=== PATIENT | female | born 1985 | race Caucasian/White ===

== ENCOUNTER 2018-08-27 12:52 | Emergency (ER) | payer SELFPAY ==
--- OUTSIDE RECORDS SUMMARY | 2018-08-27 12:59 | XMS REPORT | CCD ---
:[address] [facility] Care Team Providers Name Role Phone Moris Jonas Consulting Provider Allergies, Adverse Reactions, Alerts Substance Reaction Status aspirin Active Benadryl Active Claritin Active vancomycin Active ZyrTEC Active Medications Medication Instructions Start Date End Date Status Tylenol 650 mg, 20.3 mL, Route: PO, Drug form: 03/02/2012 03/02/2012 Completed LIQ, ONCE, Dosing Weight 100, kg, Priority: STAT, Start date: 03/02/12 10:51:00, Stop date: 03/02/12 10:51:00 Vital Signs Most recent to oldest [Reference Range]: 1 Height 154.94 cm (03/02/2012 10:30:00) Weight 100.000 kg (03/02/2012 10:30:00) Results URINALYSIS Most recent to oldest [Reference Range]: 1 UA Turbidity [Clear] Slight *ABN* (03/02/2012 10:35:00) UA Color Ltyellow *NA* (03/02/2012 10:35:00) UA pH [5.0-8.0] 7.0 (03/02/2012 10:35:00) UA Spec Grav [<=1.030] 1.006 (03/02/2012 10:35:00) UA Glucose [Negative mg/dL] Negative mg/dL *NA* (03/02/2012 10:35:00) UA Blood [Negative] Negative (03/02/2012 10:35:00) UA Ketones [Negative mg/dL] Negative mg/dL *NA* (03/02/2012 10:35:00) UA Protein [Negative mg/dL] Negative mg/dL (03/02/2012 10:35:00) UA Urobilinogen [0.1-1.0 mg/dL] <=1.0 mg/dL *NA* (03/02/2012 10:35:00) UA Bili [Negative] Negative *NA* (03/02/2012 10:35:00) UA Leuk Est [Negative] Small *ABN* (03/02/2012 10:35:00) UA Nitrite [Negative] Negative (03/02/2012 10:35:00) UA WBC [0-5 /HPF] 3 /HPF (03/02/2012 10:35:00) UA RBC [0-2 /HPF] 1 /HPF (03/02/2012 10:35:00) UA Bacteria [None Seen /HPF] Few /HPF *NA* (03/02/2012 10:35:00) UA Sq Epi [Few /LPF] Many /LPF *ABN* (03/02/2012 10:35:00) UA Trans Epi [<=0 /LPF] 4 /LPF *HI* (03/02/2012 10:35:00) Microbiology Reports PROCEDURE:Culture: Urine STATUS: In Progress BODY SITE: COLLECTED DATE/TIME: 03/02/2012 10:35:00 SOURCE: Urine, Clean Catch FREE TEXT SOURCE: PRELIMINARY REPORTS Preliminary ReportHolding For Better Growth
--- OUTSIDE RECORDS SUMMARY | 2018-08-27 12:59 | XMS REPORT | Continuity of Care Document ---
:1985 Author Organization Interface Problems Problem Status Onset Classification Date Comments Source Date Reported CHF Active [address] BY DR Active [address] R/O LABOR Active [address] SHORTNESS OF BREATH Active [address], [place] 30WK PREG -PAIN Active [address] Q20.[address] CHEST PAIN FROM Active [facility] COUGHING [address] [place] ABD PAIN Active [facility] 0[address] [place] BACK PAIN Active [address] [place] FLU LIKE SYMPTOMS Active [address] [place] SOB Active [address] [place] RASH Active [address] [place] EAR ACHE Active [address]15 [place] LEFT EAR PAIN Active [address] [place] PNEUMONIA Active [address]14 [place] LABOR Active [address] Active [address] 37 WEEKS Active [facility] CHF, TGA, S/P [facility] 37 WEEKS CHF Active [address] 34 WKS Active [address] 4 WK 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 [place] CRAMPING Active [address]12 [place] KIDNEY FAILURE Resolved Problem 07/21/[address] Asthma Resolved Problem 07/21/[address] CHF Resolved Problem 07/21/[address] Transposition of Resolved Problem 07/21/2012 [facility] great vessels [address] [place] [address] PNEUMONIA, ORGANISM Active [facility] [place] THREAT LABOR Active [facility] [place] [facility] CHF NOS Active [facility] DISCORDANT Active [facility] VENTRICULOARTERIAL Medical CONNECTION Center HEART FAILURE, Active [facility] UNSPECIFIED Medical Center RELATED Active [facility] CONDITIONS, UNSP, Medical UNSP Center Medications Medication Details Route Status Patient Ordering Order Source Instructions Provider Date Colace 100 mg oral 100 mg, 1 cap, PO Active [place] /04/ [facility] [place] capsule PO, BID, PRN, 60 2012 Medical cap, 1, 1, Center Constipation, Substitution Allowed, CAP Colace 100 mg oral 100 mg, 1 cap, PO Active [place] /04/ [facility] [place] capsule PO, BID, PRN, 60 2012 Medical cap, 1, 1, Center Constipation, Substitution Allowed, CAP Wallace 5/325 oral 1-2 tab, PO, PO Active [place] 07/19/ [place] tablet Q6H, PRN, 20 2012 Medical tab, Pain, Center Substitution Allowed, Maintenance Wallace 5/325 oral 1-2 tab, PO, PO Active [place] 07/19/ [place] tablet Q6H, PRN, 20 2012 Medical tab, Pain, Center Substitution Allowed, Maintenance Colace 100 mg oral 100 mg, 1 cap, PO Active [place] 07/19/ [place] capsule PO, BID, PRN, 60 2012 Medical cap, 1, 1, Center Constipation, Substitution Allowed, CAP Wallace 5/325 oral 1-2 tab, PO, PO Active [place] /04/ [place] tablet Q6H, PRN, 20 2012 Medical tab, Pain, Center Substitution Allowed, Maintenance gentamicin + 530 mg, 13.25 IV No Gabriel [facility] Sodium Chloride mL, Route: IV, Longer 2012 Medical 0.9% IV 100 mL Drug form: INJ, Active Center [id number], Dosing Weight 107.5, kg, Start date: 07/15/12 23:00:00, Duration: 30 day, Stop date: 08/13/12 23:00:00, Pediatric DosingPediatric Dosing clindamycin 900 mg, 6 mL, IVPB No Gabriel [facility] Route: IVPB, Longer 2012 Medical Drug form: INJ, Active Center [id number], Dosing Weight 107.5, kg, Start date: 07/15/12 23:00:00, Duration: 30 day, Stop date: 08/14/12 15:00:00 ampicillin 2 gm, Route: IVPB No Gabriel [facility] IVPB, Drug form: 2012 Medical PDR/INJ, [id number], Active Center Dosing Weight 107.5, kg, Start date: 07/15/12 23:00:00, Duration: 30 day, Stop date: 08/14/12 17:00:00 levothyroxine 175 microgram, PO No [facility] Route: PO, Drug Longer 2012 Medical form: TAB, Active Center Daily, Dosing Weight 108.182, kg, Start date: 07/15/12 22:00:00, Duration: 30 day, Stop date: 08/14/12 9:00:00 Singulair 10 mg, 1 tab, PO No [facility] Route: PO, Drug Longer 2012 Medical form: TAB, QPM, Active Center Dosing Weight 108.182, kg, Start date: 07/15/12 22:00:00, Duration: 30 day, Stop date: 08/14/12 17:00:00 multivitamin, 1 tab, Route: PO No Venkata 07/16[facility] PO, Drug Form: Longer 2012 Medical TAB, Dosing Active Center Weight 108.182, kg, Daily, Start date: 07/15/12 21:00:00, Duration: 30 day, Stop date: 08/13/12 21:00:00 Saline Flush 0.9% 5 ml, Route: IVP No Mark 07/15[facility] IVP, Drug Form: 2012 Medical INJ, Dosing Active Center Weight 108.182, kg, Q12H, Start date: 07/15/12 9:00:00, Duration: 30 day, Stop date: 08/13/12 21:00:00 1 tab, Route: PO No 07/15[facility] Multivitamins oral PO, Drug Form: Longer 2012 Medical tablet TAB, Dosing Active Center Weight 108.182, kg, Daily, Start date: 07/15/12 9:00:00, Duration: 30 day, Stop date: 08/13/12 9:00:00 atenolol 25 mg 25 mg, 1 tab, PO No Morgan 07/15[facility] oral tablet Route: PO, Drug Longer 2012 Medical form: TAB, Active Center Daily, Dosing Weight 107.5, kg, Priority: NOW, Start date: 07/15/12 8:33:00, Duration: 30 day, Stop date: 08/13/12 9:00:00 magnesium sulfate 2 gm, 50 mL, IVPB No [facility] Route: IVPB, Longer 2012 Medical Drug form: INJ, Active Center Q2H, Dosing Weight 107.5, kg, Start date: 07/15/12 6:00:00, Duration: 3 doses or times, Stop date: 07/15/12 10:00:00, For Mg=1.0 - 1.4 mg/dLFor Mg=1.0 - 1.4 mg/dL HYDROmorphone 15 mg, 30 mL, IV No Hastings [facility] 0.5mg/mL RESIDENTIAL CARE OFFICER Route: IV, RESIDENTIAL CARE OFFICER Longer 2012 Medical (15mg/30 mL) 15 mg Dose: 0.2 mg, Active Center RESIDENTIAL CARE OFFICER Lockout: 10 minutes, 4 Hour Limit (In MG): 5, Drug Form: INJ, Continuous, Start date: 07/15/12 3:00:00, Duration: 30 day, Stop date: 08/14/12 3:59:00 M-M-R II 0.5 ml, Route: SUB-Q No [facility] SUB-Q, Drug Longer 2012 Medical Form: PDR/INJ, Active Center Dosing Weight 108.182, kg, ONCALL, Start date: 07/15/12 2:00:00, Duration: 1 doses or times, Stop date: 07/22/12 0:00:00 acetaminophen-hydr 2 tab, Route: PO No [facility] ocodone 325 mg-5 PO, Drug Form: 2012 Medical mg oral tablet TAB, Dosing Active Center Weight 108.182, kg, Q4H, PRN Pain Score 4-6, Start date: 07/15/12 1:53:00, Duration: 30 day, Stop date: 08/14/12 1:52:00 Lactated Ringers 20 unit, 1,000 IV No [facility] 1000ml+Pitocin 20 mL, Rate: 50 Longer 2012 Medical units IV (Premix) ml/hr, Infuse Active Center 20 unit over: 20 hr, Dosing Weight 108.182, kg, Route: IV, Total Volume: 1,000 mL, Start date: 07/15/12 1:53:00, Duration: 2 day, Stop date: 07/17/12 1:52:00, Replace Every: 8 hr Saline Flush 0.9% 5 ml, Route: IVP No Mark 07/15[facility] IVP, Drug Form: 2012 Medical INJ, Dosing Active Center Weight 108.182, kg, PRN, PRN Line Flush, Start date: 07/15/12 1:53:00, Duration: 30 day, Stop date: 08/14/12 2:52:00 acetaminophen 650 mg, 2 tab, PO No Britt 07/15[facility] Route: PO, Drug 2012 Medical form: TAB, Q4H, Active Center Dosing Weight 108.182, kg, PRN Other -See Comment, Start date: 07/15/12 1:53:00, Duration: 30 day, Stop date: 08/14/12 1:52:00 bisacodyl 10 mg, 1 supp, SC No [facility] 07/15[facility] Route: SC, Drug 2012 Medical form: SUPP, PRN, Active Center Dosing Weight 108.182, kg, PRN Other -See Comment, Start date: 07/15/12 1:53:00, Duration: 30 day, Stop date: 08/14/12 2:52:00 lanolin topical 1 appl, Route: TOP No [facility] 07/15[facility] cream TOP, PRN, Drug 2012 Medical form: OINT, PRN Active Center Other -See Comment, Start date: 07/15/12 1:53:00, Duration: 30 day, Stop date: 08/14/12 2:52:00 zolpidem 5 mg, 1 tab, PO No [facility] 07/15[facility] Route: PO, Drug 2012 Medical form: TAB, Active Center Bedtime, Dosing Weight 108.182, kg, PRN Insomnia, Start date: 07/15/12 1:53:00, Duration: 30 day, Stop date: 08/14/12 1:52:00 simethicone 160 mg, 2 tab, PO No [facility] 07/15[facility] Route: PO, Drug 2012 Medical form: [place], Active Center Q8H, Dosing Weight 108.182, kg, PRN Gas, Start date: 07/15/12 1:53:00, Duration: 30 day, Stop date: 08/14/12 1:52:00 azithromycin 500 mg, Route: IVPB No Ezedinma [facility] IVPB, Drug form: Longer 2012 Medical PDR/INJ, ONCALL, Active Center Dosing Weight 108.182, kg, Start date: 07/14/12 23:00:00, Duration: 1 doses or times, Stop date: 07/16/12 0:00:00 morphine Sulfate 2 mg, 1 mL, IVP No edinma [facility] Route: IVP, Drug Longer 2012 Medical form: INJ, Q2H, Active Center Dosing Weight 108.182, kg, PRN Pain, Start date: 07/14/12 22:07:00, Duration: 30 day, Stop date: 08/13/12 22:06:00 Synthroid 75 microgram, 1 PO No [facility] tab, Route: PO, Longer 2012 Medical Drug form: TAB, Active Center Q630AM, Start date: 07/14/12 22:00:00, Duration: 30 day, Stop date: 08/12/12 22:00:00 Levothroid 100 microgram, 1 PO No Britt [facility] tab, Route: PO, Longer 2012 Medical Drug form: TAB, Active Center Q630AM, Start date: 07/14/12 22:00:00, Duration: 30 day, Stop date: 08/12/12 22:00:00 methylergonovine 0.2 mg, 1 mL, IM No edinri 07/15[facility] Route: IM, Drug 2012 Medical form: INJ, Active Center ONCALL, Dosing Weight 108.182, kg, Start date: 07/14/12 22:00:00, Duration: 30 day, Stop date: 08/13/12 22:59:00 carboprost 250 microgram, 1 IM No edinma [facility] mL, Route: IM, Longer 2012 Medical Drug form: INJ, Active Center ONCALL, Dosing Weight 108.182, kg, Start date: 07/14/12 22:00:00, Duration: 30 day, Stop date: 08/13/12 22:59:00 metoclopramide 10 mg, 2 mL, IVP No edinma 07/15[facility] Route: IVP, Drug 2012 Medical form: INJ, Active Center ONCALL, Dosing Weight 108.182, kg, Start date: 07/14/12 22:00:00, Duration: 30 day, Stop date: 08/13/12 22:59:00 misoprostol 1,000 microgram, SC No [facility] 5 tab, Route: 2012 Medical SC, Drug form: Active Center TAB, ERICK, Dosing Weight 108.182, kg, Start date: 07/14/12 22:00:00, Duration: 30 day, Stop date: 08/13/12 22:59:00 cefazolin 3 gm, 150 mL, IVPB No edinma [facility] Route: IVPB, 2012 Medical Drug form: INJ, Active Center ONCALL, Dosing Weight 108.182, kg, Start date: 07/14/12 22:00:00, Stop date: 07/16/12 0:00:00 morphine Sulfate 2 mg, 1 mL, IVP No edinma 07/15[facility] Route: IVP, Drug 2012 Medical form: INJ, Q2H, Active Center Dosing Weight 108.182, kg, PRN Pain, Start date: 07/14/12 21:58:00, Duration: 30 day, Stop date: 08/13/12 21:57:00 morphine Sulfate 2 mg, 1 mL, IVP No Britt 07/15[facility] Route: IVP, Drug 2012 Medical form: INJ, Q2H, Active Center Dosing Weight 108.182, kg, PRN Pain, Start date: 07/14/12 21:49:00, Duration: 30 day, Stop date: 08/13/12 21:48:00 ondansetron 4 mg, 2 mL, IVP No edinma 07/15[facility] Route: IVP, Drug 2012 Medical form: INJ, Q8H, Active Center Dosing Weight 108.182, kg, PRN Nausea & Vomiting, Start date: 07/14/12 21:49:00, Duration: 30 day, Stop date: 08/13/12 21:48:00 Lactated Ringers 20 unit, 1,000 IV No Britt 02/28/ [facility] 1000ml+Oxytocin 20 mL, Rate: 50 Longer 2012 Medical units IV (Premix) ml/hr, Infuse Active Center 20 unit over: 20 hr, Dosing Weight 108.182, kg, Route: IV, Total Volume: 1,000 mL, Start date: 07/14/12 21:49:00, Duration: 2 day, Stop date: 07/16/12 21:48:00, Replace Every: 8 hr citric acid-sodium 30 ml, Route: PO No [facility] citrate PO, Drug Form: Longer 2012 Medical SOLN, Dosing Active Center Weight 108.182, kg, ONCE, Start date: 07/14/12 21:49:00, Duration: 1 doses or times, Stop date: 07/14/12 21:49:00 terbutaline 0.25 mg, 0.25 SUB-Q No Ezedinma [facility] mL, Route: Longer 2012 Medical SUB-Q, Drug Active Center form: INJ, ONCALL, Dosing Weight 108.182, kg, PRN Other -See Comment, Start date: 07/14/12 21:49:00, Duration: 1 doses or times, Stop date: 07/16/12 0:00:00 Lactated Ringers 1,000 mL, Rate: IV No [facility] IV 1,000 mL 125 ml/hr, Longer 2012 Medical Infuse over: 8 Active Center hr, Route: IV, kg, Total Volume: 1,000, Priority: STAT, Start date: 07/14/12 21:44:00, Duration: 30 day, Stop date: 08/13/12 21:43:00 acetaminophen-hydr 1 tab, Route: PO No [facility] ocodone 325 mg-5 PO, Drug Form: Longer 2012 Medical mg oral tablet TAB, Dosing Active Center Weight 108.182, kg, Q4H, PRN Pain Score 1-3, Start date: 07/14/12 21:42:00, Duration: 30 day, Stop date: 08/13/12 21:41:00 pneumococcal 0.5 ml, Route: IM No SYSTEM [facility] 23-valent vaccine IM, Drug Form: Longer 2012 Medical INJ, Daily, Active Center Start date: 05/25/12 9:00:00, Duration: 1 doses or times, Stop date: 05/25/12 9:00:00 Tylenol 650 mg, 20.3 mL, PO No Katrin 03/02[facility] Route: PO, Drug Longer 2011 form: LIQ, ONCE, Active Dosing Weight 100, kg, Priority: STAT, Start date: 03/02/12 10:51:00, Stop date: 03/02/12 10:51:00 Allergies, Adverse Reactions, Alerts Substance Category Reaction Severity Reaction Status Date Comments Source type Reported aspirin drug Allergy Active [facility] Benadryl drug Allergy Active [facility] Claritin drug Allergy Active [facility] vancomycin drug Allergy Active [facility] ZyrTEC drug Allergy Active [facility] Immunizations Immunization Date Given Site Status Last Updated Comments Source measles/mumps/rub 07/19/2012 completed [facility] vaccine Center Results Order Name Results Value Reference Date Interpretation Comments Source Range Chest Chest 1view EXAM: XR CHEST 1 VIEW 09/18 - [facility] 1view DX DX /2017 - [facility] DATE: 09/18/2017 12:31 PM CDT Read by: Bubba Emerson MD Dictated Date/time: 09/18/17 14:23 Electronically Signed by: Bubba Emerson MD 09/18/17 14:25 FINAL REPORT INDICATION: - SOB COMPARISON: PA and lateral chest x-rays April 26, 2016 TECHNIQUE: AP chest, semierect FINDINGS: Sternotomy wires are unchanged from the prior exam. The lungs are clear and the costophrenic sulci are sharp. The cardiomediastinal silhouette is enlarged however this may partly be due to patient positioning. Musculoskeletal findings are within normal. IMPRESSION: Cardiomegaly (may partly be due to patient positioning). The lungs are clear. Teeth Teeth EXAM: XR PANOREX 09/07 [facility] Complete Complete /2017 - Medical Full Mouth Full Mouth This report was dictated by a Recreation Manager/Fellow. I have personally reviewed the images as Center DX DX well as the Resident's interpretation and agree with the findings. DATE: 09/07/2017 3:49 PM CDT Read by: Nabil Lay MD Resident: Nabil Lay MD Dictated Date/time: 09/07/17 22:28 Electronically Signed by: Pepe Dent MD 09/07/17 23:50 FINAL REPORT INDICATION: - infection ADDITIONAL INFORMATION: 'tooth ache' COMPARISON: None TECHNIQUE: A single Panorex view of the jaw. UT SECTION: ER FINDINGS: There is no mandibular fracture. The temporomandibular joints are well aligned. Multiple teeth are absent including #1, 2, 3, 16, 17, 18, 19, 29, 31, 32. Multiple carious teeth are identified. The crowns of the right maxillary first premolar, left maxillary first and second premolars, left maxillary first molar, and the lateral margin of the right mandibular molar are eroded. There are lucencies at the apices of the right maxillary first premolar, left maxillary second premolar. IMPRESSION: Multiple carious teeth as described with periapical lucencies at the right maxillary first premolar and left maxillary second premolar. Chest 2 Chest 2 Patient Name: ZACH RUIZ 04/26 - [facility] views DX views DX - [place] : 1985; Age: 30 years y/o Female MR: [id number] Read by: Tano Salguero MD Dictated Date/time: 04/26/16 19:57 Electronically Signed by: Tano Salguero MD 04/26/16 20:01 FINAL REPORT Study: Chest 2 views DX 04/26/2016 7:20 PM [employer] Ordering Physician: Myriam Bui, MSN Comparison: 10/30/2014 Clinical Indication: Chest pain; Consolidative pulmonary parenchymal opacity is noted at the lateral aspect of the mid left lung partially effacing the left heart border consistent with lingular pneumonia. A few scattered interstitial opacities and granulomatous calcifications are noted bilaterally, nonspecific, likely chronic. The cardiomediastinal silhouette is normal. There is no pleural fluid collection noted. Wire sutures are noted at the sternum. IMPRESSION: Lingular pneumonia. SL: PJOHNSMARGARITA-MORGAN Abdomen Abdomen RUQ 08/21 - [facility] /2015 - [place] Study: Abdomen RUQ US Read by: Skyler Pacheco MD Dictated Date/time: 08/23/15 00:14 Electronically Signed by: Skyler Pacheco MD 08/23/15 00:16 FINAL REPORT Clinical Indication: Right upper quadrant pain Comparison: CT abdomen and pelvis from 01/22/2015 TECHNIQUE: Grayscale and limited color sonographic evaluation of the right upper quadrant was performed with standard technique. FINDINGS: The liver is normal in size and echotexture measuring 15.5 cm. The pancreas is normal in the visualized portions. IVC is patent. Gallbladder is contracted and without stones or sludge.There is no biliary duct dilatation. Common bile duct measures 4 mm. Sonographic Jernigan's sign is negative. The right kidney is normal in size and echotexture without stones or hydronephrosis. The right kidney measures 11.1 x 4.3 x 4.3 cm. The main portal vein is patent and with hepatopedal flow. No free fluid is noted. IMPRESSION: 1. Contracted gallbladder, otherwise unremarkable right upper quadrant ultrasound. SL: [id number] Preg < Preg < 14wks Study: Preg < 14wks Single gest w Transvag US ; Age: 29 years y/o Female 08/21 - [facility] 14wks Single [facility] Single w Transvag Clinical Indication: Abdominal pain, acute; gest w US Transvag Comparison: None Read by: Ishaan Nava MD US Dictated Date/time: 08/23/15 00:11 Electronically Signed by: Ishaan Nava MD 08/23/15 00:15 FINAL REPORT Technique: Grayscale, color and Doppler transabdominal and transvaginal imaging of the pelvis was performed with standard technique. FINDINGS: TRANSABDOMINAL PELVIC ULTRASOUND: UTERUS: The transabdominal pelvic ultrasound evaluation of the uterus shows that the anteverted uterus measures 10.8 x 4.2 x 7.3 cm in size. The uterine parenchyma is not well assessed on the transabdominal pelvic ultrasound. OVARIES: The ovaries are well seen on the transabdominal study and are remarkable for a 1.6 cm cyst in the right ovary. The left ovary contains a similar simple cysts. OTHER FINDINGS: Transabdominal images reveal a small amount of free fluid in the cul-de-sac. TRANSVAGINAL PELVIC ULTRASOUND: UTERUS: The pelvic transvaginal sonographic images show normal uterine contour and morphology. There is normal parenchymal echotexture. The endometrial stripe measures 6 mm in thickness. OVARIES: Right ovary measures 4.5 x 2.5 x 3.0 cm Left ovary measures 4.5 x 1.7 x 2.4 cm. There is normal ovarian contour and morphology. There are no adnexal masses. The Doppler images show normal bilateral ovarian arterial and venous blood flow. OTHER FINDINGS: The transvaginal sonographic images show no evidence of intrauterine device. IMPRESSION: 1. No intrauterine device identified. 2. Small cyst in the right and left ovaries. 3. Minimal free fluid in the cul-de-sac. 4. Mild enlargement of the uterus. SL: [id number] Renal Renal Stone CT ABDOMEN AND PELVIS WITHOUT CONTRAST, WITH RENAL STONE PROTOCOL. 01/[address] /2014 INDICATION: Right lower abdominal pain Read by: Mansoor Andres MD Dictated Date/time: 01/22/15 16:05 Electronically Signed by: Mansoor Andres MD 01/22/15 16:10 FINAL REPORT COMPARISON: CT abdomen pelvis 12/18/2003. Images were obtained through the abdomen and pelvis at 5 mm intervals without contrast. Axial images with sagittal and coronal reconstructions were obtained. Image quality is compromised by the large patient size. No urinary tract calculus, hydronephrosis or perinephric stranding is noted. The lung bases are clear. There is fatty infiltration of the liver. The spleen is prominent but unchanged. The gallbladder is contracted. Common duct is not dilated. The adrenals and pancreas appear normal. No gross intestinal lesion is evident, and there is no mesenteric inflammatory change. The appendix is normal. Uterus and adnexa are not remarkable. The bladder is empty. There is a small amount of gas within the vagina adjacent to cervix. IMPRESSION: 1. No urinary tract pathology or other acute abnormality. 2. Fatty liver and contracted gallbladder. SL: 12 Chest 2 Chest 2 PROCEDURE: Chest 2 views 10/30 - views DX views DX /2014 REASON FOR EXAM: See Clinic Indication CLINICAL INFORMATION Cough and fever Read by: Connor Rivera MD Dictated Date/time: 10/30/14 16:00 Electronically Signed by: Connor Rivera MD 10/30/14 16:01 FINAL REPORT COMPARISON: 10/2014. 10/2013 multiple x-rays. 07/2012. Right infrahilar pneumonia increased from the prior exams. Increased left lower lobe infiltrate. No effusions or pneumothorax. Normal heart and pulmonary vasculature. Intact osseous structures. IMPRESSION: Increased pneumonia. SL: 14 Chest Chest 1view 10/30 - 1view DX EXAM: Portable chest x-ray. HISTORY: Chest pain. Read by: Reese Carballo MD Dictated Date/time: 10/30/14 01:17 COMPARISON: 11/04/2013. Electronically Signed by: Reese Carballo MD 10/30/14 01:18 FINAL REPORT TECHNIQUE: Portable frontal view of the chest. FINDINGS: Shallow inspiration accentuates the pulmonary vessels. Question mild interstitial pneumonia versus superimposed vessels right infrahilar lung; correlate with physical exam. No pulmonary edema or significant pleural effusion. Heart size normal. SL: 12 Chest Chest 1view Portable chest: There has been improvement in the left lung opacity since 11/01/2013 with near resolution. The lungs and pleural spaces are otherwise clear. There is no other significant change. 11/04 - SL:13 Read by: Pepe Ruiz MD Dictated Date/time: 11/04/13 07:26 Electronically Signed by: Pepe Ruiz MD 11/04/13 07:27 FINAL REPORT Chest Chest 1view HISTORY: Shortness of breath. 11/01 - - One view chest. Read by: Osvaldo Ragsdale MD Dictated Date/time: 11/01/13 03:57 Electronically Signed by: Osvaldo Ragsdale MD 11/01/13 03:59 FINAL REPORT Comparison 07/16/2012. - - Read by: Osvaldo Ragsdale MD Dictated Date/time: 11/01/13 03:34 Electronically Signed by: Osvaldo Ragsdale MD 11/01/13 03:36 FINAL REPORT Left perihilar patchy infiltrate. Correlate clinically for pneumonia. No pleural effusion. Heart size normal. No evidence for CHF. IMPRESSION: Left pulmonary infiltrate. Correlate clinically for pneumonia. SL: 14 HISTORY: Chest pain. One view portable chest. Left perihilar, presumed lower lobe infiltrate. No pleural effusion. Heart size normal. No evidence for CHF. IMPRESSION: Left lower lobe opacity could represent pneumonia in the appropriate clinical setting. SL: 14 CHEMISTRY Magnesium 1.8 mg/dL 1.8 - 2.4 07/16 Normal [facility] /[address] [place] [address] CHEMISTRY Phosphorus 4.3 mg/dL 2.5 - 4.5 07/16 Normal [facility] CHEMISTRY Ca Norm 1.14 1.16 - 07/16 LOW [facility] mMol/L 1. [facility] CHEMISTRY Ca Ion 1.14 1.16 - 07/16 LOW [facility] mMol/L 1.30 [facility] CHEMISTRY Ca Norm mgdL 4.56 mg/dL 4.65 - 07/16 LOW [facility] 5. [facility] CHEMISTRY Ca Ion mgdL 4.56 mg/dL 4.65 - 07/16 LOW [facility] 5. [facility] CHEMISTRY AGAP 16.1 meq/L 10.0 - 07/16 Normal [facility] 20.0 [facility] CHEMISTRY eGFR 124 07/16 NA 2Result Comment: The eGFR is calculated using the CKD-EPI formula. In most young, healthy individuals the eGFR will be > 90 mL/min/1.73m2. The eGFR declines with age. An eGFR of 60-89 may be normal in [facility] mL/min/1. some populations, particularly the elderly, for whom the CKD-EPI formula has not been extensively validated. Use of the eGFR is not recommended in the following populations: [address] Individuals with unstable creatinine concentrations, including patients and those with serious co-morbid conditions. Patients with extremes in muscle mass or diet. The data above are obtained from the National Kidney Disease Education Program (NKDEP) which additionally recommends that when the eGFR is used in patients with extremes of body mass index for purposes of drug dosing, the eGFR should be multiplied by the estimated BMI. CHEMISTRY CO2 21 meq/L 24 - 32 07/16 LOW [facility] CHEMISTRY Calcium Lvl 7.6 mg/dL 8.5 - 10.5 07/16 LOW [facility] CHEMISTRY Chloride Lvl 107 meq/L 95 - 109 07/16 Normal [facility] CHEMISTRY Potassium 4.1 meq/L 3.5 - 5.1 07/[address] [facility] CHEMISTRY Glucose Lvl 85 mg/dL 70 - 99 07/16 Normal 4Interpretive Data: Adult reference range values reflect the clinical guidelines of the [place] [employer]. [facility] CHEMISTRY BUN 8 mg/dL 7 - 22 07/16 Normal [facility] CHEMISTRY Creatinine 0.6 mg/dL 0.5 - 1.4 07/[address] [facility] CHEMISTRY Sodium Lvl 140 meq/L 135 - 145 03/ Normal [facility] HEMATOLOGY Segs-Bands # 7.4 K/CMM 1.5 - 8.1 03/ Normal [facility] HEMATOLOGY Basophils 0.1 % 0.0 - 1.0 03/ Normal [facility] HEMATOLOGY Segs 81.8 % 45.0 - 03/ HI [place] 75.0 /2012 [facility] HEMATOLOGY Lymphocytes 10.6 % 20.0 - 03/ LOW [place] 40.0 /2012 [facility] HEMATOLOGY Monocytes 7.2 % 2.0 - 12.0 03/ Normal [facility] HEMATOLOGY Eosinophils 0.3 % 0.0 - 4.0 03/ Normal [facility] HEMATOLOGY Lymphocytes 1.0 K/CMM 1.0 - 5.5 03/ Normal [place] # /2012 [facility] HEMATOLOGY Monocytes # 0.6 K/CMM 0.0 - 0.8 03/ Normal [facility] HEMATOLOGY Hct 26.6 % 36.0 - 03/ [facility] 48.0 /2012 [facility] HEMATOLOGY MCH 31.0 pg 27.0 - 03/ Normal [facility] 31.0 [facility] HEMATOLOGY MCV 89.8 fL 81.0 - 03/ Normal [facility] 99.0 /2012 [facility] HEMATOLOGY Platelet 126 K/CMM 133 - 450 03/ LOW [facility] HEMATOLOGY MPV 9.0 fL 7.4 - 10.4 03 Normal [facility] HEMATOLOGY RDW 13.8 % 11.5 - 03/ Normal [facility] 14.5 /2012 [facility] HEMATOLOGY MCHC 34.6 g/dL 32.0 - 03/ Normal [facility] 36.0 /2012 [facility] HEMATOLOGY Hgb 9.2 g/dL 12.0 - 03/ [facility] 16.0 /2012 [facility] HEMATOLOGY RBC 2.96 M/CMM 4.20 - 03/ [facility] 5.40 /2012 [facility] HEMATOLOGY WBC 9.0 K/CMM 3.7 - 10.4 03 Normal [facility] HEMATOLOGY Plt Morph Clumped 03/ Normal [facility] (07/15/2012 23:00:00) [facility] HEMATOLOGY Lymphocytes 0.5 K/CMM 1.0 - 5.5 03/ LOW [place] # /2012 [facility] HEMATOLOGY Segs-Bands # 5.1 K/CMM 1.5 - 8.1 03 Normal [facility] HEMATOLOGY Basophils 0.3 % 0.0 - 1.0 03/ Normal [facility] HEMATOLOGY Eosinophils 0.1 % 0.0 - 4.0 03 Normal [facility] HEMATOLOGY Monocytes 4.6 % 2.0 - 12.0 03 Normal [facility] HEMATOLOGY RBC Morph Normal 07/16 Normal Medical (07/15/2012 23:00:00) Center HEMATOLOGY Segs 86.3 % 45.0 - 03/ [place] 75.0 /2012 [facility] HEMATOLOGY Lymphocytes 8.7 % 20.0 - 03/ [facility] [place] 40.0 /2012 [facility] HEMATOLOGY Monocytes # 0.3 K/CMM 0.0 - 0.8 03 Normal [facility] HEMATOLOGY MPV Clumped 7.4 - 10.4 03 NA [facility] HEMATOLOGY Platelet Clumped 133 - 450 03 NA [facility] HEMATOLOGY MCV 90.3 fL 81.0 - 03 Normal [facility] 99.0 /2012 [facility] HEMATOLOGY RBC 3.28 M/CMM 4.20 - 03/ LOW [place] 5.40 /2012 [facility] HEMATOLOGY WBC 6.0 K/CMM 3.7 - 10.4 03 Normal [facility] HEMATOLOGY MCH 30.3 pg 27.0 - 03 Normal [facility] 31.0 [facility] HEMATOLOGY RDW 13.6 % 11.5 - 03 Normal 6Result [facility] 14.5 /2012 Comment: [facility] Trina Bailey 07/15/2012 23:32:51 [facility] HEMATOLOGY MCHC 33.5 g/dL 32.0 - 03/ Normal [facility] 36.0 /2012 [facility] HEMATOLOGY Hgb 9.9 g/dL 12.0 - 03/ LOW [facility] 16.0 /2012 [facility] HEMATOLOGY Hct 29.6 % 36.0 - 03/ [facility] 48.0 [facility] BACTERIAL MRSA by PCR Negative 1 07/15 Normal 1Interpretive Data: Interpretive Data: The [employer] Light[employer] MRSA assay is a qualitative test for the direct detection of nasal colonization with methicillin-resistant Staphylococcus aureus (MRSA) to aid in the prevention and control of MRSA infections in healthcare settings. A positive result does not indicate an infection or require treatment. A negative result does not exclude colonization or infection. [facility] (07/15/2012 02:52:00) Center The polymerase chain reaction (PCR) assay detects a proprietary sequence indicative of the integration of the SCCmec cassette into the Staphylococcus aureus chromosome, indicating the presence of MRSA D NA. The assay utilizes FDA cleared IVD reagents. Performance characteristics have been verified by the [facility] within the [facility]. The [facility] Labor atory is authorized under the Clinical Laboratory Improvement Amendment of 1988 (CLIA-88) to perform high complexity testing. CHEMISTRY Phosphorus 3.5 mg/dL 2.5 - 4.5 07/15 Normal [facility] CHEMISTRY Magnesium 1.3 mg/dL 1.8 - 2.4 07/15 LOW [facility] Lvl [facility] CHEMISTRY Ca Ion 1.07 1.16 - 07/15 LOW [place] mMol/L 1. [facility] CHEMISTRY Ca Ion mgdL 4.28 mg/dL 4.65 - 07/15 LOW [place] 5.20 [facility] CHEMISTRY Ca Norm mgdL 4.32 mg/dL 4.65 - 07/15 LOW [place] 5.20 [facility] CHEMISTRY Ca Norm 1.08 1.16 - 07/15 LOW [place] mMol/L 1. [facility] CHEMISTRY AGAP 18.4 meq/L 10.0 - 07/15 Normal [facility] 20.0 [facility] CHEMISTRY eGFR 118 07/15 NA 3Result Comment: The eGFR is calculated using the CKD-EPI formula. In most young, healthy individuals the eGFR will be > 90 mL/min/1.73m2. The eGFR declines with age. An eGFR of 60-89 may be normal in [facility] mL/min/1.7 some populations, particularly the elderly, for whom the CKD-EPI formula has not been extensively validated. Use of the eGFR is not recommended in the following populations: [address] Center Individuals with unstable creatinine concentrations, including patients and those with serious co-morbid conditions. Patients with extremes in muscle mass or diet. The data above are obtained from the National Kidney Disease Education Program (NKDEP) which additionally recommends that when the eGFR is used in patients with extremes of body mass index for purposes of drug dosing, the eGFR should be multiplied by the estimated BMI. CHEMISTRY Glucose Lvl 102 mg/dL 70 - 99 07/15 [place] 5Interpretive Data: Adult reference range values reflect the clinical guidelines of the [place] [employer]. [facility] CHEMISTRY Potassium 4.4 meq/L 3.5 - 5.1 07/15 Normal [facility] CHEMISTRY Sodium Lvl 141 meq/L 135 - 145 07/15 Normal [facility] CHEMISTRY Chloride Lvl 112 meq/L 95 - 109 07/15 [facility] CHEMISTRY Creatinine 0.7 mg/dL 0.5 - 1.4 07/15 Normal [facility] CHEMISTRY BUN 7 mg/dL 7 - 22 07/15 Normal [facility] CHEMISTRY Calcium Lvl 7.7 mg/dL 8.5 - 10.5 07/15 [facility] CHEMISTRY CO2 15 meq/L 24 - 32 07/15 [facility] HEMATOLOGY Platelet 131 K/CMM 133 - 450 07/15 [facility] HEMATOLOGY MPV 9.4 fL 7.4 - 10.4 07/15 Normal [facility] HEMATOLOGY RDW 13.8 % 11.5 - 07/15 [facility] 14.5 [facility] HEMATOLOGY MCHC 34.6 g/dL 32.0 - 07/15 Normal [facility] 36.0 [facility] HEMATOLOGY MCH 31.0 pg 27.0 - 07/15 Normal [facility] 31.0 [facility] HEMATOLOGY MCV 89.6 fL 81.0 - 07/15 Normal [facility] 99.0 [facility] HEMATOLOGY Hct 29.8 % 36.0 - 07/15 [facility] 48.0 /2012 [facility] HEMATOLOGY RBC 3.33 M/CMM 4.20 - 07/15 [facility] 5.40 /2012 [facility] HEMATOLOGY WBC 10.8 K/CMM 3.7 - 10.4 07/15 HI [facility] HEMATOLOGY Hgb 10.3 g/dL 12.0 - 07/15 [facility] 16.0 [facility] HEMATOLOGY Segs-Bands # 9.9 K/CMM 1.5 - 8.1 07/15 [place] /2012 [facility] HEMATOLOGY Lymphocytes 0.4 K/CMM 1.0 - 5.5 07/15 LOW [place] # /2012 [facility] HEMATOLOGY Monocytes # 0.5 K/CMM 0.0 - 0.8 07/15 Normal [facility] HEMATOLOGY Segs 91.4 % 45.0 - 07/15 HI [place] 75.0 [facility] HEMATOLOGY Eosinophils 0.1 % 0.0 - 4.0 07/15 Normal [facility] HEMATOLOGY Lymphocytes 3.8 % 20.0 - 07/15 LOW [place] 40.0 /2012 [facility] HEMATOLOGY Basophils 0.1 % 0.0 - 1.0 07/15 Normal [facility] HEMATOLOGY Monocytes 4.6 % 2.0 - 12.0 07/15 Normal [facility] BLOOD BANK RBC product Product available 07/15 Normal [facility] RESULTS Medical (07/14/2012 22:07:57) [facility] BLOOD BANK Antibody Negative 07/15 Normal [facility] RESULTS [facility] (07/14/2012 22:07:00) Center BLOOD BANK ABO/Rh A POS 07/15 Unknown [facility] RESULTS [facility] IMMUNOLOGY Hep Bs Ag Negative Negative 07/15 NA [facility] *NA* [facility] (07/14/2012 22:07:00) IMMUNOLOGY RPR Non Reactive Non 07/15 Normal [facility] Reactive Medical (07/14/2012 22:07:00) Center CHEMISTRY LDH 144 unit/L 98 - 192 05/24 Normal [facility] CHEMISTRY Uric Acid 3.5 mg/dL 2.5 - 7.0 05/24 Normal [facility] CHEMISTRY A/G Ratio 1.0 0.7 - 1.6 05/24 Normal [facility] CHEMISTRY eGFR 142 05/24 NA 1Result Comment: The eGFR is calculated using the CKD-EPI formula. In most young, healthy individuals the eGFR will be > 90 mL/min/1.73m2. The eGFR declines with age. An eGFR of 60-89 may be normal in [facility] mL/min/1.7 /2012 some populations, particularly the elderly, for whom the CKD-EPI formula has not been extensively validated. Use of the eGFR is not recommended in the following populations: [facility] 3m2 Center Individuals with unstable creatinine concentrations, including patients and those with serious co-morbid conditions. Patients with extremes in muscle mass or diet. The data above are obtained from the National Kidney Disease Education Program (NKDEP) which additionally recommends that when the eGFR is used in patients with extremes of body mass index for purposes of drug dosing, the eGFR should be multiplied by the estimated BMI. CHEMISTRY Globulin 3.0 g/dL 2.0 - 4.0 05/24 Normal [facility] CHEMISTRY AGAP 12.2 meq/L 10.0 - 05/24 Normal [facility] 20.0 [facility] CHEMISTRY B/C Ratio 22 6 - 25 05/24 Normal [facility] CHEMISTRY AST 11 unit/L 0 - 37 05/24 [facility] CHEMISTRY Total 6.1 g/dL 6.4 - 8.4 05/24 [facility] CHEMISTRY Potassium 4.2 meq/L 3.5 - 5.1 05/[address] [facility] CHEMISTRY Sodium Lvl 138 meq/L 135 - 145 05/24 Normal [facility] CHEMISTRY Bili Total 0.4 mg/dL 0.2 - 1.3 05/24 Normal [facility]2012 [facility] CHEMISTRY Calcium Lvl 8.2 mg/dL 8.5 - 10.5 05/24 [facility]2012 [facility] CHEMISTRY Chloride Lvl 110 meq/L 95 - 109 05/24 HI [facility] CHEMISTRY CO2 20 meq/L 24 - 32 05/24 LOW [facility]2012 [facility] CHEMISTRY Creatinine 0.4 mg/dL 0.5 - 1.4 05/24 [facility] CHEMISTRY BUN 9 mg/dL 7 - 22 05/24 Normal [facility] CHEMISTRY Glucose Lvl 78 mg/dL 70 - 99 05/24 Normal 2Interpretive Data: Adult reference range values reflect the clinical guidelines of the [place] [employer]. [facility] CHEMISTRY Albumin Lvl 3.1 g/dL 3.5 - 5.0 05/24 LOW [facility] CHEMISTRY Alk Phos 67 unit/L 39 - 136 05/24 Normal [facility] CHEMISTRY ALT 18 unit/L 0 - 65 05/24 [facility] HEMATOLOGY MCV 89.3 fL 81.0 - 05/24 Normal [facility] 99.0 /2012 [facility] HEMATOLOGY MCHC 34.9 g/dL 32.0 - 05/24 Normal [facility] 36.0 /2012 [facility] HEMATOLOGY MCH 31.2 pg 27.0 - 05/24 HI [facility] 31.0 /2012 [facility] HEMATOLOGY MPV 9.0 fL 7.4 - 10.4 05/24 Normal [facility] HEMATOLOGY Platelet 142 K/CMM 133 - 450 05/24 Normal [facility] HEMATOLOGY RDW 13.3 % 11.5 - 05/24 Normal [facility] 14.5 /2012 [facility] HEMATOLOGY Hgb 11.3 g/dL 12.0 - 05/24 LOW [facility] 16.0 /2012 [facility] HEMATOLOGY WBC 8.8 K/CMM 3.7 - 10.4 05/24 Normal [facility] HEMATOLOGY RBC 3.62 M/CMM 4.20 - 05/24 LOW [facility] 5.40 /2012 [facility] HEMATOLOGY Hct 32.3 % 36.0 - 05/24 LOW [facility] 48.0 [facility] URINALYSIS UA <=1.0 0.1 - 1.0 05/24 [facility] Urobilinogen mg/dL Medical
*NA*< Center br/>(05/24 14:55:00) <sup> </sup> URINALYSIS UA Color Yellow Yellow 05/24 [facility] *NA* Center (05/24/2012 14:55:00) URINALYSIS UA Glucose Negative mg/dL Negative 05/24 [facility] *NA* Center (05/24/2012 14:55:00) URINALYSIS UA Ketones Negative mg/dL Negative 05/24 NA [facility] *NA* Center (05/24/2012 14:55:00) URINALYSIS UA Bili Negative Negative 05/24 [facility] *NA* Center (05/24/2012 14:55:00) URINALYSIS UA Leuk Est Small Negative 05/24 [facility] *ABN* Center (05/24/2012 14:55:00) URINALYSIS UA Blood Negative Negative 05/24 Normal Medical (05/24/2012 14:55:00) Center URINALYSIS UA Nitrite Negative Negative 05/24 Normal [facility] (05/24/2012 14:55:00) Center URINALYSIS UA Turbidity Slight Clear 05/24 [facility] (05/24/2012 14:55:00) URINALYSIS UA Spec Grav 1.017 <=1.030 05/24 Normal [facility] URINALYSIS UA pH 6.5 5.0 - 8.0 05/24 Normal [facility] URINALYSIS UA Protein 20 mg/dL Negative 05/24 [facility] *ABN* [facility] (05/24/2012 14:55:00) URINALYSIS UA Sq Epi Many /LPF Few 05/24 [facility] (05/24/2012 14:55:00) URINALYSIS UA WBC 8 /HPF 0 - 5 05/24 [facility] URINALYSIS UA RBC null 0 - 2 05/24 Normal [facility] URINALYSIS UA Bacteria Occasional /HPF None Seen 05/24 [facility] *NA* [facility] (05/24/2012 14:55:00) URINALYSIS UA Mucus Few /LPF None Seen 05/24 [facility] (05/24/2012 14:55:00) URINALYSIS UA Amorph Moderate /HPF None Seen 05/24 [facility] (05/24/2012 14:55:00) URINALYSIS UA <=1.0 0.1 - 1.0 03/02 [facility] Urobilinogen mg/dL [facility]
*NA*< br/>(03/02 10:35:00) <sup> </sup> URINALYSIS UA Color Ltyellow 03/02 NA [facility] URINALYSIS UA Bacteria Few /HPF None Seen 03/02 [facility] *NA* (03/02/2012 10:35:00) URINALYSIS UA RBC 1 /HPF 0 - 2 03/02 Normal [facility] URINALYSIS UA WBC 3 /HPF 0 - 5 03/02 Normal [facility] URINALYSIS UA Trans Epi 4 /LPF <=0 03/02 [facility] URINALYSIS UA Turbidity Slight Clear 03/02 [facility]2012 [facility] *ABN* (03/02/2012 10:35:00) URINALYSIS UA Leuk Est Small Negative 03/02 [facility] *ABN* (03/02/2012 10:35:00) URINALYSIS UA Nitrite Negative Negative 03/02 Normal [facility] (03/02/2012 10:35:00) URINALYSIS UA Blood Negative Negative 03/02 Normal [facility] (03/02/2012 10:35:00) URINALYSIS UA Ketones Negative mg/dL Negative 03/02 NA [facility] *NA* (03/02/2012 10:35:00) URINALYSIS UA Bili Negative Negative 03/02 NA [facility] *NA* (03/02/2012 10:35:00) URINALYSIS UA Glucose Negative mg/dL Negative 03/02 NA [facility] *NA* (03/02/2012 10:35:00) URINALYSIS UA Protein Negative mg/dL Negative 03/02 Normal [facility] (03/02/2012 10:35:00) URINALYSIS UA Spec Grav 1.006 <=1.030 03/02 Normal [facility] URINALYSIS UA pH 7.0 5.0 - 8.0 03/02 Normal [facility] URINALYSIS UA Sq Epi Many /LPF Few 03/02 [facility] *ABN* (03/02/2012 10:35:00) Microbi[employer] Culture: 03/02 [facility] Vital Signs Vital Sign Value Date Comments Source Diastolic (mm Hg) 55 07/16/2012 [facility] Systolic (mm Hg) 110 07/16/2012 [facility] Diastolic (mm Hg) 64 07/16/2012 [facility] Systolic (mm Hg) 113 07/16/2012 [facility] Temperature Oral (F) 97.8 F 07/16/2012 [facility] Temperature Oral (F) 98.4 F 07/16/2012 [facility] Systolic (mm Hg) 115 07/16/2012 [facility] Diastolic (mm Hg) 56 07/16/2012 [facility] Temperature Oral (F) 98.1 F 07/16/2012 [facility] Respitory Rate 18 07/16/2012 [facility] Respitory Rate 22 07/15/2012 [facility] Respitory Rate 19 07/15/2012 [facility] Weight 107.5 07/15/2012 [facility] Height 154.94 cm 07/15/2012 [facility] Weight 108.182 07/15/2012 [facility] Height 154.94 cm 07/15/2012 [facility] Weight 100.000 06/25/2012 [facility] Height 165.10 cm 06/25/2012 [facility] Weight 102.727 05/25/2012 [facility] Height 154.94 cm 05/25/2012 [facility] Weight 100.000 03/02/2012 [facility] Height 154.94 cm 03/02/2012 [facility] Encounters Location Location Encounter Encounter Reason Attending ADM DC Status Source Details Type Number For Visit Provider Date Date Emergency [id number] SHELISE 03/02 03/02 Active [facility] [place]RIN [facility] [place] [id number] 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 FARO /2012 [facility] [place] [id number] WK 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 [facility] GROWTH ORIN [facility] OU [id number] WKS JARRETT 06/25 06/[address] [facility] MANCILLA /2012 [facility] Inpatient [id number] LABOR JARRETT 07/[address] [facility] MANCILLA [facility] Preadmit [id number] [address] [facility] CHF, TGA, MARANGA Center S/P Procedures Procedure Code Date Perfomer Comments Source section [id number] 05/18/2002 [facility] Open heart [id number] [facility]
--- OUTSIDE RECORDS SUMMARY | 2018-08-27 12:59 | XMS REPORT | CCD ---
:1985 Author Organization [facility] Care Team Providers Name Role Phone Tommy Rodrigues Consulting Provider Allergies, Adverse Reactions, Alerts Substance Reaction Status aspirin Active Benadryl Active Claritin Active vancomycin Active ZyrTEC Active Medications Medication Instructions Start Date End Date Status pneumococcal 23-valent 0.5 ml, Route: IM, Drug 05/25/2012 05/24/2012 Canceled vaccine Form: INJ, Daily, Start date: 05/25/12 9:00:00, Duration: 1 doses or times, Stop date: 05/25/12 9:00:00 Vital Signs Most recent to oldest [Reference Range]: 1 Height 154.94 cm (05/24/2012 18:51:00) Weight 102.727 kg (05/24/2012 18:51:00) Results URINALYSIS Most recent to oldest [Reference Range]: 1 UA Turbidity [Clear] Slight *ABN* (05/24/2012 14:55:00) UA Color [Yellow] Yellow *NA* (05/24/2012 14:55:00) UA pH [5.0-8.0] 6.5 (05/24/2012 14:55:00) UA Spec Grav [<=1.030] 1.017 (05/24/2012 14:55:00) UA Glucose [Negative mg/dL] Negative mg/dL *NA* (05/24/2012 14:55:00) UA Blood [Negative] Negative (05/24/2012 14:55:00) UA Ketones [Negative mg/dL] Negative mg/dL *NA* (05/24/2012 14:55:00) UA Protein [Negative mg/dL] 20 mg/dL *ABN* (05/24/2012 14:55:00) UA Urobilinogen [0.1-1.0 mg/dL] <=1.0 mg/dL *NA* (05/24/2012:55:00) UA Bili [Negative] Negative *NA* (05/24/2012:55:00) UA Leuk Est [Negative] Small *ABN* (05/24/2012:55:00) UA Nitrite [Negative] Negative (05/24/2012:55:00) UA WBC [0-5 /HPF] 8 /HPF *HI* (05/24/2012:55:) UA RBC [0-2 /HPF] <1 /HPF (05/24/2012:55:00) UA Bacteria [None Seen /HPF] Occasional /HPF *NA* (05/24/2012:55:00) UA Sq Epi [Few /LPF] Many /LPF *ABN* (05/24/2012:55:00) UA Amorph Sarah [None Seen /HPF] Moderate /HPF *ABN* (05/24/2012:55:00) UA Mucus [None Seen /LPF] Few /LPF *NA* (05/24/2012:55:00) CHEMISTRY Most recent to oldest [Reference Range]: 1 Sodium Lvl [135-145 mEq/L] 138 mEq/L (05/24/2012:55:00) Potassium Lvl [3.5-5.1 mEq/L] 4.2 mEq/L (05/24/2012:55:00) Chloride Lvl [95-109 mEq/L] 110 mEq/L *HI* (05/24/2012:55:) CO2 [24-32 mEq/L] 20 mEq/L *LOW* (05/24/2012:55:) AGAP [10.0-20.0 mEq/L] 12.2 mEq/L (05/24/2012:55:00) Creatinine Lvl [0.5-1.4 mg/dL] 0.4 mg/dL *LOW* (05/24/2012:55:00) eGFR 142 mL/min/1.73m2 1 *NA* (05/24/2012:55:00) BUN [7-22 mg/dL] 9 mg/dL (05/24/2012:55:00) B/C Ratio [6-25] 22 (05/24/2012:) Glucose Lvl [70-99 mg/dL] 78 mg/dL 2 (05/24/2012) Uric Acid [2.5-7.0 mg/dL] 3.5 mg/dL (05/24/2012) Total Protein [6.4-8.4 g/dL] 6.1 g/dL *LOW* (05/24/2012) Albumin Lvl [3.5-5.0 g/dL] 3.1 g/dL *LOW* (05/24/2012) Globulin [2.0-4.0 g/dL] 3.0 g/dL (05/24/2012) A/G Ratio [0.7-1.6] 1.0 (05/24/2012) Calcium Lvl [8.5-10.5 mg/dL] 8.2 mg/dL *LOW* (05/24/2012) ALT [0-65 unit/L] 18 unit/L (05/24/2012:) AST [0-37 unit/L] 11 unit/L (05/24/2012) Alk Phos [39-136 unit/L] 67 unit/L (05/24/2012) LDH [98-192 unit/L] 144 unit/L (05/24/2012) Bili Total [0.2-1.3 mg/dL] 0.4 mg/dL (05/24/2012) 1Result Comment: The eGFR is calculated using the CKD-EPI formula. In most young , healthy individualsthe eGFR will be >90 mL/min/1.73m2. The eGFR declines with age. An eGFR of 60-89 may be normal in some populations, particularly the elderly, for whom the CKD-EPI formula has not been extensively validated. Use of the eGFR is not recommended in the following populations: Individuals with unstable creatinine concentrations, including patients and those with serious co-morbid conditions. Patients with extremes in muscle mass or diet. The data above are obtained from the National Kidney Disease Education Program ( NKDEP) which additionally recommends that when the eGFR is used in patients with extremes of body mass index for purposesof drug dosing, the eGFR should be multiplied by the estimated BMI.2Interpretive Data: Adult reference range values reflect the clinical guidelines of the [place] [employer].HEMATOLOGY Most recent to oldest [Reference Range]: 1 WBC [3.7-10.4 K/CMM] 8.8 K/CMM (05/24/2012 14:55:00) RBC [4.20-5.40 M/CMM] 3.62 M/CMM *LOW* (05/24/2012:55:) Hgb [12.0-16.0 g/dL] 11.3 g/dL *LOW* (05/24/2012:55:) Hct [36.0-48.0 %] 32.3 % *LOW* (05/24/2012 14:55:) MCV [81.0-99.0 fL] 89.3 fL (05/24/2012:55:) MCH [27.0-31.0 pg] 31.2 pg *HI* (05/24/2012:55:) MCHC [32.0-36.0 g/dL] 34.9 g/dL (05/24/2012:55:) RDW [11.5-14.5 %] 13.3 % (05/24/2012:55:) Platelet [133-450 K/CMM] 142 K/CMM (05/24/2012 14:55:00) MPV [7.4-10.4 fL] 9.0 fL (05/24/2012 14:55:00)
--- OUTSIDE RECORDS SUMMARY | 2018-08-27 12:59 | XMS REPORT | CCD ---
:1985 Author Organization [facility] Care Team Providers Name Role Phone Loli York Referring Provider Allergies, Adverse Reactions, Alerts Substance Reaction Status aspirin Active Benadryl Active Claritin Active vancomycin Active ZyrTEC Active
--- OUTSIDE RECORDS SUMMARY | 2018-08-27 13:00 | XMS REPORT | CCD ---
:1985 Author Organization [facility] Care Team Providers Name Role Phone Loli York Referring Provider Allergies, Adverse Reactions, Alerts Substance Reaction Status aspirin Active Benadryl Active Claritin Active vancomycin Active ZyrTEC Active
--- OUTSIDE RECORDS SUMMARY | 2018-08-27 13:00 | XMS REPORT | CCD ---
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 Medications Medication Instructions Start Date End Date Status HYDROmorphone 0.5mg/mL [employer] 15 mg, 30 mL, Route: 07/15/2012 07/16/2012 Discontinued (15mg/30 mL) 15 mg IV, [employer] Dose: 0.2 mg, [employer] Lockout: 10 minutes, 4 Hour Limit (In MG): 5, Drug Form: INJ, Continuous, Start date: 07/15/12 3:00:00, Duration: 30 day, Stop date: 08/14/12 3:59:00 Harrison 5/325 oral tablet 1-2 tab, PO, Q6H, PRN, 07/19/2012 Ordered 20 tab, Pain, Substitution Allowed, Maintenance Synthroid 75 microgram, 1 tab, 07/14/2012 07/19/2012 Discontinued Route: PO, Drug form: TAB, [id number], Start date: 07/14/12 22:00:00, Duration: 30 day, Stop date: 08/12/12 22:00:00 Levothroid 100 microgram, 1 tab, 07/14/2012 07/19/2012 Discontinued Route: PO, Drug form: TAB, [id number], Start date: 07/14/12 22:00:00, Duration: 30 day, Stop date: 08/12/12 22:00:00 Harrison 5/325 oral tablet 1-2 tab, PO, Q6H, PRN, 07/19/2012 Ordered 20 tab, Pain, Substitution Allowed, Maintenance atenolol 25 mg oral tablet 25 mg, 1 tab, Route: 07/15/2012 07/15/2012 Discontinued PO, Drug form: TAB, Daily, Dosing Weight 107.5, kg, Priority: NOW, Start date: 07/15/12 8:33:00, Duration: 30 day, Stop date: 08/13/12 9:00:00 Colace 100 mg oral capsule 100 mg, 1 cap, PO, BID, 07/19/2012 Ordered PRN, 60 cap, 1, 1, Constipation, Substitution Allowed, CAP morphine Sulfate 2 mg, 1 mL, Route: IVP, 07/14/2012 07/19/2012 Discontinued Drug form: INJ, Q2H, Dosing Weight 108.182, kg, PRN Pain, Start date: 07/14/12 22:07:00, Duration: 30 day, Stop date: 08/13/12 22:06:00 gentamicin + Sodium 530 mg, 13.25 mL, Route: IV, Drug form: INJ, [id number], Dosing Weight 107.5, kg, Start date: 07/15/12 23:00:00, Duration: 30 day, Stop date: 08/13/12 23:00:00, Pediatric Dosing 07/15/2012 07/19/2012 Discontinued Chloride 0.9% IV 100 mL Pediatric Dosing morphine Sulfate 2 mg, 1 mL, Route: IVP, 07/14/2012 07/14/2012 Discontinued Drug form: INJ, Q2H, Dosing Weight 108.182, kg, PRN Pain, Start date: 07/14/12 21:58:00, Duration: 30 day, Stop date: 08/13/12 21:57:00 clindamycin 900 mg, 6 mL, Route: 07/15/2012 07/19/2012 Discontinued IVPB, Drug form: INJ, [id number], Dosing Weight 107.5, kg, Start date: 07/15/12 23:00:00, Duration: 30 day, Stop date: 08/14/12 15:00:00 ampicillin 2 gm, Route: IVPB, Drug 07/15/2012 07/19/2012 Discontinued form: PDR/INJ, [id number], Dosing Weight 107.5, kg, Start date: 07/15/12 23:00:00, Duration: 30 day, Stop date: 08/14/12 17:00:00 levothyroxine 175 microgram, Route: 07/15/2012 07/15/2012 Discontinued PO, Drug form: TAB, Daily, Dosing Weight 108.182, kg, Start date: 07/15/12 22:00:00, Duration: 30 day, Stop date: 08/14/12 9:00:00 Lactated Ringers IV 1,000 1,000 mL, Rate: 125 07/14/2012 07/15/2012 Discontinued mL ml/hr, Infuse over: 8 hr, Route: IV, kg, Total Volume: 1,000, Priority: STAT, Start date: 07/14/12 21:44:00, Duration: 30 day, Stop date: 08/13/12 21:43:00 Harrison 5/325 oral tablet 1-2 tab, PO, Q6H, PRN, 07/19/2012 Ordered 20 tab, Pain, Substitution Allowed, Maintenance Singulair 10 mg, 1 tab, Route: 07/15/2012 07/19/2012 Discontinued PO, Drug form: TAB, QPM, Dosing Weight 108.182, kg, Start date: 07/15/12 22:00:00, Duration: 30 day, Stop date: 08/14/12 17:00:00 acetaminophen-hydrocodone 1 tab, Route: PO, Drug 07/14/2012 07/15/2012 Discontinued 325 mg-5 mg oral tablet Form: TAB, Dosing Weight 108.182, kg, Q4H, PRN Pain Score 1-3, Start date: 07/14/12 21:42:00, Duration: 30 day, Stop date: 08/13/12 21:41:00 acetaminophen-hydrocodone 2 tab, Route: PO, Drug 07/14/2012 07/15/2012 Discontinued 325 mg-5 mg oral tablet Form: TAB, Dosing Weight 108.182, kg, Q4H, PRN Pain Score 4-6, Start date: 07/14/12 21:42:00, Duration: 30 day, Stop date: 08/13/12 21:41:00 multivitamin, 1 tab, Route: PO, Drug 07/15/2012 07/16/2012 Discontinued Form: TAB, Dosing Weight 108.182, kg, Daily, Start date: 07/15/12 21:00:00, Duration: 30 day, Stop date: 08/13/12 21:00:00 magnesium sulfate 2 gm, 50 mL, Route: IVPB, Drug form: INJ, Q2H, Dosing Weight 107.5, kg, Start date: 07/15/12 6:00:00, Duration: 3 doses or times, Stop date: 07/15/12 10:00:00, For Mg=1.0 - 1.4 mg/dL 07/15/2012 07/15/2012 Completed For Mg=1.0 - 1.4 mg/dL Colace 100 mg oral capsule 100 mg, 1 cap, PO, BID, 07/19/2012 Ordered PRN, 60 cap, 1, 1, Constipation, Substitution Allowed, CAP Colace 100 mg oral capsule 100 mg, 1 cap, PO, BID, 07/19/2012 Ordered PRN, 60 cap, 1, 1, Constipation, Substitution Allowed, CAP acetaminophen-hydrocodone 2 tab, Route: PO, Drug 07/15/2012 07/19/2012 Discontinued 325 mg-5 mg oral tablet Form: TAB, Dosing Weight 108.182, kg, Q4H, PRN Pain Score 4-6, Start date: 07/15/12 1:53:00, Duration: 30 day, Stop date: 08/14/12 1:52:00 acetaminophen-hydrocodone 1 tab, Route: PO, Drug 07/15/2012 07/19/2012 Discontinued 325 mg-5 mg oral tablet Form: TAB, Dosing Weight 108.182, kg, Q4H, PRN Pain Score 1-3, Start date: 07/15/12 1:53:00, Duration: 30 day, Stop date: 08/14/12 1:52:00 Lactated Ringers 20 unit, 1,000 mL, 07/15/2012 07/17/2012 Completed 1000ml+Pitocin 20 units IV Rate: 50 ml/hr, Infuse (Premix) 20 unit over: 20 hr, Dosing Weight 108.182, kg, Route: IV, Total Volume: 1,000 mL, Start date: 07/15/12 1:53:00, Duration: 2 day, Stop date: 07/17/12 1:52:00, Replace Every: 8 hr Saline Flush 0.9% 5 ml, Route: IVP, Drug 07/15/2012 07/18/2012 Discontinued Form: INJ, Dosing Weight 108.182, kg, PRN, PRN Line Flush, Start date: 07/15/12 1:53:00, Duration: 30 day, Stop date: 08/14/12 2:52:00 Saline Flush 0.9% 5 ml, Route: IVP, Drug 07/15/2012 07/18/2012 Discontinued Form: INJ, Dosing Weight 108.182, kg, Q12H, Start date: 07/15/12 9:00:00, Duration: 30 day, Stop date: 08/13/12 21:00:00 acetaminophen 650 mg, 2 tab, Route: 07/15/2012 07/15/2012 Discontinued PO, Drug form: TAB, Q4H, Dosing Weight 108.182, kg, PRN Other -See Comment, Start date: 07/15/12 1:53:00, Duration: 30 day, Stop date: 08/14/12 1:52:00 bisacodyl 10 mg, 1 supp, Route: 07/15/2012 07/19/2012 Discontinued MD, Drug form: SUPP, PRN, Dosing Weight 108.182, kg, PRN Other -See Comment, Start date: 07/15/12 1:53:00, Duration: 30 day, Stop date: 08/14/12 2:52:00 bisacodyl 15 mg, 3 tab, Route: 07/15/2012 07/15/2012 Discontinued PO, Drug form: ECTAB, Daily, Dosing Weight 108.182, kg, PRN Other -See Comment, Start date: 07/15/12 1:53:00, Duration: 30 day, Stop date: 08/14/12 1:52:00 lanolin topical cream 1 appl, Route: TOP, 07/15/2012 07/19/2012 Discontinued PRN, Drug form: OINT, PRN Other -See Comment, Start date: 07/15/12 1:53:00, Duration: 30 day, Stop date: 08/14/12 2:52:00 Multivitamins oral 1 tab, Route: PO, Drug 07/15/2012 07/15/2012 Canceled tablet Form: TAB, Dosing Weight 108.182, kg, Daily, Start date: 07/15/12 9:00:00, Duration: 30 day, Stop date: 08/13/12 9:00:00 zolpidem 5 mg, 1 tab, Route: PO, 07/15/2012 07/19/2012 Discontinued Drug form: TAB, Bedtime, Dosing Weight 108.182, kg, PRN Insomnia, Start date: 07/15/12 1:53:00, Duration: 30 day, Stop date: 08/14/12 1:52:00 M-M-R II 0.5 ml, Route: SUB-Q, 07/15/2012 07/19/2012 Completed Drug Form: PDR/INJ, Dosing Weight 108.182, kg, ONCALL, Start date: 07/15/12 2:00:00, Duration: 1 doses or times, Stop date: 07/22/12 0:00:00 simethicone 160 mg, 2 tab, Route: 07/15/2012 07/19/2012 Discontinued PO, Drug form: CHEWTAB, Q8H, Dosing Weight 108.182, kg, PRN Gas, Start date: 07/15/12 1:53:00, Duration: 30 day, Stop date: 08/14/12 1:52:00 morphine Sulfate 2 mg, 1 mL, Route: IVP, 07/14/2012 07/15/2012 Discontinued Drug form: INJ, Q2H, Dosing Weight 108.182, kg, PRN Pain, Start date: 07/14/12 21:49:00, Duration: 30 day, Stop date: 08/13/12 21:48:00 methylergonovine 0.2 mg, 1 mL, Route: 07/14/2012 07/19/2012 Discontinued IM, Drug form: INJ, ONCALL, Dosing Weight 108.182, kg, Start date: 07/14/12 22:00:00, Duration: 30 day, Stop date: 08/13/12 22:59:00 carboprost 250 microgram, 1 mL, 07/14/2012 07/19/2012 Discontinued Route: IM, Drug form: INJ, ONCALL, Dosing Weight 108.182, kg, Start date: 07/14/12 22:00:00, Duration: 30 day, Stop date: 08/13/12 22:59:00 ondansetron 4 mg, 2 mL, Route: IVP, 07/14/2012 07/19/2012 Discontinued Drug form: INJ, Q8H, Dosing Weight 108.182, kg, PRN Nausea & Vomiting, Start date: 07/14/12 21:49:00, Duration: 30 day, Stop date: 08/13/12 21:48:00 metoclopramide 10 mg, 2 mL, Route: 07/14/2012 07/19/2012 Discontinued IVP, Drug form: INJ, ONCALL, Dosing Weight 108.182, kg, Start date: 07/14/12 22:00:00, Duration: 30 day, Stop date: 08/13/12 22:59:00 misoprostol 1,000 microgram, 5 tab, 07/14/2012 07/19/2012 Discontinued Route: MD, Drug form: TAB, ONCALL, Dosing Weight 108.182, kg, Start date: 07/14/12 22:00:00, Duration: 30 day, Stop date: 08/13/12 22:59:00 Lactated Ringers 20 unit, 1,000 mL, 07/14/2012 07/16/2012 Completed 1000ml+Oxytocin 20 units IV Rate: 50 ml/hr, Infuse (Premix) 20 unit over: 20 hr, Dosing Weight 108.182, kg, Route: IV, Total Volume: 1,000 mL, Start date: 07/14/12 21:49:00, Duration: 2 day, Stop date: 07/16/12 21:48:00, Replace Every: 8 hr citric acid-sodium citrate 30 ml, Route: PO, Drug 07/14/2012 07/15/2012 Discontinued Form: SOLN, Dosing Weight 108.182, kg, ONCE, Start date: 07/14/12 21:49:00, Duration: 1 doses or times, Stop date: 07/14/12 21:49:00 terbutaline 0.25 mg, 0.25 mL, 07/14/2012 07/16/2012 Completed Route: SUB-Q, Drug form: INJ, ONCALL, Dosing Weight 108.182, kg, PRN Other -See Comment, Start date: 07/14/12 21:49:00, Duration: 1 doses or times, Stop date: 07/16/12 0:00:00 azithromycin 500 mg, Route: IVPB, 07/14/2012 07/15/2012 Completed Drug form: PDR/INJ, ONCALL, Dosing Weight 108.182, kg, Start date: 07/14/12 23:00:00, Duration: 1 doses or times, Stop date: 07/16/12 0:00:00 cefazolin 3 gm, 150 mL, Route: 07/14/2012 07/15/2012 Completed IVPB, Drug form: ERICK JARAMILLO, Dosing Weight 108.182, kg, Start date: 07/14/12 22:00:00, Stop date: 07/16/12 0:00:00 Immunizations Vaccine Date Status measles/mumps/rubella virus vaccine 07/19/2012 Auth (Verified) Vital Signs Most recent to oldest 1 2 3 [Reference Range]: Height 154.94 cm 154.94 cm (07/15/2012 03:07:00) (07/14/2012 20:36:00) Temperature Oral 97.8 DegF 98.4 DegF 98.1 DegF [96.4-99.1 DegF] (07/16/2012 15:49:00) (07/16/2012 11:32:00) (07/16/2012 08: 33:00) Systolic Blood Pressure 110 mmHg 113 mmHg 115 mmHg [90-140 mmHg] (07/16/2012 17:05:00) (07/16/2012 15:49:00) (07/16/2012 11:32: 00) Diastolic Blood Pressure 55 mmHg 64 mmHg 56 mmHg [60-90 mmHg] *LOW* (07/16/2012 15:49:00) *LOW* (07/16/2012 17:05:00) (07/16/2012 11:32:00) Respiratory Rate [14-20 18 BRMIN 22 BRMIN 19 BRMIN BRMIN] (07/15/2012 19:00:00) *HI* (07/15/2012 15:30:00) (07/15/2012 16:30:00) Weight 107.5 kg 108.182 kg (07/15/2012 03:07:00) (07/14/2012 20:36:00) Results BACTERIAL - SEROLOGY Most recent to oldest [Reference Range]: 1 2 3 MRSA by PCR Negative 1 (07/15/2012 02:52:00) 1Interpretive Data: Interpretive Data: The [employer] Light[employer] MRSA assay is a qualitative test for thedirect detection of nasal colonization with methicillin- resistant Staphylococcus aureus (MRSA) to aid in the prevention and control of MRSA infections in healthcare settings. A positive result does notindicate an infection or require treatment. A negative result does not exclude colonization or infection. The polymerase chain reaction (PCR) assay detects a proprietary sequence indicative of the integration of the SCCmec cassette into the Staphylococcus aureus chromosome, indicating the presence of MRSA DNA. The assay utilizes FDA cleared IVD reagents. Performance characteristics have been verified by the [facility] within the [facility]. The [facility] is authorized under the Clinical Laboratory Improvement Amendment of 1988 (CLIA-88) to performhigh complexity testing.BLOOD BANK RESULTS Most recent to oldest [Reference Range]: 1 2 3 ABO/Rh A POS *Unknown* (07/14/2012 22:07:00) Antibody Scrn Negative (07/14/2012 22:07:00) RBC product Product available (07/14/2012 22:07:57) CHEMISTRY Most recent to oldest [Reference 1 2 3 Range]: Sodium Lvl [135-145 mEq/L] 140 mEq/L 141 mEq/L (07/16/2012 03:56:00) (07/15/2012 02:52:00) Potassium Lvl [3.5-5.1 mEq/L] 4.1 mEq/L 4.4 mEq/L (07/16/2012 03:56:00) (07/15/2012 02:52:00) Chloride Lvl [95-109 mEq/L] 107 mEq/L 112 mEq/L (07/16/2012 03:56:00) *HI* (07/15/2012 02:52:00) CO2 [24-32 mEq/L] 21 mEq/L 15 mEq/L *LOW* *LOW* (07/16/2012 03:56:00) (07/15/2012 02:52:00) AGAP [10.0-20.0 mEq/L] 16.1 mEq/L 18.4 mEq/L (07/16/2012 03:56:00) (07/15/2012 02:52:00) Creatinine Lvl [0.5-1.4 mg/dL] 0.6 mg/dL 0.7 mg/dL (07/16/2012 03:56:00) (07/15/2012 02:52:00) eGFR 124 mL/min/1.73m2 2 118 mL/min/1.73m2 3 *NA* *NA* (07/16/2012 03:56:00) (07/15/2012 02:52:00) BUN [7-22 mg/dL] 8 mg/dL 7 mg/dL (07/16/2012 03:56:00) (07/15/2012 02:52:00) Glucose Lvl [70-99 mg/dL] 85 mg/dL 4 102 mg/dL 5 (07/16/2012 03:56:00) *HI* (07/15/2012 02:52:00) Calcium Lvl [8.5-10.5 mg/dL] 7.6 mg/dL 7.7 mg/dL *LOW* *LOW* (07/16/2012 03:56:00) (07/15/2012 02:52:00) Phosphorus [2.5-4.5 mg/dL] 4.3 mg/dL 3.5 mg/dL (07/16/2012 03:56:00) (07/15/2012 02:52:00) Magnesium Lvl [1.8-2.4 mg/dL] 1.8 mg/dL 1.3 mg/dL (07/16/2012 03:56:00) *LOW* (07/15/2012 02:52:00) Ca Ion mgdL [4.65-5.20 mg/dL] 4.56 mg/dL 4.28 mg/dL *LOW* *LOW* (07/16/2012 03:56:00) (07/15/2012 02:52:00) Ca Ion [1.16-1.30 mMol/L] 1.14 mMol/L 1.07 mMol/L *LOW* *LOW* (07/16/2012 03:56:00) (07/15/2012 02:52:00) Ca Norm [1.16-1.30 mMol/L] 1.14 mMol/L 1.08 mMol/L *LOW* *LOW* (07/16/2012 03:56:00) (07/15/2012 02:52:00) Ca Norm mgdL [4.65-5.20 mg/dL] 4.56 mg/dL 4.32 mg/dL *LOW* *LOW* (07/16/2012 03:56:00) (07/15/2012 02:52:00) 2Result Comment: The eGFR is calculated using [...] eGFR should be multiplied by the estimated BMI.3Result Comment: The eGFR is calculated using the CKD-EPI formula. In most young, healthy individualsthe eGFR will be >90 mL/ min/1.73m2. The eGFR declines with age. An eGFR [...] eGFR should be multiplied by the estimated BMI.4Interpretive Data: Adult reference range values reflect the clinical guidelines of the [place] [employer].5Interpretive Data: Adult reference range values reflect the clinical guidelines of the [place] [employer].HEMATOLOGY Most recent to oldest 1 2 3 [Reference Range]: WBC [3.7-10.4 K/CMM] 9.0 K/CMM 6.0 K/CMM 10.8 K/CMM (07/16/2012 03:56:00) (07/15/2012 23:00:00) *HI* (07/15/2012 02:52:00) RBC [4.20-5.40 M/CMM] 2.96 M/CMM 3.28 M/CMM 3.33 M/CMM *LOW* *LOW* *LOW* (07/16/2012 03:56:00) (07/15/2012 23:00:00) (07/15/2012 02:52:00) Hgb [12.0-16.0 g/dL] 9.2 g/dL 9.9 g/dL 10.3 g/dL *LOW* *LOW* *LOW* (07/16/2012 03:56:00) (07/15/2012 23:00:00) (07/15/2012 02:52:00) Hct [36.0-48.0 %] 26.6 % 29.6 % 29.8 % *LOW* *LOW* *LOW* (07/16/2012 03:56:00) (07/15/2012 23:00:00) (07/15/2012 02:52:00) MCV [81.0-99.0 fL] 89.8 fL 90.3 fL 89.6 fL (07/16/2012 03:56:00) (07/15/2012 23:00:00) (07/15/2012 02:52:00) MCH [27.0-31.0 pg] 31.0 pg 30.3 pg 31.0 pg (07/16/2012 03:56:00) (07/15/2012 23:00:00) (07/15/2012 02:52:00) MCHC [32.0-36.0 g/dL] 34.6 g/dL 33.5 g/dL 34.6 g/dL (07/16/2012 03:56:00) (07/15/2012 23:00:00) (07/15/2012 02:52:00) RDW [11.5-14.5 %] 13.8 % 13.6 % 6 13.8 % (07/16/2012 03:56:00) (07/15/2012 23:00:00) (07/15/2012 02:52:00) Platelet [133-450 K/CMM] 126 K/CMM 131 K/CMM *LOW* *LOW* (07/16/2012 03:56:00) (07/15/2012 02:52:00) Platelet [133-450] Clumped *NA* (07/15/2012 23:00:00) MPV [7.4-10.4 fL] 9.0 fL 9.4 fL (07/16/2012 03:56:00) (07/15/2012 02:52:00) MPV [7.4-10.4] Clumped *NA* (07/15/2012 23:00:00) Segs [45.0-75.0 %] 81.8 % 86.3 % 91.4 % *HI* *HI* *HI* (07/16/2012 03:56:00) (07/15/2012 23:00:00) (07/15/2012 02:52:00) Lymphocytes [20.0-40.0 %] 10.6 % 8.7 % 3.8 % *LOW* *LOW* *LOW* (07/16/2012 03:56:00) (07/15/2012 23:00:00) (07/15/2012 02:52:00) Monocytes [2.0-12.0 %] 7.2 % 4.6 % 4.6 % (07/16/2012 03:56:00) (07/15/2012 23:00:00) (07/15/2012 02:52:00) Eosinophils [0.0-4.0 %] 0.3 % 0.1 % 0.1 % (07/16/2012 03:56:00) (07/15/2012 23:00:00) (07/15/2012 02:52:00) Basophils [0.0-1.0 %] 0.1 % 0.3 % 0.1 % (07/16/2012 03:56:00) (07/15/2012 23:00:00) (07/15/2012 02:52:00) Segs-Bands # [1.5-8.1 7.4 K/CMM 5.1 K/CMM 9.9 K/CMM K/CMM] (07/16/2012 03:56:00) (07/15/2012 23:00:00) *HI* (07/15/2012 02:52:00) Lymphocytes # [1.0-5.5 1.0 K/CMM 0.5 K/CMM 0.4 K/CMM K/CMM] (07/16/2012 03:56:00) *LOW* *LOW* (07/15/2012 23:00:00) (07/15/2012 02:52:00) Monocytes # [0.0-0.8 K/CMM] 0.6 K/CMM 0.3 K/CMM 0.5 K/CMM (07/16/2012 03:56:00) (07/15/2012 23:00:00) (07/15/2012 02:52:00) RBC Morph Normal (07/15/2012 23:00:00) Plt Morph Clumped (07/15/2012 23:00:00) 6Result Comment: Katheryn Baliey 07/15/2012 23:32:51 CSTIMMUNOLOGY Most recent to oldest [Reference Range]: 1 2 3 RPR [Non Reactive] Non Reactive (07/14/2012 22:07:00) Hep Bs Ag [Negative] Negative *NA* (07/14/2012 22:07:00) Procedures Procedures Date Related Diagnosis section 2002 Open heart surgery 11/1983
--- OUTSIDE RECORDS SUMMARY | 2018-08-27 13:00 | XMS REPORT | Summary of Care ---
:1985 Author Name CARL BELL M.D. Address Unavailable Unavailable , Care Team Providers Name Role Phone DEVANG Kim, OLAYINKA Unavailable Unavailable HOMERO Kim, HENOK Unavailable Unavailable RAY MILLIGAN [place] Unavailable Unavailable Unavailable Unavailable Functional Status Name Dates Details Functional status health issues are not documented Status: Name Dates Details Cognitive status health issues are not documented Status: Problems Name Dates Details Normal routine physical examination (V70.0, Z00.00) Status: Active Incomplete miscarriage (634.91, O03.4) Status: Active Missed (632, O02.1) Status: Active Hypoactive thyroid (244.9, E03.9) Status: Active Routine follow-up (V24.2, Z39.2) Status: Active Tinea corporis (110.5, B35.4) Status: Active Nausea and vomiting during (643.90, O21.9) Status: Active History of Encounter for surveillance of other contraceptive (V25.49, Z30.49) Status: Resolved Chronic hypertension in (642.00, O10.919) Status: Active Congestive heart failure (428.0, I50.9) Status: Active HRP (high risk ) (V23.9, O09.90) Status: Active Hypothyroidism (244.9, E03.9) Status: Active Morbid obesity (278.01, E66.01) Status: Active Previous delivery affecting (654.20, O34.219) Status: Active Transposition of great arteries, 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 Quantity: 90 Refills: 2 OLAYINKA WINSTON M.D. Start : 30-Aug-2015 Active Montelukast Sodium 10 MG Oral Tablet TAKE 1 TABLET DAILY. Quantity: 60 Refills: 3 HENOK VALENTIN M.D. Start : 09-Jun-2017 Active Allergies and Adverse Reactions Name Dates Details Aspirin TABS (Allergy) Status: Active Benadryl CAPS (Allergy) Status: Active Claritin TABS (Allergy) Status: Active Vancomycin HCl SOLR (Allergy) Status: Active Zantac TABS (Allergy) Status: Active Zyrtec TABS (Allergy) Status: Active Past Medical History Name Dates Details History of 5 weeks gestation of (V22.2, Z3A.01) Status: Resolved History of complete transposition of great vessels (V15.1, Z98.890) Status: Resolved History of congestive heart disease (V12.59, Z86.79) Status: Resolved History of Encounter for supervision of other normal , unspecified trimester (V22.1, Z34.80) Status: Resolved History of Encounter for surveillance of other contraceptive (V25.49, Z30.49) Status: Resolved History of obesity (V12.29, Z86.39) Status: Resolved Personal history of asthma (V12.69, Z87.09) Status: Resolved Procedures Procedure Dates Details [QLH] GLUCOSE, GESTATIONAL SCREEN (50G)-130 CUTOFF Date: 30-Apr-2017 [QLH] CBC (INCLUDES DIFF/PLT) Date: 30-Apr-2017 [QLH] HEPATIC FUNCTION PANEL Date: 30-Apr-2017 [QLH] URIC ACID Date: 30-Apr-2017 [Q] MATERNAL SERUM AFP Date: 09-Jun-2017 [QH] PROTEIN, TOTAL W/CREAT, RANDOM URINE Date: 30-Apr-2017 [QLH] CREATININE W/EGFR Date: 30-Apr-2017 [QLH] LD Date: 30-Apr-2017 [] TSH+Free T4 Date: 30-Apr-2017 History of Section Completed History of Transposition Repair Mustard Procedure Completed Immunization Name Dates Details Tdap (Adacel) #1 on: 23-Jul-2012 Lot #: [id number] Family History Name Dates Details Family history of Hypertension (V17.49) Comments: Family History Status: Active Family history of Lung Cancer (V16.1) Comments: Family History Status: Active Social History Name Dates Details - Status: Name Dates Details Never smoker Vital Signs Date Test Result Details [id number] BP Systolic 113 mm[Hg] Status: Comments: Location: RUE; Position: Sitting BP Diastolic 76 mm[Hg] Status: Comments: Location: RUE; Position: Sitting Height 61 in Status: Weight 250 lb Status: Body Mass Index Calculated 47.24 kg/m2 Status: Body Surface Area Calculated 2.08 m2 Status: Heart Rate 109 /min Status: 7-Rud-[id number]:11 BP Systolic 115 mm[Hg] Status: Comments: Location: LUE; Position: Sitting BP Diastolic 72 mm[Hg] Status: Comments: Location: LUE; Position: Sitting Height 61 in Status: Weight 256 lb Status: Body Mass Index Calculated 48.37 kg/m2 Status: Body Surface Area Calculated 2.1 m2 Status: Heart Rate 84 /min Status: Comments: Location: L Radial; O2 SAT 98 % Status: Results Date Description Value Details :47 [QLH] CBC (INCLUDES DIFF/PLT) WBC 5.3 {K/CMM} Range: 3.7-10.4 RBC 3.81 {M/CMM} (Below low threshold) Range: 4.20-5.40 Hgb 11.5 g/dl (Below low threshold) Range: 12.0-16.0 Hct 32.1 % (Below low threshold) Range: 36.0-48.0 MCV 84.3 fL Range: 80.0-98.0 MCH 30.2 pg Range: 27.0-31.0 MCHC 35.9 g/dl Range: 32.0-36.0 RDW 13.4 % Range: 11.5-14.5 Platelet 165 {K/CMM} Range: 133-450 Mean Platelet Volume 8.6 fL Range: 7.4-10.4 :47 [QLH] Differential Segmented Neutrophils 67.4 % Range: 45.0-75.0 Monocytes 5.5 % Range: 2.0-12.0 Lymphocytes 25.6 % Range: 20.0-40.0 Eosinophils 1.2 % Range: 0.0-4.0 Basophils 0.3 % Range: 0.0-1.0 Segs-Bands # 3.6 {K/CMM} Range: 1.5-8.1 Lymphocytes # 1.4 {K/CMM} Range: 1.0-5.5 Monocytes # 0.3 {K/CMM} Range: 0.0-0.8 Eosinophils # 0.1 {K/CMM} Range: 0.0-0.5 [id number] [] PROTEIN, TOTAL W/CREAT, RANDOM URINE U Creatinine 329.00 mg/dl Comments: No established reference ranges. Urine Protein Level 42.9 mg/dl Comments: No established reference ranges. U Prot/Creat 0.13 37-Okk-[id number]:47 [QL] CREATININE W/EGFR Creatinine Lvl 0.60 mg/dl Range: 0.50-1.40 eGFR 120 {ML/MIN/1.7} Comments: The eGFR is calculated using the CKD-EPI formula. In most young, healthyindividuals the eGFR will be >90 mL/min/1.73m2. The eGFR declines with age. AneGFR of 60-89 may be normal in some populations, particularly the elderly, forwhom the CKD-EPI formula has not been extensively validated. Use of the eGFR isnot recommended in the following populations:Individuals with unstable creatinine concentratio ns, including patients and those with serious co-morbid conditions.Patients with extremes in muscle mass or diet.The data above are obtained from the National Kidney Disease Education Program(NK DEP) which additionally recommends that when the eGFR is used in patientswith extremes of body mass index for purposes of drug dosing, the eGFR shouldbe multiplied by the estimated BMI. [id number]-[id number] [QL] HEPATIC FUNCTION PANEL Total Protein 6.7 g/dl Range: 6.4-8.4 Albumin Lvl 3.3 g/dl (Below low threshold) Range: 3.5-5.0 Bili Total 0.4 mg/dl Range: 0.2-1.3 Bilirubin Direct 0.1 mg/dl Range: 0.0-0.3 Bilirubin Indirect 0.3 mg/dl Range: 0.0-1.0 Alk Phos 64 u/l Range: 39-136 AST 20 u/l Range: 0-37 ALT 30 u/l Range: 0-65 Globulin 3.4 g/dl Range: 2.7-4.2 A/G Ratio 1.0 Range: 0.7-1.6 94-[id number]:47 [QLH] LD Lactate Dehydrogenase 198 u/l (Above high threshold) Range: 98-192 :47 [QLH] URIC ACID Uric Acid 3.3 mg/dl Range: 2.5-7.0 :47 [LH] TSH+Free T4 TSH 4.970 {uIU/ml} (Above high threshold) Range: 0.360-3.740 T4 Free 0.90 ng/dl Range: 0.76-1.46 :47 [H] Alpha Fetoprotein (Only) Maternal Screen Results (Maternal Screen) Report Test Results (Maternal *Screen Negative* Screen) Gest Age on Collection 17.0 {WEEKS} Date Gest Age Base On ЕКАТЕРИНА Comments: 11/17/2017Recalculations are not recommended when gestational datingby LMP and ultrasound are within 10 days. Maternal Age at ЕКАТЕРИНА 34.1 {yr} Maternal Race Other Maternal Weight 250 {lb} Insulin-Dependent Diabetic No Multiple Gest No Alpha Fetoprotein Maternal 41.7 ng/ml Multiple of Median AFP 1.50 Risk for NTD (OBS) 2734 Maternal Screen Interp Comment Comments: Interpretation: Screen NegativeThis result is screen negative for OSB. The AFP MoMcalculated is based on the gestational age provided. MS-AFPcan identify up to 80% of open neural tube defect s.Closed neural tube defects and some open defects may not bedetected by this test. This test does not screen for fetalDown Syndrome or Trisomy 18. If screening for Down Syndromeor Trisomy 18 is desired , contact [facility] to discuss available options. The AmericanCollege of Obstetricians and Gynecologists recommendsamniocentesis be offered to women age 35 and older. Comment (Maternal Scrn) Comment Comments: Andria Buchanan, PhD, FACMGDirector, Biochemical and Molecular GeneticsReferences: Available Upon Request.Multiples Of Median Cutoffs For AFP ElevationsSingleton 2.5 Black 2.8I DD 2.0 Twins 4.5 Abbreviation DefinitionsIDD - Insulin Dep DiabetesOSBR - Open Spina Bifida RiskFor further inquiries contact [facility] at [phone].Perfo rmed At: [facility] [id number] [facility], [place] [id number] Plata MD Ph:[phone] Maternal Weight 250 Insulin Dependent? N Gest Ager Weeks? 17 Gest Age Days 0 Gest Age Date of 20171117 Calculation (YYYYMMDD) Gest Age Method of Ultrasound Calculation Date of LMP 20170118 Est Due Date 20171117 Number of Fetuses 1 Other Indications? N Additional Information? WHITE Plan of Care Name Dates Details Planned Observations [QLH] CMP W/EGFR On: 17-Apr-2017 Intent [LH] TSH+Free T4 On: 17-Apr-2017 Intent [QH] PROTEIN, TOTAL W/CREAT, RANDOM URINE On: 17-Apr-2017 Intent [Q] MATERNAL SERUM AFP On: 09-Jun-2017 Intent Planned Goals not documented Planned Encounters Appointment; OB/RES, ULTRASOUND On: 30-Jun-2017 9:30 Appointment; OB/, [facility] On: 30-Jun-2017 10:30 Appointment; Cece Conrad M.D. On: 30-Jun-2017 11:00 Interventions Provided Labs/Procedures/Imaging[H] Obstetrics Panel (includes CBCw/Diff,RPR, HbsAg, RubIgG,Type and Screen); Done: 30 Aug 2015[LH] TSH+Free T4; Done: 30 Aug 2015[QH ] HIV AB, HIV 1/2, EIA, WITH REFLEXES; Done: 30 Aug 2015[QH] HIV AB, HIV 1/2, EIA, WITH REFLEXES; Done: 09 Jul 2012[QH] PROTEIN, TOTAL W/CREAT, RANDOM URINE; Done: 30 Aug 2015[QH] STREPTOCOCCUS, GROUP B CULTURE (Genital Strep Screen); Done: 09 Jul 2012[QLH] BASIC METABOLIC PANEL W/EGFR; Done: 30 Aug 2015[QLH] CULTURE, URINE, ROUTINE; Done: 30 Aug 2015[QLH] HCG, TOTAL, QN; Done: 30 Aug 2015[QLH] URINALYSIS, COMPLETE; Done: 30 Aug 2015 Instructions Name Dates Details Instructions not documented Encounters No Encounter data documented On: 23-Jun-2017 Encounter Diagnosis: Problem not documented
--- OUTSIDE RECORDS SUMMARY | 2018-08-27 13:00 | XMS REPORT | CCD ---
:1985 Author Organization [facility] Care Team Providers Name Role Phone Tommy [...] values reflect the clinical guidelines of the [place] [employer].HEMATOLOGY Most recent to oldest [Reference [...]
--- OUTSIDE RECORDS SUMMARY | 2018-08-27 13:00 | XMS REPORT | CCD ---
:1985 Author Organization [facility] Care Team Providers Name Role Phone Concepcion Villalobos Consulting Provider Allergies, Adverse Reactions, Alerts Substance Reaction Status aspirin Active Benadryl Active Claritin Active vancomycin Active ZyrTEC Active Vital Signs Most recent to oldest [Reference Range]: 1 Height 165.10 cm (06/25/2012 11:05:00) Weight 100.000 kg (06/25/2012 11:05:00)
--- OUTSIDE RECORDS SUMMARY | 2018-08-27 13:01 | XMS REPORT ---
:1985 [facility] [address] [place] [address] Care Team Providers Name Role Phone Unavailable Unavailable Unavailable Problems This patient has no known problems. Allergies, Adverse Reactions, Alerts This patient has no known allergies or adverse reactions. Medications This patient has no known medications.
--- NOTE | 2018-08-27 14:37 | EDPHYS ---
Physician Documentation [facility] Name: Karly Hamlin Age: 32 yrs Sex: Female : 1985 Arrival Date: 08/27/2018 Time: 12:57 Bed 15 Private MD: Unknown, Unknown ED Physician Moshe Granda HPI: 08/27 14:25 This 32 yrs old Female presents to ER via Ambulatory with complaints of jmm Toothache. 14:25 The patient presents with pain, swelling. Onset: The symptoms/episode began/occurred jm gradually, 2 day(s) ago. Duration: The symptoms are continuous. Modifying factors: The symptoms are alleviated by nothing, the symptoms are aggravated by nothing. Associated signs and symptoms: Pertinent negatives: chills, fever. Patient complaints of dental pain with swelling beginning 2 days ago. Denies fever. Similar symptoms previously which spontaneously resolved. . Historical: - Allergies: 13:05 Benadryl; sg 13:05 Zyrtec; sg 13:05 Claritin; sg 13:05 Vancomycin; sg 13:05 Zofran; sg 13:05 Phenergan; sg 13:05 Nitroglycerin; sg - Home Meds: 13:05 None [Active]; sg - PMHx: 13:05 Transposition of the great vessels; Carpal Tunnel Syndrome; sg - PSHx: 13:05 Open Heart Sx; ; sg - Immunization history:: Adult Immunizations up to date. - Social history:: Smoking status: Patient/guardian denies using tobacco. - Ebola Screening: : Patient negative for fever greater than or equal to 101.5 degrees Fahrenheit, and additional compatible Ebola Virus Disease symptoms Patient denies exposure to infectious person Patient denies travel to an Ebola-affected area in the 21 days before illness onset No symptoms or risks identified at this time. ROS: 14:25 Constitutional: Negative for fever, chills, and weight loss. jmm 14:25 Neck: Negative for injury, pain, and swelling, Cardiovascular: Negative for chest pain, palpitations, and edema, Respiratory: Negative for shortness of breath, cough, wheezing, and pleuritic chest pain. 14:25 ENT: Positive for dental pain. 14:25 All other systems are negative. Exam: 14:25 Constitutional: This is a well developed, well nourished patient who is awake, alert, jmm and in no acute distress. Head/Face: atraumatic. 14:25 Chest/axilla: Normal chest wall appearance and motion. Cardiovascular: Regular rate and rhythm. No edema appreciated Respiratory: Normal respirations, no respiratory distress appreciated Abdomen/GI: Non distended, soft Skin: General appearance color normal MS/ Extremity: Moves all extremities, no obvious deformities appreciated, no edema noted to the lower extremities Neuro: Awake and alert, normal gait Psych: Behavior is normal, Mood is normal, Patient is cooperative and pleasant 14:25 ENT: Dental exam: dental caries, that is moderate, specifically in the lower left third molar (#17), gum swelling, that is moderate, specifically in the lower left third molar (#17). 14:25 Neck: External neck: erythema, is not appreciated, mass, is not appreciated, swelling, is not appreciated, no submandibular swelling is appreciated, ROM/movement: is normal. Vital Signs: 13:05 BP 114 / 67; Pulse 112; Resp 18; Temp 97.6; Pulse Ox 100% on R/A; Weight 120.2 kg; sg Height 5 ft. 4 in. (162.56 cm); Pain 0/10; 13:05 Body Mass Index 45.49 (120.20 kg, 162.56 cm) MDM: 14:25 Patient medically screened. [facility] 14:36 Data reviewed: vital signs, nurses notes. Counseling: I had a detailed discussion with [facility] the patient and/or guardian regarding: the historical points, exam findings, and any diagnostic results supporting the discharge/admit diagnosis, the need for outpatient follow up, to return to the emergency department if symptoms worsen or persist or if there are any questions or concerns that arise at home. 14:36 ED course: Patient is advised to follow up with dentist for reevaluation in 2 to 3 [facility] days. No submandibular tenderness or swelling appreciated. I do not suspect José's. Patient was given strict return precautions. Patient understood and agrees with the plan of care.. Administered Medications: No medications were administered Disposition: 08/27/18 14:37 Discharged to Home. Impression: Dental caries. - Condition is Stable. - Discharge Instructions: Dental Pain. - Prescriptions for Clindamycin HCl 300 mg Oral Capsule - take 1 capsule by ORAL route every 6 hours for 10 days; 40 capsule. Tylenol- Codeine #3 300-30 mg Oral Tablet - take 1 tablet by ORAL route every 6 hours As needed; 12 tablet. - Medication Reconciliation Form, Thank You Letter, Antibiotic Education, Prescription Opioid Use form. - Follow up: Private Physician; When: 2 - 3 days; Reason: Recheck today's complaints, Continuance of care, Re-evaluation by your physician. Addendum: 08/30/2018 08:36 Co-signature as Attending Physician, Moshe Granda MD I agree with the assessment and k dr plan of care. Signatures: Germain Felipe RN RN sg Moshe Granda MD MD [facility] Franco Merchant PA PA jessica Ivy Og RN RN ph Corrections: (The following items were deleted from the chart) 08/27 14:50 14:37 08/27/2018 14:37 Discharged to Home. Impression: Dental caries. Condition is ph Stable. Forms are Medication Reconciliation Form, Thank You Letter, Antibiotic Education, Prescription Opioid Use. Follow up: Private Physician; When: 2 - 3 days; Reason: Recheck today's complaints, Continuance of care, Re-evaluation by your physician. toni
--- NOTE | 2018-08-27 14:37 | ER ---
Nurse's Notes [facility] Name: Karly Hamlin Age: 32 yrs Sex: Female : 1985 Arrival Date: 08/27/2018 Time: 12:57 Bed 15 Private MD: Unknown, Unknown Diagnosis: Dental caries Presentation: 08/27 13:05 Presenting complaint: Patient states: Left lower jaw and tooth pain that started about sg two days ago, unable to have treatment unless started on abx due to cardiac condition, reports pain now radiates up into the top left jaw and into her left ear, denies N/V/D/Fever. Transition of care: patient was not received from another setting of care. Onset of symptoms. Risk Assessment: Do you want to hurt yourself or someone else? Patient reports no desire to harm self or others. Initial Sepsis Screen: Does the patient meet any 2 criteria? No. Patient's initial sepsis screen is negative. Does the patient have a suspected source of infection? No. Patient's initial sepsis screen is negative. Care prior to arrival: None. 13:05 Method Of Arrival: Ambulatory sg 13:05 Acuity: LAUREN 3 sg Triage Assessment: 14:37 General: Appears in no apparent distress. uncomfortable, Behavior is calm, cooperative, ph appropriate for age. Pain: Complains of pain in mouth Pain radiates to left ear Pain currently is 8 out of 10 on a pain scale. Neuro: Level of Consciousness is awake, alert, obeys commands, Oriented to person, place, time, situation. Cardiovascular: Capillary refill < 3 seconds. Respiratory: Airway is patent Trachea midline Respiratory effort is even, unlabored, Respiratory pattern is regular, symmetrical, Derm: Skin is intact, is healthy with good turgor, Skin is dry, Skin is pink, warm \T\ dry. Skin temperature is warm. Musculoskeletal: Circulation, motion, and sensation intact. Historical: - Allergies: 13:05 Benadryl; sg 13:05 Zyrtec; sg 13:05 Claritin; sg 13:05 Vancomycin; sg 13:05 Zofran; sg 13:05 Phenergan; sg 13:05 Nitroglycerin; sg - Home Meds: 13:05 None [Active]; sg - PMHx: 13:05 Transposition of the great vessels; Carpal Tunnel Syndrome; sg - PSHx: 13:05 Open Heart Sx; ; - Immunization history:: Adult Immunizations up to date. - Social history:: Smoking status: Patient/guardian denies using tobacco. - Ebola Screening: : Patient negative for fever greater than or equal to 101.5 degrees Fahrenheit, and additional compatible Ebola Virus Disease symptoms Patient denies exposure to infectious person Patient denies travel to an Ebola-affected area in the 21 days before illness onset No symptoms or risks identified at this time. Screenin:36 Abuse screen: Denies threats or abuse. Nutritional screening: No deficits noted. ph Tuberculosis screening: No symptoms or risk factors identified. Fall Risk None identified. Assessment: 14:40 General: No changes from previously documented assessment, see triage note. ph Vital Signs: 13:05 BP 114 / 67; Pulse 112; Resp 18; Temp 97.6; Pulse Ox 100% on R/A; Weight 120.2 kg; sg Height 5 ft. 4 in. (162.56 cm); Pain 0/10; 13:05 Body Mass Index 45.49 (120.20 kg, 162.56 cm) ED Course: 12:57 Patient arrived in ED. ag5 12:57 Unknown, Unknown is Private Physician. ag5 12:57 Arm band placed on. 13:06 Triage completed. 13:19 Ivy Og RN is Primary Nurse. 14:24 Franco Merchant PA is PHCP. [facility] 14:24 Moshe Granda MD is Attending Physician. [facility] 14:41 Patient has correct armband on for positive identification. Bed in low position. Call light in reach. 14:48 No provider procedures requiring assistance completed. Patient did not have IV access ph during this emergency room visit. Administered Medications: No medications were administered Outcome: 14:37 Discharge ordered by . [facility] 14:48 Discharged to home ambulatory, with family. 14:48 Condition: good 14:48 Discharge instructions given to patient, Instructed on discharge instructions, follow up and referral plans. medication usage, Demonstrated understanding of instructions, follow-up care, medications, Prescriptions given X 2. 14:50 Patient left the ED. ph Signatures: Germain Felipe RN RN Franco Merchant PA PA Ivy Riley RN RN Nela Piedad ag5
== END 2018-08-27 14:50 | disposition home or self-care (01) ==
LOC: ER 12:52
DX: K02.9 Dental caries, unspecified (principal); Z88.3 Allergy status to other anti-infective agents; Z88.8 Allergy status to other drugs, medicaments and biological substances
CPT/HCPCS: 99282

== ENCOUNTER 2018-12-06 12:32 | Emergency (ER) | payer SELFPAY ==
--- OUTSIDE RECORDS SUMMARY | 2018-12-06 12:40 | XMS REPORT | Continuity of Care Document ---
:1985 Author Organization [facility] [employer] Care Team Providers Name Role Phone [facility] [place] [employer] Unavailable Unavailable Problems Problem Status Onset Classification Date Comments Source Date Reported CHF Active [address] SENT BY DR Active [address] R/O LABOR Active [address] SHORTNESS OF BREATH Active [address], [place] 30[place] PREG -PAIN Active [address] Q20.[address] CHEST PAIN FROM Active [facility] COUGHING [address] [place] ABD PAIN Active [facility] [address] [place] BACK PAIN Active [address] [place] SOB Active [address] [place] FLU LIKE SYMPTOMS Active [address]15 [place] RASH Active [address]15 [place] EAR ACHE Active 015 [place] LEFT EAR PAIN Active 014 [place] PNEUMONIA Active 014 [place] LABOR Active [address] 37 WEEKS CHF Active [address] Active [address] 37 WEEKS Active [facility] CHF, TGA, S/P 013 Medical [facility] 34 WKS Active [address] 4 WK 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 [place] CRAMPING Active 012 [place] KIDNEY FAILURE Resolved Problem 07/21/[address] Asthma Resolved Problem 07/21/[address] CHF Resolved Problem 07/21/[address] Transposition of Resolved 07/01/1 Problem 07/21/2012 [facility] [place] great vessels [facility] CHF NOS Active [facility] THREAT LABOR Active [facility] NEC-UNSPEC [facility] PNEUMONIA, ORGANISM Active N[place] DISCORDANT Active [facility] VENTRICULOARTERIAL Medical CONNECTION Center RELATED Active [facility] CONDITIONS, UNSP, Medical UNSP Center HEART FAILURE, Active [facility] UNSPECIFIED Medical Center Medications Medication Details Route Status Patient Ordering Order Source Instructions Provider Date Colace 100 mg oral 100 mg, 1 cap, PO Active Masry 07/19/ [facility] capsule PO, BID, PRN, 60 2012 Medical cap, 1, 1, Center Constipation, Substitution Allowed, CAP Colace 100 mg oral 100 mg, 1 cap, PO Active Masry 07/19/ [place] capsule PO, BID, PRN, 60 2012 Medical cap, 1, 1, Center Constipation, Substitution Allowed, CAP [place] 5/325 oral 1-2 tab, PO, PO Active Masry 07/19/ [facility] tablet Q6H, PRN, 20 2012 Medical tab, Pain, Center Substitution Allowed, Maintenance [place] 5/325 oral 1-2 tab, PO, PO Active Masry 07/19/ [facility] tablet Q6H, PRN, 20 2012 Medical tab, Pain, Center Substitution Allowed, Maintenance Colace 100 mg oral 100 mg, 1 cap, PO Active Masry 07/19/ [facility] capsule PO, BID, PRN, 60 2012 Medical cap, 1, 1, Center Constipation, Substitution Allowed, CAP [place] 5/325 oral 1-2 tab, PO, PO Active Masry 07/19/ [facility] tablet Q6H, PRN, 20 2012 Medical tab, Pain, Center Substitution Allowed, Maintenance gentamicin + 530 mg, 13.25 IV No Gabriel [facility] Sodium Chloride mL, Route: IV, Longer 2012 Medical 0.9% IV 100 mL Drug form: INJ, Active Center [id number], Dosing Weight 107.5, kg, Start date: 07/15/12 23:00:00, Duration: 30 day, Stop date: 08/13/12 23:00:00, Pediatric DosingPediatric Dosing clindamycin 900 mg, 6 mL, IVPB No Gabriel [facility] Route: IVPB, Longer 2012 Medical Drug form: INJ, Active Center [id number], Dosing Weight 107.5, kg, Start date: 07/15/12 23:00:00, Duration: 30 day, Stop date: 08/14/12 15:00:00 ampicillin 2 gm, Route: IVPB No Gabriel [facility] IVPB, Drug form: Longer 2012 Medical PDR/INJ, [id number], Active Center Dosing Weight 107.5, kg, Start date: 07/15/12 23:00:00, Duration: 30 day, Stop date: 08/14/12 17:00:00 levothyroxine 175 microgram, PO No [facility] Route: PO, Drug Longer 2012 Medical form: TAB, Active Center Daily, Dosing Weight 108.182, kg, Start date: 07/15/12 22:00:00, Duration: 30 day, Stop date: 08/14/12 9:00:00 Singulair 10 mg, 1 tab, PO No [facility] Route: PO, Drug Longer 2012 Medical form: TAB, QPM, Active Center Dosing Weight 108.182, kg, Start date: 07/15/12 22:00:00, Duration: 30 day, Stop date: 08/14/12 17:00:00 multivitamin, 1 tab, Route: PO No Venkata [facility] PO, Drug Form: Longer 2012 Medical TAB, Dosing Active Center Weight 108.182, kg, Daily, Start date: 07/15/12 21:00:00, Duration: 30 day, Stop date: 08/13/12 21:00:00 Saline Flush 0.9% 5 ml, Route: IVP No Mark [facility] IVP, Drug Form: Longer 2012 Medical INJ, Dosing Active Center Weight 108.182, kg, Q12H, Start date: 07/15/12 9:00:00, Duration: 30 day, Stop date: 08/13/12 21:00:00 1 tab, Route: PO No 07/15[facility] Multivitamins oral PO, Drug Form: Longer 2012 Medical tablet TAB, Dosing Active Center Weight 108.182, kg, Daily, Start date: 07/15/12 9:00:00, Duration: 30 day, Stop date: 08/13/12 9:00:00 atenolol 25 mg 25 mg, 1 tab, PO No Morgan 02/28[facility] oral tablet Route: PO, Drug Longer 2012 Medical form: TAB, Active Center Daily, Dosing Weight 107.5, kg, Priority: NOW, Start date: 07/15/12 8:33:00, Duration: 30 day, Stop date: 08/13/12 9:00:00 magnesium sulfate 2 gm, 50 mL, IVPB No Britt Alex Route: IVPB, Longer 2012 Medical Drug form: INJ, Active Center Q2H, Dosing Weight 107.5, kg, Start date: 07/15/12 6:00:00, Duration: 3 doses or times, Stop date: 07/15/12 10:00:00, For Mg=1.0 - 1.4 mg/dLFor Mg=1.0 - 1.4 mg/dL HYDROmorphone 15 mg, 30 mL, IV No [place] Alex 0.5mg/mL [employer] Route: IV, [employer] Longer 2012 Medical (15mg/30 mL) 15 mg Dose: 0.2 mg, Active Center [employer] Lockout: 10 minutes, 4 Hour Limit (In MG): 5, Drug Form: INJ, Continuous, Start date: 07/15/12 3:00:00, Duration: 30 day, Stop date: 08/14/12 3:59:00 M-M-R II 0.5 ml, Route: SUB-Q No [facility] SUB-Q, Drug Longer 2012 Medical Form: PDR/INJ, Active Center Dosing Weight 108.182, kg, ONCALL, Start date: 07/15/12 2:00:00, Duration: 1 doses or times, Stop date: 07/22/12 0:00:00 acetaminophen-hydr 2 tab, Route: PO No [facility] ocodone 325 mg-5 PO, Drug Form: Longer 2012 Medical mg oral tablet TAB, Dosing Active Center Weight 108.182, kg, Q4H, PRN Pain Score 4-6, Start date: 07/15/12 1:53:00, Duration: 30 day, Stop date: 08/14/12 1:52:00 Lactated Ringers 20 unit, 1,000 IV No Britt [facility] 1000ml+Pitocin 20 mL, Rate: 50 Longer 2012 Medical units IV (Premix) ml/hr, Infuse Active Center 20 unit over: 20 hr, Dosing Weight 108.182, kg, Route: IV, Total Volume: 1,000 mL, Start date: 07/15/12 1:53:00, Duration: 2 day, Stop date: 07/17/12 1:52:00, Replace Every: 8 hr Saline Flush 0.9% 5 ml, Route: IVP No Mark 07/15[facility] IVP, Drug Form: 2012 Medical INJ, Dosing Active Center Weight 108.182, kg, PRN, PRN Line Flush, Start date: 07/15/12 1:53:00, Duration: 30 day, Stop date: 08/14/12 2:52:00 acetaminophen 650 mg, 2 tab, PO No Britt 07/15[facility] Route: PO, Drug 2012 Medical form: TAB, Q4H, Active Center Dosing Weight 108.182, kg, PRN Other -See Comment, Start date: 07/15/12 1:53:00, Duration: 30 day, Stop date: 08/14/12 1:52:00 bisacodyl 10 mg, 1 supp, [place] No [facility] 07/15[facility] Route: UT, Drug 2012 Medical form: SUPP, PRN, Active Center Dosing Weight 108.182, kg, PRN Other -See Comment, Start date: 07/15/12 1:53:00, Duration: 30 day, Stop date: 08/14/12 2:52:00 lanolin topical 1 appl, Route: TOP No [facility] 07/15[facility] cream TOP, PRN, Drug 2012 Medical form: OINT, PRN Active Center Other -See Comment, Start date: 07/15/12 1:53:00, Duration: 30 day, Stop date: 08/14/12 2:52:00 zolpidem 5 mg, 1 tab, PO No [facility] 07/15[facility] Route: PO, Drug 2012 Medical form: TAB, Active Center Bedtime, Dosing Weight 108.182, kg, PRN Insomnia, Start date: 07/15/12 1:53:00, Duration: 30 day, Stop date: 08/14/12 1:52:00 simethicone 160 mg, 2 tab, PO No [facility] 02/28[facility] Route: PO, Drug Longer 2012 Medical form: [place], Active Center Q8H, Dosing Weight 108.182, kg, PRN Gas, Start date: 07/15/12 1:53:00, Duration: 30 day, Stop date: 08/14/12 1:52:00 azithromycin 500 mg, Route: IVPB No edinma [facility] IVPB, Drug form: Longer 2012 Medical PDR/INJ, ONCALL, Active Center Dosing Weight 108.182, kg, Start date: 07/14/12 23:00:00, Duration: 1 doses or times, Stop date: 07/16/12 0:00:00 morphine Sulfate 2 mg, 1 mL, [facility] Route: IVP, Drug Longer 2012 Medical form: INJ, Q2H, Active Center Dosing Weight 108.182, kg, PRN Pain, Start date: 07/14/12 22:07:00, Duration: 30 day, Stop date: 08/13/12 22:06:00 Synthroid 75 microgram, 1 PO No 07/15[facility] tab, Route: PO, Longer 2012 Medical Drug form: TAB, Active Center Q630AM, Start date: 07/14/12 22:00:00, Duration: 30 day, Stop date: 08/12/12 22:00:00 Levothroid 100 microgram, 1 PO No Britt [facility] tab, Route: PO, Longer 2012 Medical Drug form: TAB, Active Center Q630AM, Start date: 07/14/12 22:00:00, Duration: 30 day, Stop date: 08/12/12 22:00:00 methylergonovine 0.2 mg, 1 mL, IM No edinma 07/15[facility] Route: IM, Drug 2012 Medical form: INJ, Active Center ONCALL, Dosing Weight 108.182, kg, Start date: 07/14/12 22:00:00, Duration: 30 day, Stop date: 08/13/12 22:59:00 carboprost 250 microgram, 1 IM No edinma 07/15[facility] mL, Route: IM, Longer 2012 Medical Drug form: INJ, Active Center ONCALL, Dosing Weight 108.182, kg, Start date: 07/14/12 22:00:00, Duration: 30 day, Stop date: 08/13/12 22:59:00 metoclopramide 10 mg, 2 mL, IVP No [facility] Route: IVP, Drug 2012 Medical form: INJ, Active Center ONCALL, Dosing Weight 108.182, kg, Start date: 07/14/12 22:00:00, Duration: 30 day, Stop date: 08/13/12 22:59:00 misoprostol 1,000 microgram, [place] No [facility] 07/15[facility] 5 tab, Route: 2012 Medical [place], Drug form: Active Center TAB, ONCALL, Dosing Weight 108.182, kg, Start date: 07/14/12 22:00:00, Duration: 30 day, Stop date: 08/13/12 22:59:00 cefazolin 3 gm, 150 mL, IVPB No edinma 07/15[facility] Route: IVPB, 2012 Medical Drug form: INJ, Active Center ONCALL, Dosing Weight 108.182, kg, Start date: 07/14/12 22:00:00, Stop date: 07/16/12 0:00:00 morphine Sulfate 2 mg, 1 mL, IVP No [facility] 07/15[facility] Route: IVP, Drug 2012 Medical form: INJ, Q2H, Active Center Dosing Weight 108.182, kg, PRN Pain, Start date: 07/14/12 21:58:00, Duration: 30 day, Stop date: 08/13/12 21:57:00 morphine Sulfate 2 mg, 1 mL, IVP No Britt 07/15[facility] Route: IVP, Drug 2012 Medical form: INJ, Q2H, Active Center Dosing Weight 108.182, kg, PRN Pain, Start date: 07/14/12 21:49:00, Duration: 30 day, Stop date: 08/13/12 21:48:00 ondansetron 4 mg, 2 mL, IVP No [facility] 07/[facility] Route: IVP, Drug 2012 Medical form: INJ, Q8H, Active Center Dosing Weight 108.182, kg, PRN Nausea & Vomiting, Start date: 07/14/12 21:49:00, Duration: 30 day, Stop date: 08/13/12 21:48:00 Lactated Ringers 20 unit, 1,000 IV No [facility] 1000ml+Oxytocin 20 mL, Rate: 50 Longer 2012 Medical units IV (Premix) ml/hr, Infuse Active Center 20 unit over: 20 hr, Dosing Weight 108.182, kg, Route: IV, Total Volume: 1,000 mL, Start date: 07/14/12 21:49:00, Duration: 2 day, Stop date: 07/16/12 21:48:00, Replace Every: 8 hr citric acid-sodium 30 ml, Route: PO No [facility] citrate PO, Drug Form: Longer 2012 Medical SOLN, Dosing Active Center Weight 108.182, kg, ONCE, Start date: 07/14/12 21:49:00, Duration: 1 doses or times, Stop date: 07/14/12 21:49:00 terbutaline 0.25 mg, 0.25 SUB-Q No Ezedinma [facility] mL, Route: Longer 2012 Medical SUB-Q, Drug Active Center form: INJ, ONCALL, Dosing Weight 108.182, kg, PRN Other -See Comment, Start date: 07/14/12 21:49:00, Duration: 1 doses or times, Stop date: 07/16/12 0:00:00 Lactated Ringers 1,000 mL, Rate: IV No [facility] IV 1,000 mL 125 ml/hr, Longer 2012 Medical Infuse over: 8 Active Center hr, Route: IV, kg, Total Volume: 1,000, Priority: STAT, Start date: 07/14/12 21:44:00, Duration: 30 day, Stop date: 08/13/12 21:43:00 acetaminophen-hydr 1 tab, Route: PO No [facility] ocodone 325 mg-5 PO, Drug Form: Longer 2012 Medical mg oral tablet TAB, Dosing Active Center Weight 108.182, kg, Q4H, PRN Pain Score 1-3, Start date: 07/14/12 21:42:00, Duration: 30 day, Stop date: 08/13/12 21:41:00 pneumococcal 0.5 ml, Route: IM No SYSTEM [facility] 23-valent vaccine IM, Drug Form: Longer 2012 Medical INJ, Daily, Active Center Start date: 05/25/12 9:00:00, Duration: 1 doses or times, Stop date: 05/25/12 9:00:00 Tylenol 650 mg, 20.3 mL, PO No Katrin Route: PO, Drug Longer 2011 [place] form: LIQ, ONCE, Active Dosing Weight 100, kg, Priority: STAT, Start date: 03/02/12 10:51:00, Stop date: 03/02/12 10:51:00 Allergies, Adverse Reactions, Alerts Substance Category Reaction Severity Reaction Status Date Comments Source type Reported aspirin drug Allergy Active [facility] Benadryl drug Allergy Active [facility] Claritin drug Allergy Active [facility] vancomycin drug Allergy Active [facility] ZyrTEC drug Allergy Active [facility] Immunizations Immunization Date Given Site Status Last Updated Comments Source measles/mumps/rub 07/19/2012 completed [facility] Results Order Name Results Value Reference Date Interpretation Comments Source Range CHEMISTRY Magnesium 1.8 1.8 - 2.4 07/16 Normal [facility] Lv [facility] CHEMISTRY Phosphorus 4.3 2.5 - 4.5 07/16 Normal [facility] CHEMISTRY Ca Norm 1.14 1.16 - 03 LOW [facility] 1.30 /2012 [facility] CHEMISTRY Ca Ion 1.14 1.16 - 07/16 LOW [facility] 1.30 [facility] CHEMISTRY Ca Norm mgdL 4.56 4.65 - 03 LOW [facility] 5.20 [facility] CHEMISTRY Ca Ion mgdL 4.56 4.65 - 03 [facility] 5.20 [facility] CHEMISTRY AGAP 16.1 10.0 - 03 Normal [facility] 20.0 [facility] CHEMISTRY eGFR 124 07/16 NA <sup>2</sup>R [facility] esult Medical Comment: The Center eGFR is calculated using the CKD-EPI formula. In most young, healthy individuals the eGFR will be >90 mL/min/1.73m2 . The eGFR declines with age. An eGFR of 60-89 may be normal in some populations, particularly the elderly, for whom the CKD-EPI formula has not been extensively validated. Use of the eGFR is not recommended in the following populations:& lt;br/>
I ndividuals with unstable creatinine concentration s, including patients and those with serious co-morbid conditions.<b r/>
Patie nts with extremes in muscle mass or diet.

The data above are obtained from the National Kidney Disease Education Program (NKDEP) which additionally recommends that when the eGFR is used in patients with extremes of body mass index for purposes of drug dosing, the eGFR should be multiplied by the estimated BMI. CHEMISTRY CO2 21 24 - 32 03/ LOW [facility] CHEMISTRY Calcium Lvl 7.6 8.5 - 10.5 / [facility]2012 [facility] CHEMISTRY Chloride Lvl 107 95 - 109 07/16 Normal [facility] CHEMISTRY Potassium 4.1 3.5 - 5.1 07/16 Normal [facility] [place] [facility] CHEMISTRY Glucose Lvl 85 70 - 99 07/16 Normal <sup>4</sup>I nterpretive Medical Data: Adult Center reference range values reflect the clinical guidelines
of the [place] [employer]. CHEMISTRY BUN 8 7 - 22 03/ Normal [facility] CHEMISTRY Creatinine 0.6 0.5 - 1.4 / [facility] CHEMISTRY Sodium Lvl 140 135 - 145 / [facility] HEMATOLOGY Segs-Bands # 7.4 1.5 - 8.1 / [facility]2012 [facility] HEMATOLOGY Basophils 0.1 0.0 - 1.0 / [facility] HEMATOLOGY Segs 81.8 45.0 - 03/ [place] [facility] 75.0 /2012 [facility] HEMATOLOGY Lymphocytes 10.6 20.0 - 03/ [facility] 40.0 /2012 [facility] HEMATOLOGY Monocytes 7.2 2.0 - 12.0 03/ [facility]2012 [facility] HEMATOLOGY Eosinophils 0.3 0.0 - 4.0 03/ [facility]2012 [facility] HEMATOLOGY Lymphocytes 1.0 1.0 - 5.5 03/ Normal [facility] # /2012 [facility] HEMATOLOGY Monocytes # 0.6 0.0 - 0.8 03/ [facility] HEMATOLOGY Hct 26.6 36.0 - 03/ LOW [facility] [place] 48.0 /2012 Medical Center HEMATOLOGY MCH 31.0 27.0 - 03/ Normal [place] 31.0 /2012 Medical Center HEMATOLOGY MCV 89.8 81.0 - 03/ Normal [place] 99.0 /2012 Medical [place] HEMATOLOGY Platelet 126 133 - 450 03/ LOW [place] [facility] HEMATOLOGY MPV 9.0 7.4 - 10.4 03/ Normal [place] [facility] [place] HEMATOLOGY RDW 13.8 11.5 - 03/ Normal [place] 14.5 /2012 Medical Center HEMATOLOGY MCHC 34.6 32.0 - 03/ Normal [place] 36.0 /2012 Medical [facility] HEMATOLOGY Hgb 9.2 12.0 - 03/ LOW [place] 16.0 /2012 Medical [place] HEMATOLOGY RBC 2.96 4.20 - 03/ LOW [place] 5.40 /2012 Medical [place] HEMATOLOGY WBC 9.0 3.7 - 10.4 03/ Normal [place] [facility] [place] HEMATOLOGY Plt Morph Clumped 03 Normal [facility] (07/15/2012 23:00:00) [facility] HEMATOLOGY Lymphocytes 0.5 1.0 - 5.5 03/ LOW [place] # /2012 Medical [place] HEMATOLOGY Segs-Bands # 5.1 1.5 - 8.1 03/ Normal [facility] HEMATOLOGY Basophils 0.3 0.0 - 1.0 03/ Normal [facility] HEMATOLOGY Eosinophils 0.1 0.0 - 4.0 03/ Normal [facility] HEMATOLOGY Monocytes 4.6 2.0 - 12.0 03/ Normal [facility] HEMATOLOGY RBC Morph Normal 03 Normal [facility] (07/15/2012 23:00:00) [facility] HEMATOLOGY Segs 86.3 45.0 - 03/ HI [place] 75.0 /2012 Medical Center HEMATOLOGY Lymphocytes 8.7 20.0 - 03/ LOW [place] 40.0 /2012 [facility] HEMATOLOGY Monocytes # 0.3 0.0 - 0.8 03/ Normal [facility] HEMATOLOGY MPV Clumped 7.4 - 10.4 03/ NA Medical Center HEMATOLOGY Platelet Clumped 133 - 450 03/ NA Medical Center HEMATOLOGY MCV 90.3 81.0 - 03/ Normal [facility] [place] 99.0 /2012 [facility] HEMATOLOGY RBC 3.28 4.20 - 03 [facility] 5.40 /2012 [facility] HEMATOLOGY WBC 6.0 3.7 - 10.4 07/16 Normal [facility] HEMATOLOGY MCH 30.3 27.0 - 03 Normal [facility] 31.0 /2012 [facility] HEMATOLOGY RDW 13.6 11.5 - 03 Normal <sup>6</sup>R [facility] 14.5 esult Medical Comment: Center Informed Trina Hernándezath 07/15/2012 23:32:51 [employer] HEMATOLOGY MCHC 33.5 32.0 - 03 Normal [facility] 36.0 /2012 [facility] HEMATOLOGY Hgb 9.9 12.0 - 03 [facility] 16.0 /2012 [facility] HEMATOLOGY Hct 29.6 36.0 - 03 [facility] 48.0 /2012 [facility] BACTERIAL MRSA by PCR Negative 1 07/15 Normal <sup>1</sup>I [facility] - SEROLOGY (07/15/2012 02:52:00) nterpretive Medical Data: Center Interpretive Data: The [employer] MRSA assay is a qualitative test for the direct detection of nasal colonization with methicillin-r esistant Staphylococcu s aureus (MRSA) to aid in the prevention and control of MRSA infections in healthcare settings. A positive result does not indicate an infection or require treatment. A negative result does not exclude colonization or infection.

The polymerase chain reaction (PCR) assay detects a proprietary sequence indicative of the integration of the SCCmec cassette into the Staphylococcu s aureus chromosome, indicating the presence of MRSA DNA. The assay utilizes FDA cleared IVD reagents. Performance characteristi cs have been verified by the Molecular Diagnostic Laboratory within the [facility]. The Molecular Diagnostic Laboratory is authorized under the Clinical Laboratory Improvement Amendment of 1988 (CLIA-88) to perform high complexity testing. CHEMISTRY Phosphorus 3.5 2.5 - 4.5 07/15 Normal [facility] CHEMISTRY Magnesium 1.3 1.8 - 2.4 07/15 [facility] Lvl [facility] CHEMISTRY Ca Ion 1.07 1.16 - 07/15 [facility] 1.30 [facility] CHEMISTRY Ca Ion mgdL 4.28 4.65 - 07/15 [facility] 5. [facility] CHEMISTRY Ca Norm mgdL 4.32 4.65 - 07/15 [facility] 5.20 [facility] CHEMISTRY Ca Norm 1.08 1.16 - 07/15 [facility] 1.30 [facility] CHEMISTRY AGAP 18.4 10.0 - 07/15 [facility] 20.0 [facility] CHEMISTRY eGFR 118 07/15 NA <sup>3</sup>R esult Medical Comment: The Center eGFR is calculated using the CKD-EPI formula. In most young, healthy individuals the eGFR will be >90 mL/min/1.73m2 . The eGFR declines with age. An eGFR of 60-89 may be normal in some populations, particularly the elderly, for whom the CKD-EPI formula has not been extensively validated. Use of the eGFR is not recommended in the following populations:& lt;br/>
I ndividuals with unstable creatinine concentration s, including patients and those with serious co-morbid conditions.<b r/>
Patie nts with extremes in muscle mass or diet.

The data above are obtained from the National Kidney Disease Education Program (NKDEP) which additionally recommends that when the eGFR is used in patients with extremes of body mass index for purposes of drug dosing, the eGFR should be multiplied by the estimated BMI. CHEMISTRY Glucose Lvl 102 70 - 99 07/15 [place] <sup>5</sup>I nterpretive Medical Data: Adult Center reference range values reflect the clinical guidelines
of the [place] [employer]. CHEMISTRY Potassium 4.4 3.5 - 5.1 07/15 Normal [facility] CHEMISTRY Sodium Lvl 141 135 - 145 07/15 [facility] CHEMISTRY Chloride Lvl 112 95 - 109 07/15 [facility] CHEMISTRY Creatinine 0.7 0.5 - 1.4 07/15 [facility] CHEMISTRY BUN 7 7 - 22 07/15 [facility] CHEMISTRY Calcium Lvl 7.7 8.5 - 10.5 07/15 [facility] CHEMISTRY CO2 15 24 - 32 07/15 [facility] HEMATOLOGY Platelet 131 133 - 450 07/15 [facility] HEMATOLOGY MPV 9.4 7.4 - 10.4 07/15 Normal /2012 [facility] HEMATOLOGY RDW 13.8 11.5 - 07/15 Normal [place] 14.5 /2012 [facility] HEMATOLOGY MCHC 34.6 32.0 - 07/15 Normal [place] 36.0 /2012 [facility] HEMATOLOGY MCH 31.0 27.0 - 07/15 Normal [place] 31.0 /2012 [facility] HEMATOLOGY MCV 89.6 81.0 - 07/15 Normal [place] 99.0 /2012 [facility] HEMATOLOGY Hct 29.8 36.0 - 02 LOW [place] 48.0 /2012 [facility] HEMATOLOGY RBC 3.33 4.20 - 07/15 LOW [place] 5.40 /2012 [facility] HEMATOLOGY WBC 10.8 3.7 - 10.4 07/15 [place] [facility] HEMATOLOGY Hgb 10.3 12.0 - 07/15 LOW [place] 16.0 /2012 [facility] HEMATOLOGY Segs-Bands # 9.9 1.5 - 8.1 07/15 [place] /2012 [facility] HEMATOLOGY Lymphocytes 0.4 1.0 - 5.5 07/15 LOW [place] # /2012 [facility] HEMATOLOGY Monocytes # 0.5 0.0 - 0.8 07/15 Normal /2012 [facility] HEMATOLOGY Segs 91.4 45.0 - 07/15 [facility] [place] 75.0 /2012 [facility] HEMATOLOGY Eosinophils 0.1 0.0 - 4.0 07/15 Normal /2012 [facility] HEMATOLOGY Lymphocytes 3.8 20.0 - 07/15 LOW [place] 40.0 /2012 [facility] HEMATOLOGY Basophils 0.1 0.0 - 1.0 07/15 Normal [facility] HEMATOLOGY Monocytes 4.6 2.0 - 12.0 07/15 Normal /2012 [facility] BLOOD BANK RBC product Product available 07/15 Normal [facility] RESULTS (07/14/2012 22:07:57) /2012 [facility] BLOOD BANK Antibody Negative 07/15 Normal [facility] RESULTS Scrn (07/14/2012 22:07:00) /2012 [facility] BLOOD BANK ABO/Rh A POS 07/15 Unknown [facility] RESULTS /2012 [facility] IMMUNOLOGY Hep Bs Ag Negative Negative 07/15 [facility] [place] *NA* /2012 Medical (07/14/2012 22:07:00) Center IMMUNOLOGY RPR Non Reactive Non 07/15 Normal [facility] (07/14/2012 22:07:00) Reactive /2012 [facility] CHEMISTRY LDH 144 98 - 192 05/24 Normal [facility] CHEMISTRY Uric Acid 3.5 2.5 - 7.0 05/24 Normal [facility] CHEMISTRY A/G Ratio 1.0 0.7 - 1.6 05/24 Normal [facility] CHEMISTRY eGFR 142 05/24 NA <sup>1</sup>R esult Medical Comment: The Center eGFR is calculated using the CKD-EPI formula. In most young, healthy individuals the eGFR will be >90 mL/min/1.73m2 . The eGFR declines with age. An eGFR of 60-89 may be normal in some populations, particularly the elderly, for whom the CKD-EPI formula has not been extensively validated. Use of the eGFR is not recommended in the following populations:& lt;br/>
I ndividuals with unstable creatinine concentration s, including patients and those with serious co-morbid conditions.<b r/>
Patie nts with extremes in muscle mass or diet.

The data above are obtained from the National Kidney Disease Education Program (NKDEP) which additionally recommends that when the eGFR is used in patients with extremes of body mass index for purposes of drug dosing, the eGFR should be multiplied by the estimated BMI. CHEMISTRY Globulin 3.0 2.0 - 4.0 05/24 Normal [facility] CHEMISTRY AGAP 12.2 10.0 - 05/24 [facility] 20.0 [facility] CHEMISTRY B/C Ratio 22 6 - 25 05/24 Normal [facility] CHEMISTRY AST 11 0 - 37 05/24 Normal [facility] CHEMISTRY Total 6.1 6.4 - 8.4 05/24 LOW [facility] Protein [facility] CHEMISTRY Potassium 4.2 3.5 - 5.1 05/24 Normal [facility] Lvl [facility] CHEMISTRY Sodium Lvl 138 135 - 145 05/24 Normal [facility] CHEMISTRY Bili Total 0.4 0.2 - 1.3 05/24 Normal [facility] CHEMISTRY Calcium Lvl 8.2 8.5 - 10.5 05/24 LOW [facility] CHEMISTRY Chloride Lvl 110 95 - 109 05/24 [facility] CHEMISTRY CO2 20 24 - 32 05/24 [facility] CHEMISTRY Creatinine 0.4 0.5 - 1.4 05/24 LOW [facility] Lvl /2012 [facility] CHEMISTRY BUN 9 7 - 22 05/24 Normal [facility] CHEMISTRY Glucose Lvl 78 70 - 99 05/24 Normal <sup>2</sup>I nterpretive Medical Data: Adult Center reference range values reflect the clinical guidelines
of the [place] [employer]. CHEMISTRY Albumin Lvl 3.1 3.5 - 5.0 05/24 LOW [facility] CHEMISTRY Alk Phos 67 39 - 136 05/24 Normal [facility] CHEMISTRY ALT 18 0 - 65 05/24 Normal [facility] HEMATOLOGY MCV 89.3 81.0 - 05/24 Normal [facility] 99.0 Medical [place] HEMATOLOGY MCHC 34.9 32.0 - 05/24 Normal [place] 36.0 Medical [place] HEMATOLOGY MCH 31.2 27.0 - 05/24 [facility] 31.0 Medical [place] HEMATOLOGY MPV 9.0 7.4 - 10.4 05/24 Normal [facility] HEMATOLOGY Platelet 142 133 - 450 05/24 Normal [facility] HEMATOLOGY RDW 13.3 11.5 - 05/24 Normal [facility] 14.5 /2012 [facility] HEMATOLOGY Hgb 11.3 12.0 - 05/24 LOW [facility] 16.0 /2012 [facility] HEMATOLOGY WBC 8.8 3.7 - 10.4 05/24 Normal [facility] HEMATOLOGY RBC 3.62 4.20 - 05/24 LOW [place] 5.40 /2012 Medical Center HEMATOLOGY Hct 32.3 36.0 - 05/24 LOW [place] 48.0 /2012 [facility] URINALYSIS UA 0.1 - 1.0 05/24 [facility] Urobilinogen /2012 [facility] URINALYSIS UA Color Yellow Yellow 05/24 NA [place] *NA* /2012 Medical (05/24/2012 14:55:00) Center URINALYSIS UA Glucose Negative mg/dL Negative 05/24 NA [place] *NA* /2012 Medical (05/24/2012 14:55:00) Center URINALYSIS UA Ketones Negative mg/dL Negative 05/24 NA [facility] *NA* Medical (05/24/2012 14:55:00) Center URINALYSIS UA Bili Negative Negative 05/24 [facility] Medical (05/24/2012 14:55:00) Center URINALYSIS UA Leuk Est Small Negative 05/24 [facility] Medical (05/24/2012 14:55:00) Center URINALYSIS UA Blood Negative Negative 05/24 Normal [facility] (05/24/2012 14:55:00) Medical Center URINALYSIS UA Nitrite Negative Negative 05/24 Normal [facility] (05/24/2012 14:55:00) Medical Center URINALYSIS UA Turbidity Slight Clear 05/24 [facility] Medical (05/24/2012 14:55:00) Center URINALYSIS UA Spec Grav 1.017 <=1.030 05/24 [facility] URINALYSIS UA pH 6.5 5.0 - 8.0 05/24 Normal [facility] URINALYSIS UA Protein 20 mg/dL Negative 05[facility]2012 14:55:00[facility] Center URINALYSIS UA Sq Epi Many /LPF Few 05/24 [facility] Medical (05/24/2012 14:55:00) Center URINALYSIS UA WBC 8 0 - 5 05/24 [facility] URINALYSIS UA RBC <1 0 - 2 05/24 Normal [facility] URINALYSIS UA Bacteria Occasional /HPF None [facility]05/24/2012 14:55:00[facility] Center URINALYSIS UA Mucus Few /LPF None Seen 05/24 [facility] (05/24/2012 14:55:00) Center URINALYSIS UA Amorph Moderate /HPF None Seen 05/24 [facility] *ABN Medical (05/24/2012 14:55:00) Center URINALYSIS UA 0.1 - 1.0 03/02 NA [facility] [place] URINALYSIS UA Color Ltyellow 03/02 NA [place] URINALYSIS UA Bacteria Few /HPF None Seen 03/02 [facility] *NA* [facility] (03/02/2012 10:35:00) URINALYSIS UA RBC 1 0 - 2 03/02 Normal URINALYSIS UA WBC 3 0 - 5 03/02 Normal [facility] URINALYSIS UA Trans Epi 4 <=0 03/02 [place] [facility] URINALYSIS UA Turbidity Slight Clear 03/02 [facility]N *ABN* [facility] (03/02/2012 10:35:00) URINALYSIS UA Leuk Est Small Negative 03/02 [facility]N *ABN* [facility] (03/02/2012 10:35:00) URINALYSIS UA Nitrite Negative Negative 03/02 Normal (03/02/2012 10:35:00) [facility] URINALYSIS UA Blood Negative Negative 03/02 Normal (03/02/2012 10:35:00) [facility] URINALYSIS UA Ketones Negative mg/dL Negative 03/02 [facility] *NA* [facility] (03/02/2012 10:35:00) URINALYSIS UA Bili Negative Negative 03/02 [facility] *NA* [facility] (03/02/2012 10:35:00) URINALYSIS UA Glucose Negative mg/dL Negative 03/02 [facility] *NA* [facility] (03/02/2012 10:35:00) URINALYSIS UA Protein Negative mg/dL Negative 03/02 Normal (03/02/2012 10:35:00) URINALYSIS UA Spec Grav 1.006 <=1.030 03/02 Normal [facility] URINALYSIS UA pH 7.0 5.0 - 8.0 03/02 Normal [facility] URINALYSIS UA Sq Epi Many /LPF Few 03/02 [facility] *ABN* [facility] (03/02/2012 10:35:00) Microbiolo Culture: 03/02 gy [facility] Pathology Reports No Data Provided for This Section Diagnostic Reports Report Value Date Source Chest 1view DX EXAM: XR CHEST 1 VIEW 09/18/2017 [facility] DATE: 09/18/2017 12:31 PM CDT Center INDICATION: - SOB COMPARISON: PA and lateral [...] patient positioning). The lungs are clear. Teeth Complete Full EXAM: XR PANOREX 09/07/2017 [facility] DX DATE: 09/07/2017 3:49 PM CDT Center INDICATION: - infection ADDITIONAL INFORMATION: 'tooth ache' [...] and left maxillary second premolar. 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 A few scattered interstitial opacities and granulomatous calcifications are noted bilaterally, nonspecific , likely chronic. The cardiomediastinal silhouette is normal. There is no pleural fluid collection noted. Wire sutures are noted at the sternum. IMPRESSION: Lingular pneumonia. SL: ABDIAS Abdomen RUQ US 08/22/2015 [facility] Study: Abdomen RUQ US Clinical Indication: Right upper quadrant pain Comparison: [...] otherwise unremarkable right upper quadrant ultrasound. SL: [id number] Preg < 14wks Single Study: Preg < 14wks Single gest w Transvag US ; Age: 29 years y/o Female 08/22/2015 [facility] w Transvag US Clinical Indication: Abdominal pain, acute; Comparison: None Technique: Grayscale, color and Doppler transabdominal and [...] 4. Mild enlargement of the uterus. SL: [id number] Renal Stone CT CT ABDOMEN AND PELVIS WITHOUT CONTRAST, WITH RENAL STONE PROTOCOL. 01/22/2015 [facility] INDICATION: Right lower abdominal pain COMPARISON: CT abdomen pelvis 12/18/2003. Images were [...] and contracted gallbladder. SL: 12 Chest 2 views DX PROCEDURE: Chest 2 views 10/30/2014 [facility] REASON FOR EXAM: See Clinic Indication CLINICAL INFORMATION Cough and fever COMPARISON: 10/2014. 10/2013 multiple x-rays. 07/2012. Right infrahilar pneumonia increased from the prior exams. Increased left lower lobe infiltrate. No effusions or pneumothorax. Normal heart and pulmonary vasculature. Intact osseous structures. IMPRESSION: Increased pneumonia. SL: 14 Chest 1view DX 10/30/2014 [facility] EXAM: Portable chest x-ray. HISTORY: Chest pain. COMPARISON: 11/04/2013. TECHNIQUE: Portable frontal view of the chest. FINDINGS: Shallow inspiration accentuates the pulmonary vessels. Question mild interstitial pneumonia versus superimposed vessels right infrahilar lung; correlate with physical exam. No pulmonary edema or significant pleural effusion. Heart size normal. SL: 12 Chest 1view Portable chest: There has been improvement in the left lung opacity since 11/01/2013 with near resolution. The lungs and pleural spaces are otherwise clear. There is no other significant change. 11/04/2013 [facility] SL:13 Chest 1view HISTORY: Shortness of breath. 11/01/2013 [facility] One view chest. Comparison 07/16/2012. Left perihilar patchy infiltrate. Correlate clinically for [...] in the appropriate clinical setting. SL: 14 Consultation Notes No Data Provided for This Section Discharge Summaries No Data Provided for This Section History and Physicals No Data Provided for This Section Vital Signs Vital Sign Value Date Comments Source Diastolic (mm Hg) 55 07/16/2012 [facility] Systolic (mm Hg) 110 07/16/2012 [facility] Diastolic (mm Hg) 64 07/16/2012 [facility] Systolic (mm Hg) 113 07/16/2012 [facility] Temperature Oral (F) 97.8 F 07/16/2012 [facility] Temperature Oral (F) 98.4 F 07/16/2012 [facility] Systolic (mm Hg) 115 07/16/2012 [facility] Diastolic (mm Hg) 56 07/16/2012 [facility] Temperature Oral (F) 98.1 F 07/16/2012 [facility] Respitory Rate 18 07/16/2012 [facility] Respitory Rate 22 07/15/2012 [facility] Respitory Rate 19 07/15/2012 [facility] Weight 107.5 07/15/2012 [facility] Height 154.94 cm 07/15/2012 [facility] Weight 108.182 07/15/2012 [facility] Height 154.94 cm 07/15/2012 [facility] Weight 100.000 06/25/2012 [facility] Height 165.10 cm 06/25/2012 [facility] Weight 102.727 05/25/2012 [facility] Height 154.94 cm 05/25/2012 [facility] Weight 100.000 03/02/2012 [facility] Height 154.94 cm 03/02/2012 [facility] Encounters Location Location Encounter Encounter Reason Attending ADM DC Status Source Details Type Number For Provider Date Date Visit Emergency [id number] SHELISE 03/02 03/02 Dis[facility] [place]ATRIN /2011 [place] [id number] 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 [facility] OU [id number] R/O QING 05/24 05/24 Active [facility] Medical LABOR /2012 [facility] [place] [id number] WK 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 [facility] GROWTH ORIN [place] [facility] OU [id number] WKS JARRETT 06/25 06/25 Active [facility] Medical MANCILLA [facility] Inpatient [id number] LABOR JARRETT 07/14 Active [facility] MANCILLA [facility] Preadmit [id number] WEEKS CAROLINE Active [facility] C-SECTIO N Procedures Procedure Code Date Perfomer Comments Source section [id number] 05/18/2002 [facility] Open heart [id number] 1985 [facility] Assessment and Plan No Data Provided for This Section Plan of Care No Data Provided for This Section Social History No Data Provided for This Section Family History No Data Provided for This Section Advance Directives No Data Provided for This Section Functional Status No Data Provided for This Section
--- OUTSIDE RECORDS SUMMARY | 2018-12-06 12:41 | XMS REPORT | CCD ---
:1985 Author Organization [facility] Care Team Providers Name Role Phone Concepcion Villalobos Consulting Provider Allergies, Adverse Reactions, Alerts Substance Reaction Status aspirin Active Benadryl Active Claritin Active vancomycin Active ZyrTEC Active Vital Signs Most recent to oldest [Reference Range]: 1 Height 165.10 cm (06/25/2012 11:05:00) Weight 100.000 kg (06/25/2012 11:05:00)
--- OUTSIDE RECORDS SUMMARY | 2018-12-06 12:41 | XMS REPORT | CCD ---
:1985 Author Organization [facility] Care Team Providers Name Role Phone Loli York Referring Provider Allergies, Adverse Reactions, Alerts Substance Reaction Status aspirin Active Benadryl Active Claritin Active vancomycin Active ZyrTEC Active
--- OUTSIDE RECORDS SUMMARY | 2018-12-06 12:41 | XMS REPORT | CCD ---
:1985 Author Organization [facility] Care Team Providers Name Role Phone Tommy [...] values reflect the clinical guidelines of the [place] [employer].HEMATOLOGY Most recent to oldest [Reference [...]
--- OUTSIDE RECORDS SUMMARY | 2018-12-06 12:41 | XMS REPORT | CCD ---
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 Medications Medication Instructions Start Date End Date Status HYDROmorphone 0.5mg/mL COUNSELING PSYCHOLOGIST 15 mg, 30 mL, Route: 07/15/2012 07/16/2012 Discontinued (15mg/30 mL) 15 mg IV, COUNSELING PSYCHOLOGIST Dose: 0.2 mg, COUNSELING PSYCHOLOGIST Lockout: 10 minutes, 4 Hour Limit (In MG): 5, Drug Form: INJ, Continuous, Start date: 07/15/12 3:00:00, Duration: 30 day, Stop date: 08/14/12 3:59:00 [place] 5/325 oral tablet 1-2 tab, PO, Q6H, [...] Duration: 30 day, Stop date: 08/12/12 22:00:00 [place] 5/325 oral tablet 1-2 tab, PO, Q6H, [...] 13.25 mL, Route: IV, Drug form: INJ, [id number], Dosing Weight 107.5, kg, Start date: 07/15/12 [...] Duration: 30 day, Stop date: 08/13/12 21:43:00 [place] 5/325 oral tablet 1-2 tab, PO, Q6H, [...] mg, 1 supp, Route: 07/15/2012 07/19/2012 Discontinued CO, Drug form: SUPP, PRN, Dosing Weight 108.182, [...] microgram, 5 tab, 07/14/2012 07/19/2012 Discontinued Route: CO, Drug form: TAB, ONCALL, Dosing Weight 108.182, [...] by the [facility] within the [facility]. The [facility] is authorized [...] values reflect the clinical guidelines of the [place] [employer].5Interpretive Data: Adult reference range values reflect the clinical guidelines of the [place] [employer].HEMATOLOGY Most recent to oldest 1 [...] Morph Clumped (07/15/2012 23:00:00) 6Result Comment: Katheryn Bailey 07/15/2012 23:32:51 CSTIMMUNOLOGY Most recent to oldest [Reference Range]: 1 2 3 RPR [Non Reactive] Non Reactive (07/14/2012 22:07:00) Hep Bs Ag [Negative] Negative *NA* (07/14/2012 22:07:00) Procedures Procedures Date Related Diagnosis section 2002 Open heart surgery 11/1985
--- OUTSIDE RECORDS SUMMARY | 2018-12-06 12:41 | XMS REPORT | CCD ---
:1985 Author Organization [facility] Care Team Providers Name Role Phone Loli York Referring Provider Allergies, Adverse Reactions, Alerts Substance Reaction Status aspirin Active Benadryl Active Claritin Active vancomycin Active ZyrTEC Active
--- OUTSIDE RECORDS SUMMARY | 2018-12-06 12:41 | XMS REPORT | CCD ---
:1985 Author Organization [facility] Care Team Providers Name Role Phone [...]
--- OUTSIDE RECORDS SUMMARY | 2018-12-06 12:41 | XMS REPORT | CCD ---
:1985 Author Organization [facility] Care Team Providers Name Role Phone Tommy [...] values reflect the clinical guidelines of the [place] [employer].HEMATOLOGY Most recent to oldest [Reference [...]
--- OUTSIDE RECORDS SUMMARY | 2018-12-06 12:41 | XMS REPORT ---
:1985 [facility] [address] [place] [address] Care Team Providers Name Role Phone Unavailable Unavailable Unavailable Problems This patient has no known problems. Allergies, Adverse Reactions, Alerts This patient has no known allergies or adverse reactions. Medications This patient has no known medications.
[2018-12-06] MEDS ORDERED: HYDROCODONE/APAP 10/325 TAB ONE (14:50)
--- NOTE | 2018-12-06 15:15 | EKG ---
Test Date: 2018-12-06 Test Time: 12:49:39 Looping Machine Operator: GRAY MEASUREMENT RESULTS: Intervals: Rate: 69 [place]: 202 QRSD: 80 QT: 386 QTc: 413 [place]: P: 38 [place]: 202 QRS: 113 T: 30 INTERPRETIVE STATEMENTS: Normal sinus rhythm Right ventricular hypertrophy with repolarization abnormality Nonspecific T wave abnormality Abnormal ECG No previous ECG available for comparison Electronically Signed On 12-06-18 15:16:08 CDT by John Cortes
[2018-12-06 15:34] LABS: BUN Blood Urea Nitrogen 17 mg/dL (7-18); Bicarbonate 26 mmol/L (21-32); Glucose Level 83 mg/dL (74-106); Potassium 4.1 mmol/L (3.5-5.1); Sodium Level 142 mmol/L (136-145); Troponin (Emerg Dept Use Only) < 0.02 ng/mL (0.0-0.045)
--- NOTE | 2018-12-06 15:42 | ER ---
Nurse's Notes [facility] Name: Karly Hamlin Age: 33 yrs Sex: Female : 1985 Arrival Date: 12/06/2018 Time: 12:33 Bed 16 Private MD: Diagnosis: Pain in left upper arm Presentation: 12/06 12:36 Presenting complaint: Patient states: "my left arm was hurting yesterday for like 20 aa5 minutes but it went away and today it's been an hour now and it's not going away". Pt denies known injury to left arm. Transition of care: patient was not received from another setting of care. Onset of symptoms was December 06, 2018. Risk Assessment: Do you want to hurt yourself or someone else? Patient reports no desire to harm self or others. Initial Sepsis Screen: Does the patient meet any 2 criteria? No. Patient's initial sepsis screen is negative. Does the patient have a suspected source of infection? No. Patient's initial sepsis screen is negative. Care prior to arrival: None. 12:36 Acuity: LAUREN 3 aa5 12:36 Method Of Arrival: Ambulatory aa5 LIFE CONSULTANT: 12:39 LMP N/A - Irregular menses aa5 Historical: - Allergies: 12:35 Benadryl; aa5 12:35 Claritin; aa5 12:35 Nitroglycerin; aa5 12:35 Phenergan; aa5 12:35 Vancomycin; aa5 12:35 Zofran; aa5 12:35 Zyrtec; aa5 12:38 Aspirin; aa5 - Home Meds: 12:38 None [Active]; aa5 - PMHx: 12:35 carpal tunnel syndrome; Transposition of the great vessels; aa5 12:40 PCOS; aa5 - PSHx: 12:35 Open Heart Sx; ; aa5 12:40 Tubal ligation; aa5 - Immunization history:: Adult Immunizations unknown. - Social history:: Smoking status: Patient/guardian denies using tobacco. - Ebola Screening: : No symptoms or risks identified at this time. - Family history:: not pertinent. - Hospitalizations: : No recent hospitalization is reported. Screenin:12 Abuse screen: Denies threats or abuse. Nutritional screening: No deficits noted. tw2 Tuberculosis screening: No symptoms or risk factors identified. Fall Risk None identified. Assessment: 14:15 General: Appears in no apparent distress. obese, Behavior is calm, cooperative, tw2 appropriate for age. Pain: Complains of pain in left arm. Neuro: Level of Consciousness is awake, alert, obeys commands, Oriented to person, place, time, situation. Cardiovascular: Heart tones S1 S2 Patient's skin is warm and dry. Respiratory: Airway is patent Respiratory effort is even, unlabored, Respiratory pattern is regular, symmetrical, Breath sounds are clear bilaterally. GI: No signs and/or symptoms were reported involving the gastrointestinal system. Abdomen is non-distended, obese, Bowel sounds present X 4 quads. : No signs and/or symptoms were reported regarding the genitourinary system. EENT: No signs and/or symptoms were reported regarding the EENT system. Derm: No signs and/or symptoms reported regarding the dermatologic system. Musculoskeletal: Reports pain in left arm "i feel a lump in my left forearm", pt denies fall/injury to left arm. 15:37 Reassessment: Patient appears in no apparent distress at this time. No changes from tw2 previously documented assessment. Patient and/or family updated on plan of care and expected duration. Pain level reassessed. Patient is alert, oriented x 3, equal unlabored respirations, skin warm/dry/pink. 15:47 Reassessment: Patient appears in no apparent distress at this time. No changes from tw2 previously documented assessment. Patient and/or family updated on plan of care and expected duration. Pain level reassessed. Patient is alert, oriented x 3, equal unlabored respirations, skin warm/dry/pink. Vital Signs: 12:39 BP 125 / 64; Pulse 76; Resp 16 S; Temp 97.9(TE); Pulse Ox 97% on R/A; Weight 128.41 kg aa5 (M); Pain 7/10; 14:16 BP 135 / 83; Pulse 76; Resp 17; Pulse Ox 97% on R/A; Pain 7/10; tw2 15:37 BP 132 / 90; Pulse 78; Resp 17; Pulse Ox 95% on R/A; tw2 ED Course: 12:33 Patient arrived in ED. as 12:36 Arm band placed on. aa5 12:38 Triage completed. aa5 12:45 EKG completed in triage. Results shown to MD. aa5 14:11 Annita Ledesma, RN is Primary Nurse. tw2 14:11 Bed in low position. Call light in reach. tw2 14:19 Meng Johnson MD is Attending Physician. rn 14:50 Troponin (emerg Dept Use Only) Sent. tw2 14:50 BMP Sent. tw2 14:50 Missed attempt(s): 22 gauge in right forearm. blood collected. Bleeding controlled, tw2 band aid applied, catheter tip intact. Missed attempt(s): 24 gauge in right hand. Bleeding controlled, band aid applied, catheter tip intact. 15:46 No provider procedures requiring assistance completed. Patient did not have IV access tw2 during this emergency room visit. Administered Medications: 14:35 Drug: [place] 10 mg-325 mg 1 tabs Route: PO; tw2 15:41 Follow up: Response: No adverse reaction; Pain is decreased tw2 Outcome: 15:41 Discharge ordered by MD. rn 15:46 Discharged to home ambulatory, with significant other. tw2 15:46 Condition: stable 15:46 Discharge instructions given to patient, significant other, Instructed on discharge instructions, follow up and referral plans. Demonstrated understanding of instructions, follow-up care. 15:47 Patient left the ED. tw2 Signatures: Danitza Downing as Meng Johnson MD MD rn Calderon, Audri, RN RN aa5 Annita Ledesma RN RN tw2 Corrections: (The following items were deleted from the chart) 12:40 12:39 BP 125 / 64; Pulse 76bpm; Resp 16bpm; Spontaneous; Pulse Ox 97% RA; Temp 97.9F aa5 Temporal; Pain 7/10; aa5
--- NOTE | 2018-12-06 15:42 | EDPHYS ---
Physician Documentation [facility] Name: Karly Hamlin Age: 33 yrs Sex: Female : 1985 Arrival Date: 12/06/2018 Time: 12:33 Bed 16 Private MD: ED Physician Meng Johnson HPI: 12/06 15:04 This 33 yrs old Female presents to ER via Ambulatory with complaints of Arm rn Pain. 15:04 The patient or guardian complains of pain. The complaints affect the left arm. Onset: rn The symptoms/episode began/occurred yesterday. Modifying factors: The symptoms are alleviated by nothing. the symptoms are aggravated by movement, bending arm. Severity of symptoms: At their worst the symptoms were moderate, in the emergency department the symptoms have improved. The patient has not experienced similar symptoms in the past. Reports had approx 25 min of left arm pain yesterday, went away, no trauma or injury, doesn't recall doing anything strenuous recently, pain is from left bicep to left forearm, no chest pain/sob. + hx of TGA, but had pediatric surgery at age 1. . 15:04 Reports hx of pinched nerves.. 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 - Social history:: Smoking status: Patient/guardian denies using tobacco. - Ebola Screening: : No symptoms or risks identified at this time. - Family history:: not pertinent. - Hospitalizations: : No recent hospitalization is reported. ROS: 15:04 Constitutional: Negative for fever, chills, and weight loss, Eyes: Negative for injury, rn pain, redness, and discharge, Neck: Negative for injury, pain, and swelling, Cardiovascular: Negative for chest pain, palpitations, and edema, Respiratory: Negative for shortness of breath, cough, wheezing, and pleuritic chest pain, Abdomen/GI: Negative for abdominal pain, nausea, vomiting, diarrhea, and constipation, MS/Extremity: Negative for injury and deformity, Skin: Negative for injury, rash, and discoloration, Neuro: Negative for headache, weakness, numbness, tingling, and seizure. Exam: 15:04 Constitutional: Overweight female, no acute distress, using cell phone with both arms rn including affected left arm. Head/Face: Normocephalic, atraumatic. Eyes: Pupils equal round and reactive to light, extra-ocular motions intact. Lids and lashes normal. Conjunctiva and sclera are non-icteric and not injected. Cornea within normal limits. Periorbital areas with no swelling, redness, or edema. ENT: MMM, no neck swelling Neck: Trachea midline, no thyromegaly or masses palpated, and no cervical lymphadenopathy. Supple, full range of motion without nuchal rigidity, or vertebral point tenderness. No Meningismus. Skin: Warm, dry with normal turgor. Normal color with no rashes, no lesions, and no evidence of cellulitis. MS/ Extremity: Pulses equal, no cyanosis. Neurovascular intact. Full, normal range of motion. Equal circumference. Neuro: Awake and alert, GCS 15, oriented to person, place, time, and situation. Cranial nerves II-XII grossly intact. Motor strength 5/5 in all extremities. Sensory grossly intact. Cerebellar exam normal. Vital Signs: 12:39 BP 125 / 64; Pulse 76; Resp 16 S; Temp 97.9(TE); Pulse Ox 97% on R/A; Weight 128.41 kg aa5 (M); Pain 7/10; 14:16 BP 135 / 83; Pulse 76; Resp 17; Pulse Ox 97% on R/A; Pain 7/10; tw2 15:37 BP 132 / 90; Pulse 78; Resp 17; Pulse Ox 95% on R/A; tw2 MDM: 14:19 Patient medically screened. rn 15:39 Differential diagnosis: tendonitis, muscle aches, MSK pain, radiculopathy. Data rn reviewed: vital signs, nurses notes, lab test result(s), EKG, and as a result, I will discharge patient. Counseling: I had a detailed discussion with the patient and/or guardian regarding: the historical points, exam findings, and any diagnostic results supporting the discharge/admit diagnosis, lab results, the need for outpatient follow up, to return to the emergency department if symptoms worsen or persist or if there are any questions or concerns that arise at home. Special discussion: I discussed with the patient/guardian in detail that at this point there is no indication for admission to the hospital. It is understood, however, that if the symptoms persist or worsen the patient needs to return immediately for re-evaluation. 15:39 ED course: NO sign of trauma, no swelling, no skin changes, no signs or symptoms of rn DVT. ECG without ischemia and trop negative.. 12/06 14:30 Order name: BMP; Complete Time: 15:40 rn 12/06 14:30 Order name: Troponin (emerg Dept Use Only); Complete Time: 15:40 rn 12/06 14:30 Order name: IV Start; Complete Time: 15:43 rn 12/06 14:33 Order name: EKG; Complete Time: 14:35 tw2 12/06 14:33 Order name: EKG - Nurse/Tech; Complete Time: 14:49 tw2 Administered Medications: 14:35 Drug: [place] 10 mg-325 mg 1 tabs Route: PO; tw2 15:41 Follow up: Response: No adverse reaction; Pain is decreased tw2 Disposition: 12/06/18 15:41 Discharged to Home. Impression: Pain in left upper arm. - Condition is Stable. - Discharge Instructions: Musculoskeletal Pain, Pain Without a Known Cause. - Medication Reconciliation Form, Thank You Letter, Antibiotic Education, Prescription Opioid Use, Family Work Release form. - Follow up: Private Physician; When: As needed; Reason: Recheck today's complaints, Re-evaluation by your physician. - Problem is new. - Symptoms have improved. Signatures: Dispatcher [employer] EDMS Meng Johnson MD MD rn Calderon, Audri RN RN aa5 Annita Ledesma RN RN tw2 Corrections: (The following items were deleted from the chart) 15:47 15:41 12/06/2018 15:41 Discharged to Home. Impression: Pain in left upper arm. tw2 Condition is Stable. Forms are Medication Reconciliation Form, Thank You Letter, Antibiotic Education, Prescription Opioid Use. Follow up: Private Physician; When: As needed; Reason: Recheck today's complaints, Re-evaluation by your physician. Problem is new. Symptoms have improved. rn
== END 2018-12-06 15:47 | disposition home or self-care (01) ==
LOC: ER 12:32
DX: M79.622 Pain in left upper arm (principal); Z88.3 Allergy status to other anti-infective agents; Z88.6 Allergy status to analgesic agent; Z88.8 Allergy status to other drugs, medicaments and biological substances
CPT/HCPCS: 36415; 80048; 84484; 93005; 99283

== ENCOUNTER 2018-12-16 20:57 | Emergency (ER) | payer OTHER ==
--- OUTSIDE RECORDS SUMMARY | 2018-12-16 21:03 | XMS REPORT | CCD ---
:1985 Author Organization [facility] Care Team Providers Name Role Phone [...] values reflect the clinical guidelines of the [place] [employer].HEMATOLOGY Most recent to oldest [Reference [...]
--- OUTSIDE RECORDS SUMMARY | 2018-12-16 21:03 | XMS REPORT | CCD ---
:1985 Author Organization [facility] Care Team Providers Name Role Phone Loli York Referring Provider Allergies, Adverse Reactions, Alerts Substance Reaction Status aspirin Active Benadryl Active Claritin Active vancomycin Active ZyrTEC Active
--- OUTSIDE RECORDS SUMMARY | 2018-12-16 21:03 | XMS REPORT | CCD ---
:1985 Author Organization [facility] Care Team Providers Name Role Phone Moris [...]
--- OUTSIDE RECORDS SUMMARY | 2018-12-16 21:03 | XMS REPORT | CCD ---
:1985 Author Organization [facility] Care Team Providers Name Role Phone Loli York Referring Provider Allergies, Adverse Reactions, Alerts Substance Reaction Status aspirin Active Benadryl Active Claritin Active vancomycin Active ZyrTEC Active
--- OUTSIDE RECORDS SUMMARY | 2018-12-16 21:03 | XMS REPORT | CCD ---
:1985 Author Organization [facility] Care Team Providers Name Role Phone [...] values reflect the clinical guidelines of the [place] [employer].HEMATOLOGY Most recent to oldest [Reference [...]
--- OUTSIDE RECORDS SUMMARY | 2018-12-16 21:03 | XMS REPORT | Continuity of Care Document ---
:1985 Author Organization [facility] VeryLastRoom Information [email or web address] Care Team Providers Name Role Phone [facility] Micah [employer] Unavailable Unavailable Problems Problem Status Onset Classification Date Comments Source Date Reported CHF Active [address] SENT BY DR Active [address] R/O LABOR Active [address] SHORTNESS OF BREATH Active [address], [place] 30[place] PREG -PAIN Active [address] Q20.[address] CHEST PAIN FROM Active [facility] COUGHING 016 [place] ABD PAIN Active [facility] 016 [place] BACK PAIN Active [address] [place] SOB Active [address]15 [place] FLU LIKE SYMPTOMS Active [address]15 [place] RASH Active [address]15 [place] EAR ACHE Active 015 [place] LEFT EAR PAIN Active 014 [place] PNEUMONIA Active 014 [place] LABOR Active [address] 37 WEEKS CHF Active [address] Active [address] 37 WEEKS Active [facility] CHF, TGA, S/P 013 Medical [facility] 34 WKS Active [address] 4 WK 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 [place] CRAMPING Active 012 [place] KIDNEY FAILURE Resolved Problem 07/21/[address] Asthma Resolved Problem 07/21/[address] CHF Resolved Problem 07/21/[address] Transposition of Resolved 07/01/1 Problem 07/21/2012 [facility] [place] great vessels [facility] CHF NOS Active [facility] THREAT LABOR Active [facility] PNEUMONIA, ORGANISM Active NOS [place] DISCORDANT Active [facility] VENTRICULOARTERIAL Medical CONNECTION Center RELATED Active [facility] CONDITIONS, UNSP, Medical UNSP Center HEART FAILURE, Active [facility] UNSPECIFIED Medical Center Medications Medication Details Route Status Patient Ordering Order Source Instructions Provider Date Colace 100 mg oral 100 mg, 1 cap, PO Active Masry 07/19/ [facility] capsule PO, BID, PRN, 60 2012 Medical cap, 1, 1, Center Constipation, Substitution Allowed, CAP Colace 100 mg oral 100 mg, 1 cap, PO Active Masry 07/19/ [place] capsule PO, BID, PRN, 60 2012 Medical cap, 1, 1, Center Constipation, Substitution Allowed, CAP Gilbert 5/325 oral 1-2 tab, PO, PO Active Masry 07/19/ [facility] tablet Q6H, PRN, 20 2012 Medical tab, Pain, Center Substitution Allowed, Maintenance [place] 5/325 oral 1-2 tab, PO, PO Active Masry 07/19/ [facility] tablet Q6H, PRN, 20 2012 Medical tab, Pain, Center Substitution Allowed, Maintenance Colace 100 mg oral 100 mg, 1 cap, PO Active Masry 07/19/ [facility] capsule PO, BID, PRN, 60 2012 Medical cap, 1, 1, Center Constipation, Substitution Allowed, CAP [place] 5/325 oral 1-2 tab, PO, PO Active Masry 07/19/ [facility] tablet Q6H, PRN, 20 2012 Medical tab, Pain, Center Substitution Allowed, Maintenance gentamicin + 530 mg, 13.25 IV No Gabriel [facility] Sodium Chloride mL, Route: IV, Longer 2012 Medical 0.9% IV 100 mL Drug form: INJ, Active Center [id number], Dosing Weight 107.5, kg, Start date: 07/15/12 23:00:00, Duration: 30 day, Stop date: 08/13/12 23:00:00, Pediatric DosingPediatric Dosing clindamycin 900 mg, 6 mL, IVPB No Gabriel [facility] Route: IVPB, Longer 2012 Medical Drug form: INJ, Active Center [id number], Dosing Weight 107.5, kg, Start date: 07/15/12 23:00:00, Duration: 30 day, Stop date: 08/14/12 15:00:00 ampicillin 2 gm, Route: IVPB No Gabriel [facility] IVPB, Drug form: Longer 2012 Medical PDR/INJ, ABXQ6H, Active Center Dosing Weight 107.5, kg, Start date: 07/15/12 23:00:00, Duration: 30 day, Stop date: 08/14/12 17:00:00 levothyroxine 175 microgram, PO No [facility] Route: PO, Drug Longer 2012 Medical form: TAB, Active Center Daily, Dosing Weight 108.182, kg, Start date: 07/15/12 22:00:00, Duration: 30 day, Stop date: 08/14/12 9:00:00 Singulair 10 mg, 1 tab, PO No [facility] Route: PO, Drug Longer 2012 Medical form: TAB, QPM, Active Center Dosing Weight 108.182, kg, Start date: 07/15/12 22:00:00, Duration: 30 day, Stop date: 08/14/12 17:00:00 multivitamin, 1 tab, Route: PO No Venkata [facility] PO, Drug Form: Longer 2012 Medical TAB, Dosing Active Center Weight 108.182, kg, Daily, Start date: 07/15/12 21:00:00, Duration: 30 day, Stop date: 08/13/12 21:00:00 Saline Flush 0.9% 5 ml, Route: IVP No Mark [facility] IVP, Drug Form: Longer 2012 Medical INJ, Dosing Active Center Weight 108.182, kg, Q12H, Start date: 07/15/12 9:00:00, Duration: 30 day, Stop date: 08/13/12 21:00:00 1 tab, Route: PO No 07/15[facility] Multivitamins oral PO, Drug Form: Longer 2012 Medical tablet TAB, Dosing Active Center Weight 108.182, kg, Daily, Start date: 07/15/12 9:00:00, Duration: 30 day, Stop date: 08/13/12 9:00:00 atenolol 25 mg 25 mg, 1 tab, PO No Morgan 02/28[facility] oral tablet Route: PO, Drug Longer [...] 30 mL, IV No [place] Alex 0.5mg/mL 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 Route: IV, 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 Longer 2012 Medical (15mg/30 mL) 15 mg Dose: 0.2 mg, Active Center 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 Lockout: 10 minutes, 4 Hour Limit (In MG): 5, Drug Form: INJ, Continuous, Start date: 07/15/12 3:00:00, Duration: 30 day, Stop date: 08/14/12 3:59:00 M-M-R II 0.5 ml, Route: SUB-Q No [facility] Alex SUB-Q, Drug Longer 2012 Medical Form: PDR/INJ, Active Center Dosing Weight 108.182, kg, ONCALL, Start date: 07/15/12 2:00:00, Duration: 1 doses or times, Stop date: 07/22/12 0:00:00 acetaminophen-hydr 2 tab, Route: PO No [facility] ocodone 325 mg-5 PO, Drug Form: [...] 0.9% 5 ml, Route: IVP No Mark 07/15[facility] IVP, Drug Form: 2012 Medical INJ, Dosing Active Center Weight 108.182, kg, PRN, PRN Line Flush, Start date: 07/15/12 1:53:00, Duration: 30 day, Stop date: 08/14/12 2:52:00 acetaminophen 650 mg, 2 tab, PO No Britt 07/15[facility] Route: PO, Drug 2012 Medical form: TAB, Q4H, Active Center Dosing Weight 108.182, kg, PRN Other -See Comment, Start date: 07/15/12 1:53:00, Duration: 30 day, Stop date: 08/14/12 1:52:00 bisacodyl 10 mg, 1 supp, CO No [facility] 07/15[facility] Route: CO, Drug 2012 Medical form: SUPP, PRN, Active Center Dosing Weight 108.182, kg, PRN Other -See Comment, Start date: 07/15/12 1:53:00, Duration: 30 day, Stop date: 08/14/12 2:52:00 lanolin topical 1 appl, Route: TOP No [facility] 07/15[facility] cream TOP, PRN, Drug 2012 Medical form: OINT, PRN Active Center Other -See Comment, Start date: 07/15/12 1:53:00, Duration: 30 day, Stop date: 08/14/12 2:52:00 zolpidem 5 mg, 1 tab, PO No [facility] 07/15[facility] Route: PO, Drug 2012 Medical form: TAB, Active Center Bedtime, Dosing Weight 108.182, kg, PRN Insomnia, Start date: 07/15/12 1:53:00, Duration: 30 day, Stop date: 08/14/12 1:52:00 simethicone 160 mg, 2 tab, PO No [facility] 02/28[facility] Route: PO, Drug Longer 2012 Medical form: [place], Active Center Q8H, Dosing Weight 108.182, kg, PRN Gas, Start date: 07/15/12 1:53:00, Duration: 30 day, Stop date: 08/14/12 1:52:00 azithromycin 500 mg, Route: IVPB No edinma [facility] IVPB, Drug form: Longer 2012 Medical PDR/INJ, ONCALL, Active Center Dosing Weight 108.182, kg, Start date: 07/14/12 23:00:00, Duration: 1 doses or times, Stop date: 07/16/12 0:00:00 morphine Sulfate 2 mg, 1 mL, [facility] Route: IVP, Drug Longer 2012 Medical form: INJ, Q2H, Active Center Dosing Weight 108.182, kg, PRN Pain, Start date: 07/14/12 22:07:00, Duration: 30 day, Stop date: 08/13/12 22:06:00 Synthroid 75 microgram, 1 PO No 07/15[facility] tab, Route: PO, Longer 2012 Medical Drug form: TAB, Active Center Q630AM, Start date: 07/14/12 22:00:00, Duration: 30 day, Stop date: 08/12/12 22:00:00 Levothroid 100 microgram, 1 PO No Britt [facility] tab, Route: PO, Longer 2012 Medical Drug form: TAB, Active Center Q630AM, Start date: 07/14/12 22:00:00, Duration: 30 day, Stop date: 08/12/12 22:00:00 methylergonovine 0.2 mg, 1 mL, IM No edinma 07/15[facility] Route: IM, Drug 2012 Medical form: INJ, Active Center ONCALL, Dosing Weight 108.182, kg, Start date: 07/14/12 22:00:00, Duration: 30 day, Stop date: 08/13/12 22:59:00 carboprost 250 microgram, 1 IM No edinma 07/15[facility] mL, Route: IM, Longer 2012 Medical Drug form: INJ, Active Center ONCALL, Dosing Weight 108.182, kg, Start date: 07/14/12 22:00:00, Duration: 30 day, Stop date: 08/13/12 22:59:00 metoclopramide 10 mg, 2 mL, IVP No [facility] 07/15[facility] Route: IVP, Drug 2012 Medical form: INJ, Active Center ONCALL, Dosing Weight 108.182, kg, Start date: 07/14/12 22:00:00, Duration: 30 day, Stop date: 08/13/12 22:59:00 misoprostol 1,000 microgram, CO No [facility] 07/15[facility] 5 tab, Route: 2012 Medical CO, Drug form: Active Center TAB, ONCALL, Dosing Weight 108.182, kg, Start date: 07/14/12 22:00:00, Duration: 30 day, Stop date: 08/13/12 22:59:00 cefazolin 3 gm, 150 mL, IVPB No edinma 07/15[facility] Route: IVPB, 2012 Medical Drug form: INJ, Active Center ONCALL, Dosing Weight 108.182, kg, Start date: 07/14/12 22:00:00, Stop date: 07/16/12 0:00:00 morphine Sulfate 2 mg, 1 mL, IVP No [facility] 07/15[facility] Route: IVP, Drug 2012 Medical form: INJ, Q2H, Active Center Dosing Weight 108.182, kg, PRN Pain, Start date: 07/14/12 21:58:00, Duration: 30 day, Stop date: 08/13/12 21:57:00 morphine Sulfate 2 mg, 1 mL, IVP No Britt 07/15[facility] Route: IVP, Drug 2012 Medical form: INJ, Q2H, Active Center Dosing Weight 108.182, kg, PRN Pain, Start date: 07/14/12 21:49:00, Duration: 30 day, Stop date: 08/13/12 21:48:00 ondansetron 4 mg, 2 mL, IVP No [facility] 07/15[facility] Route: IVP, Drug 2012 Medical form: INJ, Q8H, Active Center Dosing Weight 108.182, kg, PRN Nausea & Vomiting, Start date: 07/14/12 21:49:00, Duration: 30 day, Stop date: 08/13/12 21:48:00 Lactated Ringers 20 unit, 1,000 IV No [facility] 1000ml+Oxytocin 20 mL, Rate: 50 Longer 2012 Medical units IV (Premix) ml/hr, Infuse Active Center 20 unit over: 20 hr, Dosing Weight 108.182, kg, Route: IV, Total Volume: 1,000 mL, Start date: 07/14/12 21:49:00, Duration: 2 day, Stop date: 07/16/12 21:48:00, Replace Every: 8 hr citric acid-sodium 30 ml, Route: PO No [facility] citrate PO, Drug Form: Longer 2012 Medical SOLN, Dosing Active Center Weight 108.182, kg, ONCE, Start date: 07/14/12 21:49:00, Duration: 1 doses or times, Stop date: 07/14/12 21:49:00 terbutaline 0.25 mg, 0.25 SUB-Q No Ezedinma [facility] mL, Route: Longer 2012 Medical SUB-Q, Drug Active Center form: INJ, ONCALL, Dosing Weight 108.182, kg, PRN Other -See Comment, Start date: 07/14/12 21:49:00, Duration: 1 doses or times, Stop date: 07/16/12 0:00:00 Lactated Ringers 1,000 mL, Rate: IV No [facility] IV 1,000 mL 125 ml/hr, Longer 2012 Medical Infuse over: 8 Active Center hr, Route: IV, kg, Total Volume: 1,000, Priority: STAT, Start date: 07/14/12 21:44:00, Duration: 30 day, Stop date: 08/13/12 21:43:00 acetaminophen-hydr 1 tab, Route: PO No [facility] ocodone 325 mg-5 PO, Drug Form: Longer 2012 Medical mg oral tablet TAB, Dosing Active Center Weight 108.182, kg, Q4H, PRN Pain Score 1-3, Start date: 07/14/12 21:42:00, Duration: 30 day, Stop date: 08/13/12 21:41:00 pneumococcal 0.5 ml, Route: IM No SYSTEM [facility] 23-valent vaccine IM, Drug Form: Longer [...] Source type Reported aspirin drug Allergy Active [facility] Benadryl drug Allergy Active [facility] Claritin drug Allergy Active [facility] vancomycin drug Allergy Active [facility] ZyrTEC drug Allergy Active [facility] Immunizations Immunization Date Given Site Status Last Updated Comments Source measles/mumps/rub 07/19/2012 completed Cj [facility] edson virus [facility] vaccine Center Results Order Name Results Value Reference Date Interpretation Comments Source Range CHEMISTRY Magnesium 1.8 1.8 - 2.4 07/16 Normal [facility] Lv [facility] CHEMISTRY Phosphorus 4.3 2.5 - 4.5 07/16 Normal [facility] CHEMISTRY Ca Norm 1.14 1.16 - 03 LOW [facility] 1.30 /2012 [facility] CHEMISTRY Ca Ion 1.14 1.16 - 07/16 LOW [facility] 1.30 [facility] CHEMISTRY Ca Norm mgdL 4.56 4.65 - 03 LOW [facility] 5.20 [facility] CHEMISTRY Ca Ion mgdL 4.56 4.65 - 03 [facility] 5.20 [facility] CHEMISTRY AGAP 16.1 10.0 - 03 Normal [facility] 20.0 [facility] CHEMISTRY eGFR 124 07/16 NA <sup>2</sup>R [facility] esult Medical Comment: The Center eGFR [...] CO2 21 24 - 32 03/ LOW [facility] CHEMISTRY Calcium Lvl 7.6 8.5 - 10.5 / [facility]2012 [facility] CHEMISTRY Chloride Lvl 107 95 - 109 07/16 Normal [facility]2012 [facility] CHEMISTRY Potassium 4.1 3.5 - 5.1 07/16 Normal [facility] CHEMISTRY Glucose Lvl 85 70 - 99 07/16 Normal <sup>4</sup>I nterpretive Medical Data: Adult Center reference range values reflect the clinical guidelines
of the [place] [employer]. CHEMISTRY BUN 8 7 - 22 03/ Normal [facility] CHEMISTRY Creatinine 0.6 0.5 - 1.4 / [facility] CHEMISTRY Sodium Lvl 140 135 - 145 / [facility] HEMATOLOGY Segs-Bands # 7.4 1.5 - 8.1 / [facility]2012 [facility] HEMATOLOGY Basophils 0.1 0.0 - 1.0 / [facility] HEMATOLOGY Segs 81.8 45.0 - 03/ HI [facility] 75.0 /2012 [facility] HEMATOLOGY Lymphocytes 10.6 20.0 - 03/ [facility] 40.0 /2012 [facility] HEMATOLOGY Monocytes 7.2 2.0 - 12.0 03/ [facility]2012 [facility] HEMATOLOGY Eosinophils 0.3 0.0 - 4.0 03/ [facility]2012 [facility] HEMATOLOGY Lymphocytes 1.0 1.0 - 5.5 03/ Normal [facility] # /2012 [facility] HEMATOLOGY Monocytes # 0.6 0.0 - 0.8 03/ [facility] HEMATOLOGY Hct 26.6 36.0 - 03/ LOW [facility] [place] 48.0 /2012 Medical Center HEMATOLOGY MCH 31.0 27.0 - 03/ Normal [place] 31.0 /2012 Medical Center HEMATOLOGY MCV 89.8 81.0 - 03/ Normal [place] 99.0 /2012 [facility] [place] HEMATOLOGY Platelet 126 133 - 450 03/ LOW [place] [facility] HEMATOLOGY MPV 9.0 7.4 - 10.4 03/ Normal [place] [facility] [place] HEMATOLOGY RDW 13.8 11.5 - 03/ Normal [place] 14.5 /2012 Medical Center HEMATOLOGY MCHC 34.6 32.0 - 03/ Normal [place] 36.0 /2012 Medical [facility] HEMATOLOGY Hgb 9.2 12.0 - 03/ LOW [place] 16.0 /2012 [facility] [place] HEMATOLOGY RBC 2.96 4.20 - 03/ LOW [place] 5.40 /2012 [facility] [place] HEMATOLOGY WBC 9.0 3.7 - 10.4 03/ Normal [place] [facility] [place] HEMATOLOGY Plt Morph Clumped 03 Normal [facility] (07/15/2012 23:00:00) [facility] HEMATOLOGY Lymphocytes 0.5 1.0 - 5.5 03/ LOW [place] # /2012 [facility] [place] HEMATOLOGY Segs-Bands # 5.1 1.5 - 8.1 03/ Normal [facility] HEMATOLOGY Basophils 0.3 0.0 - 1.0 03/ Normal [facility] HEMATOLOGY Eosinophils 0.1 0.0 - 4.0 03/ Normal [facility] HEMATOLOGY Monocytes 4.6 2.0 - 12.0 03/ Normal [facility] HEMATOLOGY RBC Morph Normal 03 Normal [facility] (07/15/2012 23:00:00) [facility] HEMATOLOGY Segs 86.3 45.0 - 03/ HI [place] 75.0 /2012 Medical Center HEMATOLOGY Lymphocytes 8.7 20.0 - 03/ LOW [place] 40.0 /2012 [facility] HEMATOLOGY Monocytes # 0.3 0.0 - 0.8 03/ Normal [facility] Center HEMATOLOGY MPV Clumped 7.4 - 10.4 03/ NA Medical Center HEMATOLOGY Platelet Clumped 133 - 450 03/ NA Medical Center HEMATOLOGY MCV 90.3 81.0 - 03/ Normal [facility] [place] 99.0 /2012 [facility] HEMATOLOGY RBC 3.28 4.20 - 03 [facility] 5.40 /2012 [facility] HEMATOLOGY WBC 6.0 3.7 - 10.4 07/16 Normal [facility] HEMATOLOGY MCH 30.3 27.0 - 03 Normal [facility] 31.0 /2012 [facility] HEMATOLOGY RDW 13.6 11.5 - 03 Normal <sup>6</sup>R [facility] 14.5 esult Medical Comment: Center Informed Trina Hernándezath 07/15/2012 23:32:51 [employer] [facility] HEMATOLOGY MCHC 33.5 32.0 - 03 Normal [facility] 36.0 /2012 [facility] HEMATOLOGY Hgb 9.9 12.0 - 03 [facility] 16.0 /2012 [facility] HEMATOLOGY Hct 29.6 36.0 - 03 [facility] 48.0 /2012 [facility] BACTERIAL MRSA by PCR Negative 1 07/15 Normal <sup>1</sup>I [facility] - SEROLOGY (07/15/2012 02:52:00) nterpretive Medical [...] by the [facility] within the [facility]. The [facility] Laboratory is authorized under the Clinical Laboratory Improvement Amendment of 1988 (CLIA-88) to perform high complexity testing. CHEMISTRY Phosphorus 3.5 2.5 - 4.5 07/15 Normal [facility] CHEMISTRY Magnesium 1.3 1.8 - 2.4 07/15 [facility] Lvl [facility] CHEMISTRY Ca Ion 1.07 1.16 - 07/15 [facility] 1.30 [facility] CHEMISTRY Ca Ion mgdL 4.28 4.65 - 07/15 [facility] 5. [facility] CHEMISTRY Ca Norm mgdL 4.32 4.65 - 07/15 [facility] 5.20 [facility] CHEMISTRY Ca Norm 1.08 1.16 - 07/15 [facility] 1.30 [facility] CHEMISTRY AGAP 18.4 10.0 - 07/15 [facility] 20.0 [facility] CHEMISTRY eGFR 118 07/15 NA [...] values reflect the clinical guidelines
of the [place] [employer]. CHEMISTRY Potassium 4.4 3.5 - 5.1 07/15 Normal [facility] CHEMISTRY Sodium Lvl 141 135 - 145 07/15 [facility] CHEMISTRY Chloride Lvl 112 95 - 109 07/15 [facility] CHEMISTRY Creatinine 0.7 0.5 - 1.4 07/15 [facility] CHEMISTRY BUN 7 7 - 22 07/15 [facility] CHEMISTRY Calcium Lvl 7.7 8.5 - 10.5 07/15 [facility] CHEMISTRY CO2 15 24 - 32 07/15 [facility] HEMATOLOGY Platelet 131 133 - 450 07/15 [facility] HEMATOLOGY MPV 9.4 7.4 - 10.4 07/15 Normal /2012 [facility] HEMATOLOGY RDW 13.8 11.5 - 07/15 Normal [place] 14.5 /2012 [facility] HEMATOLOGY MCHC 34.6 32.0 - 07/15 Normal [place] 36.0 /2012 [facility] HEMATOLOGY MCH 31.0 27.0 - 07/15 Normal [place] 31.0 /2012 [facility] HEMATOLOGY MCV 89.6 81.0 - 07/15 Normal [place] 99.0 /2012 [facility] HEMATOLOGY Hct 29.8 36.0 - 02 LOW [place] 48.0 /2012 [facility] HEMATOLOGY RBC 3.33 4.20 - 07/15 LOW [place] 5.40 /2012 [facility] HEMATOLOGY WBC 10.8 3.7 - 10.4 07/15 HI [facility] HEMATOLOGY Hgb 10.3 12.0 - 07/15 LOW [place] 16.0 /2012 [facility] HEMATOLOGY Segs-Bands # 9.9 1.5 - 8.1 07/15 HI /2012 [facility] HEMATOLOGY Lymphocytes 0.4 1.0 - 5.5 07/15 LOW [place] # /2012 [facility] HEMATOLOGY Monocytes # 0.5 0.0 - 0.8 07/15 Normal /2012 [facility] HEMATOLOGY Segs 91.4 45.0 - 07/15 [facility] [place] 75.0 /2012 [facility] HEMATOLOGY Eosinophils 0.1 0.0 - 4.0 07/15 Normal /2012 [facility] HEMATOLOGY Lymphocytes 3.8 20.0 - 07/15 LOW [place] 40.0 /2012 [facility] HEMATOLOGY Basophils 0.1 0.0 - 1.0 07/15 Normal [facility] HEMATOLOGY Monocytes 4.6 2.0 - 12.0 07/15 Normal /2012 [facility] BLOOD BANK RBC product Product available 07/15 Normal [facility] RESULTS (07/14/2012 22:07:57) /2012 [facility] BLOOD BANK Antibody Negative 07/15 Normal [facility] RESULTS Scrn (07/14/2012 22:07:00) /2012 [facility] BLOOD BANK ABO/Rh A POS 07/15 Unknown [facility] RESULTS /2012 [facility] IMMUNOLOGY Hep Bs Ag Negative Negative 07/15 [facility] [place] *NA* /2012 Medical (07/14/2012 22:07:00) Center IMMUNOLOGY RPR Non Reactive Non 07/15 Normal [facility] (07/14/2012 22:07:00) Reactive /2012 [facility] CHEMISTRY LDH 144 98 - 192 05/24 Normal [facility] CHEMISTRY Uric Acid 3.5 2.5 - 7.0 05/24 Normal [facility] CHEMISTRY A/G Ratio 1.0 0.7 - 1.6 05/24 Normal [facility] CHEMISTRY eGFR 142 05/24 NA [...] Globulin 3.0 2.0 - 4.0 05/24 Normal [facility] CHEMISTRY AGAP 12.2 10.0 - 05/24 [facility] 20.0 [facility] CHEMISTRY B/C Ratio 22 6 - 25 05/24 Normal [facility] CHEMISTRY AST 11 0 - 37 05/24 Normal [facility] CHEMISTRY Total 6.1 6.4 - 8.4 05/24 LOW [facility] Protein [facility] CHEMISTRY Potassium 4.2 3.5 - 5.1 05/24 Normal [facility] Lvl [facility] CHEMISTRY Sodium Lvl 138 135 - 145 05/24 Normal [facility] CHEMISTRY Bili Total 0.4 0.2 - 1.3 05/24 Normal [facility] CHEMISTRY Calcium Lvl 8.2 8.5 - 10.5 05/24 LOW [facility] CHEMISTRY Chloride Lvl 110 95 - 109 05/24 HI [facility] CHEMISTRY CO2 20 24 - 32 05/24 LOW [facility] CHEMISTRY Creatinine 0.4 0.5 - 1.4 05/24 LOW [facility] Lvl /2012 [facility] CHEMISTRY BUN 9 7 - 22 05/24 Normal [facility] CHEMISTRY Glucose Lvl 78 70 - 99 05/24 Normal <sup>2</sup>I nterpretive Medical Data: Adult Center reference range values reflect the clinical guidelines
of the [place] [employer]. CHEMISTRY Albumin Lvl 3.1 3.5 - 5.0 05/24 LOW [facility] CHEMISTRY Alk Phos 67 39 - 136 05/24 Normal [facility] CHEMISTRY ALT 18 0 - 65 05/24 Normal [facility] HEMATOLOGY MCV 89.3 81.0 - 05/24 Normal [facility] 99.0 [facility] [place] HEMATOLOGY MCHC 34.9 32.0 - 05/24 Normal [place] 36.0 [facility] [place] HEMATOLOGY MCH 31.2 27.0 - 05/24 [facility] 31.0 [facility] [place] HEMATOLOGY MPV 9.0 7.4 - 10.4 05/24 Normal [facility] HEMATOLOGY Platelet 142 133 - 450 05/24 Normal [facility] HEMATOLOGY RDW 13.3 11.5 - 05/24 Normal [facility] 14.5 /2012 [facility] HEMATOLOGY Hgb 11.3 12.0 - 05/24 LOW [facility] 16.0 /2012 [facility] HEMATOLOGY WBC 8.8 3.7 - 10.4 05/24 Normal [facility] HEMATOLOGY RBC 3.62 4.20 - 05/24 LOW [place] 5.40 /2012 [facility] HEMATOLOGY Hct 32.3 36.0 - 05/24 LOW [place] 48.0 /2012 [facility] URINALYSIS UA 0.1 - 1.0 05/24 [facility] Urobilin[facility] /2012 [facility] URINALYSIS UA Color Yellow Yellow 05/24 NA [place] *NA* /2012 Medical (05/24/2012 14:55:00) Center URINALYSIS UA Glucose Negative mg/dL Negative 05/24 NA [place] *NA* /2012 Medical (05/24/2012 14:55:00) Center URINALYSIS UA Ketones Negative mg/dL Negative 05/24 NA [facility] *NA* Medical (05/24/2012 14:55:00) Center URINALYSIS UA Bili Negative Negative 05/24 [facility] Medical (05/24/2012 14:55:00) Center URINALYSIS UA Leuk Est Small Negative 05/24 [facility]* Medical (05/24/2012 14:55:00) Center URINALYSIS UA Blood Negative Negative 05/24 Normal [facility] (05/24/2012 14:55:00) Medical Center URINALYSIS UA Nitrite Negative Negative 05/24 Normal [facility] (05/24/2012 14:55:00) Medical Center URINALYSIS UA Turbidity Slight Clear 05/24 [facility]* Medical (05/24/2012 14:55:00) Center URINALYSIS UA Spec Grav 1.017 <=1.030 05/24 Normal [facility] URINALYSIS UA pH 6.5 5.0 - 8.0 05/24 Normal [facility] URINALYSIS UA Protein 20 mg/dL Negative [facility] 14[facility]55[facility] URINALYSIS UA Sq Epi Many /LPF Few 05/24 [facility]* Medical (05/24/2012 14:55:00) Center URINALYSIS UA WBC 8 0 - 5 05/24 [facility] URINALYSIS UA RBC <1 0 - 2 05/24 Normal [facility] URINALYSIS UA Bacteria Occasional /HPF None Seen 05/24 [facility]05/[facility]2012 14:55:00[facility] Center URINALYSIS UA Mucus Few /LPF None [facility]:55[facility] URINALYSIS UA Amorph Moderate /HPF None Seen 05/24 [facility] *ABN Medical (05/24/2012 14:55:00) Center URINALYSIS UA 0.1 - 1.0 03/02 NA [facility] [place] URINALYSIS UA Color Ltyellow 03/02 NA [place] URINALYSIS UA Bacteria Few /HPF None Seen 03/02 [facility] *NA* [facility] (03/02/2012 10:35:00) URINALYSIS UA RBC 1 0 - 2 03/02 Normal URINALYSIS UA WBC 3 0 - 5 03/02 Normal [facility] URINALYSIS UA Trans Epi 4 <=0 03/02 HI [facility] URINALYSIS UA Turbidity Slight Clear 03/02 ABN *ABN* [facility] (03/02/2012 10:35:00) URINALYSIS UA Leuk Est Small Negative 03/02 ABN *ABN* [facility] (03/02/2012 10:35:00) URINALYSIS UA Nitrite Negative Negative 03/02 Normal (03/02/2012 10:35:00) [facility] URINALYSIS UA Blood Negative Negative 03/02 Normal (03/02/2012 10:35:00) [facility] URINALYSIS UA Ketones Negative mg/dL Negative 03/02 [facility] *NA* [facility] (03/02/2012 10:35:00) URINALYSIS UA Bili Negative Negative 03/02 [facility] *NA* [facility] (03/02/2012 10:35:00) URINALYSIS UA Glucose Negative mg/dL Negative 03/02 [facility] *NA* [facility] (03/02/2012 10:35:00) URINALYSIS UA Protein Negative mg/dL Negative 03/02 Normal (03/02/2012 10:35:00) URINALYSIS UA Spec Grav 1.006 <=1.030 03/02 Normal [facility] URINALYSIS UA pH 7.0 5.0 - 8.0 03/02 Normal [facility] URINALYSIS UA Sq Epi Many /LPF Few 03/02 [facility] *ABN* [facility] (03/02/2012 10:35:00) Microbiolo Culture: 03/02 gy [facility] Pathology Reports No Data Provided for This Section Diagnostic Reports Report Value Date Source Chest 1view DX EXAM: XR CHEST 1 VIEW 09/18/2017 [facility] DATE: 09/18/2017 12:31 PM CDT Center INDICATION: [...] Teeth Complete Full EXAM: XR PANOREX 09/07/2017 [facility] DX DATE: 09/07/2017 3:49 PM CDT Center [...] views DX Patient Name: ZACH RUIZ 04/26/2016 [facility] : 1985; Age: 30 years y/o Female MR: [id number] Study: Chest 2 views DX 04/26/2016 7:20 PM [employer] Ordering Physician: Myriam Bui, MSN Comparison: 10/30/2014 [...] pneumonia. SL: ABDIAS Abdomen RUQ US 08/22/2015 [facility] Study: Abdomen RUQ US Clinical Indication: Right [...] otherwise unremarkable right upper quadrant ultrasound. SL: [id number] Preg < 14wks Single Study: Preg < 14wks Single gest w Transvag US ; Age: 29 years y/o Female 08/22/2015 [facility] w Transvag US Clinical Indication: Abdominal pain, [...] 4. Mild enlargement of the uterus. SL: [id number] Renal Stone CT CT ABDOMEN AND PELVIS WITHOUT CONTRAST, WITH RENAL STONE PROTOCOL. 01/22/2015 [facility] INDICATION: Right lower abdominal pain COMPARISON: [...] views DX PROCEDURE: Chest 2 views 10/30/2014 [facility] REASON FOR EXAM: See Clinic Indication CLINICAL INFORMATION Cough and fever COMPARISON: 10/2014. 10/2013 multiple x-rays. 07/2012. Right infrahilar pneumonia increased from the prior exams. Increased left lower lobe infiltrate. No effusions or pneumothorax. Normal heart and pulmonary vasculature. Intact osseous structures. IMPRESSION: Increased pneumonia. SL: 14 Chest 1view DX 10/30/2014 [facility] EXAM: Portable chest x-ray. HISTORY: Chest [...] There is no other significant change. 11/04/2013 [facility] SL:13 Chest 1view HISTORY: Shortness of breath. 11/01/2013 [facility] One view chest. Comparison 07/16/2012. Left [...] Comments Source Diastolic (mm Hg) 55 07/16/2012 [facility] Systolic (mm Hg) 110 07/16/2012 [facility] Diastolic (mm Hg) 64 07/16/2012 [facility] Systolic (mm Hg) 113 07/16/2012 [facility] Temperature Oral (F) 97.8 F 07/16/2012 [facility] Temperature Oral (F) 98.4 F 07/16/2012 [facility] Systolic (mm Hg) 115 07/16/2012 [facility] Diastolic (mm Hg) 56 07/16/2012 [facility] Temperature Oral (F) 98.1 F 07/16/2012 [facility] Respitory Rate 18 07/16/2012 [facility] Respitory Rate 22 07/15/2012 [facility] Respitory Rate 19 07/15/2012 [facility] Weight 107.5 07/15/2012 [facility] Height 154.94 cm 07/15/2012 [facility] Weight 108.182 07/15/2012 [facility] Height 154.94 cm 07/15/2012 [facility] Weight 100.000 06/25/2012 [facility] Height 165.10 cm 06/25/2012 [facility] Weight 102.727 05/25/2012 [facility] Height 154.94 cm 05/25/2012 [facility] Weight 100.000 03/02/2012 [facility] Height 154.94 cm 03/02/2012 [facility] Encounters Location Location Encounter Encounter Reason Attending ADM DC Status Source Details Type Number For Provider Date Date Visit Emergency [id number] SHELISE 03/02 03/02 Discharg [place]RIN /[place] [id number] 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 [place] DISEASE [place] [facility] OU [id number] R/O QING 05/24 05/24 Active [facility] Medical LABOR /2012 [facility] [place] [id number] WK 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 [place] GROWTH ORIN [place] [facility] OU [id number] WKS JARRETT 06/25 06/25 Active [facility] Medical MANCILLA [facility] Inpatient [id number] LABOR JARRETT 07/14 Active [facility] MANCILLA [facility] Preadmit [id number] WEEKS CAROLINE Active [facility] N Procedures Procedure Code Date Perfomer Comments Source section [id number] 05/18/2002 [facility] Open heart [id number] 1985 [facility] [place] Assessment and Plan No Data Provided for This Section Plan of Care No Data Provided for This Section Social History No Data Provided for This Section Family History No Data Provided for This Section Advance Directives No Data Provided for This Section Functional Status No Data Provided for This Section
--- OUTSIDE RECORDS SUMMARY | 2018-12-16 21:03 | XMS REPORT | CCD ---
:1985 Author Organization [facility] Care Team Providers Name Role Phone Concepcion Villalobos Consulting Provider Allergies, Adverse Reactions, Alerts Substance Reaction Status aspirin Active Benadryl Active Claritin Active vancomycin Active ZyrTEC Active Vital Signs Most recent to oldest [Reference Range]: 1 Height 165.10 cm (06/25/2012 11:05:00) Weight 100.000 kg (06/25/2012 11:05:00)
--- OUTSIDE RECORDS SUMMARY | 2018-12-16 21:04 | XMS REPORT ---
:1985 [facility] [address] [place] [address] Care Team Providers Name Role Phone Unavailable Unavailable Unavailable Problems This patient has no known problems. Allergies, Adverse Reactions, Alerts This patient has no known allergies or adverse reactions. Medications This patient has no known medications.
--- OUTSIDE RECORDS SUMMARY | 2018-12-16 21:04 | XMS REPORT | CCD ---
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 Medications Medication Instructions Start Date End Date Status HYDROmorphone 0.5mg/mL FLARER 15 mg, 30 mL, Route: 07/15/2012 07/16/2012 Discontinued (15mg/30 mL) 15 mg IV, FLARER Dose: 0.2 mg, FLARER Lockout: 10 minutes, 4 Hour Limit (In MG): 5, Drug Form: INJ, Continuous, Start date: 07/15/12 3:00:00, Duration: 30 day, Stop date: 08/14/12 3:59:00 [place] 5/325 oral tablet 1-2 tab, PO, Q6H, [...] Duration: 30 day, Stop date: 08/12/12 22:00:00 [place] 5/325 oral tablet 1-2 tab, PO, Q6H, [...] 13.25 mL, Route: IV, Drug form: INJ, [id number], Dosing Weight 107.5, kg, Start date: 07/15/12 [...] Duration: 30 day, Stop date: 08/13/12 21:43:00 [place] 5/325 oral tablet 1-2 tab, PO, Q6H, [...] mg, 1 supp, Route: 07/15/2012 07/19/2012 Discontinued LA, Drug form: SUPP, PRN, Dosing Weight 108.182, [...] microgram, 5 tab, 07/14/2012 07/19/2012 Discontinued Route: LA, Drug form: TAB, ONCALL, Dosing Weight 108.182, [...] by the [facility] within the [facility]. The Molecular [facility] Laboratory is authorized under [...] clinical guidelines of the [place] [employer].5Interpretive Data: Adult reference range values reflect the clinical guidelines of the [place] [employer].HEMATOLOGY Most recent to oldest 1 [...]
--- NOTE | 2018-12-16 21:54 | RAD REPORT ---
EXAM DESCRIPTION: Adeline Chau (2 Views)12/16/2018 9:42 pm CLINICAL HISTORY: Chest pain COMPARISON: None FINDINGS: The lungs appear clear of acute infiltrate. The heart is borderline enlarged IMPRESSION: No acute abnormalities displayed
[2018-12-16 23:49] LABS: Potassium 4.1 mmol/L (3.5-5.1)
[2018-12-17 00:22] LABS: Absolute Lymphocytes (CBC) 1.3 K/uL (0.7-4.9); Basophils % 0.4 % (0-1.3); Hematocrit 39.6 % (36.0-45.0); Lymphocytes % 12.7 % (15.3-44.8); MPV 8.9 fL (7.6-11.3); RBC Red Blood Cell Count 4.61 M/uL (3.86-4.86)
--- NOTE | 2018-12-17 00:38 | ER ---
Nurse's Notes [facility] Name: Karly Hamlin Age: 33 yrs Sex: Female : 1985 Arrival Date: 12/16/2018 Time: 20:59 Bed 16 Private MD: Diagnosis: Acute pharyngitis Presentation: 12/16 21:06 Presenting complaint: Patient states: "My neck hurts, it hurts to swallow, my arms feel aj1 tingly. It hurts to breathe and it feels like something is sitting on my chest" Patient reports that started with a sore throat yesterday. Patient states that has had a nonproductive cough that started today. Transition of care: patient was not received from another setting of care. Onset of symptoms was December 15, 2018. Risk Assessment: Do you want to hurt yourself or someone else? Patient reports no desire to harm self or others. Initial Sepsis Screen: Does the patient meet any 2 criteria? HR > 90 bpm. No. Patient's initial sepsis screen is negative. Does the patient have a suspected source of infection? Yes: Productive cough/pneumonia. Care prior to arrival: None. 21:06 Method Of Arrival: Wheelchair aj1 21:06 Acuity: LAUREN 3 aj1 Triage Assessment: 21:08 General: Appears in no apparent distress. comfortable, Behavior is calm, cooperative, aj1 appropriate for age. Pain: Complains of pain in back, chest, left aspect of posterior pharynx, right aspect of posterior pharynx and neck. Pain: Pain currently is 8 out of 10 on a pain scale. Neuro: Level of Consciousness is awake, alert, obeys commands, Oriented to person, place, time, situation. Cardiovascular: Patient's skin is warm and dry. Respiratory: Airway is patent Respiratory effort is even, unlabored, Respiratory pattern is regular, symmetrical. 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 - Social history:: Smoking status: Patient/guardian denies using tobacco. - Ebola Screening: : Patient denies travel to an Ebola-affected area in the 21 days before illness onset. Screenin:35 Abuse screen: Denies threats or abuse. Nutritional screening: No deficits noted. jb4 Tuberculosis screening: No symptoms or risk factors identified. Fall Risk None identified. Assessment: 21:35 General: Appears in no apparent distress. uncomfortable, Behavior is calm, cooperative, jb4 appropriate for age. Pain: Complains of pain in chest and neck Pain does not radiate. Pain currently is 5 out of 10 on a pain scale. Pain began 1 day ago. Aggravated by respirations. Neuro: Level of Consciousness is awake, alert, obeys commands, Oriented to person, place, time. Cardiovascular: Patient's skin is warm and dry. Respiratory: Airway is patent Respiratory effort is even, unlabored, Respiratory pattern is regular, symmetrical. GI: No signs and/or symptoms were reported involving the gastrointestinal system. : No signs and/or symptoms were reported regarding the genitourinary system. EENT: Throat is reddened has enlarged tonsils on left with gag reflex present. Derm: Skin is intact, Skin is pink, warm \\T\\ dry. Musculoskeletal: Circulation, motion, and sensation intact. Range of motion: intact in all extremities. 22:24 Reassessment: Patient appears in no apparent distress at this time. No changes from jb4 previously documented assessment. Patient and/or family updated on plan of care and expected duration. Pain level reassessed. Patient is alert, oriented x 3, equal unlabored respirations, skin warm/dry/pink. 12/17 00:03 Reassessment: Patient appears in no apparent distress at this time. Patient and/or jb4 family updated on plan of care and expected duration. Pain level reassessed. Patient is alert, oriented x 3, equal unlabored respirations, skin warm/dry/pink. 00:51 Reassessment: Patient appears in no apparent distress at this time. No changes from jb4 previously documented assessment. Patient is alert, oriented x 3, equal unlabored respirations, skin warm/dry/pink. PT verbalized understanding of d/c and follow up instructions. ambulated out of ED with family, steady gait. Patient states feeling better. Vital Signs: 12/16 21:08 BP 111 / 87; Pulse 115; Resp 20; Temp 99.8; Pulse Ox 96% on R/A; Weight 124.74 kg (R); aj1 Height 5 ft. 1 in. (154.94 cm) (R); Pain 8/10; 22:24 BP 137 / 90; Pulse 104; Resp 18; Pulse Ox 96% on R/A; jb4 23:00 BP 134 / 73; Pulse 106; Resp 18; Pulse Ox 96% on R/A; jb4 12/17 00:00 BP 129 / 80; Pulse 109; Resp 20; Pulse Ox 96% on R/A; jb4 00:30 BP 124 / 88; Pulse 105; Resp 16; Pulse Ox 100% on R/A; jb4 12/16 21:08 Body Mass Index 51.96 (124.74 kg, 154.94 cm) aj1 ED Course: 12/16 20:59 Patient arrived in ED. ag3 21:07 Triage completed. aj1 21:08 Arm band placed on. EKG completed in triage. Results shown to MD. aj1 21:18 Luz Maria Dawson FNP-C [facility]. kb 21:18 Mansoor Soliz MD is Attending Physician. kb 21:29 Sukh Ang, RN is Primary Nurse. jb4 21:35 Patient has correct armband on for positive identification. Bed in low position. Call jb4 light in reach. Side rails up X 1. Pulse ox on. NIBP on. 21:35 Patient maintains SpO2 saturation greater than 95% on room air. jb4 21:42 Chest Pa And Lat (2 Views) XRAY In Process Unspecified. EDMS 12/17 00:54 No provider procedures requiring assistance completed. Patient did not have IV access jb4 during this emergency room visit. Administered Medications: No medications were administered Outcome: 00:37 Discharge ordered by . kb 00:54 Discharged to home ambulatory. jb4 00:54 Condition: stable 00:54 Discharge instructions given to patient, family, Instructed on discharge instructions, follow up and referral plans. Demonstrated understanding of instructions, follow-up care. 00:55 Patient left the ED. jb4 Signatures: Dispatcher [employer] EDMS Luz Maria Dawson, TAMMYC LEANA-Malorie Tapia RN RN aj1 Sukh Ang RN RN jb4 Jayleen Luciano ag3
--- NOTE | 2018-12-17 00:39 | EDPHYS ---
Physician Documentation [facility] Name: Karly Hamlin Age: 33 yrs Sex: Female : 1985 Arrival Date: 12/16/2018 Time: 20:59 Bed 16 Private MD: ED Physician Mansoor Soliz HPI: 12/16 22:10 This 33 yrs old Female presents to ER via Wheelchair with complaints of Chest kb Pain, SORE NECK. 22:10 The patient presents with sore throat. The patient describes throat pain as constant. kb Onset: The symptoms/episode began/occurred yesterday. Severity of symptoms: At their worst the symptoms were moderate, in the emergency department the symptoms are unchanged. Modifying factors: The symptoms are alleviated by nothing, the symptoms are aggravated by swallowing, Patient's oral intake status: good unaware of sick contact. Associated signs and symptoms: Pertinent positives: chest pain, fever, Sore throat , Pertinent negatives chills, cough, diarrhea, dysphagia, earache, flu-like symptoms, headache, nausea, rhinorrhea, shortness of breath, vomiting. 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 - Social history:: Smoking status: Patient/guardian denies using tobacco. - Ebola Screening: : Patient denies travel to an Ebola-affected area in the 21 days before illness onset. ROS: 22:07 Constitutional: Negative for fever, chills, and weight loss, Respiratory: Negative for kb shortness of breath, cough, wheezing, and pleuritic chest pain, Abdomen/GI: Negative for abdominal pain, nausea, vomiting, diarrhea, and constipation, Back: Negative for injury and pain, MS/Extremity: Negative for injury and deformity, Skin: Negative for injury, rash, and discoloration, Neuro: Negative for headache, weakness, numbness, tingling, and seizure. 22:07 ENT: Positive for sore throat. 22:07 Neck: Positive for pain at rest, swollen nodes, tenderness, Negative for injury or acute deformity, stiffness, bony tenderness. 22:07 Cardiovascular: Positive for chest pain, with breathing. Exam: 22:07 Constitutional: This is a well developed, well nourished patient who is awake, alert, kb and in no acute distress. Head/Face: Normocephalic, atraumatic. Chest/axilla: Normal chest wall appearance and motion. Nontender with no deformity. No lesions are appreciated. Cardiovascular: Regular rate and rhythm with a normal S1 and S2. No gallops, murmurs, or rubs. Normal PMI, no JVD. No pulse deficits. Respiratory: Lungs have equal breath sounds bilaterally, clear to auscultation and percussion. No rales, rhonchi or wheezes noted. No increased work of breathing, no retractions or nasal flaring. Abdomen/GI: Soft, non-tender, with normal bowel sounds. No distension or tympany. No guarding or rebound. No evidence of tenderness throughout. Back: No spinal tenderness. No costovertebral tenderness. Full range of motion. Skin: Warm, dry with normal turgor. Normal color with no rashes, no lesions, and no evidence of cellulitis. MS/ Extremity: Pulses equal, no cyanosis. Neurovascular intact. Full, normal range of motion. Neuro: Awake and alert, GCS 15, oriented to person, place, time, and situation. Cranial nerves II-XII grossly intact. Motor strength 5/5 in all extremities. Sensory grossly intact. Cerebellar exam normal. Normal gait. 22:07 ENT: External ear(s): are unremarkable, Ear canal(s): are normal, TM's: are normal, Nose: is normal, Mouth: Posterior pharynx: Airway: normal, no evidence of obstruction, Tonsils: bilaterally enlarged, with erythema, Uvula: normal, midline, swelling, that is mild, erythema, that is moderate. 22:11 Neck: External neck: tenderness, that is mild, of the right sternocleidomastoid and kb left sternocleidomastoid, C-spine: appears grossly normal, Trachea: is midline with no obvious abnormalities, ROM/movement: is normal, Lymph nodes: lymphadenopathy is appreciated. Vital Signs: 21:08 BP 111 / 87; Pulse 115; Resp 20; Temp 99.8; Pulse Ox 96% on R/A; Weight 124.74 kg (R); aj1 Height 5 ft. 1 in. (154.94 cm) (R); Pain 8/10; 22:24 BP 137 / 90; Pulse 104; Resp 18; Pulse Ox 96% on R/A; jb4 23:00 BP 134 / 73; Pulse 106; Resp 18; Pulse Ox 96% on R/A; jb4 12/17 00:00 BP 129 / 80; Pulse 109; Resp 20; Pulse Ox 96% on R/A; jb4 00:30 BP 124 / 88; Pulse 105; Resp 16; Pulse Ox 100% on R/A; jb4 12/16 21:08 Body Mass Index 51.96 (124.74 kg, 154.94 cm) aj1 MDM: 12/16 21:19 Patient medically screened. kb 22:10 Data reviewed: vital signs, nurses notes. Data interpreted: Pulse oximetry: on room air kb is 96 %. Interpretation: normal. 12/17 00:33 Counseling: I had a detailed discussion with the patient and/or guardian regarding: the kb historical points, exam findings, and any diagnostic results supporting the discharge/admit diagnosis, lab results, the need for outpatient follow up, a family practitioner, to return to the emergency department if symptoms worsen or persist or if there are any questions or concerns that arise at home. 12/16 21:29 Order name: Strep; Complete Time: 22:54 kb 12/16 22:54 Order name: CBC with Diff; Complete Time: 00:32 kb 12/16 21:29 Order name: Chest Pa And Lat (2 Views) XRAY; Complete Time: 21:55 kb 12/16 22:54 Order name: Basic Metabolic Panel; Complete Time: 00:14 kb 12/16 22:54 Order name: Saline Screen Profile; Complete Time: 00:14 kb 12/16 22:59 Order name: Throat Culture EDMS 12/16 21:29 Order name: EKG; Complete Time: 21:29 kb 12/16 21:29 Order name: EKG - Nurse/Tech; Complete Time: 21:39 kb Administered Medications: No medications were administered Disposition: 12/17/18 00:37 Discharged to Home. Impression: Acute pharyngitis. - Condition is Stable. - Discharge Instructions: Pharyngitis, Dseb-[id number], Viral Respiratory Infection, [id number]. - Medication Reconciliation Form, Thank You Letter, Antibiotic Education, Prescription Opioid Use form. - Follow up: Emergency Department; When: As needed; Reason: Worsening of condition. Follow up: Private Physician; When: 2 - 3 days; Reason: Recheck today's complaints, Continuance of care, Re-evaluation by your physician. Signatures: Dispatcher [employer] EDLuz Maria Rios, CARD SETTER-C CARD SETTER-Ckb Malorie Salguero RN RN aj1 Sukh Ang RN RN jb4 Corrections: (The following items were deleted from the chart) 12/16 23:27 22:54 IV Saline Lock ordered. kb jb4 12/17 00:55 00:37 12/17/2018 00:37 Discharged to Home. Impression: Acute pharyngitis. Condition is jb4 Stable. Forms are Medication Reconciliation Form, Thank You Letter, Antibiotic Education, Prescription Opioid Use. Follow up: Emergency Department; When: As needed; Reason: Worsening of condition. Follow up: Private Physician; When: 2 - 3 days; Reason: Recheck today's complaints, Continuance of care, Re-evaluation by your physician. kb
--- NOTE | 2018-12-17 12:35 | EKG ---
Test Date: 2018-12-16 Test Time: 21:15:09 Inspector Hairspring: BALAJI MEASUREMENT RESULTS: Intervals: Rate: 117 WY: 178 QRSD: 78 QT: 308 QTc: 429 Mason: P: 34 WY: 178 QRS: 122 T: -10 INTERPRETIVE STATEMENTS: Sinus tachycardia Right ventricular hypertrophy with repolarization abnormality T wave abnormality, consider lateral ischemia Abnormal ECG Compared to ECG 12/06/2018 12:49:39 Possible ischemia now present Sinus rhythm no longer present T-wave abnormality still present Electronically Signed On 12-17-18 12:32:50 CDT by Dm Madrid
== END 2018-12-17 00:55 | disposition home or self-care (01) ==
LOC: ER 20:57
DX: J02.9 Acute pharyngitis, unspecified (principal); Z88.6 Allergy status to analgesic agent; Z88.1 Allergy status to other antibiotic agents; Z88.8 Allergy status to other drugs, medicaments and biological substances
CPT/HCPCS: 36415; 71046; 80048; 85025; 86308; 87070; 87081; 93005; 99284

== ENCOUNTER 2018-12-19 01:33 | Observation (INO) | payer OTHER ==
[2018-12-19] MEDS ORDERED: NA CHLORIDE 0.9% 1,000 ML ONE (02:35)
[2018-12-19 02:47] LABS: Absolute Lymphocytes (CBC) 1.1 K/uL (0.7-4.9); Basophils % 0.3 % (0-1.3); Hematocrit 39.3 % (36.0-45.0); Lymphocytes % 8.9 % (15.3-44.8); MPV 8.7 fL (7.6-11.3); RBC Red Blood Cell Count 4.63 M/uL (3.86-4.86)
[2018-12-19 02:48] LABS: Protime INR 1.29
[2018-12-19 03:02] LABS: ALT/SGPT 21 U/L (12-78); AST/SGOT 11 U/L (15-37); Albumin 3.7 g/dL (3.4-5.0); Alkaline Phosphatase 87 U/L (45-117); BUN Blood Urea Nitrogen 12 mg/dL (7-18); Bicarbonate 23 mmol/L (21-32); Bilirubin Direct 0.3 mg/dL (0-0.2); Glucose Level 121 mg/dL (74-106); Lipase 43 U/L (73-393); Magnesium 1.9 mg/dL (1.8-2.4); NT PRO-BNP 1459 pg/mL (<125); Potassium 3.5 mmol/L (3.5-5.1); Protein, Total 7.8 g/dL (6.4-8.2); Sodium Level 138 mmol/L (136-145); Troponin (Emerg Dept Use Only) < 0.02 ng/mL (0.0-0.045)
[2018-12-19 03:27] LABS: Urine Blood TRACE (NEG); Urine Glucose NEGATIVE (NEG); Urine Protein 3+ (NEG); Urine Specific Gravity 1.025 (1.005-1.030); Urine pH 5.5 (5.0-7.0)
[2018-12-19] MEDS ORDERED: ACETAMINOPHEN 500 MG TAB ONE (04:20)
--- NOTE | 2018-12-19 04:32 | ER ---
Nurse's Notes [facility] Name: Karly Hamlin Age: 33 yrs Sex: Female : 1985 Arrival Date: 12/19/2018 Time: 01:35 Bed 15 Private MD: Diagnosis: Pneumonia due to other specified bacteria;Other chest pain;Chest pain on breathing;Fever, unspecified Presentation: 12/19 01:45 Presenting complaint: Patient states: i am having stabbing chest pain, pain score 8/10. rr5 so painful when I breath in. I am having diarrhea and vomiting too. last i went here with the same complaint. they said i have throat infection but right now the pain gets worse. 01:45 Transition of care: patient was not received from another setting of care. Onset of rr5 symptoms was December 16, 2018. Risk Assessment: Do you want to hurt yourself or someone else? Patient reports no desire to harm self or others. Initial Sepsis Screen: Does the patient meet any 2 criteria? No. Patient's initial sepsis screen is negative. Does the patient have a suspected source of infection? No. Patient's initial sepsis screen is negative. Care prior to arrival: None. 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 - Social history:: Smoking status: Patient/guardian denies using tobacco, Patient/guardian denies using alcohol, street drugs. - Ebola Screening: : Patient negative for fever greater than or equal to 101.5 degrees Fahrenheit, and additional compatible Ebola Virus Disease symptoms Patient denies exposure to infectious person Patient denies travel to an Ebola-affected area in the 21 days before illness onset. - Family history:: not pertinent. Screenin:17 Abuse screen: Denies threats or abuse. Denies injuries from another. Nutritional rr5 screening: No deficits noted. Tuberculosis screening: No symptoms or risk factors identified. Fall Risk IV access (20 points). Total Palomo Fall Scale indicates No Risk (0-24 pts). Assessment: 01:45 General: Appears in no apparent distress. uncomfortable, Behavior is cooperative, rr5 anxious, Reports chills for fever for bodyache. 01:45 Pain: Complains of pain in chest Pain does not radiate. Pain currently is 8 out of 10 rr5 on a pain scale. Quality of pain is described as sharp, Pain began gradually, Is intermittent. Neuro: Level of Consciousness is awake, alert, obeys commands, Oriented to person, place, time, situation, Appropriate for age. Cardiovascular: Capillary refill < 3 seconds Patient's skin is warm and dry. Respiratory: Reports cough that is pain with cough pain with respiration Airway is patent Respiratory effort is even, unlabored, Respiratory pattern is regular, symmetrical, tachypnea. GI: Abdomen is obese, Reports diarrhea, nausea, vomiting. : No signs and/or symptoms were reported regarding the genitourinary system. EENT: No signs and/or symptoms were reported regarding the EENT system. Derm: Skin is pink, red, eczema all over the body Rash noted that is. Musculoskeletal: Circulation, motion, and sensation intact. Capillary refill < 3 seconds. 02:45 Reassessment: after 10 ml of NS infused,patient refused to continue NS fluid bolus. rr5 complaining that she feels its building up in my lungs that i can't breath as verbalized by the patient. 03:40 Reassessment: Patient appears in no apparent distress at this time. Patient is alert, rr5 oriented x 3, equal unlabored respirations, skin warm/dry/pink. send to CT scan for PE angio via stretcher assisted by CT staff. 04:05 Reassessment: Patient appears in no apparent distress at this time. Patient is alert, rr5 oriented x 3, equal unlabored respirations, skin warm/dry/pink. came back from CT PE angio. 04:55 Reassessment: Patient appears in no apparent distress at this time. Patient and/or rr5 family updated on plan of care and expected duration. Pain level reassessed. Patient is alert, oriented x 3, equal unlabored respirations, skin warm/dry/pink. patient is for admission agreed to stay in the hospital. 05:20 Reassessment: Patient appears in no apparent distress at this time. Patient is alert, rr5 oriented x 3, equal unlabored respirations, skin warm/dry/pink. awaiting for room assignment. complaints of feeling hot requested to have a fan, fan provided placed at bedside. 05:55 Reassessment: patient complaint of pain at IV site. positive infiltration. IV cannula rr5 removed. 06:10 Reassessment: Patient appears in no apparent distress at this time. Patient is alert, rr5 oriented x 3, equal unlabored respirations, skin warm/dry/pink. transfer to room 208 via stretcher, vitally stable. Vital Signs: 01:45 BP 128 / 81; Pulse 131; Resp 20; Temp 98.7; Pulse Ox 96% ; Weight 122.47 kg; Height 5 rr5 ft. 1 in. (154.94 cm); Pain 8/10; 02:15 BP 131 / 75; Pulse 130; Resp 19; Pulse Ox 99% on 2 lpm NC; rr5 03:00 BP 121 / 70; Pulse 126; Resp 15; Pulse Ox 99% on 2 lpm NC; rr5 04:00 BP 126 / 73; Pulse 122; Resp 16; Pulse Ox 99% on 2 lpm NC; rr5 04:27 BP 119 / 70; Pulse 123; Resp 19; Temp 101.2; Pulse Ox 98% on 2 lpm NC; rr5 05:00 BP 115 / 62; Pulse 118; Resp 18; Pulse Ox 99% on 2 lpm NC; rr5 05:55 BP 110 / 70; Pulse 113; Resp 19; Temp 99.6; Pulse Ox 97% on 2 lpm NC; rr5 01:45 Body Mass Index 51.02 (122.47 kg, 154.94 cm) rr5 ED Course: 01:35 Patient arrived in ED. es 01:48 Paddy Hale RN is Primary Nurse. rr5 01:49 Travon Baeza MD is Attending Physician. esteban 01:52 Triage completed. rr5 01:54 Arm band placed on. 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 Pulse ox on. NIBP on. rr5 02:00 Patient has correct armband on for positive identification. Placed in gown. Bed in low rr5 position. Call light in reach. Side rails up X2. 02:20 Inserted saline lock: 24 gauge in left forearm, using aseptic technique. Blood rr5 collected. 02:25 XRAY Chest (1 view) In Process Unspecified. EDMS 02:30 Oxygen administration via nasal cannula \T\ 2L/min Response to oxygen therapy: symptoms rr5 improved. 03:35 First set of blood cultures drawn by lab staff. rr5 04:31 Melissa Gates MD is Hospitalizing Provider. esteban 06:00 IV discontinued, infiltrated left Forearm IV line. rr5 06:05 Inserted saline lock: 22 gauge in right forearm, using aseptic technique. rr5 06:09 No provider procedures requiring assistance completed. rr5 06:09 Patient admitted, IV remains in place. intact, No redness/swelling at site. rr5 Administered Medications: Discontinued: NS 0.9% 1000 ml IV at 1 bolus Per protocol; 1000 mL bolus 02:50 Drug: NS 0.9% 1000 ml Route: IV; Rate: 1 bolus; Site: left forearm; rr5 04:27 Drug: Tylenol 1 grams Route: PO; rr5 05:30 Follow up: Response: No adverse reaction rr5 04:30 CANCELLED (Duplicate Order): Lasix 20 mg IVP once esteban 04:30 Drug: Lovenox 1 mg/kg Route: Sub-Q; Site: right lower abdomen; rr5 05:30 Follow up: Response: No adverse reaction rr5 04:30 CANCELLED (Duplicate Order): Zithromax 500 mg PO once esteban 04:34 Drug: Zithromax 500 mg Route: PO; rr5 05:35 Follow up: Response: No adverse reaction rr5 04:40 Drug: Rocephin - (cefTRIAXone) 1 grams Route: IVPB; Infused Over: 30 mins; Site: left rr5 forearm; 05:30 Follow up: Response: No adverse reaction; IV Status: Completed infusion rr5 04:51 CANCELLED (Other Intervention Used): Zithromax 500 mg IVPB once over 1 hrs; mix in 250 rr5 mL NS 04:55 Drug: NS 0.9% 500 ml Route: IV; Rate: bolus; Site: left forearm; rr5 05:45 Drug: NS 0.9% 1000 ml Route: IV; Rate: 125 ml/hr; Site: left forearm; rr5 06:10 Follow up: IV Status: Infusion continued upon admission; IV Intake: 50ml rr5 05:50 Drug: Zithromax 500 mg Route: IVPB; Infused Over: 1 hrs; Site: left forearm; rr5 06:39 Follow up: Response: No adverse reaction; IV Status: Infusion continued upon admission; rr5 IV Intake: 80ml Intake: 06:10 IV: 50ml; Total: 50ml. rr5 06:39 IV: 80ml; Total: 130ml. rr5 Outcome: 04:31 Decision to Hospitalize by Provider. esteban 05:55 Admitted to Med/surg accompanied by nurse, via stretcher, room 208, with chart, Report rr5 called to [facility] 05:55 Condition: stable 05:55 Instructed on the need for admit. 06:12 Patient left the ED. rr5 Signatures: Dispatcher [employer] Travon Daniel MD MD cha Salyer, Edna es Roque, Raymond, RN RN rr5
--- NOTE | 2018-12-19 04:33 | EDPHYS ---
Physician Documentation [facility] Name: Karly Hamlin Age: 33 yrs Sex: Female : 1985 Arrival Date: 12/19/2018 Time: 01:35 Bed 15 Private MD: TRICE Physician Travon Baeza HPI: 12/19 02:19 This 33 yrs old Female presents to ER via Wheelchair with complaints of Chest esteban Pain, Breathing Difficulty, Vomiting, Diarrhea, Fever. 02:19 This 33 yrs old Female presents to ER via Wheelchair with complaints of Chest esteban Pain, Breathing Difficulty, Vomiting, Diarrhea, Fever. 02:19 The patient or guardian reports chest pain that is located primarily in the anterior esteban chest wall, right. The pain does not radiate. Associated signs and symptoms: The patient has no apparent associated signs or symptoms. The chest pain is described as a pressure, sharp. Duration: The patient or guardian reports multiple episodes, that wax and wane. Modifying factors: The symptoms are alleviated by remaining still, the symptoms are aggravated by breathing, cough, deep breath. Severity of pain: At its worst the pain was moderate in the emergency department the pain is unchanged. The patient has not experienced similar symptoms in the past. [employer]ER: 01:45 LMP 2019 rr5 Historical: - Allergies: 01:53 Aspirin; rr5 01:53 Benadryl; rr5 01:53 Claritin; rr5 01:53 Nitroglycerin; rr5 01:53 Phenergan; rr5 01:53 Vancomycin; rr5 01:53 Zofran; rr5 01:53 Zyrtec; rr5 - PMHx: 01:53 carpal tunnel syndrome; PCOS; Transposition of the great vessels; rr5 - PSHx: 01:53 Heart Surgery; ; Carpal Tunnel Repair; eczema; rr5 - Immunization history:: Adult Immunizations up to date. - Social history:: Smoking status: Patient/guardian denies using tobacco, Patient/guardian denies using alcohol, street drugs. - Ebola Screening: : Patient negative for fever greater than or equal to 101.5 degrees Fahrenheit, and additional compatible Ebola Virus Disease symptoms Patient denies exposure to infectious person Patient denies travel to an Ebola-affected area in the 21 days before illness onset. - Family history:: not pertinent. ROS: 02:19 Constitutional: Negative for fever, chills, and weight loss, Eyes: Negative for injury, esteban pain, redness, and discharge, ENT: Negative for injury, pain, and discharge, Neck: Negative for injury, pain, and swelling, Back: Negative for injury and pain, : Negative for injury, bleeding, discharge, and swelling, MS/Extremity: Negative for injury and deformity, Skin: Negative for injury, rash, and discoloration, Neuro: Negative for headache, weakness, numbness, tingling, and seizure, Psych: Negative for depression, anxiety, suicide ideation, homicidal ideation, and hallucinations, Allergy/Immunology: Negative for hives, rash, and allergies, Endocrine: Negative for neck swelling, polydipsia, polyuria, polyphagia, and marked weight changes, Hematologic/Lymphatic: Negative for swollen nodes, abnormal bleeding, and unusual bruising. 02:19 Cardiovascular: Positive for chest pain. 02:19 Respiratory: Positive for cough, pleurisy. 02:19 Abdomen/GI: Positive for abdominal pain, nausea and vomiting. Exam: 02:19 Constitutional: This is a well developed, well nourished patient who is awake, alert, esteban and in no acute distress. Head/Face: Normocephalic, atraumatic. Eyes: Pupils equal round and reactive to light, extra-ocular motions intact. Lids and lashes normal. Conjunctiva and sclera are non-icteric and not injected. Cornea within normal limits. Periorbital areas with no swelling, redness, or edema. ENT: Nares patent. No nasal discharge, no septal abnormalities noted. Tympanic membranes are normal and external auditory canals are clear. Oropharynx with no redness, swelling, or masses, exudates, or evidence of obstruction, uvula midline. Mucous membranes moist. Neck: Trachea midline, no thyromegaly or masses palpated, and no cervical lymphadenopathy. Supple, full range of motion without nuchal rigidity, or vertebral point tenderness. No Meningismus. Chest/axilla: Normal chest wall appearance and motion. Nontender with no deformity. No lesions are appreciated. Respiratory: Lungs have equal breath sounds bilaterally, clear to auscultation and percussion. No rales, rhonchi or wheezes noted. No increased work of breathing, no retractions or nasal flaring. Abdomen/GI: Soft, non-tender, with normal bowel sounds. No distension or tympany. No guarding or rebound. No evidence of tenderness throughout. Back: No spinal tenderness. No costovertebral tenderness. Full range of motion. Skin: Warm, dry with normal turgor. Normal color with no rashes, no lesions, and no evidence of cellulitis. MS/ Extremity: Pulses equal, no cyanosis. Neurovascular intact. Full, normal range of motion. Neuro: Awake and alert, GCS 15, oriented to person, place, time, and situation. Cranial nerves II-XII grossly intact. Motor strength 5/5 in all extremities. Sensory grossly intact. Cerebellar exam normal. Normal gait. 02:19 Cardiovascular: Rate: tachycardic, Rhythm: regular, Pulses: Pulses are 4+ in bilateral radial, brachial, femoral, popliteal, posterior tibial and and dorsalis pedis arteries.. Heart sounds: normal, Edema: is not appreciated, JVD: is not appreciated. 02:37 Musculoskeletal/extremity: DVT Exam: No signs of deep vein thrombosis. no pain, no esteban swelling, no tenderness, negative Homans' sign noted on exam, no appreciated bluish discoloration, no erythema, no increased warmth. Vital Signs: 01:45 BP 128 / 81; Pulse 131; Resp 20; Temp 98.7; Pulse Ox 96% ; Weight 122.47 kg; Height 5 rr5 ft. 1 in. (154.94 cm); Pain 8/10; 02:15 BP 131 / 75; Pulse 130; Resp 19; Pulse Ox 99% on 2 lpm NC; rr5 03:00 BP 121 / 70; Pulse 126; Resp 15; Pulse Ox 99% on 2 lpm NC; rr5 04:00 BP 126 / 73; Pulse 122; Resp 16; Pulse Ox 99% on 2 lpm NC; rr5 04:27 BP 119 / 70; Pulse 123; Resp 19; Temp 101.2; Pulse Ox 98% on 2 lpm NC; rr5 05:00 BP 115 / 62; Pulse 118; Resp 18; Pulse Ox 99% on 2 lpm NC; rr5 05:55 BP 110 / 70; Pulse 113; Resp 19; Temp 99.6; Pulse Ox 97% on 2 lpm NC; rr5 01:45 Body Mass Index 51.02 (122.47 kg, 154.94 cm) rr5 MDM: 01:49 Patient medically screened. [facility] 02:23 Data reviewed: vital signs, nurses notes, lab test result(s), EKG, radiologic studies, esteban CT scan, plain films. 12/19 01:57 Order name: Basic Metabolic Panel rr5 12/19 01:57 Order name: CBC with Diff; Complete Time: 04:04 rr5 12/19 01:57 Order name: LFT's; Complete Time: 04:04 rr5 12/19 01:57 Order name: Magnesium; Complete Time: 04:04 rr5 12/19 01:57 Order name: NT PRO-BNP; Complete Time: 04:04 rr5 12/19 01:57 Order name: PT-INR; Complete Time: 04:04 rr5 12/19 01:57 Order name: Troponin (emerg Dept Use Only); Complete Time: 04:04 rr5 12/19 01:58 Order name: Basic Metabolic Panel; Complete Time: 04:04 EDMS 12/19 02:19 Order name: Lipase [facility] 12/19 02:19 Order name: Urine Culture [facility] 12/19 02:19 Order name: Blood Culture Adult (2) [facility] 12/19 02:19 Order name: Procalcitonin; Complete Time: 04:04 esteban 12/19 02:40 Order name: Lipase; Complete Time: 04:04 EDMS 12/19 01:57 Order name: XRAY Chest (1 view) 5 12/19 02:19 Order name: CT Chest For PE Angio [facility] 12/19 03:21 Order name: Urine Dipstick--Ancillary (enter results); Complete Time: 04:04 ag4 12/19 03:21 Order name: Urine --Ancillary (enter results); Complete Time: 04:04 ag4 12/19 04:39 Order name: CBC with Automated Diff EDMS 12/19 04:39 Order name: CBC with Automated Diff EDMS 12/19 04:39 Order name: Comprehensive Metabolic Panel EDMS 12/19 04:39 Order name: Comprehensive Metabolic Panel EDMS 12/19 04:39 Order name: Lactate EDMS 12/19 04:39 Order name: Lactate EDMS 12/19 04:39 Order name: Lipid Profile EDMS 12/19 04:39 Order name: Lipid Profile EDMS 12/19 04:39 Order name: Magnesium EDMS 12/19 04:39 Order name: Magnesium EDMS 12/19 04:39 Order name: Phosphorus EDMS 12/19 04:40 Order name: Phosphorus EDMS 12/19 01:57 Order name: EKG; Complete Time: 01:58 rr5 12/19 01:57 Order name: Cardiac monitoring; Complete Time: 02:17 rr5 12/19 01:57 Order name: EKG - Nurse/Tech; Complete Time: 02:17 rr5 12/19 01:57 Order name: IV Saline Lock; Complete Time: 02:45 rr5 12/19 01:57 Order name: Labs collected and sent; Complete Time: 02:45 rr5 12/19 01:57 Order name: O2 Per Protocol; Complete Time: 03:30 rr5 12/19 01:57 Order name: O2 Sat Monitoring; Complete Time: 03:30 rr5 12/19 02:19 Order name: Urine Dipstick-Ancillary (obtain specimen); Complete Time: 03:27 esteban 12/19 02:19 Order name: Urine Test (obtain specimen); Complete Time: 03:27 esteban 12/19 04:39 Order name: Regular EDMS Administered Medications: Discontinued: NS 0.9% 1000 ml IV at 1 bolus Per protocol; 1000 mL bolus 02:50 Drug: NS 0.9% 1000 ml Route: IV; Rate: 1 bolus; Site: left forearm; rr5 04:27 Drug: Tylenol 1 grams Route: PO; rr5 05:30 Follow up: Response: No adverse reaction rr5 04:30 CANCELLED (Duplicate Order): Lasix 20 mg IVP once esteban 04:30 Drug: Lovenox 1 mg/kg Route: Sub-Q; Site: right lower abdomen; rr5 05:30 Follow up: Response: No adverse reaction rr5 04:30 CANCELLED (Duplicate Order): Zithromax 500 mg PO once esteban 04:34 Drug: Zithromax 500 mg Route: PO; rr5 05:35 Follow up: Response: No adverse reaction rr5 04:40 Drug: Rocephin - (cefTRIAXone) 1 grams Route: IVPB; Infused Over: 30 mins; Site: left rr5 forearm; 05:30 Follow up: Response: No adverse reaction; IV Status: Completed infusion rr5 04:51 CANCELLED (Other Intervention Used): Zithromax 500 mg IVPB once over 1 hrs; mix in 250 rr5 mL NS 04:55 Drug: NS 0.9% 500 ml Route: IV; Rate: bolus; Site: left forearm; rr5 05:45 Drug: NS 0.9% 1000 ml Route: IV; Rate: 125 ml/hr; Site: left forearm; rr5 06:10 Follow up: IV Status: Infusion continued upon admission; IV Intake: 50ml rr5 05:50 Drug: Zithromax 500 mg Route: IVPB; Infused Over: 1 hrs; Site: left forearm; rr5 06:39 Follow up: Response: No adverse reaction; IV Status: Infusion continued upon admission; rr5 IV Intake: 80ml Disposition: 12/19/18 04:31 Hospitalization ordered by Melissa Gates for Inpatient Admission. Preliminary diagnosis are Pneumonia due to other specified bacteria, Other chest pain, Chest pain on breathing, Fever, unspecified. - Bed requested for Telemetry/MedSurg (Inpatient). - Status is Inpatient Admission. rr5 - Condition is Fair. - Problem is new. - Symptoms have improved. UTI on Admission? No Signatures: Dispatcher [employer] EDAZ Natividad Ramirez RN RN mw Anderson, Corey, MD MD cha Roque, Raymond, RN RN rr5 Corrections: (The following items were deleted from the chart) 02:40 02:20 Lipase ordered. [facility] EDMS 04:30 04:29 Lasix 20 mg IVP once ordered. esteban esteban 04:30 04:29 Zithromax 500 mg PO once ordered. [facility] 04:36 04:31 Hospitalization Ordered by Melissa Gates MD for Inpatient Admission. Preliminary mw diagnosis is Pneumonia due to other specified bacteria; Other chest pain; Chest pain on breathing; Fever, unspecified. Bed requested for Telemetry/MedSurg (Inpatient). Status is Inpatient Admission. Condition is Fair. Problem is new. Symptoms have improved. UTI on Admission? No. esteban 04:51 04:30 Zithromax 500 mg IVPB once over 1 hrs; mix in 250 mL NS ordered. esteban rr5 06:12 04:36 12/19/2018 04:31 Hospitalization Ordered by Melissa Gates MD for Inpatient rr5 Admission. Preliminary diagnosis is Pneumonia due to other specified bacteria; Other chest pain; Chest pain on breathing; Fever, unspecified. Bed requested for Telemetry/MedSurg (Inpatient). Status is Inpatient Admission. Condition is Fair. Problem is new. Symptoms have improved. UTI on Admission? No. mw
[2018-12-19] MEDS ORDERED: AZITHROMYCIN 250 MG TAB ONE (04:34)
[2018-12-19] MEDS ORDERED: ALBUTEROL 2.5 MG/3 ML NEB SOL NEB PRN (04:34)
[2018-12-19] MEDS ORDERED: IPRATROPIUM BROM 0.5MG/2.5ML NEB PRN (04:34)
[2018-12-19] MEDS ORDERED: ONDANSETRON 4 MG/2 ML VIAL IV PRN (04:34)
[2018-12-19] MEDS ORDERED: ACETAMINOPHEN 500 MG TAB PO PRN (04:34)
[2018-12-19] MEDS ORDERED: ENOXAPARIN 80 MG/0.8 ML SQ ONE (04:35)
[2018-12-19] MEDS ORDERED: ENOXAPARIN 40 MG/0.4 ML SQ ONE (04:35)
[2018-12-19] MEDS ORDERED: CEFTRIAXONE/SWI 1gm 1 GM/10 ML SYR ONE (04:35)
[2018-12-19] MEDS: NA CHLORIDE 0.9% 1,000 ML IV SCH ×3 (05:00→22:17)
[2018-12-19] MEDS: Levofloxacin 750mg IV 750 MG/150 ML BAG IV SCH (05:00)
[2018-12-19] MEDS ORDERED: AZITHROMYCIN 500 MG INJ IVPB ONE (05:13)
[2018-12-19] MEDS ORDERED: NA CHLORIDE 0.9% 250 ML ONE (05:16)
[2018-12-19] MEDS: ENOXAPARIN 40 MG/0.4 ML SQ SCH (07:30)
--- OUTSIDE RECORDS SUMMARY | 2018-12-19 12:45 | XMS REPORT | CCD ---
:1985 Author Organization [facility] Care Team Providers Name Role Phone Loli York Referring Provider Allergies, Adverse Reactions, Alerts Substance Reaction Status aspirin Active Benadryl Active Claritin Active vancomycin Active ZyrTEC Active
--- OUTSIDE RECORDS SUMMARY | 2018-12-19 12:45 | XMS REPORT | Continuity of Care Document ---
:1985 Author Organization [facility] [employer] Information Natural Dentist Care Team Providers Name Role Phone [facility] Micah YouGotListings Unavailable Unavailable Problems Problem Status Onset Classification Date Comments Source Date Reported CHF Active [address] SENT BY DR Active [address] R/O LABOR Active [address] SHORTNESS OF BREATH Active [address], [place] 30WK PREG -PAIN Active [address] Q20.[address] CHEST PAIN FROM Active [facility] COUGHING 016 [place] ABD PAIN Active [facility] 016 [place] BACK PAIN Active [address] [place] SOB Active 0[address] [place] FLU LIKE SYMPTOMS Active 015 [place] RASH Active [address]15 [place] EAR ACHE Active 015 [place] LEFT EAR PAIN Active 014 [place] PNEUMONIA Active 014 [place] LABOR Active [address] 37 WEEKS CHF Active [address] Active [address] 37 WEEKS Active 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 PNEUMONIA, ORGANISM Active NOS [place] DISCORDANT Active [facility] VENTRICULOARTERIAL Medical CONNECTION Center RELATED Active [facility] CONDITIONS, UNSP, Medical UNSP Center HEART FAILURE, Active [facility] UNSPECIFIED Medical Center Medications Medication Details Route Status Patient Ordering Order Source Instructions Provider Date Colace 100 mg oral 100 mg, 1 cap, PO Active Masry 07/19/ [facility] capsule PO, BID, PRN, 60 2012 Medical cap, 1, 1, Center Constipation, Substitution Allowed, CAP Colace 100 mg oral 100 mg, 1 cap, PO Active Masry 07/19/ [place] capsule PO, BID, PRN, 60 2012 Medical cap, 1, 1, Center Constipation, Substitution Allowed, CAP [place] 5/325 oral 1-2 tab, PO, PO Active Masry 07/19/ [facility] tablet Q6H, PRN, 20 2012 Medical tab, Pain, Center Substitution Allowed, Maintenance [place] 5/325 oral 1-2 tab, PO, PO Active Masry 07/19/ [facility] tablet Q6H, PRN, 20 2012 Medical tab, Pain, Center Substitution Allowed, Maintenance Colace 100 mg oral 100 mg, 1 cap, PO Active Masry 07/19/ [facility] capsule PO, BID, PRN, 60 2012 Medical cap, 1, 1, Center Constipation, Substitution Allowed, CAP [place] 5/325 oral 1-2 tab, PO, PO Active Masry 07/19/ [facility] tablet Q6H, PRN, 20 2012 Medical tab, Pain, Center Substitution Allowed, Maintenance gentamicin + 530 mg, 13.25 IV No Gabriel [facility] Sodium Chloride mL, Route: IV, Longer 2012 Medical 0.9% IV 100 mL Drug form: INJ, Active Center [id number], Dosing Weight 107.5, kg, Start date: 07/15/12 23:00:00, Duration: 30 day, Stop date: 08/13/12 23:00:00, Pediatric DosingPediatric Dosing clindamycin 900 mg, 6 mL, IVPB No Gabriel [facility] Route: IVPB, Longer 2012 Medical Drug form: INJ, Active Center [id number], Dosing Weight 107.5, kg, Start date: 07/15/12 23:00:00, Duration: 30 day, Stop date: 08/14/12 15:00:00 ampicillin 2 gm, Route: IVPB No Gabriel [facility] IVPB, Drug form: Longer 2012 Medical PDR/INJ, ABXQ6H, Active Center Dosing Weight 107.5, kg, Start date: 07/15/12 23:00:00, Duration: 30 day, Stop date: 08/14/12 17:00:00 levothyroxine 175 microgram, PO No [facility] Route: PO, Drug Longer 2012 Medical form: TAB, Active Center Daily, Dosing Weight 108.182, kg, Start date: 07/15/12 22:00:00, Duration: 30 day, Stop date: 08/14/12 9:00:00 Singulair 10 mg, 1 tab, PO No [facility] Route: PO, Drug Longer 2012 Medical form: TAB, QPM, Active Center Dosing Weight 108.182, kg, Start date: 07/15/12 22:00:00, Duration: 30 day, Stop date: 08/14/12 17:00:00 multivitamin, 1 tab, Route: PO No Venktaa [facility] PO, Drug Form: Longer 2012 Medical TAB, Dosing Active Center Weight 108.182, kg, Daily, Start date: 07/15/12 21:00:00, Duration: 30 day, Stop date: 08/13/12 21:00:00 Saline Flush 0.9% 5 ml, Route: IVP No Mark [facility] IVP, Drug Form: Longer 2012 Medical INJ, Dosing Active Center Weight 108.182, kg, Q12H, Start date: 07/15/12 9:00:00, Duration: 30 day, Stop date: 08/13/12 21:00:00 1 tab, Route: PO No 07/15[facility] Multivitamins oral PO, Drug Form: Longer 2012 Medical tablet TAB, Dosing Active Center Weight 108.182, kg, Daily, Start date: 07/15/12 9:00:00, Duration: 30 day, Stop date: 08/13/12 9:00:00 atenolol 25 mg 25 mg, 1 tab, PO No Morgan 02/28[facility] oral tablet Route: PO, Drug Longer 2012 [...] 30 mL, IV No [place] Alex 0.5mg/mL IP ARCHITECT Route: IV, IP ARCHITECT Longer 2012 Medical (15mg/30 mL) 15 mg Dose: 0.2 mg, Active Center IP ARCHITECT Lockout: 10 minutes, 4 Hour Limit (In MG): 5, Drug Form: INJ, Continuous, Start date: 07/15/12 3:00:00, Duration: 30 day, Stop date: 08/14/12 3:59:00 M-M-R II 0.5 ml, Route: SUB-Q No [facility] Alex SUB-Q, Drug Longer 2012 Medical Form: PDR/INJ, Active Center Dosing Weight 108.182, kg, ONCALL, Start date: 07/15/12 2:00:00, Duration: 1 doses or times, Stop date: 07/22/12 0:00:00 acetaminophen-hydr 2 tab, Route: PO No [facility] ocodone 325 mg-5 PO, Drug Form: Longer [...] 0.9% 5 ml, Route: IVP No Mark 07/15[facility] IVP, Drug Form: 2012 Medical INJ, Dosing Active Center Weight 108.182, kg, PRN, PRN Line Flush, Start date: 07/15/12 1:53:00, Duration: 30 day, Stop date: 08/14/12 2:52:00 acetaminophen 650 mg, 2 tab, PO No Britt 07/15[facility] Route: PO, Drug 2012 Medical form: TAB, Q4H, Active Center Dosing Weight 108.182, kg, PRN Other -See Comment, Start date: 07/15/12 1:53:00, Duration: 30 day, Stop date: 08/14/12 1:52:00 bisacodyl 10 mg, 1 supp, RI No [facility] 07/15[facility] Route: RI, Drug 2012 Medical form: SUPP, PRN, Active Center Dosing Weight 108.182, kg, PRN Other -See Comment, Start date: 07/15/12 1:53:00, Duration: 30 day, Stop date: 08/14/12 2:52:00 lanolin topical 1 appl, Route: TOP No [facility] 07/15[facility] cream TOP, PRN, Drug 2012 Medical form: OINT, PRN Active Center Other -See Comment, Start date: 07/15/12 1:53:00, Duration: 30 day, Stop date: 08/14/12 2:52:00 zolpidem 5 mg, 1 tab, PO No [facility] 07/15[facility] Route: PO, Drug 2012 Medical form: TAB, Active Center Bedtime, Dosing Weight 108.182, kg, PRN Insomnia, Start date: 07/15/12 1:53:00, Duration: 30 day, Stop date: 08/14/12 1:52:00 simethicone 160 mg, 2 tab, PO No [facility] 02/28[facility] Route: PO, Drug Longer 2012 Medical form: [place], Active Center Q8H, Dosing Weight 108.182, kg, PRN Gas, Start date: 07/15/12 1:53:00, Duration: 30 day, Stop date: 08/14/12 1:52:00 azithromycin 500 mg, Route: IVPB No edinma [facility] IVPB, Drug form: Longer 2012 Medical PDR/INJ, ONCALL, Active Center Dosing Weight 108.182, kg, Start date: 07/14/12 23:00:00, Duration: 1 doses or times, Stop date: 07/16/12 0:00:00 morphine Sulfate 2 mg, 1 mL, [facility] Route: IVP, Drug Longer 2012 Medical form: INJ, Q2H, Active Center Dosing Weight 108.182, kg, PRN Pain, Start date: 07/14/12 22:07:00, Duration: 30 day, Stop date: 08/13/12 22:06:00 Synthroid 75 microgram, 1 PO No 07/15[facility] tab, Route: PO, Longer 2012 Medical Drug form: TAB, Active Center Q630AM, Start date: 07/14/12 22:00:00, Duration: 30 day, Stop date: 08/12/12 22:00:00 Levothroid 100 microgram, 1 PO No Britt [facility] tab, Route: PO, Longer 2012 Medical Drug form: TAB, Active Center Q630AM, Start date: 07/14/12 22:00:00, Duration: 30 day, Stop date: 08/12/12 22:00:00 methylergonovine 0.2 mg, 1 mL, IM No edinma 07/15[facility] Route: IM, Drug 2012 Medical form: INJ, Active Center ONCALL, Dosing Weight 108.182, kg, Start date: 07/14/12 22:00:00, Duration: 30 day, Stop date: 08/13/12 22:59:00 carboprost 250 microgram, 1 IM No edinma 07/15[facility] mL, Route: IM, Longer 2012 Medical Drug form: INJ, Active Center ONCALL, Dosing Weight 108.182, kg, Start date: 07/14/12 22:00:00, Duration: 30 day, Stop date: 08/13/12 22:59:00 metoclopramide 10 mg, 2 mL, [facility] Route: IVP, Drug 2012 Medical form: INJ, Active Center ONCALL, Dosing Weight 108.182, kg, Start date: 07/14/12 22:00:00, Duration: 30 day, Stop date: 08/13/12 22:59:00 misoprostol 1,000 microgram, RI No [facility] 07/15[facility] 5 tab, Route: 2012 Medical RI, Drug form: Active Center TAB, ONCALL, Dosing Weight 108.182, kg, Start date: 07/14/12 22:00:00, Duration: 30 day, Stop date: 08/13/12 22:59:00 cefazolin 3 gm, 150 mL, IVPB No edinma 07/15[facility] Route: IVPB, 2012 Medical Drug form: INJ, Active Center ONCALL, Dosing Weight 108.182, kg, Start date: 07/14/12 22:00:00, Stop date: 07/16/12 0:00:00 morphine Sulfate 2 mg, 1 mL, IVP No [facility] 07/15[facility] Route: IVP, Drug 2012 Medical form: INJ, Q2H, Active Center Dosing Weight 108.182, kg, PRN Pain, Start date: 07/14/12 21:58:00, Duration: 30 day, Stop date: 08/13/12 21:57:00 morphine Sulfate 2 mg, 1 mL, IVP No Britt 07/15[facility] Route: IVP, Drug 2012 Medical form: INJ, Q2H, Active Center Dosing Weight 108.182, kg, PRN Pain, Start date: 07/14/12 21:49:00, Duration: 30 day, Stop date: 08/13/12 21:48:00 ondansetron 4 mg, 2 mL, IVP No [facility] Route: IVP, Drug 2012 Medical form: INJ, Q8H, Active Center Dosing Weight 108.182, kg, PRN Nausea & Vomiting, Start date: 07/14/12 21:49:00, Duration: 30 day, Stop date: 08/13/12 21:48:00 Lactated Ringers 20 unit, 1,000 IV No [facility] 1000ml+Oxytocin 20 mL, Rate: 50 Longer 2012 Medical units IV (Premix) ml/hr, Infuse Active Center 20 unit over: 20 hr, Dosing Weight 108.182, kg, Route: IV, Total Volume: 1,000 mL, Start date: 07/14/12 21:49:00, Duration: 2 day, Stop date: 07/16/12 21:48:00, Replace Every: 8 hr citric acid-sodium 30 ml, Route: PO No [facility] citrate PO, Drug Form: Longer 2012 Medical SOLN, Dosing Active Center Weight 108.182, kg, ONCE, Start date: 07/14/12 21:49:00, Duration: 1 doses or times, Stop date: 07/14/12 21:49:00 terbutaline 0.25 mg, 0.25 SUB-Q No Ezedinma [facility] mL, Route: Longer 2012 Medical SUB-Q, Drug Active Center form: INJ, ONCALL, Dosing Weight 108.182, kg, PRN Other -See Comment, Start date: 07/14/12 21:49:00, Duration: 1 doses or times, Stop date: 07/16/12 0:00:00 Lactated Ringers 1,000 mL, Rate: IV No [facility] IV 1,000 mL 125 ml/hr, Longer 2012 Medical Infuse over: 8 Active Center hr, Route: IV, kg, Total Volume: 1,000, Priority: STAT, Start date: 07/14/12 21:44:00, Duration: 30 day, Stop date: 08/13/12 21:43:00 acetaminophen-hydr 1 tab, Route: PO No [facility] ocodone 325 mg-5 PO, Drug Form: Longer 2012 Medical mg oral tablet TAB, Dosing Active Center Weight 108.182, kg, Q4H, PRN Pain Score 1-3, Start date: 07/14/12 21:42:00, Duration: 30 day, Stop date: 08/13/12 21:41:00 pneumococcal 0.5 ml, Route: IM No SYSTEM [facility] 23-valent vaccine IM, Drug Form: Longer 2012 [...] Source type Reported aspirin drug Allergy Active [facility] Benadryl drug Allergy Active [facility] Claritin drug Allergy Active [facility] vancomycin drug Allergy Active [facility] ZyrTEC drug Allergy Active [facility] Immunizations Immunization Date Given Site Status Last Updated Comments Source measles/mumps/rub 07/19/2012 completed Cj [facility] edson virus [facility] vaccine Center Results Order Name Results Value Reference Date Interpretation Comments Source Range CHEMISTRY Magnesium 1.8 1.8 - 2.4 07/16 Normal [facility] Lv [facility] CHEMISTRY Phosphorus 4.3 2.5 - 4.5 07/16 Normal [facility] CHEMISTRY Ca Norm 1.14 1.16 - 03 LOW [facility] 1.30 /2012 [facility] CHEMISTRY Ca Ion 1.14 1.16 - 07/16 LOW [facility] 1.30 [facility] CHEMISTRY Ca Norm mgdL 4.56 4.65 - 03 LOW [facility] 5.20 [facility] CHEMISTRY Ca Ion mgdL 4.56 4.65 - 03 [facility] 5.20 [facility] CHEMISTRY AGAP 16.1 10.0 - 03 Normal [facility] 20.0 [facility] CHEMISTRY eGFR 124 07/16 NA <sup>2</sup>R [facility] esult Medical Comment: The Center eGFR is [...] CO2 21 24 - 32 03/ LOW [facility] CHEMISTRY Calcium Lvl 7.6 8.5 - 10.5 / [facility]2012 [facility] CHEMISTRY Chloride Lvl 107 95 - 109 07/16 Normal [facility]2012 [facility] CHEMISTRY Potassium 4.1 3.5 - 5.1 07/16 Normal [facility] CHEMISTRY Glucose Lvl 85 70 - 99 07/16 Normal <sup>4</sup>I nterpretive Medical Data: Adult Center reference range values reflect the clinical guidelines
of the [place] [employer]. CHEMISTRY BUN 8 7 - 22 03/ Normal [facility] CHEMISTRY Creatinine 0.6 0.5 - 1.4 / [facility] CHEMISTRY Sodium Lvl 140 135 - 145 / [facility] HEMATOLOGY Segs-Bands # 7.4 1.5 - 8.1 / [facility]2012 [facility] HEMATOLOGY Basophils 0.1 0.0 - 1.0 / [facility] HEMATOLOGY Segs 81.8 45.0 - 03/ HI [facility] 75.0 /2012 [facility] HEMATOLOGY Lymphocytes 10.6 20.0 - 03/ [facility] 40.0 /2012 [facility] HEMATOLOGY Monocytes 7.2 2.0 - 12.0 03/ [facility] HEMATOLOGY Eosinophils 0.3 0.0 - 4.0 03/ [facility] HEMATOLOGY Lymphocytes 1.0 1.0 - 5.5 03/ Normal [facility] # /2012 [facility] HEMATOLOGY Monocytes # 0.6 0.0 - 0.8 03/ [facility] HEMATOLOGY Hct 26.6 36.0 - 03/ LOW [facility] [place] 48.0 /2012 Medical Center HEMATOLOGY MCH 31.0 27.0 - 03/ Normal [place] 31.0 /2012 Medical Center HEMATOLOGY MCV 89.8 81.0 - 03/ Normal [place] 99.0 /2012 [facility] [place] HEMATOLOGY Platelet 126 133 - 450 03/ LOW [place] [facility] HEMATOLOGY MPV 9.0 7.4 - 10.4 03/ Normal [place] [facility] [place] HEMATOLOGY RDW 13.8 11.5 - 03/ Normal [place] 14.5 /2012 Medical Center HEMATOLOGY MCHC 34.6 32.0 - 03/ Normal [place] 36.0 /2012 Medical Center HEMATOLOGY Hgb 9.2 12.0 - 03/ LOW [place] 16.0 /2012 [facility] [place] HEMATOLOGY RBC 2.96 4.20 - 03/ LOW [place] 5.40 /2012 [facility] [place] HEMATOLOGY WBC 9.0 3.7 - 10.4 03/ Normal [place] [facility] [place] HEMATOLOGY Plt Morph Clumped 03 Normal [facility] (07/15/2012 23:00:00) [facility] HEMATOLOGY Lymphocytes 0.5 1.0 - 5.5 03/ LOW [place] # /2012 [facility] [place] HEMATOLOGY Segs-Bands # 5.1 1.5 - 8.1 03/ Normal [facility] HEMATOLOGY Basophils 0.3 0.0 - 1.0 03/ Normal [facility] HEMATOLOGY Eosinophils 0.1 0.0 - 4.0 03/ Normal [facility] HEMATOLOGY Monocytes 4.6 2.0 - 12.0 03/ Normal [facility] HEMATOLOGY RBC Morph Normal 03 Normal [facility] (07/15/2012 23:00:00) [facility] HEMATOLOGY Segs 86.3 45.0 - 03/ HI [place] 75.0 /2012 Medical Center HEMATOLOGY Lymphocytes 8.7 20.0 - 03/ LOW [place] 40.0 /2012 [facility] HEMATOLOGY Monocytes # 0.3 0.0 - 0.8 03/ Normal [facility] HEMATOLOGY MPV Clumped 7.4 - 10.4 03/ NA Medical Center HEMATOLOGY Platelet Clumped 133 - 450 03/ NA Medical Center HEMATOLOGY MCV 90.3 81.0 - 03/ Normal [facility] [place] 99.0 /2012 [facility] HEMATOLOGY RBC 3.28 4.20 - 03 [facility] 5.40 /2012 [facility] HEMATOLOGY WBC 6.0 3.7 - 10.4 07/16 Normal [facility] HEMATOLOGY MCH 30.3 27.0 - 03 Normal [facility] 31.0 /2012 [facility] HEMATOLOGY RDW 13.6 11.5 - 03 Normal <sup>6</sup>R [facility] 14.5 esult Medical Comment: Center Informed Trina Hernándezath 07/15/2012 23:32:51 [facility] PHYSICIAN HEMATOLOGY MCHC 33.5 32.0 - 03 Normal [facility] 36.0 /2012 [facility] HEMATOLOGY Hgb 9.9 12.0 - 03 [facility] 16.0 /2012 [facility] HEMATOLOGY Hct 29.6 36.0 - 03 [facility] 48.0 /2012 [facility] BACTERIAL MRSA by PCR Negative 1 07/15 Normal <sup>1</sup>I [facility] - SEROLOGY (07/15/2012 02:52:00) nterpretive Medical Data: [...] by the [facility] within the [facility]. The [facility] Laboratory is authorized under the Clinical Laboratory Improvement Amendment of 1988 (CLIA-88) to perform high complexity testing. CHEMISTRY Phosphorus 3.5 2.5 - 4.5 07/15 Normal [facility] CHEMISTRY Magnesium 1.3 1.8 - 2.4 07/15 [facility] Lvl [facility] CHEMISTRY Ca Ion 1.07 1.16 - 07/15 [facility] 1.30 [facility] CHEMISTRY Ca Ion mgdL 4.28 4.65 - 07/15 [facility] 5. [facility] CHEMISTRY Ca Norm mgdL 4.32 4.65 - 07/15 [facility] 5.20 [facility] CHEMISTRY Ca Norm 1.08 1.16 - 07/15 [facility] 1.30 [facility] CHEMISTRY AGAP 18.4 10.0 - 07/15 [facility] 20.0 [facility] CHEMISTRY eGFR 118 07/15 NA [...] values reflect the clinical guidelines
of the [place] [employer]. CHEMISTRY Potassium 4.4 3.5 - 5.1 07/15 Normal [facility] CHEMISTRY Sodium Lvl 141 135 - 145 07/15 [facility] CHEMISTRY Chloride Lvl 112 95 - 109 07/15 [facility] CHEMISTRY Creatinine 0.7 0.5 - 1.4 07/15 [facility] CHEMISTRY BUN 7 7 - 22 07/15 [facility] CHEMISTRY Calcium Lvl 7.7 8.5 - 10.5 07/15 [facility] CHEMISTRY CO2 15 24 - 32 07/15 [facility] HEMATOLOGY Platelet 131 133 - 450 07/15 [facility] HEMATOLOGY MPV 9.4 7.4 - 10.4 07/15 Normal /2012 [facility] HEMATOLOGY RDW 13.8 11.5 - 07/15 Normal [place] 14.5 /2012 [facility] HEMATOLOGY MCHC 34.6 32.0 - 07/15 Normal [place] 36.0 /2012 [facility] HEMATOLOGY MCH 31.0 27.0 - 07/15 Normal [place] 31.0 /2012 [facility] HEMATOLOGY MCV 89.6 81.0 - 07/15 Normal [place] 99.0 /2012 [facility] HEMATOLOGY Hct 29.8 36.0 - 02 LOW [place] 48.0 /2012 [facility] HEMATOLOGY RBC 3.33 4.20 - 07/15 LOW [place] 5.40 /2012 [facility] HEMATOLOGY WBC 10.8 3.7 - 10.4 07/15 HI [facility] HEMATOLOGY Hgb 10.3 12.0 - 07/15 LOW [place] 16.0 /2012 [facility] HEMATOLOGY Segs-Bands # 9.9 1.5 - 8.1 07/15 HI /2012 [facility] HEMATOLOGY Lymphocytes 0.4 1.0 - 5.5 07/15 LOW [place] # /2012 [facility] HEMATOLOGY Monocytes # 0.5 0.0 - 0.8 07/15 Normal /2012 [facility] HEMATOLOGY Segs 91.4 45.0 - 07/15 [facility] [place] 75.0 /2012 [facility] HEMATOLOGY Eosinophils 0.1 0.0 - 4.0 07/15 Normal /2012 [facility] HEMATOLOGY Lymphocytes 3.8 20.0 - 07/15 LOW [place] 40.0 /2012 [facility] HEMATOLOGY Basophils 0.1 0.0 - 1.0 07/15 Normal [facility] HEMATOLOGY Monocytes 4.6 2.0 - 12.0 07/15 Normal /2012 [facility] BLOOD BANK RBC product Product available 07/15 Normal [facility] RESULTS (07/14/2012 22:07:57) /2012 [facility] BLOOD BANK Antibody Negative 07/15 Normal [facility] RESULTS Scrn (07/14/2012 22:07:00) /2012 [facility] BLOOD BANK ABO/Rh A POS 07/15 Unknown [facility] RESULTS /2012 [facility] IMMUNOLOGY Hep Bs Ag Negative Negative 07/15 [facility] [place] *NA* /2012 Medical (07/14/2012 22:07:00) Center IMMUNOLOGY RPR Non Reactive Non 07/15 Normal [facility] (07/14/2012 22:07:00) Reactive /2012 [facility] CHEMISTRY LDH 144 98 - 192 05/24 Normal [facility] CHEMISTRY Uric Acid 3.5 2.5 - 7.0 05/24 Normal [facility] CHEMISTRY A/G Ratio 1.0 0.7 - 1.6 05/24 Normal [facility] CHEMISTRY eGFR 142 05/24 NA [...] Globulin 3.0 2.0 - 4.0 05/24 Normal [facility] CHEMISTRY AGAP 12.2 10.0 - 05/24 [facility] 20.0 [facility] CHEMISTRY B/C Ratio 22 6 - 25 05/24 Normal [facility] CHEMISTRY AST 11 0 - 37 05/24 Normal [facility] CHEMISTRY Total 6.1 6.4 - 8.4 05/24 LOW [facility] Protein [facility] CHEMISTRY Potassium 4.2 3.5 - 5.1 05/24 Normal [facility] Lvl [facility] CHEMISTRY Sodium Lvl 138 135 - 145 05/24 Normal [facility] CHEMISTRY Bili Total 0.4 0.2 - 1.3 05/24 Normal [facility] CHEMISTRY Calcium Lvl 8.2 8.5 - 10.5 05/24 LOW [facility] CHEMISTRY Chloride Lvl 110 95 - 109 05/24 HI [facility] CHEMISTRY CO2 20 24 - 32 05/24 LOW Medical [facility] CHEMISTRY Creatinine 0.4 0.5 - 1.4 05/24 LOW [facility] Lvl /2012 [facility] CHEMISTRY BUN 9 7 - 22 05/24 Normal [facility] CHEMISTRY Glucose Lvl 78 70 - 99 05/24 Normal <sup>2</sup>I nterpretive Medical Data: Adult Center reference range values reflect the clinical guidelines
of the [place] [employer]. CHEMISTRY Albumin Lvl 3.1 3.5 - 5.0 05/24 LOW [facility] CHEMISTRY Alk Phos 67 39 - 136 05/24 Normal [facility] CHEMISTRY ALT 18 0 - 65 05/24 Normal [facility] [facility] HEMATOLOGY MCV 89.3 81.0 - 05/24 Normal [facility] 99.0 Medical [place] HEMATOLOGY MCHC 34.9 32.0 - 05/24 Normal [place] 36.0 [facility] [place] HEMATOLOGY MCH 31.2 27.0 - 05/24 [facility] 31.0 Medical [place] HEMATOLOGY MPV 9.0 7.4 - 10.4 05/24 Normal [facility] HEMATOLOGY Platelet 142 133 - 450 05/24 Normal [facility] HEMATOLOGY RDW 13.3 11.5 - 05/24 Normal [facility] 14.5 /2012 [facility] HEMATOLOGY Hgb 11.3 12.0 - 05/24 LOW [facility] 16.0 /2012 [facility] HEMATOLOGY WBC 8.8 3.7 - 10.4 05/24 Normal [facility] HEMATOLOGY RBC 3.62 4.20 - 05/24 LOW [place] 5.40 /2012 [facility] HEMATOLOGY Hct 32.3 36.0 - 05/24 LOW [place] 48.0 /2012 [facility] URINALYSIS UA 0.1 - 1.0 05/[address] [facility] Urobilinogen /2012 [facility] URINALYSIS UA Color Yellow Yellow 05/24 NA [place] *NA* /2012 Medical (05/24/2012 14:55:00) Center URINALYSIS UA Glucose Negative mg/dL Negative 05/24 NA [place] *NA* /2012 Medical (05/24/2012 14:55:00) Center URINALYSIS UA Ketones Negative mg/dL Negative 05/24 NA [facility] *NA* Medical (05/24/2012 14:55:00) Center URINALYSIS UA Bili Negative Negative 05/24 [facility] Medical (05/24/2012 14:55:00) Center URINALYSIS UA Leuk Est Small Negative 05/24 [facility] Medical (05/24/2012 14:55:00) Center URINALYSIS UA Blood Negative Negative 05/24 Normal [facility] (05/24/2012 14:55:00) Medical Center URINALYSIS UA Nitrite Negative Negative 05/24 Normal [facility] (05/24/2012 14:55:00) Medical Center URINALYSIS UA Turbidity Slight Clear 05/24 [facility]* Medical (05/24/2012 14:55:00) Center URINALYSIS UA Spec Grav 1.017 <=1.030 05/24 Normal [facility] URINALYSIS UA pH 6.5 5.0 - 8.0 05/24 Normal [facility] URINALYSIS UA Protein 20 mg/dL Negative 05/24 [facility] (05/24/2012 14:55:00) Center URINALYSIS UA Sq Epi Many /LPF Few 05/24 [facility]* Medical (05/24/2012 14:55:00) Center URINALYSIS UA WBC 8 0 - 5 05/24 [facility] URINALYSIS UA RBC <1 0 - 2 05/24 Normal [facility] URINALYSIS UA Bacteria Occasional /HPF None [facility] 05[facility] 14:55:00[facility] Center URINALYSIS UA Mucus Few /LPF None [facility] 05[facility] 14:55:[facility] URINALYSIS UA Amorph Moderate /HPF None Seen 05/24 [facility]N Medical (05/24/2012 14:55:00) Center URINALYSIS UA 0.1 - 1.0 03/02 NA [facility] [place] URINALYSIS UA Color Ltyellow 03/02 NA [place] URINALYSIS UA Bacteria Few /HPF None Seen 03/02 [facility] *NA* [facility] (03/02/2012 10:35:00) URINALYSIS UA RBC 1 0 - 2 03/02 Normal URINALYSIS UA WBC 3 0 - 5 03/[address] [facility] URINALYSIS UA Trans Epi 4 <=0 03/[address] [facility] URINALYSIS UA Turbidity Slight Clear 03/02 ABN *ABN* [facility] (03/02/2012 10:35:00) URINALYSIS UA Leuk Est Small Negative 03/02 ABN *ABN* [facility] (03/02/2012 10:35:00) URINALYSIS UA Nitrite Negative Negative 03/02 Normal (03/02/2012 10:35:00) [facility] URINALYSIS UA Blood Negative Negative 03/02 Normal (03/02/2012 10:35:00) [facility] URINALYSIS UA Ketones Negative mg/dL Negative 03/02 [facility] *NA* [facility] (03/02/2012 10:35:00) URINALYSIS UA Bili Negative Negative 03/02 [facility] *NA* [facility] (03/02/2012 10:35:00) URINALYSIS UA Glucose Negative mg/dL Negative 03/02 [facility] *NA* [facility] (03/02/2012 10:35:00) URINALYSIS UA Protein Negative mg/dL Negative 03/02 Normal (03/02/2012 10:35:00) URINALYSIS UA Spec Grav 1.006 <=1.030 03/[address] [facility] URINALYSIS UA pH 7.0 5.0 - 8.0 03/[address] [facility] URINALYSIS UA Sq Epi Many /LPF Few 03/02 [facility] *ABN* [facility] (03/02/2012 10:35:00) Microbiolo Culture: 03/[address] [facility] Pathology Reports No Data Provided for This Section Diagnostic Reports Report Value Date Source Chest 1view DX EXAM: XR CHEST 1 VIEW 09/18/2017 [facility] DATE: 09/18/2017 12:31 PM CDT [...] Teeth Complete Full EXAM: XR PANOREX 09/07/2017 [facility] DX DATE: 09/07/2017 3:49 PM CDT Center [...] views DX Patient Name: ZACH RUIZ 04/26/2016 [facility] : 1985; Age: 30 years y/o Female MR: [id number] Study: Chest 2 views DX 04/26/2016 7:20 PM [facility] PHYSICIAN Ordering Physician: Myriam Bui, MSN Comparison: 10/30/2014 [...] pneumonia. SL: ABDIAS Abdomen RUQ US 08/22/2015 [facility] Study: Abdomen RUQ US Clinical Indication: Right [...] otherwise unremarkable right upper quadrant ultrasound. SL: [id number] Preg < 14wks Single Study: Preg < 14wks Single gest w Transvag US ; Age: 29 years y/o Female 08/22/2015 [facility] w Transvag US Clinical Indication: Abdominal pain, [...] 4. Mild enlargement of the uterus. SL: [id number] Renal Stone CT CT ABDOMEN AND PELVIS WITHOUT CONTRAST, WITH RENAL STONE PROTOCOL. 01/22/2015 [facility] INDICATION: Right lower abdominal pain [...] views DX PROCEDURE: Chest 2 views 10/30/2014 [facility] REASON FOR EXAM: See Clinic Indication CLINICAL INFORMATION Cough and fever COMPARISON: 10/2014. 10/2013 multiple x-rays. 07/2012. Right infrahilar pneumonia increased from the prior exams. Increased left lower lobe infiltrate. No effusions or pneumothorax. Normal heart and pulmonary vasculature. Intact osseous structures. IMPRESSION: Increased pneumonia. SL: 14 Chest 1view DX 10/30/2014 [facility] EXAM: Portable chest x-ray. HISTORY: [...] There is no other significant change. 11/04/2013 [facility] SL:13 Chest 1view HISTORY: Shortness of breath. 11/01/2013 [facility] One view chest. Comparison 07/16/2012. [...] Comments Source Diastolic (mm Hg) 55 07/16/2012 [facility] Systolic (mm Hg) 110 07/16/2012 [facility] Diastolic (mm Hg) 64 07/16/2012 [facility] Systolic (mm Hg) 113 07/16/2012 [facility] Temperature Oral (F) 97.8 F 07/16/2012 [facility] Temperature Oral (F) 98.4 F 07/16/2012 [facility] Systolic (mm Hg) 115 07/16/2012 [facility] Diastolic (mm Hg) 56 07/16/2012 [facility] Temperature Oral (F) 98.1 F 07/16/2012 [facility] Respitory Rate 18 07/16/2012 [facility] Respitory Rate 22 07/15/2012 [facility] Respitory Rate 19 07/15/2012 [facility] Weight 107.5 07/15/2012 [facility] Height 154.94 cm 07/15/2012 [facility] Weight 108.182 07/15/2012 [facility] Height 154.94 cm 07/15/2012 [facility] Weight 100.000 06/25/2012 [facility] Height 165.10 cm 06/25/2012 [facility] Weight 102.727 05/25/2012 [facility] Height 154.94 cm 05/25/2012 [facility] Weight 100.000 03/02/2012 [facility] Height 154.94 cm 03/02/2012 [facility] Encounters Location Location Encounter Encounter Reason Attending ADM DC Status Source Details Type Number For Provider Date Date Visit Emergency [id number] SHELISE 03/02 03/02 Discharg [place]ATRIN /[place] [id number] 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 OU [id number] R/O QING 05/24 05/24 Active [facility] Medical LABOR /2012 [facility] [place] [id number] WK 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 [place] GROWTH ORIN [place] [facility] OU [id number] WKS JARRETT 06/25 06/25 Active [facility] Medical MANCILLA [facility] Inpatient [id number] LABOR JARRETT 07/14 Active [facility] MANCILLA [facility] Preadmit [id number] 37 WEEKS CAROLINE Active [facility] CHF, [facility]P C-SECTIO N Procedures Procedure Code Date Perfomer Comments Source section [id number] 05/18/2002 [facility] Open heart [id number] 1985 [facility] Assessment and Plan No Data Provided for This Section Plan of Care No Data Provided for This Section Social History No Data Provided for This Section Family History No Data Provided for This Section Advance Directives No Data Provided for This Section Functional Status No Data Provided for This Section
--- OUTSIDE RECORDS SUMMARY | 2018-12-19 12:45 | XMS REPORT | CCD ---
:1985 Author Organization [facility] Care Team Providers Name Role Phone Moris [...]
--- OUTSIDE RECORDS SUMMARY | 2018-12-19 12:45 | XMS REPORT | CCD ---
:1985 Author Organization [facility] Care Team Providers Name Role Phone [...] the clinical guidelines of the [place] [employer].HEMATOLOGY Most recent to oldest [Reference [...]
--- OUTSIDE RECORDS SUMMARY | 2018-12-19 12:46 | XMS REPORT | CCD ---
:1985 Author Organization [facility] Care Team Providers Name Role Phone Concepcion Villalobos [employer] Provider Allergies, Adverse Reactions, Alerts Substance Reaction Status aspirin Active Benadryl Active Claritin Active vancomycin Active ZyrTEC Active Vital Signs Most recent to oldest [Reference Range]: 1 Height 165.10 cm (06/25/2012 11:05:00) Weight 100.000 kg (06/25/2012 11:05:00)
--- OUTSIDE RECORDS SUMMARY | 2018-12-19 12:46 | XMS REPORT | CCD ---
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 Medications Medication Instructions Start Date End Date Status HYDROmorphone 0.5mg/mL [employer] 15 mg, 30 mL, Route: 07/15/2012 07/16/2012 Discontinued (15mg/30 mL) 15 mg IV, [employer] Dose: 0.2 mg, [employer] Lockout: 10 minutes, 4 Hour Limit (In MG): 5, Drug Form: INJ, Continuous, Start date: 07/15/12 3:00:00, Duration: 30 day, Stop date: 08/14/12 3:59:00 [place] 5/325 oral tablet 1-2 tab, PO, Q6H, [...] Duration: 30 day, Stop date: 08/12/12 22:00:00 [place] 5/325 oral tablet 1-2 tab, PO, Q6H, [...] 13.25 mL, Route: IV, Drug form: INJ, [id number], Dosing Weight 107.5, kg, Start date: 07/15/12 [...] Duration: 30 day, Stop date: 08/13/12 21:43:00 [place] 5/325 oral tablet 1-2 tab, PO, Q6H, [...] mg, 1 supp, Route: 07/15/2012 07/19/2012 Discontinued NE, Drug form: SUPP, PRN, Dosing Weight 108.182, [...] microgram, 5 tab, 07/14/2012 07/19/2012 Discontinued Route: NE, Drug form: TAB, ONCALL, Dosing Weight 108.182, [...] by the [facility] within the [facility]. The Molecular Diagnostic Laboratory is authorized [...] values reflect the clinical guidelines of the [place] [employer].5Interpretive Data: Adult reference range values reflect the clinical guidelines of the [place] [employer].HEMATOLOGY Most recent to oldest 1 [...]
--- OUTSIDE RECORDS SUMMARY | 2018-12-19 12:46 | XMS REPORT ---
:1985 [facility] Address [address] [place] [address] [address] [place] [address] Care Team Providers Name Role Phone Unavailable Unavailable Unavailable Problems This patient has no known problems. Allergies, Adverse Reactions, Alerts This patient has no known allergies or adverse reactions. Medications This patient has no known medications.
--- OUTSIDE RECORDS SUMMARY | 2018-12-19 12:46 | XMS REPORT | CCD ---
:1985 Author Organization [facility] Care Team Providers Name Role Phone Tommy [...] values reflect the clinical guidelines of the [place] [employer].HEMATOLOGY Most recent to oldest [Reference [...]
--- OUTSIDE RECORDS SUMMARY | 2018-12-19 12:46 | XMS REPORT | CCD ---
:1985 Author Organization [facility] Care Team Providers Name Role Phone Loli York Referring Provider Allergies, Adverse Reactions, Alerts Substance Reaction Status aspirin Active Benadryl Active Claritin Active vancomycin Active ZyrTEC Active
--- NOTE | 2018-12-19 13:40 | RAD REPORT ---
EXAM DESCRIPTION: CT - Chest For Pe Angio - 12/19/2018 12:42 pm CLINICAL HISTORY: Chest pain COMPARISON: Chest films same date TECHNIQUE: Dynamically enhanced 3 mm thick images of the chest were obtained during administration o f approximately 150mL Isovue 370 IV contrast. Coronal and oblique MIP reconstruction images were gene rated and reviewed. Exam utilizes a protocol to evaluate the pulmonary arterial tree. All CT scans are performed using dose optimization technique as appropriate and may include automated exposure control or mA/KV adjustment according to patient size. FINDINGS: No pulmonary emboli are identified. The aorta as imaged shows no acute or suspicious finding. No pericardial thickening or effusion. Focal consolidation is present in the posteromedial right upper lobe abutting the minor fissure. This is retro hilar in location. A few air bronchograms are seen. In a patient this age, this is most lik andre a consolidated pneumonia. Malignancy would not be expected in a patient this age. No pleural effu nubia or pleural thickening. No mediastinal or hilar suspicious masses. No chest wall masses or abnormal axillary lymphadenopathy. IMPRESSION: Moderately large area of consolidation in the posteromedial right upper lobe abutting th e minor fissure inferiorly, and the right hilum anteriorly. Acute pneumonia is the most likely etiology in a patient this age. Malignant etiology is not suspecte d based on appearance and patient age.
--- NOTE | 2018-12-19 14:30 | RAD REPORT ---
EXAM DESCRIPTION: RAD - Chest Single View - 12/19/2018 12:42 pm CLINICAL HISTORY: Chest pain Due to technical malfunction is a imaging was not available in a timely manner precluding timely clover spicer dictation. COMPARISON: December 16, 2018 TECHNIQUE: AP portable chest image was obtained 0218 hours . FINDINGS: Lung volumes are low. This accentuates the underlying interstitial pattern. Masslike densi ty has developed over the right hilum. Malignancy is not suspected based on a each or rapid onset sin ce December 16. Pneumonia would be a primary consideration. Heart and vasculature are normal. No measura ble pleural effusion and no pneumothorax. No acute bony abnormality seen. No acute aortic findings tolentino spected. IMPRESSION: Probable pneumonia in the central right lung field.
--- NOTE | 2018-12-20 04:02 | P.HP ---
Certification for Inpatient Patient admitted to: Inpatient With expected LOS: >2 Midnights Patient will require the following post-hospital care: None Practitioner: I am a practitioner with admitting privileges, knowledge of patient current condition, hospital course, and medical plan of care. Services: Services provided to patient in accordance with Admission requirements found in Title 42 Section 412.3 of the Code of Federal Regulations Patient History Date of Service: 12/19/18 Reason for admission: Consolidated pneumonia History of Present Illness: Patient is a 33-year-old female who came to the hospital with pneumonia. Patient has been having fever shakes and chills. Patient has pain on deep inspiration. Patient has been short of breath. Patient's symptoms have been gradually worsening. Patient came into the hospital for further evaluation. In the emergency room, patient's workup revealed a large consolidated pneumonia. Patient's blood gases revealed that she was hypoxic. She was admitted to the hospital for further evaluation and treatment with IV antibiotics. Allergies aspirin Allergy (Verified 12/19/18 06:39) Hives/Rash cetirizine [From Zyrtec] Allergy (Verified 12/19/18 06:39) Hives/Rash diphenhydramine [From Benadryl] Allergy (Verified 12/19/18 06:39) Hives/Rash loratadine [From Claritin] Allergy (Verified 12/19/18 06:39) Hives/Rash nitroglycerin Allergy (Verified 12/19/18 06:39) Hives/Rash ondansetron [From Zofran] Allergy (Verified 12/19/18 06:39) Hives/Rash promethazine [From Phenergan] Allergy (Verified 12/19/18 06:39) Hives/Rash vancomycin Allergy (Verified 12/19/18 06:39) Hives/Rash Home Medications: Doxycycline Monohydrate 100 mg PO BID #14 capsule 12/20/18 - Past Medical/Surgical History Diabetic: No -: Dextrocardia -: 3- Ceasarian sections -: open heart surgery -: carpal tunnel both hands -: right elbow pinched nerve - Family History Father Family History: Reviewed- Non-Contributory - Social History Smoking Status: Never smoker Alcohol use: No CD- Drugs: No Place of Residence: Home Review of Systems 10-point ROS is otherwise unremarkable Respiratory: Cough, Shortness of Breath, Sputum Physical Examination - Vital Signs Temperature: 97.1 F Blood Pressure: 122/61 Pulse: 95 Respirations: 18 Pulse Ox (%): 98 - Physical Exam General: Alert, In no apparent distress, Oriented x3 HEENT: Atraumatic, PERRLA, Mucous membr. moist/pink, EOMI, Sclerae nonicteric Neck: Supple, 2+ carotid pulse no bruit, No LAD, Without JVD or thyroid abnormality Respiratory: Diminished, Rhonchi/gurgles Cardiovascular: Regular rate/rhythm, Normal S1 S2, No murmurs Gastrointestinal: Normal bowel sounds, Soft and benign, Non-distended, No tenderness Musculoskeletal: No clubbing, No swelling, No tenderness Integumentary: No rashes Neurological: Normal gait, Normal speech, Normal strength at 5/5 x4 extr, Normal tone, Sensation intact, Cranial nerves 3-12 intact, Normal affect Lymphatics: No axilla or inguinal lymphadenopathy - Studies Microbiology Data (last 24 hrs): 12/19/18 03:36 Blood - Blood Anaerobic Blood Culture - Final 12/19/18 04:16 Blood - Blood Anaerobic Blood Culture - Final Assessment & Plan - Problems (Diagnosis) (1) Lung consolidation due to pneumococcal pneumonia Status: Acute - Plan 1. Continue with IV antibiotics 2. Awaiting sputum and blood culture 3. Repeat chest x-ray 4. Continue with nebs as needed 5. O2 per protocol 6. Continue with gentle hydration 7. Repeat labs including CBC and renal function in a.m. 8. GI and DVT prophylaxis Discharge Plan: Home Plan to discharge in: Greater than 2 days - Advance Directives Does patient have a Living Will: No Does patient have a Durable POA for Healthcare: No - Code Status/Comfort Care Code Status Assessed: Yes Code Status: Full Code Critical Care: No Time Spent Managing PTS Care (In Minutes): 45
[2018-12-20] MEDS: Levofloxacin 750mg IV 750 MG/150 ML BAG IV SCH (04:12)
[2018-12-20 05:42] LABS: Arterial Blood Carboxyhemoglob 1.5 % (0-1.5); Blood Gas Oxyhemoglobin 92.3 % (94-97)
[2018-12-20 06:10] LABS: Absolute Lymphocytes (CBC) 1.4 K/uL (0.7-4.9); Basophils % 0.5 % (0-1.3); Lymphocytes % 20.9 % (15.3-44.8); MPV 8.4 fL (7.6-11.3); RBC Red Blood Cell Count 4.15 M/uL (3.86-4.86)
[2018-12-20 06:27] LABS: ALT/SGPT 20 U/L (12-78); AST/SGOT 10 U/L (15-37); Albumin 2.9 g/dL (3.4-5.0); Alkaline Phosphatase 72 U/L (45-117); BUN Blood Urea Nitrogen 9 mg/dL (7-18); Bicarbonate 23 mmol/L (21-32); Bilirubin Total 0.4 mg/dL (0.2-1.0); Glucose Level 101 mg/dL (74-106); HDL Cholesterol 20 mg/dL (40-60); LDL Cholesterol, Calculated 134 (<130); Magnesium 2.1 mg/dL (1.8-2.4); Phosphorus 1.9 mg/dL (2.5-4.9); Potassium 3.3 mmol/L (3.5-5.1); Protein, Total 6.5 g/dL (6.4-8.2); Sodium Level 140 mmol/L (136-145)
--- NOTE | 2018-12-20 07:45 | EKG ---
Test Date: 2018-12-19 Test Time: 02:09:17 [employer]: RR MEASUREMENT RESULTS: Intervals: Rate: 128 SD: 176 QRSD: 78 QT: 262 QTc: 382 [place]: P: 75 SD: 176 QRS: 85 T: 31 INTERPRETIVE STATEMENTS: Sinus tachycardia RSR' or QR pattern in V1 suggests right ventricular conduction delay ST & T wave abnormality, consider anterolateral ischemia Abnormal ECG Compared to ECG 12/16/2018 21:15:09 RSR' in V1 or V2 now present ST (T wave) deviation still present Right ventricular hypertrophy no longer present Electronically Signed On 12-20-18 07:44:20 CDT by John Cortes
[2018-12-20] MEDS ORDERED: POTASS/SODIUM PHOSPHATE 1 PKT POWD.PACK PO SCH (09:00)
[2018-12-20] MEDS: POTASS/SODIUM PHOSPHATE 1 PKT POWD.PACK PO SCH ×2 (09:00→09:13)
[2018-12-20] MEDS ORDERED: POTASSIUM CL SA 10 MEQ TAB PO ONE (09:00)
[2018-12-20] MEDS: NA CHLORIDE 0.9% 1,000 ML IV SCH ×2 (09:12→11:00)
[2018-12-20] MEDS: ENOXAPARIN 40 MG/0.4 ML SQ SCH (09:14)
[2018-12-20] MEDS ORDERED: POTASSIUM PHOS IN 0.9 % NACL 15 MMOL/250 ML BAG IV ONE (10:00)
--- NOTE | 2018-12-20 10:58 | P.DS ---
Admission Date: 12/19/18 Discharge Date: 12/20/18 Disposition: ROUTINE DISCHARGE Discharge Condition: GOOD - Problems (1) Pneumonia Current Visit: Yes Status: Acute Qualifiers: Pneumonia type: due to unspecified organism Laterality: unspecified laterality Lung location: unspecified part of lung Qualified Code(s): J18.9 - Pneumonia, unspecified organism Brief History of Present Illness: 33-year-old female significant past medical history who was admitted to the hospital for shortness of breath was found to have pneumonia on the chest x-ray and admitted to the hospital for that. Hospital Course: Overall during the hospital stay patient remained stable Patient was initially admitted to the hospital for shortness of breath was found to have pneumonia on the chest x-ray was started on IV antibiotics here in the hospital. Had marked improvement in her symptoms. Was switched over to oral antibiotics and when she was able to do better she was discharged home under stable condition. Patient stated that she has to get home to her kids as her is going to go out for [employer] training and cannot be here in the hospital any longer. 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 Patient agreed with the plan and thus was discharged home on p.o. doxycycline. Vital Signs/Physical Exam: Temp Pulse Resp BP Pulse Ox 96.4 F L 91 H 18 142/85 H 0 L 12/20/18 08:00 12/20/18 08:00 12/20/18 08:00 12/20/18 08:00 12/20/18 08:00 General: Alert, In no apparent distress HEENT: Atraumatic, PERRLA, EOMI Neck: Supple, JVD not distended Respiratory: Clear to auscultation bilaterally, Normal air movement Cardiovascular: Regular rate/rhythm, Normal S1 S2 Gastrointestinal: Normal bowel sounds, No tenderness Musculoskeletal: No tenderness Integumentary: No rashes Neurological: Normal speech, Normal tone, Normal affect Lymphatics: No axilla or inguinal lymphadenopathy Laboratory Data at Discharge: WBC 6.5 K/uL (4.3-10.9) D 12/20/18 06:01 Hgb 12.2 g/dL (12.0-15.0) 12/20/18 06:01 Hct 35.0 % (36.0-45.0) L 12/20/18 06:01 Plt Count 184 K/uL (152-406) 12/20/18 06:01 PT 15.1 SECONDS (9.5-12.5) H 12/19/18 02:30 INR 1.29 12/19/18 02:30 Sodium 140 mmol/L (136-145) 12/20/18 06:01 Potassium 3.3 mmol/L (3.5-5.1) L 12/20/18 06:01 BUN 9 mg/dL (7-18) 12/20/18 06:01 Creatinine 0.70 mg/dL (0.55-1.3) 12/20/18 06:01 Glucose 101 mg/dL (74-106) 12/20/18 06:01 Phosphorus 1.9 mg/dL (2.5-4.9) L 12/20/18 06:01 Magnesium 2.1 mg/dL (1.8-2.4) 12/20/18 06:01 Total Bilirubin 0.4 mg/dL (0.2-1.0) 12/20/18 06:01 AST 10 U/L (15-37) L 12/20/18 06:01 ALT 20 U/L (12-78) 12/20/18 06:01 Alkaline Phosphatase 72 U/L (45-117) 12/20/18 06:01 Triglycerides 115 mg/dL (<150) 12/20/18 06:01 Cholesterol 177 mg/dL (<200) 12/20/18 06:01 HDL Cholesterol 20 mg/dL (40-60) L 12/20/18 06:01 Cholesterol/HDL Ratio 8.85 12/20/18 06:01 Lipase 43 U/L (73-393) L 12/19/18 02:30 Home Medications: Doxycycline Monohydrate 100 mg PO BID #14 capsule 12/20/18 New Medications: Doxycycline Monohydrate 100 mg PO BID #14 capsule Diet: Regular Activity: Ad landon
== END 2018-12-20 13:58 | disposition home or self-care (01) ==
LOC: ER 01:33 → ERHOLD 04:59 → INTOOBSV 04:59 → 2ND 06:24
PROVIDERS: ADMIT Hospitalist; ATTEND Family Medicine
DX: J18.9 Pneumonia, unspecified organism (principal)
CPT/HCPCS: 96365; 96367; 93005 ×2; 87040 ×2; 87070; 87088; 85025 ×3; 87086; 80048 ×2; 36415 ×3; 83735 ×2; 86308; 81025; 84100; 85610; 80061; 80076; 87081; 83605; 81003; 84484; 83690; 80053; 84145; 83880; 71275; 71045; 71046; 82805; 94760 ×3; 96372; 99284; 99285; Q9967; J0456; J1650 ×3; J0696; J7030 ×4; G0379; G0378

== ENCOUNTER 2020-10-14 20:22 | Emergency (ER) | payer OTHER ==
--- OUTSIDE RECORDS SUMMARY | 2020-10-14 20:29 | XMS REPORT | Continuity of Care Document ---
:1985 Author Organization [facility] t Address [address] [place] [address] Care Team Providers Name Role Phone TUNG Attending Clinician Unavailable TUNG Attending Clinician Unavailable [facility] Attending Clinician Unavailable TUNG Attending Clinician Unavailable OB/MD Attending Clinician Unavailable Tung Attending Clinician Unavailable OB/RES Attending Clinician Unavailable COSMO Attending Clinician Unavailable WRONG ADDRESS CLERK Attending Clinician Unavailable VOWELS Attending Clinician Unavailable MFM Attending Clinician Unavailable OB/MD Attending Clinician Unavailable LASH Attending Clinician Unavailable Payers Payer Name Policy Type Policy Number Effective Date Expiration Date S sahil MEDICARE PART A [id number] 2004 AND B 00:00:00 Problems Condition Condition Condition Status Onset Resolution Last Treating Co mments Source Name Details Category Date Date Treatment Clinician Date CHF Diagnosis Active 2017-09-29 Mem oria 09-29 13:53:00 l CHF 00:00: Micah 00 Active 09/29/2017 [facility] SENT BY DR Doe Active 2017-10-13 Dann 09-29 21:55:00 l SENT BY 00:00: Micah BROOKS Active 8 [facility] R/O LABOR Diagnosis Active 2017-09-23 Memoria 09-23 01:43:00 l R/O 00:00: Micah LABOR 00 Active 09/23/2017 [facility] SHORTNESS Diagnosis Active 2017-09-24 Memoria OF BREATH 09-18 21:53:00 l 00:00: Micah SHORTNESS 00 OF BREATH Active 09/18/2017 [facility], [place] 30WK PREG Diagnosis Active 2017-09-07 Memoria -PAIN - 16:16:00 l 30WK 00:00: Micah PREG -PAIN 00 Active 09/07/2017 [facility] Q20.3 Diagnosis Active 2017-08-26 Mem oria 4-10 07:13:00 l Q20.3 00:00: Micah 00 Active 08/25/2017 [facility] Diagnosis Active 2016-052017-09-16 Memoria 124 16:56:00 l 08:00: Micah 00 Active 04/10/2017 [facility] CHEST PAIN Diagnosis Active 2015-052016-06-04 Memoria FROM - 13:32:00 l COUGHING CHEST 00:00: Micah PAIN FROM 00 COUGHING Active 04/26/2016 [facility] [place] ABD PAIN Diagnosis Active 2015-08-22 M emoria 08-21 22:37:00 l ABD PAIN 00:00: Joaquin n 00 Active 08/22/2015 [facility] Micah BACK PAIN Diagnosis Active 2015-03-06 Memoria 01-22 14:24:00 l BACK 00:00: Micah PAIN 00 Active 01/22/2015 [place] FLU LIKE Diagnosis Active 2014-10-30 M emoria SYMPTOMS 6- 15:09:00 l FLU LIKE 00:00: Joaquin n SYMPTOMS 00 Active 10/30/2014 [facility] SOB Diagnosis Active 2014-10-30 Mem oria 10-30 00:59:00 l SOB 00:00: Micah 00 Active 10/30/2014 [facility] RASH Diagnosis Active 2014-11-21 Mem oria 09-08 14:35:00 l RASH 00:00: [place] 00 Active 09/08/2014 [facility] EAR ACHE Diagnosis Active 2014-11-13 M emoria - 11:59:00 l EAR ACHE 00:00: Joaquin n 00 Active 08/30/2014 [facility] LEFT EAR Diagnosis Active 2013-052014-03-03 M emoria PAIN 0- 08:46:00 l LEFT EAR 00:00: Joaquin n PAIN 00 Active 03/03/2014 [facility] PNEUMONIA Diagnosis Active 2013-11-02 Memoria 6- 08:17:00 l 02:45: Micah PNEUMONIA 00 Active 11/01/2013 [place] LABOR Diagnosis Active 2012-07-15 Mem oria 2 02:52:00 l LABOR 00:00: Micah 00 Active 07/14/2012 [facility] 37 WEEKS Diagnosis Active 2012-07-07 M emoria 07-07 16:20:00 l CHF 37 WEEKS 00:00: Joaquin n 00 CHF Active 07/07/2012 [facility] Diagnosis Active 2012-07-07 M emoria 07-07 16:20:00 l 00:00: Joaquin n 00 Active 07/07/2012 [facility] 37 WEEKS Diagnosis Active 2012-07-13 M emoria 07-07 12:26:00 l CHF, TGA, 37 WEEKS 00:00: Her conley S/P 00 C-SECTIO CHF, TGA, S/P C-SECTIO Active 07/07/2012 [facility] 34 WKS Diagnosis Active 2012-06-28 Mem oria 2-08 11:58:00 l 34 WKS 10:18: [place] 00 Active 06/25/2012 [facility] 4 WK Diagnosis Active 2012-06-30 Mem oria GROWTH -11 16:23:00 l 4 WK 00:00: [place] GROWTH 00 Active 05/28/2012 [facility] CONGENITAL Diagnosis Active 2011-052012-05-27 Memoria HEART - 10:33:00 l DISEASE 00:00: Micah CONGENITAL 00 HEART DISEASE Active 04/29/2012 [place] Diagnosis Active 2011-052012-03-02 M emoria CRAMPING 0-16 11:27:00 l 00:00: Joaquin n CRAMPING 00 Active 03/02/2012 [facility] History of History of Problem Resolve Univers Encounter Encounter d ity of for for [place] 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 Ph ysici ce of ce of ans other other contracept contracept fam fam History of History of Problem Resolve Univers 5 weeks 5 weeks d ity of gestation [place]ici ans History of History of Problem Resolve Univers congestive congestive d it y of heart heart [place] disease disease Physici ans History of History of Problem Resolve Univers Encounter Encounter d ity of for for [place] supervisio supervisio Ph ysici n of other n of other an s normal normal , , unspecifie unspecifie d d trimester trimester History of History of Problem Resolve Univers obesity obesity d ity of [place] Physici ans Personal Personal Problem Resolve Univ ers history of history of d it y of asthma asthma [place] Physici ans Normal Normal Problem Active Univers routine routine ity of physical physical [place] examinatio examinatio Ph ysici n n ans Incomplete Incomplete Problem Active U nivers miscarriag miscarriag it y of e e [place] Physici ans Missed Missed Problem Active Univers ity of [place] Physic ans Problem Active U nivers exam exam ity of [facility] ans Tinea Tinea Problem Active Univers corporis corporis ity of [place] Physic ans Nausea and Nausea and Problem Active U nivers vomiting vomiting ity of during during [place] Phys ici ans Intermitte Intermitte Problem Active U nivers nt asthma nt asthma ity of with with [place] status status Physici asthmaticu asthmaticu an s s, s, unspecifie unspecifie d asthma d asthma severity severity Hypoactive Hypoactive Problem Active U nivers thyroid thyroid ity of [facility] ans Morbid Morbid Problem Active Univers obesity obesity ity of [facility] ans Transposit Transposit Problem Active U nivers ion of ion of ity of great great [place] arteries, arteries, Phys ici corrected corrected ans HRP (high HRP (high Problem Active Uni vers risk risk ity of ) ) [place] [facility] Mild Mild Problem Active Univers intermitte intermitte it y of nt asthma, nt asthma, [place] unspecifie unspecifie Ph ysici d whether d whether ans complicate complicate d d Chronic Chronic Problem Active Univers hypertensi hypertensi it y of on in on in [place] Phys ici ans Congestive Congestive Problem Active U nivers heart heart [facility] Complete Problem Active Unive rs transposit transposit it y of ion of ion of [place] great great Physici vessels vessels ans Congestive Problem Active 2012-08-21 M emoria Heart 05:24:10 l Failure [place] Congestive Heart Failure Active [facility] Complete Problem Active 2012-08-21 Mem oria Transposit 05:24:10 l ion Of The Complete He rmann Great Transposit Arteries, ion Of The Corrected Great Arteries, Corrected Active [facility] Morbid Problem Active 2012-08-21 Memor ia Obesity 05:24:10 l Morbid [place] Obesity Active [facility] Normal Problem Active 2012-08-21 Memor ia 05:24:10 l Checkup (6 Normal Herm ondina - 42 Wk) Checkup (6 - 42 Wk) Active 3 [facility] Gynecologi Problem Active 2012-08-21 M emoria c Service 05:24:10 l Prescrip [place] Of Gynecologi Contracept c Electrophysiologist - Prescrip Repeat Rx Of Contracept Agent - Repeat Rx Active 3 [facility] THREAT Diagnosis Active 2012-07-15 Mem oria LABOR 02:52:00 l NEC-UNSPEC THREAT Herm ondina LABOR NEC-UNSPEC Active [facility] PNEUMONIA, Diagnosis Active 2013-11-02 Memoria ORGANISM 08:17:00 l NOS Micah PNEUMONIA, ORGANISM NOS Active [place] 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 [facility] Diagnosis Active 2017-09-23 Memoria RELATED 01:43:00 l CONDITIONS Joaquin n , UNSP, UNSP RELATED CONDITIONS , UNSP, UNSP Active [facility] HEART Diagnosis Active 2017-10-13 Mem oria FAILURE, 21:55:00 l UNSPECIFIE HEART Awa nn D FAILURE, UNSPECIFIE D Active [facility] KIDNEY Problem Resolve 2003-0 2012-07-21 2012-07-21 Memoria FAILURE d 2-11 10:08:34 10:08:34 l KIDNEY 00:00: [place] FAILURE 00 Resolved 06/28/2003 Problem 07/21/2012 [facility] Asthma Problem Resolve 1988-0 2012-07-21 2012-07-21 Memoria d 1- 10:08:34 10:08:34 l Asthma 00:00: [place] 00 Resolved 05/18/1988 Problem 07/21/2012 [facility] CHF Problem Resolve 1983-0 2012-07-21 2012-07-21 Memoria (congestiv d 7- 10:08:34 10:08:34 l e heart CHF 00:00: [place] failure) (congestiv 00 e heart failure) Resolved 1983 Problem 07/21/2012 [facility] Transposit Problem Resolve 1983-0 2012-07-21 2012-07-21 Memoria ion of d - 10:08:34 10:08:34 l great 00:00: Micah vessels Transposit 00 ion of great vessels Resolved 1983 Problem 07/21/2012 [facility] Allergies, Adverse Reactions, Alerts Allergy Allergy Status Severity Reaction(s) Onset Inactive Treating Comm ents Source Name Type Date Date Clinician aspirin aspirin Active Memoria l [place] Benadryl Benadryl Active Memori a l Micah Claritin Claritin Active Memori a l [place] vancomyc vancomyc Active Memori a in in l [place] ZyrTEC ZyrTEC Active Memoria l [place] Aspirin Aspirin Active Memoria TABS TABS l [place] Claritin Claritin Active Memori a TABS TABS l [place] Benadryl Benadryl Active Memori a CAPS CAPS l Micah Zantac Zantac Active Memoria TABS TABS l [place] Vancomyc Vancomyc Active Memori a in HCl in HCl l SOLR SOLR [place] Zyrtec Zyrtec Active Memoria TABS TABS l [place] Aspirin Allergy Active Univers TABS to drug ity of (finding [place] ) Physici ans Benadryl Allergy Active Univers CAPS to drug ity of (finding [place] ) Physici ans Claritin Allergy Active Univers TABS to drug ity of (finding [place] ) Physici ans Vancomyc Allergy Active Univers in HCl to drug ity of SOLR (finding [place] ) Physici ans Zyrtec Allergy Active Univers TABS to drug ity of (finding [place] ) Physici ans Nancy Allergy Active Univers CAPS to drug ity of (finding [place] ) Physici ans nitrogly Allergy Active Univers cerin to drug ity of (finding [place] ) Physici ans Zofran Allergy Active Univers TABS to drug ity of (finding [place] ) Physici ans Family History Family Member Diagnosis Comments Start Date Stop Date Source Unknown Family Family history of Family History [facility] of Member Hypertension [place] Physic ians Unknown Family Family history of Family History University of Member Lung Cancer [place] Physici ans Unknown Family Family History 2012-08-21 2012-08-21 Julienne turner Micah Member 05:24:10 05:24:10 Social History Social Habit Start Date Stop Date Quantity Comments Source Social History 2012-08-21 2012-08-21 Michelle arreola 05:24:10 05:24:10 Smoking Status Start Date Stop Date Source [facility]finding[facility] Ordered Filled Start Stop Current Ordering Indication Dosage Frequency Signature Comments Components Source Medication Medication Date Date Medication? Clinician (SIG) Name Name Nicolle Lewis Yes ; Start Mem oria Fe 1 MG-10 08-20 Date: MCG 10 05:00: 08/20/2012 Her conley MCG Oral 00 ; End Tablet Date: (Active) Colace 100 Yes Peter 100 mg, 1 M emoria mg oral 3-04 Scott El cap, PO, l capsule 21:38: Masry BID, PRN, Herm ondina 17 60 cap, 1, 1, Constipati on, Substituti on Allowed, CAP Colace 100 Yes Peter 100 mg, 1 M emoria mg oral 3-04 [place] cap, PO, l capsule 21:38: Masry BID, PRN, Herm ondina 00 60 cap, 1, 1, Constipati on, Substituti on Allowed, CAP [place] 53[address] Yes Peter 1-2 tab, M emoria oral tablet 3-04 Scott El PO, Q6H, l 21:37: Masry PRN, 20 Micah 10 tab, Pain, Substituti on Allowed, Maintenanc e [place] 5325 Yes Peter 1-2 tab, M emoria oral tablet 3-04 Scott El PO, Q6H, l 21:36: Masry PRN, 20 Micah 31 tab, Pain, Substituti on Allowed, Maintenanc e Colace 100 Yes Peter 100 mg, 1 M emoria mg oral 3-04 Scott El cap, PO, l capsule 21:35: Masry BID, PRN, Herm ondina 04 60 cap, 1, 1, Constipati on, Substituti on Allowed, CAP [place] 5/325 Yes Peter 1-2 tab, M emoria oral tablet 3-04 Scott El PO, Q6H, l 21:34: Masry PRN, 20 Micah 58 tab, Pain, Substituti on Allowed, Maintenanc e gentamicin No Tej 530 mg, M emoria + Sodium 07-16 Junior Gabriel 13.25 mL, l Chloride 05:00: Route: IV, Her conley 0.9% IV 100 00 Drug form: mL INJ, [id number], Dosing Weight 107.5, kg, Start date: 07/15/12 23:00:00, Duration: 30 day, Stop date: 08/13/12 23:00:00, Pediatric DosingPedi atric Dosing clindamycin No Tej 900 mg, 6 Memoria 07-16 Junior Gabriel mL, Route: l 05:00: IVPB, Drug form: INJ, ABXQ8H, Dosing Weight 107.5, kg, Start date: 07/15/12 23:00:00, Duration: 30 day, Stop date: 08/14/12 15:00:00 ampicillin 0 No Tej 2 gm, Mem oria 07-16 Junior Gabriel Route: l 05:00: IVPB, Drug form: PDR/INJ, ABXQ6H, Dosing Weight 107.5, kg, Start date: 07/15/12 23:00:00, Duration: 30 day, Stop date: 08/14/12 17:00:00 levothyroxi 0 No Tanima 175 Isaias jay ne 07-16 Britt microgram, l 04:00: Route: PO, Micah 00 Drug form: TAB, Daily, Dosing Weight 108.182, kg, Start date: 07/15/12 22:00:00, Duration: 30 day, Stop date: 08/14/12 9:00:00 Singulair 0 No Tanima 10 mg, 1 Me moria 07-16 Britt tab, l 04:00: Route: PO, [place] 00 Drug form: TAB, QPM, Dosing Weight 108.182, kg, Start date: 07/15/12 22:00:00, Duration: 30 day, Stop date: 08/14/12 17:00:00 multivitami 2012-0 No Sydnie 1 tab, M emoria n, 07-16 Ariadna Route: PO, l 03:00: [place] Drug Form: Awa nn 00 TAB, Dosing Weight 108.182, kg, Daily, Start date: 07/15/12 21:00:00, Duration: 30 day, Stop date: 08/13/12 21:00:00 Saline No Murali B 5 ml, Memor ia Flush 0.9% 07-15 Mark III Route: l 15:00: IVP, Drug Micah 00 Form: INJ, Dosing Weight 108.182, kg, Q12H, Start date: 07/15/12 9:00:00, Duration: 30 day, Stop date: 08/13/12 21:00:00 2012- No Tanima 1 tab, Memor ia Multivitami 07-15 Britt Route: PO, l ns oral 15:00: Drug Form: Herm ondina tablet 00 TAB, Dosing Weight 108.182, kg, Daily, Start date: 07/15/12 9:00:00, Duration: 30 day, Stop date: 08/13/12 9:00:00 atenolol 25 No Rhonda 25 mg, 1 Memoria mg oral 07-15 Morgan tab, l tablet 14:33: Route: PO, Awa nn 00 Drug form: TAB, Daily, Dosing Weight 107.5, kg, Priority: NOW, Start date: 07/15/12 8:33:00, Duration: 30 day, Stop date: 08/13/12 9:00:00 magnesium No Tanima 2 gm, 50 Me moria sulfate 07-15 Britt mL, Route: l 12:00: IVPB, Drug [place] 00 form: INJ, Q2H, Dosing Weight 107.5, kg, Start date: 07/15/12 6:00:00, Duration: 3 doses or times, Stop date: 07/15/12 10:00:00, For Mg = 1.0 - 1.4 mg/dLFor Mg = 1.0 - 1.4 mg/dL HYDROmorpho No Sydnie 15 mg, 30 Memoria ne 0.5mg/mL 07-15 Ariadna mL, Route: l SOCIAL MEDIA SENIOR ASSOCIATE 09:00: [place] IV, SOCIAL MEDIA SENIOR ASSOCIATE Micah (15mg/30 00 Dose: 0.2 mL) 15 mg mg, SOCIAL MEDIA SENIOR ASSOCIATE Lockout: 10 minutes, 4 Hour Limit (In MG): 5, Drug Form: INJ, Continuous , Start date: 07/15/12 3:00:00, Duration: 30 day, Stop date: 08/14/12 3:59:00 M-M-R II No Olaide 0.5 ml, Isaias jay 07-15 Azizat Route: l 08:00: Ashimi SUB-Q, Micah 00 Drug Form: PDR/INJ, Dosing Weight 108.182, kg, ONCALL, Start date: 07/15/12 2:00:00, Duration: 1 doses or times, Stop date: 07/22/12 0:00:00 acetaminoph No Olaide 2 tab, Me moria en-hydrocod 07-15 Azizat Route: PO, l one 325 07:53: Ashimi Drug Form: He rmann mg-5 mg 00 TAB, oral tablet Dosing Weight 108.182, kg, Q4H, PRN Pain Score 4-6, Start date: 07/15/12 1:53:00, Duration: 30 day, Stop date: 08/14/12 1:52:00 Lactated No Tanima 20 unit, Mem oria Ringers 07-15 1,000 mL, l 1000ml+Leonardo 07:53: Rate: 50 He rmann sam 20 00 ml/hr, units IV Infuse (Premix) 20 over: 20 unit hr, Dosing Weight 108.182, kg, Route: IV, Total Volume: 1,000 mL, Start date: 07/15/12 1:53:00, Duration: 2 day, Stop date: 07/17/12 1:52:00, Replace Every: 8 hr Saline No Murali B 5 ml, Memor ia Flush 0.9% 07-15 Mark III Route: l 07:53: IVP, Drug Form: INJ, Dosing Weight 108.182, kg, PRN, PRN Line Flush, Start date: 07/15/12 1:53:00, Duration: 30 day, Stop date: 08/14/12 2:52:00 acetaminoph No Tanima 650 mg, 2 Memoria en 07-15 tab, l 07:53: Route: PO, Micah 00 Drug form: TAB, Q4H, Dosing Weight 108.182, kg, PRN Other -See Comment, Start date: 07/15/12 1:53:00, Duration: 30 day, Stop date: 08/14/12 1:52:00 bisacodyl No Olaide 10 mg, 1 Me moria 2-28 Azizat supp, l 07:53: Ashimi Route: MD, Awa nn Drug form: SUPP, PRN, Dosing Weight 108.182, kg, PRN Other -See Comment, Start date: 07/15/12 1:53:00, Duration: 30 day, Stop date: 08/14/12 2:52:00 lanolin 2012-0 No Olaide 1 appl, Memor ia topical 07-15 Azizat Route: l cream 07:53: Ashimi TOP, PRN, Awa nn Drug form: OINT, PRN Other -See Comment, Start date: 07/15/12 1:53:00, Duration: 30 day, Stop date: 08/14/12 2:52:00 zolpidem 2012- No Olaide 5 mg, 1 Isaias jay - Azizat tab, l 07:53: Ashimi Route: PO, Awa nn Drug form: TAB, Bedtime, Dosing Weight 108.182, kg, PRN Insomnia, Start date: 07/15/12 1:53:00, Duration: 30 day, Stop date: 08/14/12 1:52:00 simethicone 2012- No Olaide 160 mg, 2 Memoria 2- Azizat tab, l 07:53: Ashimi Route: PO, Awa nn Drug form: [place], Q8H, Dosing Weight 108.182, kg, PRN Gas, Start date: 07/15/12 1:53:00, Duration: 30 day, Stop date: 08/14/12 1:52:00 azithromyci 2012-0 No [place] 500 mg, Memoria n 2-28 Adaobi Route: l 05:00: Ezedinma IVPB, Drug Her conley 00 form: PDR/INJ, ONCALL, Dosing Weight 108.182, kg, Start date: 07/14/12 23:00:00, Duration: 1 doses or times, Stop date: 07/16/12 0:00:00 morphine 2012-0 No [place] 2 mg, 1 Mem oria Sulfate 2-28 Adaobi mL, Route: l 04:07: Ezedinma IVP, Drug Herm ondina 00 form: INJ, Q2H, Dosing Weight 108.182, kg, PRN Pain, Start date: 07/14/12 22:07:00, Duration: 30 day, Stop date: 08/13/12 22:06:00 carboprost 2012-0 No [place] 250 Isaias jay 2-28 Adaobi microgram, l 04:00: Ezedinma 1 mL, [place] 00 Route: IM, Drug form: INJ, ONCALL, Dosing Weight 108.182, kg, Start date: 07/14/12 22:00:00, Duration: 30 day, Stop date: 08/13/12 22:59:00 metoclopram 0 No [place] 10 mg, 2 Memoria khalida 2-28 Adaobi mL, Route: l 04:00: Ezedinma IVP, Drug Herm ondina form: INJ, ONCALL, Dosing Weight 108.182, kg, Start date: 07/14/12 22:00:00, Duration: 30 day, Stop date: 08/13/12 22:59:00 misoprostol 0 No [place] 1,000 Me moria 2-28 Adaobi microgram, l 04:00: Ezedinma 5 tab, Micah 00 Route: MD, Drug form: TAB, ONCALL, Dosing Weight 108.182, kg, Start date: 07/14/12 22:00:00, Duration: 30 day, Stop date: 08/13/12 22:59:00 cefazolin 0 No [place] 3 gm, 150 Memoria 2-28 Adaobi mL, Route: l 04:00: Ezedinma IVPB, Drug Her conley 00 form: INJ, ONCALL, Dosing Weight 108.182, kg, Start date: 07/14/12 22:00:00, Stop date: 07/16/12 0:00:00 Synthroid 2012-0 No Tanima 75 Memori a 2-28 Britt microgram, l 04:00: 1 tab, [place] 00 Route: PO, Drug form: TAB, Q630AM, Start date: 07/14/12 22:00:00, Duration: 30 day, Stop date: 08/12/12 22:00:00 Levothroid 2012-0 No Tanima 100 Memor ia 2-28 Britt microgram, l 04:00: 1 tab, Micah 00 Route: PO, Drug form: TAB, Q630AM, Start date: 07/14/12 22:00:00, Duration: 30 day, Stop date: 08/12/12 22:00:00 methylergon 2012-0 No [place] 0.2 mg, 1 Memoria ovine 2-28 Adaobi mL, Route: l 04:00: Ezedinma IM, Drug Awa nn 00 form: INJ, ONCALL, Dosing Weight 108.182, kg, Start date: 07/14/12 22:00:00, Duration: 30 day, Stop date: 08/13/12 22:59:00 morphine 2012-0 No [place] 2 mg, 1 Mem oria Sulfate 2-28 Adaobi mL, Route: l 03:58: Ezedinma IVP, Drug Herm ondina 00 form: INJ, Q2H, Dosing Weight 108.182, kg, PRN Pain, Start date: 07/14/12 21:58:00, Duration: 30 day, Stop date: 08/13/12 21:57:00 morphine 2012-0 No Tanima 2 mg, 1 Isaias jay Sulfate 07-15 Britt mL, Route: l 03:49: IVP, Drug [place] 00 form: INJ, Q2H, Dosing Weight 108.182, kg, PRN Pain, Start date: 07/14/12 21:49:00, Duration: 30 day, Stop date: 08/13/12 21:48:00 ondansetron 2012- No [place] 4 mg, 2 Memoria 2-28 Adaobi mL, Route: l 03:49: Ezedinma IVP, Drug Herm ondina 00 form: INJ, Q8H, Dosing Weight 108.182, kg, PRN Nausea & Vomiting, Start date: 07/14/12 21:49:00, Duration: 30 day, Stop date: 08/13/12 21:48:00 Lactated 2012-0 No Tanima 20 unit, Mem oria Ringers 07-15a 1,000 mL, l 1000ml+Oxyt 03:49: Rate: 50 He rmann ocin 20 00 ml/hr, units IV Infuse (Premix) 20 over: 20 unit hr, Dosing Weight 108.182, kg, Route: IV, Total Volume: 1,000 mL, Start date: 07/14/12 21:49:00, Duration: 2 day, Stop date: 07/16/12 21:48:00, Replace Every: 8 hr citric No Tanima 30 ml, Memoria acid-sodium 07-15 Route: PO, l citrate 03:49: Drug Form: Herm ondina 00 SOLN, Dosing Weight 108.182, kg, ONCE, Start date: 07/14/12 21:49:00, Duration: 1 doses or times, Stop date: 07/14/12 21:49:00 terbutaline No [place] 0.25 mg, Memoria 07-15 Adaobi 0.25 mL, l 03:49: Ezedinma Route: Micah 00 SUB-Q, Drug form: INJ, ONCALL, Dosing Weight 108.182, kg, PRN Other -See Comment, Start date: 07/14/12 21:49:00, Duration: 1 doses or times, Stop date: 07/16/12 0:00:00 Lactated No Tanima 1,000 mL, Me moria Ringers IV 07-15 Rate: 125 l 1,000 mL 03:44: ml/hr, [place] Infuse over: 8 hr, Route: IV, kg, Total Volume: 1,000, Priority: STAT, Start date: 07/14/12 21:44:00, Duration: 30 day, Stop date: 08/13/12 21:43:00 acetaminoph No Tanima 1 tab, Me moria en-hydrocod 07-15 Route: PO, l one 325 03:42: Drug Form: Herm ondina mg-5 mg 00 TAB, oral tablet Dosing Weight 108.182, kg, Q4H, PRN Pain Score 1-3, Start date: 07/14/12 21:42:00, Duration: 30 day, Stop date: 08/13/12 21:41:00 Synthroid Yes ; Start Memor ia 75 MCG Oral 06-18 Date: l Tablet 06:00: 06/18/2012 Awa nn 00 (Active) Singulair Yes ; Start Memor ia 10 MG Oral 06-18 Date: l Tablet 06:00: 06/18/2012 Awa nn 00 (Active) pneumococca No SYSTEM 0.5 ml, M emoria l 23-valent 1-08 SYSTEM Route: IM, l vaccine 15:00: Drug Form: Herm ondina 00 INJ, Daily, Start date: 05/25/12 9:00:00, Duration: 1 doses or times, Stop date: 05/25/12 9:00:00 Tylenol 2011-05 No Shelise 650 mg, Isaias jay 0-16 Apollo 20.3 mL, l 15:51: Pritesh Route: PO, Joaquin n 00 Drug form: LIQ, ONCE, Dosing Weight 100, kg, Priority: STAT, Start date: 03/02/12 10:51:00, Stop date: 03/02/12 10:51:00 Immunizations Ordered Filled Immunization Date Status Comments [facility] e Immunization Name Name Tdap (Adacel) 2017-08-25 Completed [facility] 12:14:00 [place] [facility] Tdap (Adacel) 2012-07-23 Completed [facility] 00:00:00 [place] [facility] Vital Signs Vital Name Observation Time Observation Value Comments Source Body temperature 2020-09-20 97.6 [degF] Method: [facility] 10:38:00 Temporal [place] [facility] Heart Rate 2020-09-20 81 /min [facility] 10:38:00 [place] [facility] O2 SAT 2020-09-20 96 % Source: [facility] 10:38:00 [place] [facility] Systolic blood 2020-09-20 128 mm[Hg] Location: [facility] 10:38:00 Position: [place] [facility] s Sitting Diastolic blood 2020-09-20 81 mm[Hg] [facility] 10:38:[facility] Position: [place] [facility] Sitting Body height 2020-09-20 61.5 [in_us] [facility] 10:38:00 [place] [facility] Weight 2020-09-20 306 [lb_av] [facility] 10:38:00 [place] [facility] Body mass index 2020-09-20 56.88 kg/m2 [place] o f (BMI) [Ratio] 10:38:00 [place] [facility] Systolic blood 2019-10-12 123 mm[Hg] Location: [facility] 11:01:00 Position: [place] Physician s Sitting Diastolic blood 2019-10-12 81 mm[Hg] Location: [facility] 11:01:00 Position: [place] Physician s Sitting Body height 2019-10-12 61 [in_us] [facility] 11::00 [place] [facility] Weight 2019-10-12 294.375 [lb_av] [facility] o [facility] :: [place] [facility] Body mass index 2019-10-12 55.62 kg/m2 University o f (BMI) [Ratio] 11:: [place] [facility] Body temperature 2019-10-12 96.6 [degF] Method: [facility] :: Tympanic [place] [facility] Heart Rate 2019-10-12 99 /min Location: [place] :: Radial; [place] [facility] O2 SAT 2019-10-12 95 % Source: [facility] [place] [facility] BP Systolic 2017-06-09 113 mm[Hg] Location: [facility] ::00 Position: [place] [facility] Sitting BP Diastolic 2017-06-09 76 mm[Hg] Location: [facility] ::00 Position: [place] [facility] Sitting Height 2017-06-09 61 [in_us] [place] [facility] ::00 [place] [facility] Weight 2017-06-09 250 [lb_av] University of ::00 [place] [facility] Body Mass Index 2017-06-09 47.24 kg/m2 University o f Calculated ::00 [place] [facility] Heart Rate 2017-06-09 109 /min [place] [facility] ::00 [place] [facility] BP Systolic 2017-05-26 115 mm[Hg] [facility] Position: [place] [facility] Sitting BP Diastolic 2017-05-26 72 mm[Hg] [facility] Position: [place] [facility] Sitting Height 2017-05-26 61 [in_us] [facility] of 10::00 [place] [facility] Weight 2017-05-26 256 [lb_av] [place] [facility] ::00 [place] [facility] Body Mass Index 2017-05-26 48.37 kg/m2 University o f Calculated :11:00 [place] [facility] Heart Rate 2017-05-26 84 /min Location: [place] [facility] :: Radial; [place] [facility] O2 SAT 2017-05-26 98 % [facility] :11:00 [place] [facility] BP Systolic 2017-04-30 118 mm[Hg] [facility] 08:45:00 Position: [place] [facility] Sitting BP Diastolic 2017-04-30 81 mm[Hg] Location: [facility]; [facility] 08:45:00 Position: [place] [facility] Sitting Height 2017-04-30 61 [in_us] University 08:45:00 [place] [facility] Weight 2017-04-30 255 [lb_av] University 08:45:00 [place] [facility] Body Mass Index 2017-04-30 48.18 kg/m2 University o f Calculated 08:45:00 [place] [facility] Heart Rate 2017-04-30 81 /min University 08:45:00 [place] [facility] BP Systolic 2017-04-16 123 mm[Hg] Location: [facility]; [facility] 08:26:00 Position: [place] [facility] Sitting BP Diastolic 2017-04-16 82 mm[Hg] Location: [facility]; [facility] 08:26:00 Position: [place] [facility] Sitting Height 2017-04-16 61 [in_us] [facility] 08:26:00 [place] [facility] Weight 2017-04-16 259 [lb_av] [facility] 08:26:00 [place] [facility] Body Mass Index 2017-04-16 48.94 kg/m2 University o f Calculated 08:26:00 [place] [facility] Heart Rate 2017-04-16 102 /min [facility] 08:26:00 [place] [facility] BP Systolic 2017-04-01 110 mm[Hg] Location: [facility]; [facility] 13:34:00 Position: [place] [facility] Sitting BP Diastolic 2017-04-01 78 mm[Hg] Location: [facility]; [facility] 13:34:00 Position: [place] [facility] Sitting Height 2017-04-01 61 [in_us] University 13:34:00 [place] [facility] Weight 2017-04-01 262 [lb_av] University 13:34:00 [place] [facility] Body Mass Index 2017-04-01 49.5 kg/m2 University o f Calculated 13:34:00 [place] [facility] Temperature 2017-04-01 98.2 [degF] Method: Oral University 13:34:00 [place] [facility] Diastolic (mm Hg) 2012-07-16 [facility] ermann 23:05:00 Systolic (mm Hg) 2012-07-16 [facility] rmann 23:05:00 Diastolic (mm Hg) 2012-07-16 [facility] ermann 21:49:00 Systolic (mm Hg) 2012-07-16 [facility] 21:49:00 Temperature Oral 2012-07-16 97.8 F [facility] Guilherme rmann (F) 21:49:00 Temperature Oral 2012-07-16 98.4 F Michelle Vanegas rmann (F) 17:32:00 Systolic (mm Hg) 2012-07-16 [facility] 17:32:00 Diastolic (mm Hg) 2012-07-16 [facility] 17:32:00 Temperature Oral 2012-07-16 98.1 F [facility] Guilherme rmann (F) 14:33:00 Respitory Rate 2012-07-16 [facility] 01:00:00 Respitory Rate 2012-07-15 [facility] 22:30:00 Respitory Rate 2012-07-15 [facility] 21:30:00 Weight 2012-07-15 [facility] 09:07:00 Height 2012-07-15 154.94 cm [facility] 09:07:00 Weight 2012-07-15 [facility] 02:36:00 Height 2012-07-15 154.94 cm [facility] 02:36:00 Weight 2012-06-25 [facility] 17:05:00 Height 2012-06-25 165.10 cm [facility] 17:05:00 Weight 2012-05-25 [facility] 00:51:00 Height 2012-05-25 154.94 cm [facility] 00:51:00 Weight 2012-03-02 [facility] 15:30:00 Height 2012-03-02 154.94 cm [facility] 15:30:00 Procedures Procedure Date / Time Performing Clinician Source Performed [QL] CBC (INCLUDES 2020-09-20 [facility] Physicians [QL] CMP W/EGFR 2020-09-20 00:00:00 [facility] Physicians [QL] LIPID PANEL 2020-09-20 00:00:00 [facility] Physicians [QL] HEMOGLOBIN A1c 2020-09-20 00:00:00 [facility] Physicians [QL] TSH, 3RD GENERATION 2020-09-20 00:00:00 Uni versity [facility] W/REFLEX TO FT4 Physicians [N] Congenital Echo 2019-10-12 00:00:00 [facility] Anomalies Complete [id number] Physici ans [N] Congenital Echo 2019-10-11 00:00:00 [facility] Anomalies Complete [id number] Physici ans [Q] MATERNAL SERUM AFP 2017-06-09 00:00[facility]00 [facility] Physicians [QLH] GLUCOSE, 2017-04-30 00:00:00 [facility] GESTATIONAL SCREEN Physicians ([id number] CUTOFF [QH] PROTEIN, TOTAL 2017-04-30 00:00:00 [facility] W/CREAT, RANDOM URINE Physicians [QLH] CBC (INCLUDES 2017-04-30 00:00:00 [facility] DIFF/PLT) Physicians [QLH] CREATININE W/EGFR 2017-04-30 00:00:00 [facility] Physicians [QLH] HEPATIC FUNCTION 2017-04-30 00:00:00 [facility] PANEL Physicians [QLH] LD 2017-04-30 00:00:00 [facility] Physicians [QLH] URIC ACID 2017-04-30 00:00:00 [facility] Physicians [LH] TSH+Free T4 2017-04-30 00:00:00 [facility] Physicians [N] Congenital Echo 2017-04-20 00:00:00 [facility] Anomalies Complete [id number] Physici ans [QLH] CMP W/EGFR 2017-04-17 00:00:00 [facility] Physicians [LH] TSH+Free T4 2017-04-17 00:00:00 [facility] Physicians [QH] PROTEIN, TOTAL 2017-04-17 00:00:00 [facility] W/CREAT, RANDOM URINE Physicians . [facility] - Affirm VPIII 2017-04-01 00:00:00 [facility] (BV Panel) Physicians . [facility] - GC/Chlamydia 2017-04-01 00:00:00 [facility] Physicians [H] Obstetrics Panel 2017-04-01 00:00:00 [facility] (includes CBCw/Diff,RPR, Physici ans HbsAg,RubIgG,Type and Screen) [Q] HIV AB, HIV 1/2, 2017-04-01 00:00:00 [facility] EIA, WITH REFLEXES Physicians [QLH] CULTURE, URINE, 2017-04-01 00:00:00 [facility] ROUTINE Physicians [QLH] URINALYSIS, 2017-04-01 00:00:00 [facility] COMPLETE Physicians [QLH] HCG, TOTAL, QN 2017-04-01 00:00:00 [facility] Physicians . [facility] - PAP 2017-04-01 00:00:00 [facility] Physicians [QH] HIV AB, HIV 1/2, 2017-04-01 00:00:00 [facility] EIA, WITH REFLEXES Physicians section 2002-05-18 [facility] 00:00:00 [facility] History of [facility] Section Physicians History of Transposition [facility] Repair Mustard Procedure Physici ans Plan of Care Planned Activity Planned Date Details Comments Source Diagnostic Test 2020-09-20 [QL] CBC (INCLUDES [facility] Pending 00:00:00 DIFF/PLT) [code = Physicians [QL] CBC (INCLUDES DIFF/PLT)] Diagnostic Test 2020-09-20 [QL] CMP W/EGFR [facility] Pending 00:00:00 [code = [QL] CMP Physicians W/EGFR] Diagnostic Test 2020-09-20 [QL] LIPID PANEL [facility] Pending 00:00:00 [code = [QL] LIPID Physician s PANEL] Diagnostic Test 2020-09-20 [QL] HEMOGLOBIN A1c [facility] Pending 00:00:00 [code = [QL] Physicians HEMOGLOBIN A1c] Diagnostic Test 2020-09-20 [QL] TSH, [address] [place] [address] Pending 00:00:00 GENERATION W/REFLEX Physicia ns TO FT4 [code = [QL] TSH, 3RD GENERATION W/REFLEX TO FT4] Diagnostic Test 2019-10-11 [N] Congenital Echo [facility] Pending 00:00:00 Anomalies Complete Physician s [id number] [code = [N] Congenital Echo Anomalies Complete 32499] Diagnostic Test 2019-10-11 [N] Congenital Echo [facility] Pending 00:00:00 Anomalies Complete Physician s [id number] [code = [N] Congenital Echo Anomalies Complete 45723] Diagnostic Test 2017-06-09 [Q] MATERNAL SERUM [facility] Pending 00:00:00 AFP [code = [Q] Physicians MATERNAL SERUM AFP] Diagnostic Test 2017-04-17 [QLH] CMP W/EGFR [facility] Pending 00:00:00 [code = [QLH] CMP Physicians W/EGFR] Diagnostic Test 2017-04-17 [LH] TSH+Free T4 [facility] Pending 00:00:00 [code = [LH] Physicians TSH+Free T4] Diagnostic Test 2017-04-17 [QH] PROTEIN, TOTAL Unive [facility] Pending 00:00:00 W/CREAT, RANDOM Physicians URINE [code = [QH] PROTEIN, TOTAL W/CREAT, RANDOM URINE] Future Scheduled 2012-06-26 Plan of Care [code = Mem orial Micah Test 02:42:34 43489-9] Encounters Start End Encounter Admission Attending Care Care Encounter Source Date/Time Date/Time Type Type Clinicians Facility Department ID 2020-09-22 Outpatient [facility] [id number] [place] 04:08:50 Health 2020-09-22 Outpatient FLOR CONRAD [facility] [id number] [place] 04:08:50 [facility] 2020-09-20 2020-09-20 AppointTATE Cueva [facility] Multispecia [id number] Univers 11:00:00 11:00:00 t; adriano CONRAD o f TATE [place], [place] [address] Physici ans 2020-09-20 2020[facility] [id number] Univers 10:00:00 10:00:00 t; , ECHO lty - ity [facility] [place], ECHO Physici ans 2019-10-12 2019-10-12 AppointJUSTINA Cueva [facility] [id number] Univers 11:00:00 11:00:00 t; FLOR CONRAD M.D. lty - i ty of Cordell RAY M.D. Physici ans 2019-07-20 2019-07-20 JUSTINA Marie [id number] Univers 11:00:00 11:00:00 t; FLOR CONRAD M.D. i ty of Alex RAY M.D. Physici ans 2019-06-22 2019-06-22 AppointJUSTINA Cueva [id number] Univers 10:15:00 10:15:00 t; FLOR CONRAD M.D. i ty of [facility] Physici ans 2017-12-15 2017-12-15 Appointmen [place], UTP UTP [id number] Univers 11:00:00 11:00:00 t; FLOR CONRAD M.D. i ty of [facility] Physici ans 2017-11-24 2017-11-24 Appointmen OB/MD, HIGH UTP UTP [id number] Univers 10:30:00 10:30:00 t; OB/MD, ity of [facility] Physici ans 2017-11-17 2017-11-17 Appointmen OB/MD, HIGH UTP UTP [id number] Univers 10:30:00 10:30:00 t; OB/MD, ity of [facility] Physici ans 2017-11-10 2017-11-10 Appointmen [place], UTP UTP [id number] Univers 11:15:00 11:15:00 t; FLOR CONRAD M.D. i ty of [facility] Physici ans 2017-11-10 2017-11-10 Appointmen OB/MD, HIGH UTP UTP [id number] Univers 10:30:00 10:30:00 t; OB/MD, ity of [facility] Physici ans 2017-11-10 2017-11-10 Appointmen [place], UTP UTP [id number] Univers 10:30:00 10:30:00 t; FLOR CONRAD M.D. i ty of [facility] Physic ans 2017-10-13 2017-10-13 Appointmen [place], UTP UTP [id number] Univers 11:00:00 11:00:00 t; FLOR CONRAD M.D. i ty of [facility] Physici ans 2017-10-13 2017-10-13 Appointmen OB/MD, HIGH UTP UTP [id number] Univers 10:30:00 10:30:00 t; OB/MD, ity of HIGH [place] Physici ans 2017-06-09 2017-06-09 Appointmen OB/MD, HIGH UTP Health Data Administrator [id number] Univers 10:30:00 10:30:00 t; OB/MD, ity of HIGH [place] Phys[facility] ans 2017-06-02 2017-06-02 Appointmen OB/MD, HIGH [facility] Health Data Administrator [id number] Univers 11:00:00 11:00:00 t; OB/MD, ity of HIGH [place] Physici ans 2017-05-26 2017-05-26 Appointmen [place] [facility] Cardiology [id number] Univers 09:30:00 09:30:00 t; Flor Conrad M.D. i ty of Alex Ray M.D. Physici ans 2017-05-06 2017-05-06 Appointmen OB/RES, UTP [facility] [id number] Univers 10:45:00 10:45:00 t; OB/RES, ULTRASOUND ity of ULTRASOUND [place] Physici ans 2017-04-30 2017-04-30 Appointmen OB/MD, HIGH [facility] Health Data Administrator [id number] Univers 08:00:00 08:00:00 t; OB/MD, ity of HIGH [place] Physici ans 2017-04-22 2017-04-22 Appointmen COSMO, [facility] [id number] Univers 09:00:00 09:00:00 t; COSMO, ECHO1 [facility] 2017-04-16 2017-04-16 Appointmen OB/MD, HIGH [facility] Health Data Administrator [id number] Univers 08:00:00 08:00:00 t; OB/MD, ity of HIGH [place] Physici ans 2017-04-01 2017-04-01 Appointmen WRONG ADDRESS CLERK, UTP [facility] [id number] Univers 14:45:00 14:45:00 t; WRONG ADDRESS CLERK, ROOM1 ity of ROOM1 [place] Physici ans 2017-04-01 2017-04-01 Appointmen VOWELAbdias, [facility] Health Data Administrator [id number] Univers 14:00:00 14:00:00 t; VOWELS, SMITH, i ty of Judy MTZ M.D. Physici ans 2015-10-09 2015-10-09 Appointmen CYNTHIA, [facility] UTP [id number] Univers 08:00:00 08:00:00 t; CYNTHIA, FELLOW2 ity of FELLOW2 [place] Physici ans 2015-10-02 2015-10-02 Appointmen CYNTHIA, [facility] UTP [id number] Univers 08:30:00 08:30:00 t; MFM, FELLOW2 ity of FELLOW2 [facility] 2015-09-25 2015-09-25 Appointmen MFM, UTP UTP [id number] Univers 08:30:00 08:30:00 t; MFM, FELLOW2 ity of FELLOW2 [facility] 2015-09-17 2015-09-17 Appointmen OB/MD, UTP UTP [id number] Univers 13:30:00 13:30:00 t; OB/MD, POSPROVIDER ity of POSPROVIDE [place] R [facility] 2015-09-13 2015-09-13 Appointmen MFM, UTP UTP [id number] Univers 08:30:00 08:30:00 t; MFM, FELLOW2 ity of FELLOW2 [facility] 2015-09-13 2015-09-13 Appointmen WRONG ADDRESS CLERK, UTP UTP [id number] Univers 08:00:00 08:00:00 t; WRONG ADDRESS CLERK, ROOM1 ity of ROOM1 [facility] 2015-08-30 2015-08-30 Appointmen CYNTHIA, UTP UTP [id number] Univers 08:00:00 08:00:00 t; MFM, FELLOW2 ity of FELLOW2 [facility] 2015-08-24 2015-08-24 Appointmen WRONG ADDRESS CLERK, UTP UTP [id number] Univers 15:30:00 15:30:00 t; WRONG ADDRESS CLERK, ROOM1 ity of ROOM1 [facility] 2015-08-24 2015-08-24 Appointmen AALIYAH [facility] UTP [id number] Univers 14:30:00 14:30:00 t; LOCO FISCHER M.D. i ty of Alex ADAN M.D. [facility] 2012-08-21 2012-08-21 Outpatient 3 3 [id number] 00:24:27 00:24:10 2012-07-02 2012-07-02 Outpatient 3 3 [id number] 11:37:53 11:37:53 2012-06-25 2012-06-25 Outpatient 3 3 [id number] 20:42:50 20:42:34 Results Test Description Test Time Test Comments Results Result Comments Source [QL] LIPID PANEL 2020-09-20 00:00:00 Test Item Value Reference Range Interpretation Comme nts CHOLESTEROL, TOTAL; Above 243 mg/dl <200 High Threshold (test code = 2092-) HDL CHOLESTEROL; Below Low 36 mg/dl See_Comment [Automated message] The Threshold (test code = syste m which generated 2085-01) this result tra nsmitted reference range : > OR = 50. The referen ce range was not used to interpret this result as normal/abnormal . TRIGLYCERIDES; Above High 161 mg/dl <150 Threshold (test code = 2571-8) LDL-CHOLESTEROL; Above High 176 {MG/DL TRESSA} Reference range: <100 Threshold (test code = Mili able range <100 mg/dL 24022-4) for primary pre vention; <70 mg/dL for p atients with CHD or lillian betic patients with > or = 2 CHD risk factors. L DL-C is now calculated melyssa gonzalez the Akira-Hebert calculation, wh ich is a validated novel method providing dalila r accuracy than the Friede brittany equation in the estimation of LDL-C. Mirlande n SS et al. DAISHA. 2013;310( 19): 4304-8727 (http://educati onMartMania/fa q/PIQ756) CHOL/HDLC RATIO (test code = 6.8 {CALC} <5.0 CHOL/HDLC RATIO) NON HDL CHOLESTEROL (test 207 {MG/DL TRESSA} <130 For patients with diabetes code = NON HDL CHOLESTEROL) plus 1 major ASCVD risk factor, treatin g to a non-HDL-C goal of <100 mg/dL (LDL-C of <70 mg/dL) is considered a therapeutic opt ion. [facility] Physicians[QL] CMP [id number] 00:00:00 Test Item Value Reference Range Interpretation Comments GLUCOSE; Normal 89 mg/dl 65-99 N Fasting refe rence (test code = interval 1547-9) UREA NITROGEN (BUN) 16 mg/dl 7-25 N (test code = UREA NITROGEN (BUN)) CREATININE (test 0.73 mg/dl 0.50-1.10 N code = CREATININE) eGFR NON-AFR. 106 {ML/MIN/1.7} See_Comment N [Automate d [place] (test code message] The = eGFR NON-AFR. system which CITIZ[place]) generated this result transmit stefani reference range : > OR = 60. The reference range was not used to interpret this result as normal/abnormal . eGFR 123 {ML/MIN/1.7} See_Comment N [Automated [place] (test code message] The = eGFR system which [place]) generated this result transmit stefani reference range : > OR = 60. The reference range was not used to interpret this result as normal/abnormal . BUN/CREATININE NOT APPLICABLE 6-22 RATIO (test code = BUN/CREATININE RATIO) SODIUM (test code = 137 mmol/L 135-146 N SODIUM) POTASSIUM (test 4.2 mmol/L 3.5-5.3 N code = POTASSIUM) CHLORIDE (test code 105 mmol/L 98-110 N = CHLORIDE) CARBON DIOXIDE 25 mmol/L 20-32 N (test code = CARBON DIOXIDE) CALCIUM (test code 8.9 mg/dl 8.6-10.2 N = CALCIUM) PROTEIN, TOTAL 6.9 g/dl 6.1-8.1 N (test code = PROTEIN, TOTAL) ALBUMIN (test code 4.3 g/dl 3.6-5.1 N = ALBUMIN) GLOBULIN (test code 2.6 {G/DL CALC} 1.9-3.7 N = GLOBULIN) ALBUMIN/GLOBULIN 1.7 {CALC} 1.0-2.5 N RATIO (test code = ALBUMIN/GLOBULIN RATIO) BILIRUBIN, TOTAL; 0.6 mg/dl 0.2-1.2 N Normal (test code = 22619-9) ALKALINE 61 u/l 31-125 N PHOSPHATASE (test code = ALKALINE PHOSPHATASE) AST; Normal (test 19 u/l 10-30 N code = 1916-6) ALT; Normal (test 24 u/l 6-29 N code = 1742-6) [facility] Physicians[QL] CBC (INCLUDES DIFF/PLT)2020-09-20 00:00:00 Test Item Value Reference Range Interpretation Comments WHITE BLOOD CELL COUNT 4.3 {Thousand/u} 3.8-10.8 N (test code = WHITE BLOOD CELL COUNT) RED BLOOD CELL COUNT (test 4.43 {Million/uL} 3.80-5.10 N code = RED BLOOD CELL COUNT) HEMOGLOBIN; Normal (test 13.0 g/dl 11.7-15.5 N code = 37224-3) HEMATOCRIT; Normal (test 38.5 % 35.0-45.0 N code = 4544-3) MCV; Normal (test code = 86.9 fL 80.0-100.0 N 787-2) MCHC; Normal (test code = 33.8 g/dl 32.0-36.0 N 16155-0) RDW; Normal (test code = 12.6 % 11.0-15.0 N 788-0) PLATELET COUNT; Normal 221 {Thousand/u} 140-400 N (test code = 777-3) MPV; Normal (test code = 10.7 fL 7.5-12.5 N 12925-2) ABSOLUTE NEUTROPHILS (test 2511 {cells/uL} 5644-1962 N code = ABSOLUTE NEUTROPHILS) ABSOLUTE LYMPHOCYTES (test 1355 {cells/uL} 850-3900 N code = ABSOLUTE LYMPHOCYTES) ABSOLUTE MONOCYTES (test 262 {cells/uL} 200-950 N code = ABSOLUTE MONOCYTES) ABSOLUTE EOSINOPHILS (test 151 {cells/uL} 15-500 N code = ABSOLUTE EOSINOPHILS) ABSOLUTE BASOPHILS (test 22 {cells/uL} 0-200 N code = ABSOLUTE BASOPHILS) NEUTROPHILS (test code = 58.4 % N NEUTROPHILS) LYMPHOCYTES (test code = 31.5 % N LYMPHOCYTES) MONOCYTES; Normal (test 6.1 % N code = 49562-6) EOSINOPHILS; Normal (test 3.5 % N code = 68810-5) BASOPHILS; Normal (test 0.5 % N code = 61666-5) [facility] Physicians[QL] TSH, 3RD GENERATION W/REFLEX TO [id number] 00:00:00 Test Item Value Reference Range Interpretation Comments TSH, 3RD GENERATION 7.42 {MIU/L} Referenc e Range W/REFLEX TO FT4 (test > or code = TSH, 3RD = 20 Years GENERATION W/REFLEX 0.40-4.5 0 TO FT4) Range s First trim horace 0.26-2.66 Second trimest er 0.55-2.73 Third trimester 0.43-2.91 T4, FREE (test code = 0.9 ng/dl 0.8-1.8 N T4, FREE) Reference Range > or = 20 Years 0.40-4.50 PregnancyRanges First trimester 0.26-2.66 Second trimester 0.55-2.73 [facility] HEMOGLOBIN [id number] 00:00:00 Test Item Value Reference Range Interpretation Comments HEMOGLOBIN A1c; 5.3 {% of <5.7 N For the purp ose of Normal (test code total} screening for the = 4548-4) presence ofdiab etes: <5.7% Con sistent with the absenc e of diabetes5.7-6.4 % Consistent with increased risk for diabetes (prediabetes)> or =6.5% Consistent wit h diabetes This a ssay result is consi stent with a decrease d riskof diabetes. Curre ntly, no consensus exist s regarding use ofhemoglobin A1 c for diagnosis of di abetes in children. Ac cording to [place]illian betes Association (ADA)guidelines , hemoglobin A1c <7.0% represents optimalcontrol in non- di abetic patients. Differentmetric s may apply to specif ic patient populat ions. Standards of Me dical Care in Diabete s(ADA). [facility] Physicians[[facility]] CBC (INCLUDES DIFF/PLT)2017-06-09 11:47:01 Test Item Value Reference Range Interpretation Comments WBC (test code = WBC) 5.3 {K/CMM} 3.7-10.4 RBC (test code = RBC) 3.81 {M/CMM} 4.20-5.40 Hgb; Below Low Threshold (test 11.5 g/dl 12.0-16.0 code = 41851-1) Hct; Below Low Threshold (test 32.1 % 36.0-48.0 code = 4544-3) MCV (test code = MCV) 84.3 fL 80.0-98.0 MCH (test code = MCH) 30.2 pg 27.0-31.0 MCHC (test code = MCHC) 35.9 g/dl 32.0-36.0 RDW (test code = RDW) 13.4 % 11.5-14.5 Platelet (test code = 777-3) 165 {K/CMM} 133-450 Mean Platelet Volume (test code 8.6 fL 7.4-10.4 = Mean Platelet Volume) [facility] Phys[facility]] [id number] 11:47:01 Test Item Value Reference Range Interpretation Comments Segmented Neutrophils (test code 67.4 % 45.0-75.0 = 67562-3) Monocytes # (test code = 55246-9) 0.3 {K/CMM} 0.0-0.8 Lymphocytes (test code = 25.6 % 20.0-40.0 Lymphocytes) Eosinophils # (test code = 0.1 {K/CMM} 0.0-0.5 21209-8) Basophils (test code = 73949-4) 0.3 % 0.0-1.0 Segs-Bands # (test code = 3.6 {K/CMM} 1.5-8.1 94522-2) Lymphocytes # (test code = 1.4 {K/CMM} 1.0-5.5 53070-4) [facility] Phys[facility][] PROTEIN, TOTAL W/CREAT, RANDOM URINE 2017-06-09 11:47:01 Test Item Value Reference Range Interpretation Comments U Creatinine (test 329.00 mg/dl No establ ished code = U Creatinine) referen ce ranges. Urine Protein Level 42.9 mg/dl No estab lished (test code = 2888-6) referen ce ranges. U Prot/Creat (test 0.13 code = 2890-2) [facility]] CREATININE [id number] 11:47:01 Test Item Value Reference Range Interpretation Comments Creatinine Lvl 0.60 mg/dl 0.50-1.40 (test code = Creatinine Lvl) eGFR (test code = 120 The eGFR i s calculated eGFR) {ML/MIN/1.7} using the CKD-E PI formula. In mos t young, healthyindividu als the eGFR will be >9 0 mL/min/1.73m2. The eGFR declines with a ge. AneGFR of 60-89 may be normal in some population s, particularly th e elderly, forwhom the CKD -EPI formula has not been extensively jessica idated. Use of the eGFR isnot recommended in the following populations:Ind ividuals with unstable c reatinine concentrations, including patient s and those with seri ous co-morbid conditions.Ashtyn ents with extremes in mus juan m mass or diet.The wally a above are obtained fr om the National Kidney Disease Education Progr am(NKDEP) which additiona lly recommends that when the eGFR is used in patientswith ex tremes of body mass index for purposes of jermaine g dosing, the eGFR should be multiplied by t he estimated BMI. [facility]] HEPATIC FUNCTION [id number] 11:47:01 Test Item Value Reference Range Interpretation Comments Total Protein (test code = 91998-8) 6.7 g/dl 6.4-8.4 Albumin Lvl; Below Low Threshold 3.3 g/dl 3.5-5.0 (test code = 1751-7) Bili Total (test code = 69400-3) 0.4 mg/dl 0.2-1.3 Bilirubin Indirect (test code = 0.3 mg/dl 0.0-1.0 35181-5) Alk Phos (test code = 1783-0) 64 u/l 39-136 AST (test code = 1916-6) 20 u/l 0-37 ALT (test code = 1742-6) 30 u/l 0-65 Globulin (test code = Globulin) 3.4 g/dl 2.7-4.2 A/G Ratio (test code = A/G Ratio) 1.0 0.7-1.6 [facility]] [id number] 11:47:01 Test Item Value Reference Range Interpretation Comments Lactate Dehydrogenase; Above High 198 u/l 98-192 Threshold (test code = 85284-8) [facility]] URIC [id number] 11:47:01 Test Item Value Reference Range Interpretation Comments Uric Acid (test code = 3086-6) 3.3 mg/dl 2.5-7.0 [facility][] TSH+Free [id number] 11:47:01 Test Item Value Reference Range Interpretation Comments TSH; Above High Threshold 4.970 {uIU/ml} 0.360-3.740 (test code = 90634-7) T4 Free (test code = T4 Free) 0.90 ng/dl 0.76-1.46 [facility][] Alpha Fetoprotein (Only) Maternal Screen 2017-06-09 11:47:01 Test Item Value Reference Interpretation Comments Range Results Report (Maternal Screen) (test code = Results (Maternal Screen)) Test Results *Screen (Maternal Negative* Screen) (test code = Test Results (Maternal Screen)) Gest Age on 17.0 {WEEKS} Collection Date (test code = Gest Age on Collection Date) Gest Age Base On ЕКАТЕРИНА 11/17/2017R ecalculations (test code = are not recomme nded when Gest Age Base gestational da tingby LMP On) and ultrasound are within 10 days. Maternal Age at 34.1 {yr} ЕКАТЕРИНА (test code = Maternal Age at ЕКАТЕРИНА) Maternal Race Other (test code = Maternal Race) Maternal Weight 250 {lb} (test code = Maternal Weight) Insulin-Dependen No t Diabetic (test code = Insulin-Dependen t Diabetic) Multiple Gest No (test code = Multiple Gest) Alpha 41.7 ng/ml Fetoprotein Maternal (test code = Alpha Fetoprotein Maternal) Multiple of 1.50 Median AFP (test code = 15755-6) Risk for NTD 2734 (OBS) (test code = Risk for NTD (OBS)) Maternal Screen Comment Interpretati on: Screen Interp (test NegativeThis re sult is code = Maternal screen negat fam for Screen Interp) OSB. The AFP MoMcalculated is based on the gestational age provided. M S-AFPcan identify up to 80% of open neural tu be defects.Closed neural tube defects and maria d e open defects may not bedetected by this test. T his test does not screen for fetalDown Syndr ome or Trisomy 18. If screening for Down Syndro meor Trisomy 18 is desired, contact [facility] to discuss availab le options. The AmericanCol lege of Obstetricians a nd Gynecologists recommendsamnio centesis be offered to wome n age 35 and older. Comment Comment Andria hines, PhD, (Maternal Scrn) FACMGDirecto r, Biochemical (test code = and Molecular Comment GeneticsReferen brigida: (Maternal Scrn)) Available U izabella Request.Multipl es Of Median Cutoffs For AFP ElevationsSingl eton 2.5 Black 2.8IDD 2.0 Twins 4.5 Abbr eviation DefinitionsIDD - Insulin Dep DiabetesOSB R - Open Spina Bifida Ri skFor further inquiri es contact [facility] at [phone]. Performed At: [facility] [id number], [place] [id number] Soteloti MD Ph :[phone] Insulin N Dependent? (test code = Insulin Dependent?) Gest Ager Weeks? 17 (test code = Gest Ager Weeks?) Gest Age Days 0 (test code = Gest Age Days) Gest Age Date of 20171117 Calculation (YYYYMMDD) (test code = Gest Age Date of Calculation (YYYYMMDD)) Gest Age Method Ultrasound of Calculation (test code = Gest Age Method of Calculation) Date of LMP 20170118 (test code = Date of LMP) Est Due Date 20171117 (test code = Est Due Date) Number of 1 Fetuses (test code = Number of Fetuses) Other N Indications? (test code = Other Indications?) Additional WHITE Information? (test code = Additional Information?) [facility][O] Urine Test (in office)2017-04-01 16:45:00 Test Item Value Reference Range Interpretation Comments Test, Urine; Normal (test positive N code = 2106-3) [facility][H] Obstetrics Panel (includes CBCw/Diff,RPR, HbsAg,RubIgG,Type and Screen)2017-04-01 16:20:01 Test Item Value Reference Range Interpretation Comments WBC (test code = 6.1 {K/CMM} 3.7-10.4 6690-2) RBC (test code = 4.39 {M/CMM} 4.20-5.40 789-8) Hgb (test code = 13.3 g/dl 12.0-16.0 717-9) Hct (test code = 37.3 % 36.0-48.0 05248-0) MCV (test code = 85.1 fL 80.0-98.0 787-2) MCH (test code = 30.2 pg 27.0-31.0 06685-5) MCHC (test code = 35.5 g/dl 32.0-36.0 786-4) RDW (test code = 13.8 % 11.5-14.5 788-0) Platelet (test code = 214 {K/CMM} 133-450 777-3) MPV (test code = 8.9 fL 7.4-10.4 47276-0) Segs (test code = 72.3 % 45.0-75.0 29119-3) Monocytes # (test code 0.3 {K/CMM} 0.0-0.8 = 77398-7) Lymphocytes (test code 20.7 % 20.0-40.0 = Lymphocytes) Eosinophils (test code 1.5 % 0.0-4.0 = Eosinophils) Basophils (test code = 0.2 % 0.0-1.0 95695-0) Segs-Bands # (test 4.4 {K/CMM} 1.5-8.1 code = 16358-7) Lymphocytes # (test 1.3 {K/CMM} 1.0-5.5 code = 30074-1) Eosinophils # (test 0.1 {K/CMM} 0.0-0.5 code = 85056-7) ABORH (test code = A POS 882-1) AB Screen (test code = Negative 890-4) Rubella IgG (test code 33.5 {IU/ml} >=10.0 Refer ence Range: = 25940-9) Immune >= 10 IU /mL Hep Bs Ag (test code = Negative Negative 5195-3) RPR (test code = Non Reactive Non Reactive 55195-6) [facility]] HCG, TOTAL, [id number] 16:20:01 Test Item Value Reference Range Interpretation Comments hCG Total (test 73383 {miU/ml} Reference Range: code = 00676-6) Male 0 - 5 mIU/mL Non- Fe male 0 - 5 mIU/mLNote: hCG result should b e used in conjunction with symptoms, resul tsof other tests, an d clinical impressions.Wee ks of Gestation hCG (mIU/mL)------- ------- ---- - 3 6 - 71 4 10-750 5 2 17 - 7,138 6 158 -31 ,795 7 3,697 - 163,563 8 32,065 - 149,57 1 9 63,803 - 151,41 0 10 46,506 - 186,97 7 11 27,832 - 210,61 2 14 13,950 - 62,530 15 12,039 - 70,971 16 9,040 - 56,451 17 8,175 - 55,868 18 8,09 9 - 58,176 [facility]] URINALYSIS, [id number] 16:20:01 Test Item Value Reference Range Interpretation Comments UA Turbidity; Abnormal (test code Marked Clear A = 45288-2) UA Spec Grav (test code = 2965-2) 1.027 <=1.030 UA pH (test code = 2756-5) 5.0 5.0-8.0 UA Protein (test code = 81437-8) Negative Negative UA Glucose (test code = 2349-9) Negative Negative UA Ketones (test code = 75347-0) Negative Negative UA Bili (test code = 71701-2) Negative Negative UA Blood (test code = 798-9) Negative Negative UA Nitrite (test code = 00679-2) Negative Negative UA Leuk Est (test code = 96221-4) Negative Negative UA RBC (test code = 59815-2) 2 {/HPF} 0-2 UA WBC (test code = 00882-3) 5 {/HPF} 0-5 UA Bacteria (test code = 630-4) Occasional None Seen UA Mucus; Abnormal (test code = Many None Seen A 38091-8) UA Sq Epi; Abnormal (test code = Many Few A 70328-7) UA Color (test code = 76589-8) Katelynn UROBILINOGEN (test code = 17939-4) <=1.0 0.1-1.0 [facility][H] HIV 4th Gen w/ Icythcpx6392-51-69 16:20:01 Test Item Value Reference Range Interpretation Comments HIV Ag/Ab 4th Gen (test code = HIV Negative Negative Ag/Ab 4th Gen) [facility]] CULTURE, URINE, [id number] 16:20:01 Test Item Value Reference Range Interpretation Comments FINAL REPORT (test code = FINAL No Growth REPORT) [facility]. [facility] - GC/Wrjfxgtog6058-66-82 00:00:00 Test Item Value Reference Range Interpretation Comments GC/Chlamydia REPORT (test code = See Comment GC/Chlamydia REPORT) [facility] RwtgqcvkgvLFWZHSTFU8524-25-58 09:56:001.8[facility] OLXKUACUD0230-49-14 09:56:004.3[facility] FotfqzlONSVVWGOL0116-68-84 09:56:001.14 [facility] OchvwqtCKBLWSAPD9560-91-70 09:56:001.14[facility]annCHEMISTRY 2012-07-16 09:56:004.56[facility] IpgurtfCWWNWJRGW9749-94-51 09:56:004.56[facility] BndajgiIDQJJIXHY0037-96-82 09:56:0016.1[facility] VtmpoqgXZJJGROLH3877-65-46 09:56:77080Cmwjhhsy CkwrkmbDJECMVIUF3693-24-88 09:56:0021[facility] YDBADRJML5896-06-17 09:56:007.6[facility] FrvenitENUYAHVTR6891-79-10 09:56:52546 [facility] EoefhevTWHLDYHMB9554-72-47 09:56:004.1[facility]annCHEMISTRY 2012-07-16 09:56:0085[facility] MhwpifsVZYNMMEYG4819-29-73 09:56:008[facility] BrnvurwZAJWKWXQR7737-90-69 09:56:000.6[facility] TsioekkWCSVFKJDO7030-92-73 09:56:24386Ehscvjio DfuwbjnTVEDPREGXK5336-98-63 09:56:007.4[facility] OKDGNJOEPQ9207-86-86 09:56:000.1[facility] OxfpnztSTRDARDYSD6949-86-48 09:56:00 81.8[facility] CulvjebPFPSSLHBAR4862-56-33 09:56:0010.6[facility]annHEMATOLOGY 2012-07-16 09:56:007.2[facility] SixoikzLBFCSNVGBP2339-09-52 09:56:000.3[facility] SwczkniNKLVSFVSQQ7315-77-13 09:56:001.0[facility] NjsgfscLKWKUKCVAU4900-81-22 09:56:000.6[facility] PsiotszCRPCXXUAJT8424-31-61 09:56:0026.6[facility] BPDQJNKEZB6925-16-37 09:56:00 Test Item Value Reference Range Interpretation Comments MCH (test code = MCH) 31.0 pg 27.0-31.0 N [facility] UnapdvwXRRHDAFAQH1803-64-40 09:56:0089.8[facility] HermannHEMATOLOGY 2012-07-16 09:56:52417Akcoxagy SvcrgbqKFNNYGHSQK9993-36-87 09:56:009.0[facility] JpkizdvJHJMKPJFRO5319-94-80 09:56:0013.8[facility] GnnlsuyIHYJHZEBPA8363-84-78 09:56:0034.6[facility] ChmttpqGGUQNZUBXU0211-84-21 09:56:009.2[facility] CLXNTTUEVD2719-10-03 09:56:002.96[facility] YmrjtskDTGYOGAPHT6400-75-25 09:56:00 9.0[facility] UvfzybcEEXCPOIBYL8193-13-28 05:00:00Clumped (07/15/2012 23:00:00) [facility] GaufrpgOFTRAMKHGY0523-59-21 05:00:000.5[facility]annHEMATOLOGY 2012-07-16 05:00:005.1[facility] SdubaekVOXTAMGZXD5564-12-58 05:00:000.3[facility] BfhcixrACWHMJCEHQ3759-35-97 05:00:000.1[facility] XjdzvbeJJKYGMNMGN0831-41-75 05:00:004.6[facility] GzakqssNDZTGBPXLX4463-99-51 05:00:00Normal (07/15/2012 23:00:00)[facility] ZzvkiavOUMGQUKLUK2914-95-24 05:00:0086.3[facility] IIPKQRPIOP2836-34-93 05:00:008.7[facility] JzheawuECLXPJJYUG1505-11-43 05:00:000.3 [facility] UlvxrddQNYUMVNPUW9404-46-56 05:00:0090.3[facility]annHEMATOLOGY 2012-07-16 05:00:003.28[facility] HfkdnheMXYXZTOQHM5333-97-18 05:00:006.0[facility] DojlcwwBZNLKCYUEO3399-71-53 05:00:00 Test Item Value Reference Range Interpretation Comments MCH (test code = MCH) 30.3 pg 27.0-31.0 N [facility] OqnnwweDOMMWSEQCI3140-15-39 05:00:0013.6[facility]annHEMATOLOGY 2012-07-16 05:00:0033.5[facility] DodfcxxPJYIIHGUVH4823-20-36 05:00:009.9[facility] SvkxbokHLOPBLVLDT7323-23-74 05:00:0029.6[facility] HermannBACTERIAL - SEROLOGY 2012-07-15 08:52:00Negative 1(07/15/2012 02:52:00)[facility]annCHEMISTRY 2012-07-15 08:52:003.5[facility] WbwghoySSBVUJQCJ9720-37-47 08:52:001.3[facility] LcvxbavFIULFCLYW5856-51-00 08:52:001.07[facility] ChambctGVDTJRRDL0106-02-62 08:52:004.28[facility] TtqllfrSUKPYXBAS2477-86-12 08:52:004.32[facility] QPLJBIHWZ6872-53-32 08:52:001.08[facility] KwledcxUYXGOGBNE7702-72-81 08:52:0018.4 [facility] XulghzoJHVUZTTPC4119-57-20 08:52:31683Bkxbsxtx HermannCHEMISTRY 2012-07-15 08:52:79514Klkjndfa FafrivqRWVNLXMVE1846-06-96 08:52:004.4[facility] CcvpkdlVHBDKQNZS2163-68-78 08:52:02471Xkuveayt KbwtqiqSHZDWXCBC3441-14-15 08:52:36380Dvylodmx FosbcviRKYMYLUVH6294-46-79 08:52:000.7[facility] DWRZWBRVO4406-26-45 08:52:007[facility] YwsbkxjDDJYJDTMY7082-07-11 08:52:007.7 [facility] ZzfqpjaLQEDICKVT6286-30-42 08:52:0015[facility]annHEMATOLOGY 2012-07-15 08:52:18224Oiapkyho UtwljrhRXELKGVCAG7868-02-97 08:52:009.4[facility] EiezvrgSQSRUMMKOC1584-16-99 08:52:0013.8[facility] OgaeedhCLQNTGAVMY8820-89-61 08:52:0034.6[facility] FpahdgbTUYUBLZJPV7378-19-06 08:52:00 Test Item Value Reference Range Interpretation Comments MCH (test code = MCH) 31.0 pg 27.0-31.0 N [facility] QnbfqrbCGFSGIJMMK8909-84-76 08:52:0089.6[facility]annHEMATOLOGY 2012-07-15 08:52:0029.8[facility] FlrxvzdCNESZVUNUW1478-58-39 08:52:003.33[facility] AbnsirmZHWNJBEPSZ3370-79-48 08:52:0010.8[facility] OhtycxlFMPEEWIUWV7371-04-49 08:52:0010.3[facility] BtidflpTMQLQIZHSB3604-51-80 08:52:009.9[facility] HCVJIQBJPM8939-06-99 08:52:000.4[facility] TfefvvnMPXQFSYGDJ9869-08-30 08:52:000.5 [facility] TwhbjhbJLGIGJDFOH3859-16-38 08:52:0091.4[facility] HermannHEMATOLOGY 2012-07-15 08:52:000.1[facility] LgekogxUXSLENPBZU7712-66-04 08:52:003.8[facility] MxmzudqAMWJAXJMAV9761-94-20 08:52:000.1[facility] BlxvbieQYPSXTANMX7586-74-02 08:52:004.6[facility]annBLOOD BANK WCVLXNE6909-56-49 04:07:57Product available (07/14/2012 22:07:57)[facility]ann[facility] PHAWOTZ9349-24-33 04:07:00Negative (07/14/2012 22:07:00)[facility] FhfzeqiBOBEIEYRHB2873-97-14 04:07:00Negative *NA*(07/14/2012 22:07:00)[facility] TtpwtlyWVBCXKFAYW5067-10-06 04:07:00Non Reactive (07/14/2012 22:07:00)[facility] ErzdsghJZHBJGFHZ4532-04-88 20:55:06636Itlwtcln ZinavvvRDHCTFTPE7584-91-04 20:55:003.5[facility] WWVNFLYSI2549-97-89 20:55:001.0[facility] JoferiaIUCZDKLDZ0259-88-91 20:55:25104 [facility] IociqsjRWLFGFLBV7299-56-86 20:55:003.0[facility] HermannCHEMISTRY 2012-05-24 20:55:0012.2[facility] QvfhnwfGZBWHLUDW7184-07-31 20:55:0022[facility] RmjdqkpTGWENDUAM0185-92-66 20:55:0011[facility] UjsgiuxRKHSXKQJS7269-46-21 20:55:006.1[facility] VbgsfucKLKVAZDCI5643-29-79 20:55:004.2[facility] KOEWZDAXU6852-50-13 20:55:29141Boterher McotrtaOXHJWMKJE6147-76-28 20:55:000.4 [facility] PrhsrnzFZSMBTODJ1434-58-35 20:55:008.2[facility] HermannCHEMISTRY 2012-05-24 20:55:89134Pmftdked YlxfxcpYMYJJGVCW0890-10-61 20:55:0020[facility] UwftnbdJTBDYCERH8906-81-26 20:55:000.4[facility] QgoxdocHHMPMIAWF6785-43-44 20:55:009[facility] CdxdmreXPODDBHPN4312-09-48 20:55:0078[facility]annCHEMISTRY 2012-05-24 20:55:003.1[facility] VqlaizbHAELPNWDR5764-29-40 20:55:0067[facility] AcqifkxRNSZOSPSQ2747-09-60 20:55:0018[facility] FwlbgcdFWFNWXRCYF0034-11-35 20:55:0089.3[facility] DflbkraWFICBLYJEU4008-11-19 20:55:0034.9[facility] SPYQRGWQSV6069-32-20 20:55:00 Test Item Value Reference Range Interpretation Comments MCH (test code = MCH) 31.2 pg 27.0-31.0 H [facility] JskzxexHMZVVNTSRK8909-48-83 20:55:009.0[facility]annHEMATOLOGY 2012-05-24 20:55:57297Vjnkpdvx SchkruiLTYFNYGEJB7328-45-06 20:55:0013.3[facility] UefxotgHUIVPFJDVG2379-85-89 20:55:0011.3[facility] PnaamfsHJAMXZQBAL2091-52-65 20:55:008.8[facility] VbavcmsNUNQUZPOLO6115-34-75 20:55:003.62[facility] WKXEUVBQPG6146-95-35 20:55:0032.3[facility] XjoagzrUUPSSEOINC8438-91-88 20:55:00 Yellow *NA*(05/24/2012 14:55:00)[facility] IvktkrmVERUGOXUIY1356-18-37 20:55:00 Negative mg/dL *NA*(05/24/2012 14:55:00)[facility] EeqjjurKURTQHUQRL8743-45-98 20:55:00Negative mg/dL *NA*(05/24/2012 14:55:00)[facility]annURINALYSIS 2012-05-24 20:55:00Negative *NA*(05/24/2012 14:55:00)[facility]annURINALYSIS 2012-05-24 20:55:00Small *ABN*(05/24/2012 14:55:00)[facility]annURINALYSIS 2012-05-24 20:55:00Negative (05/24/2012 14:55:00)[facility]annURINALYSIS 2012-05-24 20:55:00Negative (05/24/2012 14:55:00)[facility]annURINALYSIS 2012-05-24 20:55:00Slight *ABN*(05/24/2012 14:55:00)[facility]annURINALYSIS 2012-05-24 20:55:001.017[facility] ChsoqahBWGCEUNOBU0687-65-09 20:55:006.5[facility] LzimdxxNBQNTXLKQQ2588-87-58 20:55:0020 mg/dL *ABN*(05/24/2012 14:55:00)[facility] FqfdlrcETTUNKKZEO5314-47-25 20:55:00Many /LPF *ABN*(05/24/2012 14:55:00) [facility] IykqbazQOLUQPVHCO1896-31-92 20:55:008[facility]annURINALYSIS 2012-05-24 20:55:00<1[facility] LjxmrjdFZMQDYSMFQ7418-49-15 20:55:00Occasional /HPF *NA*(05/24/2012 14:55:00)[facility] WscaceaEOPDUQAOQV8052-85-67 20:55:00Few /LPF *NA*(05/24/2012 14:55:00)[facility] OfznutuBJFWNZDYZU8022-61-45 20:55:00 Moderate /HPF *ABN*(05/24/2012 14:55:00)[facility] XdtvibcVHEISNJXAJ7143-57-66 15:35:00Few /HPF *NA*(03/02/2012 10:35:00)[facility] QdzaggcDMJWYTVRKC1177-05-15 15:35:001[facility] RovtflxOZKKIHXRGS2471-11-56 15:35:003[facility] LAFSTGSVEX4239-58-64 15:35:004[facility] SpvwyxnBYOBEYZWZM6390-06-99 15:35:00 Slight *ABN*(03/02/2012 10:35:00)[facility] ZwonjcuDBPTQNKOUT5724-28-96 15:35:00 Small *ABN*(03/02/2012 10:35:00)[facility] ZebruzaBKKLQRCQFP4195-31-26 15:35:00 Negative (03/02/2012 10:35:00)[facility] XnsbgswFIEBHHYMQJ7873-25-69 15:35:00 Negative (03/02/2012 10:35:00)[facility] KyhwsonAFUXLZPYYJ8324-30-64 15:35:00 Negative mg/dL *NA*(03/02/2012 10:35:00)[facility] OxypqidPMBXNXDFTO9905-66-37 15:35:00Negative *NA*(03/02/2012 10:35:00)[facility] UaayhcaRAOIMMNBVR6263-31-56 15:35:00Negative mg/dL *NA*(03/02/2012 10:35:00)[facility]annURINALYSIS 2012-03-02 15:35:00Negative mg/dL (03/02/2012 10:35:00)[facility] YNOHCOHBFI1884-08-72 15:35:001.006[facility] TcfmohqJACZUWWHSO6297-71-19 15:35:00 7.0[facility] DjujjfuETIVQUTQFJ6827-13-91 15:35:00Angelia /MADYF *ABN*(03/02/2012 10:35:00)[facility]
[2020-10-14 23:16] LABS: Absolute Lymphocytes (CBC) 1.2 K/uL (0.7-4.9); Basophils % 0.4 % (0-1.3); Hematocrit 39.4 % (36.0-45.0); Lymphocytes % 22.3 % (15.3-44.8); MPV 8.9 fL (7.6-11.3); RBC Red Blood Cell Count 4.63 M/uL (3.86-4.86)
[2020-10-14 23:26] LABS: ALT/SGPT 32 U/L (12-78); AST/SGOT 16 U/L (15-37); Albumin 3.9 g/dL (3.4-5.0); Alkaline Phosphatase 77 U/L (45-117); BUN Blood Urea Nitrogen 22 mg/dL (7-18); Bicarbonate 25 mmol/L (21-32); Bilirubin Direct < 0.1 mg/dL (0-0.2); Bilirubin Total 0.5 mg/dL (0.2-1.0); Glucose Level 94 mg/dL (74-106); Magnesium 1.9 mg/dL (1.8-2.4); NT PRO-BNP 497 pg/mL (<125); Potassium 3.9 mmol/L (3.5-5.1); Protein, Total 7.3 g/dL (6.4-8.2); Sodium Level 140 mmol/L (136-145); Troponin (Emerg Dept Use Only) < 0.02 ng/mL (0.0-0.045)
--- NOTE | 2020-10-15 01:48 | EDPHYS ---
Physician Documentation [facility] Name: Karly Hamlin Age: 35 yrs Sex: Female : 1985 Arrival Date: 10/14/2020 Time: 20:24 Bed 12 Private MD: ED Physician Duncan Ortiz HPI: 10/14 23:54 This 35 yrs old Female presents to ER via Ambulatory with complaints of Chest tw4 Pain. 23:54 The patient or guardian reports chest pain that is located primarily in the anterior tw4 chest wall. The pain does not radiate. Associated signs and symptoms: The patient has no apparent associated signs or symptoms. The chest pain is described as dull. Duration: The patient or guardian reports a single episode, that is now resolved. Modifying factors: The symptoms are alleviated by nothing. the symptoms are aggravated by nothing. Severity of pain: At its worst the pain was mild in the emergency department the pain is unchanged. The patient has not experienced similar symptoms in the past. 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 - Social history:: Smoking status: . ROS: 23:53 Constitutional: Negative for fever, chills, and weight loss, Eyes: Negative for injury, tw4 pain, redness, and discharge, ENT: Negative for injury, pain, and discharge, Neck: Negative for injury, pain, and swelling, Respiratory: Negative for shortness of breath, cough, wheezing, and pleuritic chest pain, Abdomen/GI: Negative for abdominal pain, nausea, vomiting, diarrhea, and constipation, Back: Negative for injury and pain, MS/Extremity: Negative for injury and deformity, Skin: Negative for injury, rash, and discoloration, Neuro: Negative for headache, weakness, numbness, tingling, and seizure. 23:53 Cardiovascular: Positive for chest pain, Negative for edema, orthopnea, palpitations, paroxysmal nocturnal dyspnea. Exam: 23:52 Constitutional: This is a well developed, well nourished patient who is awake, alert, tw4 and in no acute distress. Head/Face: Normocephalic, atraumatic. Eyes: Pupils equal round and reactive to light, extra-ocular motions intact. Lids and lashes normal. Conjunctiva and sclera are non-icteric and not injected. Cornea within normal limits. Periorbital areas with no swelling, redness, or edema. Chest/axilla: Normal chest wall appearance and motion. Nontender with no deformity. No lesions are appreciated. Cardiovascular: Regular rate and rhythm with a normal S1 and S2. No gallops, murmurs, or rubs. Normal PMI, no JVD. No pulse deficits. Respiratory: Lungs have equal breath sounds bilaterally, clear to auscultation and percussion. No rales, rhonchi or wheezes noted. No increased work of breathing, no retractions or nasal flaring. Abdomen/GI: Soft, non-tender, with normal bowel sounds. No distension or tympany. No guarding or rebound. No evidence of tenderness throughout. Back: No spinal tenderness. No costovertebral tenderness. Full range of motion. Skin: Warm, dry with normal turgor. Normal color with no rashes, no lesions, and no evidence of cellulitis. MS/ Extremity: Pulses equal, no cyanosis. Neurovascular intact. Full, normal range of motion. Neuro: Awake and alert, GCS 15, oriented to person, place, time, and situation. Cranial nerves II-XII grossly intact. Motor strength 5/5 in all extremities. Sensory grossly intact. Cerebellar exam normal. Normal gait. Vital Signs: 21:35 BP 140 / 94; Pulse 107; Resp 18 S; Temp 97.6; Pulse Ox 97% on R/A; Weight 131.54 kg; iw Height 5 ft. 1 in. (154.94 cm); Pain 7/10; 10/15 01:29 BP 127 / 79; Pulse 98; Resp 16; Pulse Ox 98% on R/A; iw 10/14 21:35 Body Mass Index 54.79 (131.54 kg, 154.94 cm) MDM: 01:48 Patient medically screened. 4 07:09 Differential diagnosis: pulmonary embolus, stable angina, thoracic aortic disection. Data reviewed: vital signs, nurses notes. Data reviewed: EKG. Data interpreted: Pulse oximetry: Interpretation:. Test interpretation: by ED physician or midlevel provider: ECG, plain radiologic studies. Counseling: I had a detailed discussion with the patient and/or guardian regarding: the historical points, exam findings, and any diagnostic results supporting the discharge/admit diagnosis. Special discussion: Based on the patient's history, exam, and Dx evaluation, there is no indication for emergent intervention or inpatient Tx. It is understood by the patient/guardian that if the Sx's persist or worsen they need to return immediately for re-evaluation. I discussed with the patient/guardian in detail that at this point there is no indication for admission to the hospital. It is understood, however, that if the symptoms persist or worsen the patient needs to return immediately for re-evaluation. 10/14 22:20 Order name: Basic Metabolic Panel; Complete Time: 23:45 10/15 01:47 Interpretation: Normal except: CL 109; BUN 22; GFR 67. 10/14 22:20 Order name: CBC with Diff; Complete Time: 23:45 10/14 22:20 Order name: LFT's; Complete Time: 23:45 10/14 22:20 Order name: Magnesium; Complete Time: 23:45 10/14 22:20 Order name: NT PRO-BNP; Complete Time: 23:45 10/15 01:47 Interpretation: Normal except: NT PRO-BNP 497. 10/14 22:20 Order name: PT-INR; Complete Time: 23:45 10/14 21:47 Order name: CXR XRAY 10/14 22:20 Order name: Troponin (emerg Dept Use Only); Complete Time: 23:45 10/14 22:20 Order name: EKG; Complete Time: 22:21 10/14 22:20 Order name: Cardiac monitoring; Complete Time: 22:58 10/14 22:20 Order name: EKG - Nurse/Tech; Complete Time: 22:58 10/14 22:20 Order name: Labs collected and sent; Complete Time: 22:58 tw4 10/14 23:55 Order name: Troponin (emerg Dept Use Only); Complete Time: 01:46 4 10/15 01:47 Interpretation: Within normal limits: TROPED < 0.02. tw4 10/14 22:20 Order name: O2 Per Protocol; Complete Time: 22:58 tw4 10/14 22:20 Order name: O2 Sat Monitoring; Complete Time: :58 4 EC/30 23:52 Rate is 101 beats/min. Rhythm is regular. QRS [place] is Normal. IA interval is normal. tw4 QRS interval is normal. QT interval is normal. No Q waves. T waves are Inverted in leads V2, V3, V4, V5. No ST changes noted. Clinical impression: Sinus tachycardia. Interpreted by me. Reviewed by me. Administered Medications: No medications were administered Disposition: 10/15/20 01:48 Discharged to Home. Impression: Other chest pain. - Condition is Stable. - Discharge Instructions: Nonspecific Chest Pain, Pain Without a Known Cause. - Family Work Release, Medication Reconciliation Form, Thank You Letter, Antibiotic Education, Prescription Opioid Use form. - Follow up: Private Physician; When: Upon discharge from the Emergency Department; Reason: Recheck today's complaints, Continuance of care, Re-evaluation by your physician. - Problem is new. - Symptoms have improved. Signatures: Dispatcher [employer] Dora Gandhi, BETH RN Duncan Berman MD MD tw4 Corrections: (The following items were deleted from the chart) 10/15 00:34 10/14 22:20 IV Saline Lock ordered. 4 10/15 02:18 01:48 10/15/2020 01:48 Discharged to Home. Impression: Other chest pain. Condition is iw Stable. Forms are Medication Reconciliation Form, Thank You Letter, Antibiotic Education, Prescription Opioid Use. Follow up: Private Physician; When: Upon discharge from the Emergency Department; Reason: Recheck today's complaints, Continuance of care, Re-evaluation by your physician. Problem is new. Symptoms have improved. tw4
--- NOTE | 2020-10-15 01:48 | ER ---
Nurse's Notes [facility] Name: Karly Hamlin Age: 35 yrs Sex: Female : 1985 Arrival Date: 10/14/2020 Time: 20:24 Bed 12 Private MD: Diagnosis: Other chest pain Presentation: 10/14 21:35 Chief complaint: Patient states: chest discomfort since 3 am, gotten worse, has cough, iw feels like it's pneumonia , has hx of CHF but this feels different. Coronavirus screen: Client presents with at least one sign or symptom that may indicate coronavirus-19. Ebola Screen: Patient negative for fever greater than or equal to 101.5 degrees Fahrenheit, and additional compatible Ebola Virus Disease symptoms Patient denies exposure to infectious person. Patient denies travel to an Ebola-affected area in the 21 days before illness onset. No symptoms or risks identified at this time. Initial Sepsis Screen: Does the patient meet any 2 criteria? No. Patient's initial sepsis screen is negative. Does the patient have a suspected source of infection? No. Patient's initial sepsis screen is negative. Risk Assessment: Do you want to hurt yourself or someone else? Patient reports no desire to harm self or others. Onset of symptoms was October 14, 2020. 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 - Social history:: Smoking status: . Screenin:07 Abuse screen: Denies threats or abuse. Denies injuries from another. Nutritional iw screening: No deficits noted. Tuberculosis screening: No symptoms or risk factors identified. 22:07 Fall Risk None identified. iw Assessment: 22:07 General: Appears in no apparent distress. Behavior is calm, cooperative. Pain: iw Complains of pain in chest Pain does not radiate. Pain began 1 day ago. Neuro: Level of Consciousness is awake, alert, obeys commands, Oriented to person, place, time, situation, Moves all extremities. Full function. Cardiovascular: Patient's skin is warm and dry. Musculoskeletal: Range of motion: intact in all extremities. 10/15 01:29 Reassessment: Patient appears in no apparent distress at this time. Patient and/or iw family updated on plan of care and expected duration. Pain level reassessed. Patient is alert, oriented x 3, equal unlabored respirations, skin warm/dry/pink. Patient states feeling better. Patient states symptoms have improved. Vital Signs: 10/14 21:35 BP 140 / 94; Pulse 107; Resp 18 S; Temp 97.6; Pulse Ox 97% on R/A; Weight 131.54 kg; iw Height 5 ft. 1 in. (154.94 cm); Pain 7/10; 10/15 01:29 BP 127 / 79; Pulse 98; Resp 16; Pulse Ox 98% on R/A; iw 10/14 21:35 Body Mass Index 54.79 (131.54 kg, 154.94 cm) iw ED Course: 10/14 20:24 Patient arrived in ED. es 21:38 Triage completed. iw 21:39 Arm band placed on. iw 22:07 Dora Velasquez, RN is Primary Nurse. iw 22:07 Patient has correct armband on for positive identification. Pulse ox on. NIBP on. iw 22:15 CXR XRAY In Process Unspecified. EDMS 22:17 EKG done, by ED staff, reviewed by Duncan Ortiz MD. ds4 22:20 Duncan Ortiz MD is Attending Physician. tw4 10/15 01:47 No provider procedures requiring assistance completed. Patient did not have IV access iw during this emergency room visit. Patient maintains SpO2 saturation greater than 95% on room air. Administered Medications: No medications were administered Outcome: 01:48 Discharge ordered by . tw4 02:17 Discharged to home ambulatory. iw 02:17 Condition: good 02:17 Discharge instructions given to patient, Instructed on discharge instructions, follow up and referral plans. Demonstrated understanding of instructions, follow-up care. 02:18 Patient left the ED. iw Signatures: Dispatcher [employer] Angelita Melendrez Irene, RN RN Genaro Veloz ds4 Duncan Ortiz MD MD tw4 Corrections: (The following items were deleted from the chart) 10/14 21:39 21:35 Resp 18bpm; Spontaneous; Pulse Ox 97% RA; Temp 97.6F; 131.54 kg; Height 5 ft. 1 iw in.; BMI: 54.7; Pain 7/10; iw 10/15 01:42 01:29 Pulse 98bpm; Resp 16bpm; Pulse Ox 98% RA; iw iw
[2020-10-15 02:23] VITALS: TEMP 97.6
[2020-10-15 02:25] VITALS: BP 127/79; O2SAT 98
--- NOTE | 2020-10-15 10:44 | RAD REPORT ---
EXAM DESCRIPTION: Adeline Single View10/14/2020 10:15 pm CLINICAL HISTORY: Chest pain COMPARISON: 2018 FINDINGS: The lungs appear clear of acute infiltrate. The heart is borderline enlarged IMPRESSION: No acute abnormalities displayed
--- NOTE | 2020-10-17 12:04 | EKG ---
Test Date: 2020-10-14 Test Time: 22:11:32 Retail Associate Manager Bilingual: NICOLASA MEASUREMENT RESULTS: Intervals: Rate: 101 UT: 194 QRSD: 82 QT: 346 QTc: 448 [place]: P: 55 UT: 194 QRS: 102 T: 35 INTERPRETIVE STATEMENTS: Sinus tachycardia Right ventricular hypertrophy with repolarization abnormality T wave abnormality, consider lateral ischemia Abnormal ECG Compared to ECG 12/19/2018 02:09:17 Right ventricular hypertrophy now present Early repolarization now present T-wave abnormality now present ST (T wave) deviation no longer present Possible ischemia still present Electronically Signed On 10-17-20 11:54:56 CDT by Dm Madrid
== END 2020-10-15 02:18 | disposition home or self-care (01) ==
LOC: ER 20:22
DX: R07.89 Other chest pain (principal); Z88.3 Allergy status to other anti-infective agents; Z88.6 Allergy status to analgesic agent; Z88.8 Allergy status to other drugs, medicaments and biological substances
CPT/HCPCS: 36415; 71045; 80048; 80076; 83735; 83880; 84484; 85025; 85610; 93005; 99284

== ENCOUNTER 2023-07-02 00:05 | Inpatient (IN) | payer OTHER ==
[2023-07-02] MEDS ORDERED: ALBUTEROL 2.5 MG/3 ML NEB SOL ONE (00:13)
[2023-07-02] MEDS ORDERED: NA CHLORIDE 0.9% 2,000 ML ONE ×2 (00:17→02:21)
[2023-07-02] MEDS ORDERED: ROCURONIUM 50 MG/5 ML VIAL IV ONE (00:20)
[2023-07-02] MEDS ORDERED: ETOMIDATE 20 MG/10 ML VIAL IV ONE (00:20)
[2023-07-02] MEDS ORDERED: ACETAMINOPHEN 325 MG/SUPP PR ONE (00:33)
[2023-07-02] MEDS ORDERED: ACETAMINOPHEN 650MG/RECT SUPP PR ONE ×3 (00:33→08:44)
[2023-07-02] MEDS ORDERED: IBUPROFEN 400 MG TAB ONE (00:38)
[2023-07-02] MEDS ORDERED: Meropenem 1000 MG/VIAL IV ONE (00:44)
[2023-07-02] MEDS ORDERED: NA CHLORIDE 0.9% 200 ML ONE (00:44)
[2023-07-02] MEDS ORDERED: PIPERACIL/TAZO 3.375 GM VIAL IV ONE (00:45)
[2023-07-02] MEDS ORDERED: MIDAZOLAM HCL IN 0.9 % NACL/PF 100 MG/100 ML BAG IVPB ONE (00:50)
[2023-07-02 00:53] LABS: Protime INR 1.03
[2023-07-02 00:56] LABS: Albumin 3.1 g/dL (3.4-5.0); Bilirubin Total 0.7 mg/dL (0.2-1.0); Potassium 3.9 mEq/L (3.5-5.1); Protein, Total 6.6 g/dL (6.4-8.2)
[2023-07-02] MEDS: MIDAZOLAM HCL 100 MG in NA CHLORIDE 0.9% 80 ML IV SCH (01:00)
[2023-07-02 01:09] LABS: Urine Bilirubin NEGATIVE (Negative); Urine Clarity Clear (Clear); Urine Color Light-Yellow (Yellow); Urine Glucose NEGATIVE (Negative)
[2023-07-02 01:10] LABS: Urine Blood Negative (Negative); Urine Protein 2+ (Negative); Urine Urobilinogen Normal mg/dL (0.2-1.0)
[2023-07-02 01:11] LABS: Urine Mucus Slight /HPF (None Seen)
[2023-07-02] MEDS ORDERED: HYDROCORTISONE SUC 100 MG INJ ONE (01:24)
[2023-07-02] MEDS ORDERED: Calcium Chloride 10% INJ SYR IV ONE (01:25)
[2023-07-02] MEDS ORDERED: D5 0.45 NS 1,000 ML IV ONE (01:26)
[2023-07-02] MEDS ORDERED: SODIUM BICARB 50 MEQ/50ML VIAL ONE (01:26)
[2023-07-02 01:31] LABS: Absolute Lymphocytes (CBC) 0.9 K/uL (0.7-4.9); Hematocrit 38.4 % (36.0-45.0); Lymphocytes % 8.1 % (15.3-44.8); MPV 8.1 fL (7.6-11.3); Platelets 185 thou/uL (152-406); RBC Red Blood Cell Count 4.42 M/uL (3.86-4.86)
[2023-07-02 01:43] LABS: C-Reactive Protein 19.9 mg/L (<3.00)
[2023-07-02 01:48] LABS: Arterial Blood Carboxyhemoglob 0.9 % (0-1.5); Blood Gas Oxyhemoglobin 93.8 % (94-97); Blood O2 Saturation 96.1 % (92-98.5)
[2023-07-02 02:02] LABS: Thyroid Stimulating Hormone 24.8 uIU/mL (0.358-3.740)
[2023-07-02 02:03] LABS: Barbiturates NEGATIVE (NEGATIVE); Benzodiazepines NEGATIVE (NEGATIVE); Cocaine NEGATIVE (NEGATIVE); METHAMPHETAM NEGATIVE (NEGATIVE); Methadone NEGATIVE (NEGATIVE); Opiates NEGATIVE (NEGATIVE); Phencyclidine NEGATIVE (NEGATIVE); THC Cannibis NEGATIVE (NEGATIVE)
[2023-07-02 02:04] LABS: Troponin High Sensitivity 179.1 pg/mL (<58.9)
[2023-07-02 02:05] LABS: SARS-CoV-2 Antigen Rapid Res Negative (Negative)
[2023-07-02 02:08] LABS: Blood Morphology Comment NOT SEEN (NOT SEEN); Platelet Estimate ADEQ
[2023-07-02] MEDS ORDERED: ONDANSETRON 4 MG/2 ML VIAL IV PRN (02:42)
--- NOTE | 2023-07-02 02:51 | P.HP ---
Certification for Inpatient Patient admitted to: Inpatient With expected LOS: >2 Midnights Practitioner: I am a practitioner with admitting privileges, knowledge of patient current condition, hospital course, and medical plan of care. Services: Services provided to patient in accordance with Admission requirements found in Title 42 Section 412.3 of the Code of Federal Regulations Patient History Date of Service: 07/02/23 Reason for admission: Severe sepsis, respiratory failure, severe hypothyroidism, pneumonia History of Present Illness: 37-year-old female patient with medical history significant for dextrocardia status post reversal surgery, hypertension, CHF, hypothyroidism who also was evaluated for episode of significant lethargy and found to be septic. She came in with significant respiratory failure requiring urgent intubation, lactic acidosis and chest x-ray concerning for pneumonia. She has a right upper lobe opacification on imaging. She was started on broad-spectrum antibiotics with linezolid and meropenem and was started on vasopressors and was admitted for inpatient care. Other pertinent lab findings include low T4 level of 0.74, elevated TSH of 24, elevated lactic acid of 5.7, elevated white cell of 13 K, neutrophil differential of 88% and elevated creatinine of 1.4. Allergies aspirin Allergy (Verified 12/19/18 06:39) Hives/Rash cetirizine [From Zyrtec] Allergy (Verified 12/19/18 06:39) Hives/Rash diphenhydramine [From Benadryl] Allergy (Verified 12/19/18 06:39) Hives/Rash loratadine [From Claritin] Allergy (Verified 12/19/18 06:39) Hives/Rash nitroglycerin Allergy (Verified 12/19/18 06:39) Hives/Rash ondansetron [From Zofran] Allergy (Verified 12/19/18 06:39) Hives/Rash promethazine [From Phenergan] Allergy (Verified 12/19/18 06:39) Hives/Rash vancomycin Allergy (Verified 12/19/18 06:39) Hives/Rash Home Medications: Doxycycline Monohydrate 100 mg PO BID #14 capsule 12/20/18 - Past Medical/Surgical History Diabetic: No -: Dextrocardia -: 3- Ceasarian sections -: open heart surgery -: carpal tunnel both hands -: right elbow pinched nerve - Social History Alcohol use: No CD- Drugs: No Review of Systems is unable to be obtained (Due to intubated status) Physical Examination - Vital Signs Pulse: 149 Pulse Ox (%): 100 - Physical Exam General: Other (Sedated) HEENT: Atraumatic, Normocephalic Neck: Supple Respiratory: Normal air movement Cardiovascular: Regular rate/rhythm, Normal S1 S2 Gastrointestinal: Soft and benign Musculoskeletal: No swelling - Studies Laboratory Data (last 24 hrs) 07/02/23 07/02/23 07/02/23 01:15 00:21 00:21 WBC 11.40 H Hgb 13.1 Hct 38.4 Plt Count 185 PT 11.3 INR 1.03 APTT 20.2 L Sodium 136 Potassium 3.9 BUN 17 Creatinine 1.36 H Glucose 343 H Total Bilirubin 0.7 AST 34 ALT 50 Alkaline Phosphatase 65 Microbiology Data (last 24 hrs): 07/02/23 01:10 Nasopharnyx Influenza Type A Antigen Screen - Final 07/02/23 01:10 Nasopharnyx Influenza Type B Antigen Screen - Final Assessment and Plan - Plan Severe sepsis with multiorgan failure: Patient has elevated lactic acid, is intubated for airway protection as JUJU and is requiring vasopressor support. Will continue patient on broad-spectrum antibiotic therapy with linezolid and cefepime pending culture finalization for adjustment to antibiotic therapy. Will continue to maintain MAP of 65 mmHg or more for adequate vital organ per fusion. Critical care physician consulted Pneumonia: Chest x-ray is concerning. Continue broad-spectrum antibiotic therapy pending further review. Hypothyroidism: T4 is low at 0.74. IV levothyroxine is 75 mcg daily to be started. Will follow clinical symptomatology closely. Will continue Solu- Cortef 100 mg every 8 hours pending further review. Critical care physician consulted. JUJU: Creatinine is elevated at 1.4. Will continue IV fluid for hydration purposes with think this is prerenal/intrinsic renal from sepsis related issue. Will follow trend of kidney function closely. Respiratory failure with hypoxia: Patient has been intubated for airway protection. We will continue mechanical ventilation pending critical care/pulmonary physician evaluation. Prophylaxis: Lovenox for DVT prophylaxis. CODE STATUS: Full code. Disposition: We will treat her multiple health issues and she will be discharged when deemed clinically stable. - Advance Directives Does patient have a Living Will: No Does patient have a Durable POA for Healthcare: No
[2023-07-02] MEDS ORDERED: KETOROLAC 30 MG/ML INJ ONE (02:58)
--- NOTE | 2023-07-02 03:01 | ER ---
Nurse's Notes [facility] Name: Karly Hamlin Age: 37 yrs Sex: Female : 1985 Arrival Date: 07/02/2023 Time: 00:05 Bed 4 Private MD: Diagnosis: Severe sepsis without septic shock;Acute respiratory failure with hypoxia;Lateral multifocal pneumonia, severe sepsis, hyperthermia, hyperglycemia, altered mental status, acute delirium, Presentation: 07/02 00:28 Chief complaint: EMS states: found patient with agonal breathing, hyperthermic, as9 tachycardic. intubated the patient and placed IO on the right lower leg. orogastric tube inserted on scene. family present at the time. Coronavirus screen: At this time, the client does not indicate any symptoms associated with coronavirus-19. Ebola Screen: No symptoms or risks identified at this time. Initial Sepsis Screen: Does the patient meet any 2 criteria? No. Patient's initial sepsis screen is negative. Does the patient have a suspected source of infection? No. Patient's initial sepsis screen is negative. Risk Assessment: Do you want to hurt yourself or someone else? Patient reports no desire to harm self or others. Onset of symptoms was July 02, 2023. 00:28 Method Of Arrival: EMS: [facility] as9 00:28 Acuity: LAUREN 1 as9 Triage Assessment: 00:05 General: Appears ill, obese, Behavior is unresponsive. Pain: Unable to use pain scale. as9 Patient is unresponsive. Neuro: Level of Consciousness is unresponsive. Cardiovascular: Capillary refill is > 3 seconds Patient's skin is warm and dry. Respiratory: Ventilator assessment: ET Tube: 8.0 at lip. 24cm. 00:05 Respiratory: Breath sounds with wheezes bilaterally. GI: Oral gastric tube in place, to as9 gravity drainage. : No signs and/or symptoms were reported regarding the genitourinary system. Derm: Skin is intact, Skin temperature is hot. Musculoskeletal:. Historical: - Allergies: 00:28 Aspirin; vc1 00:28 Benadryl; vc1 00:28 Claritin; vc1 00:28 Nitroglycerin; vc1 00:28 Phenergan; vc1 00:28 Vancomycin; vc1 00:28 Zofran; vc1 00:28 Zyrtec; vc1 - PMHx: 00:28 carpal tunnel syndrome; PCOS; Transposition of the great vessels; vc1 - Immunization history:: Adult Immunizations unknown. - Social history:: Smoking status: unknown. - Family history:: not pertinent. Screenin:35 [facility] ED Fall Risk Assessment (Adult) History of falling in the last 3 months, as9 including since admission No falls in past 3 months (0 pts) Score/Fall Risk Level 0 - 2 = Low Risk Oriented to surroundings, Maintained a safe environment, Educated pt \T\ family on fall prevention, incl call for assistance when getting out of bed, Assessed \T\ reinforced patient's understanding of fall precautions. Abuse screen: Denies threats or abuse. Denies injuries from another. Nutritional screening: No deficits noted. Tuberculosis screening: No symptoms or risk factors identified. Assessment: 00:34 Respiratory: Ventilator assessment: ET Tube: 8.0 at lip. 26cm HOB > 30 degrees. as9 01:00 Reassessment: Patient appears in no apparent distress at this time. No changes from 8 previously documented assessment. 02:00 Reassessment: Patient appears in no apparent distress at this time. No changes from km8 previously documented assessment. 03:00 Reassessment: Patient appears in no apparent distress at this time. No changes from km8 previously documented assessment. pt moved into hospital bed. 04:00 Reassessment: Patient appears in no apparent distress at this time. No changes from km8 previously documented assessment. Vital Signs: 00:15 BP 121 / 74; Pulse 161; Resp 26; Temp 102; Pulse Ox 86% on ETT ambu; as9 00:30 BP 132 / 62; Pulse 161; Resp 20; Temp 104.9(Ca); Pulse Ox 80% on ETT vent; rv 01:00 BP 131 / 99; Pulse 132; Resp 20; Temp 104.9(Ca); Pulse Ox 87% ; rv 01:30 BP 111 / 94; Pulse 163; Resp 20; Temp 104.4(Ca); Pulse Ox 97% ; rv 02:00 BP 143 / 101; Pulse 152; Resp 20; Temp 104.4(Ca); Pulse Ox 100% ; rv 02:30 BP 132 / 106; Pulse 144; Resp 20; Temp 104.3(Ca); Pulse Ox 100% on ETT vent; km8 03:00 BP 112 / 88; Pulse 132; Resp 22; Temp 104.1(Ca); Pulse Ox 100% on ETT vent; 03:30 BP 115 / 83; Pulse 139; Resp 20; Temp 103.9(Ca); Pulse Ox 99% on ETT vent; 04:00 BP 117 / 82; Pulse 132; Resp 20; Temp 103.4(Ca); Pulse Ox 100% on ETT vent; 04:30 BP 116 / 95; Pulse 128; Resp 22; Temp 102.9(Ca); Pulse Ox 100% on ETT vent; 04:58 Weight 154.22 kg (R); 04:58 per family this was pt's weight 2 months ago km8 [place] Coma Score: 03:01 Eye Response: none(1). Motor Response: none(1). Verbal Response: none(1). Total: 3. sp4 ED Course: 00:05 Arm band placed on right wrist. as9 00:05 Client placed on continuous cardiac and pulse oximetry monitoring. NIBP monitoring km8 applied. 00:08 Patient arrived in ED. vc1 00:09 Samson Starkey MD is Attending Physician. sp4 00:26 BETH LinII, Tye RN is Primary Nurse. rv2 00:31 Triage completed. as9 00:36 Assisted provider with central line placement. Set up central line tray. Triple lumen as9 line placed in right internal jugular. Line placed by Samson Starkey MD Placement verified by CXR, blood return, Dressed with CENTRAL LINE DRESSING Blood was collected. Patient tolerated well. Before procedure, did Practitioner(s) obtain informed consent? No. Patient \T\ family education about procedure, CLABSI prevention and S/S of infection? No. Time-out/Briefing performed prior to start of procedure? Yes. Was handwashing/sanitizing done immediately prior to procedure? Yes. Was patient positioned to in a way to prevent air embolism? Yes. Was procedure site sterilized? Yes, with chlorhexidine. Was the site allowed to dry? Yes. Was local anesthetic and/or sedation utilized? Yes. During the procedure, did the Practitioner(s) maintain a sterile field? Yes. Were unused ports clamped during insertion? Yes. Was a 2nd qualified MD obtained after 3 unsuccessful insertion attempts? No. Was blood aspirated from each lumen? Yes. After the procedure, did the Practitioner(s) clean the site and apply a sterile dressing? Yes. Assisted provider with intubation using 8.0 mm ETT via oral route. ET tube secured at 26cm at the lips. Set up intubation tray. Intubated by Samson Starkey MD Placement verified by CO2 detector w/ + color change, auscultating bilateral breath sounds, End-tidal CO2 montioring CXR, Patient tolerated well. Colindres cath inserted, using sterile technique, 16 Fr., by nm, balloon inflated, to gravity drainage, urine specimen collected. Maintain EMS IV. Dressing intact. Site clean \T\ dry. Gauge \T\ site: IO, RIGHT LOWER LEG. 00:46 Chest Single View XRAY In Process Unspecified. EDMS 01:00 Patient has correct armband on for positive identification. Bed in low position. Side 8 rails up X2. 01:26 , Connor Thomas, to be updated on pt status. [phone]. rv1 03:00 Jair Ibarra MD is Hospitalizing Provider. sp4 04:12 Inserted saline lock: 20 gauge in right forearm, using aseptic technique. ,using rv aseptic technique. ultrasound. 04:30 Patient admitted, IV remains in place. 8 05:36 Provided Education on: admission process to family . 8 05:59 IV discontinued, intact, bleeding controlled, IO d/c'd. km8 Administered Medications: 00:10 Drug: Midazolam IVP or IV 5 mg IVP once {Note: io, right lower leg.} Route: IVP; Site: rv2 Other; 02:19 Follow up: Response: No adverse reaction [facility] 00:24 Drug: Etomidate IVP 40 mg IVP once Route: IVP; Site: PICC; km8 02:21 Follow up: Response: No adverse reaction [facility] 00:24 Drug: Rocuronium IVP 100 mg IVP once Route: IVP; Site: PICC; km 02:22 Follow up: Response: No adverse reaction [facility] 00:30 Drug: Albuterol Inhalation 2.5 mg Inhalation once Route: Inhalation; rv2 00:30 Drug: NS 0.9% IV 1000 ml IV at 1 bolus Per protocol; 1000 mL bolus Route: IV; Rate: 1 rv2 bolus; Site: right jugular; 02:24 Follow up: IV Status: Completed infusion; IV Intake: 1000ml 00:30 Drug: NS 0.9% IV 1000 ml IV at 1 bolus Per protocol; 1000 mL bolus Route: IV; Rate: 1 rv2 bolus; Site: right jugular; 02:25 Follow up: IV Status: Completed infusion; IV Intake: 1000ml 00:35 CANCELLED (Physician Discretion): vancomycin2 grams IVPB at calculated rate once 4 00:45 Drug: Acetaminophen OK Suppository 650 mg OK once Route: OK; km8 02:23 Follow up: Response: No adverse reaction 00:45 Drug: Acetaminophen OK Suppository 325 mg OK once Route: OK; 2 02:22 Follow up: Response: No adverse reaction 00:45 Drug: Piperacillin-Tazobactam IVPB 3.375 grams IVPB once over 60 mins; (mix in NS 100 rv2 mL) Route: IVPB; Infused Over: 60 mins; Site: right jugular; 03:07 Follow up: IV Status: Completed infusion 01:00 Drug: Midazolam IVP or IV 0.01 mg/kg/h IV at calculated rate See Administration km8 Instructions; (Standard concentration: 100 mg / 100 mL NS); Recommended max rate 0.1 mg/kg/hr; Titrate 0.01 mg/kg/hr as often as every 30 minutes to achieve goal (see titration policy); Goal parameter RASS 0 to -2 Route: IV; Rate: calculated rate; Site: right jugular; 05:34 Follow up: IV Status: Infusion continued upon admission 01:17 Not Given (Duplicate Order): ibuprofensuspension 600 mg PO once; via NG tube 01:17 Drug: Ibuprofen PO 800 mg PO once; Per rectum Route: PO; rv2 02:21 Follow up: Response: No adverse reaction 8 01:36 Drug: Calcium Gluconate IVPB 1 grams IVPB once over 60 mins; (mix in NS 100 mL) Route: rv2 IVPB; Infused Over: 60 mins; Site: right jugular; 03:05 Follow up: IV Status: Completed infusion; IV Intake: 100ml 8 01:37 Drug: Calcium Chloride IVP 1 grams IVP once Route: IVP; Site: right jugular; rv2 02:21 Follow up: Response: No adverse reaction km8 01:37 Drug: Sodium Bicarbonate IVP 1 amp IVP once; (50 mL); equals 50 mEq Route: IVP; Site: rv2 right jugular; 02:20 Follow up: Response: No adverse reaction 8 01:37 Drug: Solu-CORTEF IVP 100 mg IVP once Route: IVP; Site: right jugular; rv2 02:19 Follow up: Response: No adverse reaction 8 01:38 Drug: Meropenem IV 1 grams IV at calculated rate once; (mix in NS 100 mL) Route: IV; rv2 Rate: calculated rate; Site: right forearm; 03:07 Follow up: IV Status: Completed infusion 8 01:38 Drug: Sodium Bicarbonate IVP 1 amp IVP once; (50 mL); equals 50 mEq Route: IVP; Site: rv2 right jugular; 02:20 Follow up: Response: No adverse reaction 8 02:24 Drug: NS 0.9% IV 1000 ml IV at 1 bolus Per protocol; 1000 mL bolus Route: IV; Rate: 1 km8 bolus; Site: right jugular; 04:33 Follow up: IV Status: Completed infusion; IV Intake: 1000ml km8 03:04 Drug: Ketorolac IVP 30 mg IVP once Route: IVP; Site: right jugular; km8 04:03 Follow up: Response: Temperature is decreased km8 03:15 Drug: Propofol IV 5 mcg/kg/min IV at calculated rate See Administration Instructions; km8 Standard concentration 1000 mg / 100 mL; Recommended max rate 50 mcg/kg/min; Titrate 2 mcg/kg/min every 5 minutes to achieve goal (see titration policy); Goal parameter RASS score 0 to -2 Route: IV; Rate: calculated rate; Site: right jugular; 05:34 Follow up: IV Status: Infusion continued upon admission km8 03:26 Drug: Acetaminophen OK Suppository 650 mg OK once Route: OK; km8 04:03 Follow up: Response: Temperature is decreased km8 03:27 Not Given (Hemodynamic Parameters): norepinephrine0.1 mcg/kg/min IV at calculated rate km8 See Administration Instructions; (Standard concentration 4 mg / 250 mL D5W); Recommended max rate 3 mcg/kg/min; Titrate 0.05 mcg/kg/min as often as every 5 minutes to achieve goal (see titration policy); Goal parameter MAP greater than 65 mmHg. 03:31 Not Given (Physician Discretion): d5-1/2 ns125 ml/kg IV at bolus once; 1000 mL bolus; sp4 followed by 125 mL/hr continuous 03:50 Drug: Linezolid IV 600 mg IV at calculated rate once over 60 mins Route: IV; Rate: km8 calculated rate; Infused Over: 60 mins; Site: right jugular; 04:55 Follow up: IV Status: Completed infusion km8 04:34 Not Given (Other Intervention Used): d 5-1/2 ns with kcl10 meq/l 1000 ml IV at 125 km8 ml/hr continuous 04:38 Drug: D5-1/2 NS with KCl IV 20 mEq/L 1000 ml IV at 125 ml/hr continuous Route: IV; km8 Rate: 125 ml/hr; Site: right forearm; 05:34 Follow up: IV Status: Order to discontinue infusion; not continued, different admission km8 orders Medication: 00:35 VIS not applicable for this client. as9 Intake: 02:24 IV: 1000ml; Total: 1000ml. km8 02:25 IV: 1000ml; Total: 2000ml. km8 03:05 IV: 100ml; Total: 2100ml. km8 04:33 IV: 1000ml; Total: 3100ml. km8 Outcome: 03:01 Decision to Hospitalize by Provider. sp4 05:00 Admitted to ER Hold. Please see [facility] for further documentation. km8 05:00 Condition: stable 05:00 Instructed on the need for admit, 12:18 Patient left the ED. ld1 Signatures: Dispatcher [employer] EDMS Bi Lin RN RN Corina Bains RN RN ld1 Danitza Acuna RN RN Nette Borges rv1 Samson Starkey MD MD sp4 CASSANDRA Lin Ron RN RN rv2 Nani Azar RN RN km8 Vijay Plasencia RN RN as9 Corrections: (The following items were deleted from the chart) 01:17 00:45 Ibuprofen PO Suspension 600 mg PO rv2 rv2 03:41 03:30 Propofol IV 963.9 mcg/min IV at calculated rate in right jugular km8 km8 04:09 03:00 Reassessment: Patient appears in no apparent distress at this time. No changes km8 from previously documented assessment. km8 04:55 04:07 Patient admitted, IV remains in place. km8 km8 04:59 02:17 192.78 kg; km8 km8
--- NOTE | 2023-07-02 03:01 | EDPHYS ---
Physician Documentation [facility] Name: Karly Hamlin Age: 37 yrs Sex: Female : 1985 Arrival Date: 07/02/2023 Time: 00:05 Bed 4 Private MD: ED Physician Samson Starkey HPI: 07/02 00:30 This 37 yrs old Female presents to ER via Unassigned with complaints of sp4 Respiratory distress . 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 Patient has reported that patient started feeling unwell today became unresponsive and EMS was called. On arrival EMS discovered patient was dyspneic, tachypneic at the rate of 44, tachycardic and febrile. Message to secure definitive airway by intubating patient with 7.5 ET tube. EMS managed to start the right proximal tibial IO access. EMS administered fluid via IO access. Received IV ketamine prior to intubation. On arrival patient was hypothermic with temperature 105 via Colindres catheter probe. GCS 3 T. Historical: - Allergies: 00:28 Aspirin; vc1 00:28 Benadryl; vc1 00:28 Claritin; vc1 00:28 Nitroglycerin; vc1 00:28 Phenergan; vc1 00:28 Vancomycin; vc1 00:28 Zofran; vc1 00:28 Zyrtec; vc1 - PMHx: 00:28 carpal tunnel syndrome; PCOS; Transposition of the great vessels; vc1 - Immunization history:: Adult Immunizations unknown. - Social history:: Smoking status: unknown. - Family history:: not pertinent. ROS: 03:01 Constitutional: ROS not available at this time sp4 03:01 All other systems are negative, 03:01 Unable to obtain ROS due to altered mental status, Exam: 03:01 Constitutional: Patient is unresponsive and intubated, size 7.5 ET tube present on sp4 arrival, patient is hypoxemic saturation 88% , febrile and tachycardic, copious secretions from ET tube. Morbidly obese female. Head/Face: Normocephalic, atraumatic. Eyes: Pupils equal round and reactive to light, ENT: Nares patent. No nasal discharge, no septal abnormalities noted. Tympanic membranes are normal and external auditory canals are clear. Oropharynx with diffuse swelling of the oropharyngeal tissues, on arrival EMS tube was removed and patient was intubated with higher caliber tube Neck: Trachea midline, no thyromegaly or masses palpated, and no cervical lymphadenopathy. Supple, full range of motion without nuchal rigidity, or vertebral point tenderness. Chest/axilla: Normal chest wall appearance and motion. No lesions are appreciated. Cardiovascular: Rapid tachycardia at the rate of 170, appears to be sinus tachycardia narrow complex tachycardia, thready peripheral pulses, positive carotid pulses. Very poor peripheral access. Generalized pallor Respiratory: Lungs have equal breath sounds bilaterally, , bilateral crackles present, rapid tachypnea, patient is breathing over the vent,, copious respiratory secretions In the ET tube Abdomen/GI: Soft, with normal bowel sounds. Obese abdomen, abdominal girth limits examination Back: No spinal deformities Female : Normal external genitalia. Colindres catheter placed on arrival Skin: Warm, generalized mottling, generalized pallor MS/ Extremity: Pulses equal, no cyanosis. Bilateral peripheral pulses are equal Neuro: Intubated GCS of 3, neurologic examination is limited 03:01 ECG was reviewed by the Attending Physician. 00:46 EKG reveals sinus tachycardia at the rate of 168 Vital Signs: 00:15 BP 121 / 74; Pulse 161; Resp 26; Temp 102; Pulse Ox 86% on ETT ambu; as9 00:30 BP 132 / 62; Pulse 161; Resp 20; Temp 104.9(Ca); Pulse Ox 80% on ETT vent; rv 01:00 BP 131 / 99; Pulse 132; Resp 20; Temp 104.9(Ca); Pulse Ox 87% ; rv 01:30 BP 111 / 94; Pulse 163; Resp 20; Temp 104.4(Ca); Pulse Ox 97% ; rv 02:00 BP 143 / 101; Pulse 152; Resp 20; Temp 104.4(Ca); Pulse Ox 100% ; rv 02:30 BP 132 / 106; Pulse 144; Resp 20; Temp 104.3(Ca); Pulse Ox 100% on ETT vent; km8 03:00 BP 112 / 88; Pulse 132; Resp 22; Temp 104.1(Ca); Pulse Ox 100% on ETT vent; [facility] 03:30 BP 115 / 83; Pulse 139; Resp 20; Temp 103.9(Ca); Pulse Ox 99% on ETT vent; 8 04:00 BP 117 / 82; Pulse 132; Resp 20; Temp 103.4(Ca); Pulse Ox 100% on ETT vent; 8 04:30 BP 116 / 95; Pulse 128; Resp 22; Temp 102.9(Ca); Pulse Ox 100% on ETT vent; 8 04:58 Weight 154.22 kg (R); 8 04:58 per family this was pt's weight 2 months ago 8 Adriana Coma Score: 03:01 Eye Response: none(1). Motor Response: none(1). Verbal Response: none(1). Total: 3. sp4 Procedures: 01:35 Intubation: Ventilated with 100% NRB prior to procedure. O2 saturation prior to sp4 procedure was 88 %. Intubated [place] scope assisted intubation. Patient arrived with 7.5 ET tube, this was exchanged with a size 8 ET tube via glide scope assistance. using S4 with 8.0 mm ETT. was successful on first attempt. Ventilated with Ambu bag. Tube secured with ETT schulz at center of mouth measured 25 cm at lip. Placement verified by CXR, CO2 detector with (+) color change, auscultating bilateral breath sounds, O2 saturation after procedure was 94 %. Patient tolerated well. 01:59 Central Line: the site was prepped with Betadine, in sterile fashion, a triple lumen sp4 catheter was inserted, in the right internal jugular vein, in 1 attempts. placement was verified, by CXR, by blood return, Ultrasound assisted central line, the site was dressed with Tegaderm, using sterile technique, the patient tolerated the procedure, well, Right internal jugular triple-lumen CVL placed with ultrasound guidance, no complications. MDM: 00:09 Patient medically screened. sp4 01:13 ED course: EXAM DESCRIPTION: Chest Single View CLINICAL HISTORY: 37 years Female sp4 DYSPNEA TECHNIQUE: One view of the chest. COMPARISON: No prior exams provided for comparison. FINDINGS: Endotracheal tube terminates 2.9 cm above the marcos. Nasogastric tube terminates beyond the gastroesophageal junction. Right jugular central venous catheter tip projects over the SVC. There are multifocal airspace infiltrates bilaterally, confluent in the right upper lobe. Small right and trace left pleural effusions. No pneumothorax. Mild prominence of the cardiomediastinal silhouette. No acute osseous lesion. IMPRESSION: Lines and tubes in good positions. Multifocal airspace infiltrates bilaterally, most pronounced in the right upper lobe. Small right and trace left pleural effusions.. 01:59 ED course: EXAM DESCRIPTION: Chest Single View CLINICAL HISTORY: 37 years Female sp4 DYSPNEA TECHNIQUE: One view of the chest. COMPARISON: No prior exams provided for comparison. FINDINGS: Endotracheal tube terminates 2.9 cm above the marcos. Nasogastric tube terminates beyond the gastroesophageal junction. Right jugular central venous catheter tip projects over the SVC. There are multifocal airspace infiltrates bilaterally, confluent in the right upper lobe. Small right and trace left pleural effusions. No pneumothorax. Mild prominence of the cardiomediastinal silhouette. No acute osseous lesion. IMPRESSION: Lines and tubes in good positions. Multifocal airspace infiltrates bilaterally, most pronounced in the right upper lobe. Small right and trace left pleural effusions. . 03:10 Differential Diagnosis altered mental status, sepsis, flu. Data reviewed: vital signs, sp4 nurses notes, EMS record, old medical records, lab test result(s), EKG, radiologic studies, plain films. ED course: We were informed that patient is too heavy for the CAT scan. . ED course: Patient transfer was declined by the [facility] secondary to no ICU capacity . Patient transfer was declined by [facility] secondary to no availability of bariatric beds. . ED course: Patient will be managed in ER as ICU hold at this time. Oxygenation has improved to 100% however heart rate remains elevated 145, blood pressure remained stable at this time 112/88. Remains hypothermic temperature 104. Cooling blanket is not available. 07:36 ED course: Sepsis repeat evaluation - lactate has improved. . sp4 07:38 ED course: Patient is too heavy for the CT scanner table. CT cannot be done. . sp4 07:42 ED course: Patient was rejected by the [facility] secondary to capacity.. Patient declined by [facility] system secondary to capacity. Patient declined by the [facility] system secondary to capacity . Patient declined by the [facility] system secondary to capacity. Patient will be admitted as ICU overflow . ED course: Patient was given total of 3 L NS bolus, additional fluid given as maintenance. Patient has elevated BNP and it is not warranted to give additional fluids as a bolus. . 07/02 00:10 Order name: Blood Culture Adult (2) 07/02 00:10 Order name: CBC with Diff; Complete Time: 02:34 07/02 00:10 Order name: CMP; Complete Time: 01:06 07/02 00:10 Order name: Lactate w/ 2H reflex if indic.; Complete Time: 01:06 07/02 00:10 Order name: Protime (+inr); Complete Time: 01:06 07/02 00:10 Order name: Ptt, Activated; Complete Time: 01:06 07/02 00:10 Order name: Urinalysis w/ reflexes; Complete Time: 01:12 07/02 00:32 Order name: ABG; Complete Time: 01:58 07/02 01:07 Order name: SARS RAPID; Complete Time: 02:34 07/02 01:07 Order name: Influenza Screen (a \T\ B); Complete Time: 02:34 07/02 01:14 Order name: TSH; Complete Time: 02:34 07/02 01:14 Order name: T4 Free; Complete Time: 02:34 07/02 01:14 Order name: Troponin High Sensitivity; Complete Time: 02:34 07/02 01:14 Order name: BNP; Complete Time: 02:34 07/02 01:14 Order name: CRP; Complete Time: 02:34 07/02 01:22 Order name: Urine Drug Screen; Complete Time: 02:34 07/02 01:22 Order name: Test, Urine; Complete Time: 01:58 07/02 01:37 Order name: Manual Differential; Complete Time: 02:34 EDMS 07/02 02:52 Order name: CBC with Automated Diff EDMS 07/02 02:52 Order name: CBC with Automated Diff EDMS 07/02 02:52 Order name: CBC with Automated Diff EDMS 07/02 02:52 Order name: CBC with Automated Diff EDMS 07/02 02:52 Order name: CBC with Automated Diff EDMS 07/02 02:52 Order name: Comprehensive Metabolic Panel EDMS 07/02 02:52 Order name: Comprehensive Metabolic Panel [facility] 07/02 02:52 Order name: Comprehensive Metabolic Panel [facility] 07/02 02:52 Order name: Comprehensive Metabolic Panel [facility] 07/02 02:52 Order name: Comprehensive Metabolic Panel [facility] 07/02 03:52 Order name: Glucose, Ancillary Testing; Complete Time: 04:59 [facility] 07/02 04:11 Order name: Lactate Sepsis 2 HR Follow-up; Complete Time: 04:59 [facility] 07/02 06:44 Order name: Lactate w/ 2H reflex if indic.; Complete Time: 06:49 EDIN 07/02 08:09 Order name: Glucose, Ancillary Testing [facility] 07/02 09:20 Order name: Lactate Sepsis 2 HR Follow-up [facility] 07/02 00:10 Order name: Chest Single View XRAY [facility] 07/02 00:10 Order name: EKG; Complete Time: 00:11 4 07/02 02:52 Order name: CONS Physician Consult [facility] 07/02 00:10 Order name: Accucheck; Complete Time: 00:27 4 07/02 00:10 Order name: Cardiac monitoring; Complete Time: 00:27 sp4 07/02 00:10 Order name: EKG - Nurse/Tech; Complete Time: 01:18 sp4 07/02 00:10 Order name: IV Saline Lock - Large Bore; Complete Time: 00:27 4 07/02 00:10 Order name: Labs collected and sent; Complete Time: 00:27 4 07/02 00:10 Order name: O2 Per Protocol; Complete Time: 00:27 4 07/02 00:10 Order name: O2 Sat Monitoring; Complete Time: 00:27 4 07/02 00:10 Order name: Vital Signs; Complete Time: 00:27 sp4 07/02 00:32 Order name: Central Line Kit; Complete Time: 01:17 sp4 07/02 00:33 Order name: Colindres; Complete Time: : sp4 07/02 03:30 Order name: Accucheck Blood Glucose; Complete Time: 03:42 sp4 EC:01 Rate is 168 beats/min. Rhythm is regular, Sinus tachycardia. QRS interval is normal. T sp4 waves are Flattened. Interpreted by me. Reviewed by me. Administered Medications: 00:10 Drug: Midazolam IVP or IV 5 mg IVP once {Note: io, right lower leg.} Route: IVP; Site: rv2 Other; 02:19 Follow up: Response: No adverse reaction 00:24 Drug: Etomidate IVP 40 mg IVP once Route: IVP; Site: PICC; km8 02:21 Follow up: Response: No adverse reaction 00:24 Drug: Rocuronium IVP 100 mg IVP once Route: IVP; Site: PICC; 8 02:22 Follow up: Response: No adverse reaction 00:30 Drug: Albuterol Inhalation 2.5 mg Inhalation once Route: Inhalation; rv2 00:30 Drug: NS 0.9% IV 1000 ml IV at 1 bolus Per protocol; 1000 mL bolus Route: IV; Rate: 1 rv2 bolus; Site: right jugular; 02:24 Follow up: IV Status: Completed infusion; IV Intake: 1000ml 00:30 Drug: NS 0.9% IV 1000 ml IV at 1 bolus Per protocol; 1000 mL bolus Route: IV; Rate: 1 rv2 bolus; Site: right jugular; 02:25 Follow up: IV Status: Completed infusion; IV Intake: 1000ml 00:35 CANCELLED (Physician Discretion): vancomycin2 grams IVPB at calculated rate once 4 00:45 Drug: Acetaminophen MO Suppository 650 mg MO once Route: MO; 8 02:23 Follow up: Response: No adverse reaction 8 00:45 Drug: Acetaminophen MO Suppository 325 mg MO once Route: MO; rv2 02:22 Follow up: Response: No adverse reaction 00:45 Drug: Piperacillin-Tazobactam IVPB 3.375 grams IVPB once over 60 mins; (mix in NS 100 rv2 mL) Route: IVPB; Infused Over: 60 mins; Site: right jugular; 03:07 Follow up: IV Status: Completed infusion 01:00 Drug: Midazolam IVP or IV 0.01 mg/kg/h IV at calculated rate See Administration km8 Instructions; (Standard concentration: 100 mg / 100 mL NS); Recommended max rate 0.1 mg/kg/hr; Titrate 0.01 mg/kg/hr as often as every 30 minutes to achieve goal (see titration policy); Goal parameter RASS 0 to -2 Route: IV; Rate: calculated rate; Site: right jugular; 05:34 Follow up: IV Status: Infusion continued upon admission 8 01:17 Not Given (Duplicate Order): ibuprofensuspension 600 mg PO once; via NG tube rv2 01:17 Drug: Ibuprofen PO 800 mg PO once; Per rectum Route: PO; rv2 02:21 Follow up: Response: No adverse reaction km8 01:36 Drug: Calcium Gluconate IVPB 1 grams IVPB once over 60 mins; (mix in NS 100 mL) Route: rv2 IVPB; Infused Over: 60 mins; Site: right jugular; 03:05 Follow up: IV Status: Completed infusion; IV Intake: 100ml km8 01:37 Drug: Calcium Chloride IVP 1 grams IVP once Route: IVP; Site: right jugular; rv2 02:21 Follow up: Response: No adverse reaction 8 01:37 Drug: Sodium Bicarbonate IVP 1 amp IVP once; (50 mL); equals 50 mEq Route: IVP; Site: rv2 right jugular; 02:20 Follow up: Response: No adverse reaction 8 01:37 Drug: Solu-CORTEF IVP 100 mg IVP once Route: IVP; Site: right jugular; rv2 02:19 Follow up: Response: No adverse reaction 8 01:38 Drug: Meropenem IV 1 grams IV at calculated rate once; (mix in NS 100 mL) Route: IV; rv2 Rate: calculated rate; Site: right forearm; 03:07 Follow up: IV Status: Completed infusion 8 01:38 Drug: Sodium Bicarbonate IVP 1 amp IVP once; (50 mL); equals 50 mEq Route: IVP; Site: rv2 right jugular; 02:20 Follow up: Response: No adverse reaction 8 02:24 Drug: NS 0.9% IV 1000 ml IV at 1 bolus Per protocol; 1000 mL bolus Route: IV; Rate: 1 km8 bolus; Site: right jugular; 04:33 Follow up: IV Status: Completed infusion; IV Intake: 1000ml 03:04 Drug: Ketorolac IVP 30 mg IVP once Route: IVP; Site: right jugular; km8 04:03 Follow up: Response: Temperature is decreased km8 03:15 Drug: Propofol IV 5 mcg/kg/min IV at calculated rate See Administration Instructions; km8 Standard concentration 1000 mg / 100 mL; Recommended max rate 50 mcg/kg/min; Titrate 2 mcg/kg/min every 5 minutes to achieve goal (see titration policy); Goal parameter RASS score 0 to -2 Route: IV; Rate: calculated rate; Site: right jugular; 05:34 Follow up: IV Status: Infusion continued upon admission km8 03:26 Drug: Acetaminophen MO Suppository 650 mg MO once Route: MO; km8 04:03 Follow up: Response: Temperature is decreased km8 03:27 Not Given (Hemodynamic Parameters): norepinephrine0.1 mcg/kg/min IV at calculated rate km8 See Administration Instructions; (Standard concentration 4 mg / 250 mL D5W); Recommended max rate 3 mcg/kg/min; Titrate 0.05 mcg/kg/min as often as every 5 minutes to achieve goal (see titration policy); Goal parameter MAP greater than 65 mmHg. 03:31 Not Given (Physician Discretion): d5-1/2 ns125 ml/kg IV at bolus once; 1000 mL bolus; sp4 followed by 125 mL/hr continuous 03:50 Drug: Linezolid IV 600 mg IV at calculated rate once over 60 mins Route: IV; Rate: km8 calculated rate; Infused Over: 60 mins; Site: right jugular; 04:55 Follow up: IV Status: Completed infusion km8 04:34 Not Given (Other Intervention Used): d 5-1/2 ns with kcl10 meq/l 1000 ml IV at 125 km8 ml/hr continuous 04:38 Drug: D5-1/2 NS with KCl IV 20 mEq/L 1000 ml IV at 125 ml/hr continuous Route: IV; km8 Rate: 125 ml/hr; Site: right forearm; 05:34 Follow up: IV Status: Order to discontinue infusion; not continued, different admission km8 orders Disposition Summary: 07/02/23 03:01 Hospitalization Ordered Notes: Hospitalization Status: Inpatient Admission sp4 Provider: Jair Ibarra spDaquan Condition: Critical sp4 Problem: new sp4 Symptoms: have improved sp4 Bed/Room Type: Standard sp4 Location: Intensive Care Unit(07/02/23 11:13) ja Room Assignment: 2-(07/02/23 11:13) [facility] Diagnosis - Severe sepsis without septic shock sp4 - Acute respiratory failure with hypoxia sp4 - Lateral multifocal pneumonia, severe sepsis, hyperthermia, hyperglycemia, altered sp4 mental status, acute delirium, Forms: - Medication Reconciliation Form sp4 - SBAR form sp4 - Leadership Thank You Letter sp4 Critical care time excluding procedures: 07:36 Critical care time: Bedside Care: 46 minutes, Consultation: 12 minutes, Family sp4 Intervention: 24 minutes. Total time: 82 minutes Signatures: Dispatcher [employer] EDMS Jonas Linares, RN RN ja1 Danitza Acuna, RN RN vc1 Nette Sims rv1 Samson Starkey MD MD sp4 BETH LinII, Tye, RN RN rv2 Nani Azar RN RN km8 Vijay Plasencia, RN RN as9 Corrections: (The following items were deleted from the chart) 00:35 00:32 vancoMYCIN IVPB 2 grams IVPB at calculated rate once ordered. sp4 sp4 01:54 01:26 Head C Spine CAP W Con+CT.RAD.BRZ ordered. EDIN EDIN 03:11 03:01 Telemetry/MedSurg (Inpatient) sp4 rv1 03:11 03:01 sp4 rv1 06:07 03:11 Intensive Care Unit rv1 vc1 06:07 03:11 rv1 vc1 11:13 06:[address] [facility] ER HOLD vc1 ja1 11:13 06:07 ERHOLD- vc1 ja1
[2023-07-02] MEDS ORDERED: propofoL 1,000 MG/100 ML VIAL IV ONE ×2 (03:09→09:59)
[2023-07-02] MEDS: propofoL 1,000 MG/100 ML VIAL IV SCH (03:15)
[2023-07-02] MEDS: LINEZOLID 600 MG IVPB 600 MG/300 ML BAG IV ONE (03:29)
[2023-07-02] MEDS ORDERED: D5.45NS W/KCL 20MEQ 1,000 ML IV ONE (03:36)
[2023-07-02] MEDS ORDERED: GLUCAGON 1 MG/VIAL IM PRN ×2 (04:09→19:47)
[2023-07-02] MEDS ORDERED: D50W 25 GM/50 ML SYRINGE IV PRN ×2 (04:09→19:47)
[2023-07-02] MEDS ORDERED: D10W 125 ML IV PRN (04:16)
[2023-07-02] MEDS: HYDROCORTISONE SUC 100 MG INJ IV SCH (05:00)
[2023-07-02] MEDS ORDERED: NA CHLORIDE 0.9% 1,000 ML ONE (05:41)
[2023-07-02] MEDS: LEVOTHYROXINE SODIUM 100 MCG VIAL IV SCH (06:00)
[2023-07-02] MEDS: NA CHLORIDE 0.9% 1,000 ML IV SCH (06:00)
[2023-07-02] MEDS: INSULIN REGULAR (HUMAN) 100 UNIT/ML SQ SCH ×2 (07:30→23:41)
[2023-07-02] MEDS ORDERED: ENOXAPARIN 40 MG/0.4 ML SQ ONE (08:44)
[2023-07-02] MEDS ORDERED: CEFEPIME 1 GM/VIAL ONE (08:44)
[2023-07-02] MEDS ORDERED: NA CHLORIDE 0.9% 100 ML ONE ×2 (08:44→20:24)
[2023-07-02] MEDS: ALBUMIN HUMAN 25% 12.5 GM, FUROSEMIDE 100 MG in NA CHLORIDE 0.9% 40 ML IV SCH (09:00)
[2023-07-02] MEDS: ENOXAPARIN 40 MG/0.4 ML SQ SCH (09:00)
[2023-07-02] MEDS: CEFEPIME 1 GM in NA CHLORIDE 0.9% 100 ML IV SCH (09:00)
[2023-07-02] MEDS: LINEZOLID 600 MG IVPB 600 MG/300 ML BAG IV SCH ×2 (09:00)
[2023-07-02] MEDS: ACETAMINOPHEN 650MG/RECT SUPP PR PRN (09:04)
[2023-07-02] MEDS: FUROSEMIDE 20 MG/ 2ML VIAL IV SCH (11:58)
--- NOTE | 2023-07-02 11:59 | P.CNS ---
Date of Consult: 07/02/23 Reason for Consult: Respiratory failure patient on a ventilator Chief Complaint: Severe sepsis, respiratory failure, severe hypothyroidism, pneumonia History of Present Illness: Patient is 37 years of age was found unresponsive by her and brought here to the emergency room diagnosed with pneumonia currently on a ventilator on a propofol drip mother at the bedside not much familiar with the baseline functioning patient is has children stays at home currently that going out to eat with her yesterday Allergies aspirin Allergy (Verified 12/19/18 06:39) Hives/Rash cetirizine [From Zyrtec] Allergy (Verified 12/19/18 06:39) Hives/Rash diphenhydramine [From Benadryl] Allergy (Verified 12/19/18 06:39) Hives/Rash loratadine [From Claritin] Allergy (Verified 12/19/18 06:39) Hives/Rash nitroglycerin Allergy (Verified 12/19/18 06:39) Hives/Rash ondansetron [From Zofran] Allergy (Verified 12/19/18 06:39) Hives/Rash promethazine [From Phenergan] Allergy (Verified 12/19/18 06:39) Hives/Rash vancomycin Allergy (Verified 12/19/18 06:39) Hives/Rash Home Medications: Doxycycline Monohydrate 100 mg PO BID #14 capsule 12/20/18 - Past Medical/Surgical History Diabetic: No -: Dextrocardia -: 3- Ceasarian sections -: open heart surgery -: carpal tunnel both hands -: right elbow pinched nerve -: Correction for transposition as a child - Social History Alcohol use: No CD- Drugs: No Place of Residence: Home Review of Systems is unable to be obtained Physical Examination Temp Pulse Resp BP Pulse Ox 101.2 F H 128 H 30 H 139/96 H 95 07/02/23 10:30 07/02/23 10:30 07/02/23 10:30 07/02/23 10:30 07/02/23 10:30 General: Unresponsive Respiratory: Clear to auscultation bilaterally Cardiovascular: Edema (2+ edema) Gastrointestinal: Normal bowel sounds, Soft and benign Laboratory Data (last 24 hrs) 07/02/23 07/02/23 07/02/23 01:15 00:21 00:21 WBC 11.40 H Hgb 13.1 Hct 38.4 Plt Count 185 PT 11.3 INR 1.03 APTT 20.2 L Sodium 136 Potassium 3.9 BUN 17 Creatinine 1.36 H Glucose 343 H Total Bilirubin 0.7 AST 34 ALT 50 Alkaline Phosphatase 65 - Problems (1) Pneumonia Current Visit: No Status: Acute Plan: Patient is 37 years of age admitted with unresponsiveness and respiratory failure currently has right upper lobe pneumonia's labs are concerned renal function is abnormal troponin elevated TSH is 25 elevated BNP gases show significant hypoxemia count is mildly elevated and is allergic to vancomycin continue with linezolid and meropenem for now will DC hydrocortisone is not hypotensive she is got lower extremity edema will need an echo Lasix sputum cultures Vent settings reviewed patient is a 60% FiO2 changed to Precedex drip wean off propofol Qualifiers: Pneumonia type: due to unspecified organism Laterality: right Lung location: unspecified part of lung Qualified Code(s): J18.9 - Pneumonia, unspecified organism
[2023-07-02] MEDS: DEXMEDETOMIDINE HCL 1,000 MCG in NA CHLORIDE 0.9% 490 ML IV SCH (12:40)
--- NOTE | 2023-07-02 12:56 | P.CNS ---
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 Allergies aspirin Allergy (Verified 12/19/18 06:39) Hives/Rash cetirizine [From Zyrtec] Allergy (Verified 12/19/18 06:39) Hives/Rash diphenhydramine [From Benadryl] Allergy (Verified 12/19/18 06:39) Hives/Rash loratadine [From Claritin] Allergy (Verified 12/19/18 06:39) Hives/Rash nitroglycerin Allergy (Verified 12/19/18 06:39) Hives/Rash ondansetron [From Zofran] Allergy (Verified 12/19/18 06:39) Hives/Rash promethazine [From Phenergan] Allergy (Verified 12/19/18 06:39) Hives/Rash vancomycin Allergy (Verified 12/19/18 06:39) Hives/Rash Home Medications: Doxycycline Monohydrate 100 mg PO BID #14 capsule 12/20/18 - Past Medical/Surgical History Diabetic: No -: Dextrocardia -: 3- Ceasarian sections -: open heart surgery -: carpal tunnel both hands -: right elbow pinched nerve -: Correction for transposition as a child - Social History Smoking Status: Unknown if ever smoked Alcohol use: No CD- Drugs: No Place of Residence: Home Review of Systems is unable to be obtained (patient is intubated and sedated.) Physical Examination Temp Pulse Resp BP Pulse Ox 101.2 F H 128 H 30 H 139/96 H 95 07/02/23 10:30 07/02/23 10:30 07/02/23 10:30 07/02/23 10:30 07/02/23 10:30 General: Other (intubated, sedated) HEENT: Atraumatic Neck: Supple Respiratory: Crackles/rales Cardiovascular: Normal S1 S2, Edema (+2 to bilateral lower extremities) Gastrointestinal: Normal bowel sounds Musculoskeletal: No clubbing Laboratory Data (last 24 hrs) 07/02/23 07/02/23 07/02/23 01:15 00:21 00:21 WBC 11.40 H Hgb 13.1 Hct 38.4 Plt Count 185 PT 11.3 INR 1.03 APTT 20.2 L Sodium 136 Potassium 3.9 BUN 17 Creatinine 1.36 H Glucose 343 H Total Bilirubin 0.7 AST 34 ALT 50 Alkaline Phosphatase 65 - Problems (1) Dextro-transposition of great arteries type 3 Current Visit: Yes Status: Acute Plan: patient is s/p Mustard procedure at age of 1. please try to get medical records from [place] physician, Dr. Conrad office. get Echo start IV lasxi 40 mg IV BID.
[2023-07-02] MEDS ORDERED: NOREPINEPHRINE BITARTRATE/D5W 4 MG/250 ML BAG IV ONE (14:19)
[2023-07-02] MEDS: NOREPINEPHRINE BITARTRATE/D5W 4 MG/250 ML BAG IV SCH (14:24)
--- NOTE | 2023-07-02 14:40 | EKG ---
Test Date: 2023-07-02 Test Time: 00:46:30 Treatment Technician: RV MEASUREMENT RESULTS: Intervals: Rate: 168 ND: 132 QRSD: 86 QT: 284 QTc: 474 [place]: P: 23 ND: 132 QRS: 132 T: 47 INTERPRETIVE STATEMENTS: Sinus tachycardia Right ventricular hypertrophy with repolarization abnormality Nonspecific T wave abnormality Abnormal ECG Compared to ECG 10/14/2020 22:11:32 Possible ischemia no longer present T-wave abnormality still present Electronically Signed On 07-02-23 14:39:29 HAT TRIMMER by Huan Rey
[2023-07-02] MEDS ORDERED: NOREPINEPHRINE 4 MG in D5W 250 ML IV SCH (15:00)
[2023-07-02] MEDS ORDERED: HEPARIN/D5W 25,000 UNIT/500 ML BAG IV ONE (15:57)
[2023-07-02] MEDS: HEPARIN/D5W 25,000 UNIT/500 ML BAG IV SCH (16:00)
--- NOTE | 2023-07-02 20:18 | RAD REPORT ---
EXAM DESCRIPTION: RAD - Chest Single View - 07/02/2023 12:44 am CLINICAL HISTORY: 37 years Female DYSPNEA TECHNIQUE: One view of the chest. COMPARISON: No prior exams provided for comparison. FINDINGS: Endotracheal tube terminates 2.9 cm above the marcos. Nasogastric tube terminates beyond t he gastroesophageal junction. Right jugular central venous catheter tip projects over the SVC. There are multifocal airspace infiltrates bilaterally, confluent in the right upper lobe. Small right and trace left pleural effusions. No pneumothorax. Mild prominence of the cardiomediastinal silhouette. No acute osseous lesion. IMPRESSION: Lines and tubes in good positions. Multifocal airspace infiltrates bilaterally, most pronounced in the right upper lobe. Small right and trace left pleural effusions. Electronically signed by: Lorena Rosenthal MD 07/02/2023 12:52 AM [employer] Due to temporary technical issues with the PACS/Fluency reporting system, reports are being signed by the in house radiologists without review as a courtesy to insure prompt reporting. The interpreting radiologist is fully responsible for the content of the report.
[2023-07-02] MEDS ORDERED: CEFEPIME 2 GM VIAL ONE (20:24)
[2023-07-02] MEDS: CEFEPIME 2 GM in NA CHLORIDE 0.9% 100 ML IV SCH (20:26)
[2023-07-03 05:01] LABS: Absolute Lymphocytes (CBC) 0.9 K/uL (0.7-4.9); Hematocrit 32.5 % (36.0-45.0); Lymphocytes % 9.4 % (15.3-44.8); MCV 85.1 fL (80-100); MPV 8.1 fL (7.6-11.3); Platelets 152 thou/uL (152-406); RBC Red Blood Cell Count 3.81 M/uL (3.86-4.86)
[2023-07-03 05:23] LABS: Arterial Blood Carboxyhemoglob 1.2 % (0-1.5); Blood Gas Oxyhemoglobin 90.2 % (94-97); Blood O2 Saturation 92.9 % (92-98.5)
[2023-07-03 05:24] LABS: Potassium 2.7 mEq/L (3.5-5.1)
[2023-07-03 05:25] LABS: Albumin 3.6 g/dL (3.4-5.0); Bilirubin Total 1.8 mg/dL (0.2-1.0); Protein, Total 6.9 g/dL (6.4-8.2)
[2023-07-03 06:42] LABS: Blood Morphology Comment NOT SEEN (NOT SEEN); Platelet Estimate ADEQ
--- NOTE | 2023-07-03 06:43 | ECHO ---
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-BC 2-DIMENSIONAL: YES M.MODE: YES DOPPLER: YES COLOR FLOW: YES TDS: YES PORTABLE: YES DEFINITY: NO BUBBLE STUDY: NO DIAGNOSIS: EVALUATE EJECTION FRACTION CARDIAC HISTORY: CATHERIZATION: NO SURGERY: YES PROSTHETIC VALVE: PACEMAKER: NO MEASUREMENTS (cm) DIASTOLIC (NORMALS) SYSTOLIC (NORMALS) IVSd 0.8 (0.6-1.2) LA Diam (1.9-4.0) LVEF 57% LVIDd 2.5 (3.5-5.7) LVIDs 1.8 (2.0-3.5) %FS 28% LVPWd 0.7 (0.6-1.2) Ao Diam 2.7 (2.0-3.7) 2 DIMENSIONAL ASSESSMENT: RIGHT ATRIUM: LEFT ATRIUM: RIGHT VENTRICLE: LEFT VENTRICLE: TRICUSPID VALVE: MITRAL VALVE: PULMONIC VALVE: AORTIC VALVE: PERICARDIAL EFFUSION: AORTIC ROOT: LEFT VENTRICULAR WALL MOTION: DOPPLER/COLOR FLOW: COMMENTS: 1. POOR QUALITY ECHO (EXTREMELY LIMITED EXAM) 2. RECOMMEND TRANSESOPHAGEAL ECHOCARDIOGRAM TECHNOLOGIST: JOJO HUNTER
[2023-07-03] MEDS ORDERED: KCL 20 MEQ/100 mL IVPB 100 ML IV ONE (06:50)
[2023-07-03] MEDS: KCL 20 MEQ/100 mL IVPB 20 MEQ/100 ML BAG IV SCH (06:52)
[2023-07-03 09:11] LABS: Magnesium 1.3 mg/dL (1.6-2.4)
[2023-07-03] MEDS ORDERED: NA CHLORIDE 0.9% 100 ML ONE ×3 (09:15→23:51)
[2023-07-03] MEDS ORDERED: CEFEPIME 2 GM VIAL ONE ×3 (09:15→23:50)
--- NOTE | 2023-07-03 10:24 | P.PN ---
Subjective Date of Service: 07/03/23 Chief Complaint: Severe sepsis, respiratory failure, severe hypothyroidism, pneumonia Pt is resting comfortably in bed. She is intubated and sedated. Pt has intermittent jerky movement of her legs. Pulm is managing vent. No acute event overnight. Review of Systems is unable to be obtained Physical Examination - Vital Signs Temperature: 98.6 F Blood Pressure: 111/75 Pulse: 77 Respirations: 20 Pulse Ox (%): 97 - Physical Exam General: In no apparent distress, Other (intubated and sedated.) HEENT: Atraumatic, Normocephalic Neck: Supple, 2+ carotid pulse no bruit Respiratory: Normal air movement Cardiovascular: No edema, Normal pulses, Regular rate/rhythm, Normal S1 S2 Capillary refill: <2 Seconds Gastrointestinal: Normal bowel sounds, Soft and benign, Non-distended Musculoskeletal: No clubbing, Swelling Integumentary: No rashes, No breakdown Neurological: Other (sedated) Lymphatics: No axilla or inguinal lymphadenopathy - Studies Microbiology Data (last 24 hrs): 07/02/23 00:21 Blood - Blood Blood Culture Gram Stain - Final 07/02/23 00:21 Blood - Blood Gram Stain - Final 07/02/23 00:21 Blood - Blood Blood Culture Gram Stain - Final 07/02/23 00:21 Blood - Blood Gram Stain - Final Assessment And Plan - Plan Severe sepsis with multi-organ failure: Will continue linezolid and cefepime. Lactate is 2.6 <- 2.7. CRP is 19.9. Will follow up blood cx. Hypokalemia: K is 2.7. Will replete with KCL 40mg iv x2 and f/u Mag. Acute resp failure with hypoxia: Pulm is managing vent. ABG shows pH 7.53, CO2 33.2 and O2 62.2 Elevated BNP: BNP is 1700. Echo is poor quality. Will repeat NEELAM when medically stable.Pt received lasix but it was discontinued due to hypotension. NSTEMI: troponin is 1893. Will trend troponin q6h. Continue heparin drip. Cardiology is following. Transaminitis: Likely due to hepatic congestion. AST 205, ALT 173 and Alk phos 51. Will trend LFTs. Hypotension: Continue pressor, keep MAp > 65. 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 Waiting for medical records from Dr. Conrad's office. Hypothyroidism: T4 is low at 0.74. Continue levothyroxine 75 mcg iv daily JUJU: Creatinine is 1.21<- 1.4. Will continue to avoid nephrotoxins and monitor renal function. Morbid Obesity: Pt will benefit from weight loss. DVT Prophylaxis: Lovenox Code: Full code. Disposition: Pending hospital course.
[2023-07-03] MEDS ORDERED: POTASSIUM CL 40 MEQ in NA CHLORIDE 0.9% 500 ML IV SCH (11:00)
--- NOTE | 2023-07-03 11:13 | P.PN ---
Subjective Date of Service: 07/03/23 Chief Complaint: Respiratory failure patient on a ventilator Patient's condition has remained stable oxygenation satisfactory remains agitated requires Precedex drip blood cultures positive Review of Systems is unable to be obtained Physical Examination - Vital Signs Temperature: 98.6 F Blood Pressure: 111/75 Pulse: 77 Respirations: 20 Pulse Ox (%): 97 - Physical Exam General: Unresponsive Respiratory: Clear to auscultation bilaterally, Diminished, Crackles/rales Cardiovascular: No edema (Crackles in the right upper zone), Regular rate/rhythm, Normal S1 S2 Gastrointestinal: Normal bowel sounds, Soft and benign - Studies Microbiology Data (last 24 hrs): 07/02/23 00:21 Blood - Blood Blood Culture Gram Stain - Final 07/02/23 00:21 Blood - Blood Gram Stain - Final 07/02/23 00:21 Blood - Blood Blood Culture Gram Stain - Final 07/02/23 00:21 Blood - Blood Gram Stain - Final Assessment And Plan - Current Problems (Diagnosis) (1) Pneumonia Current Visit: No Status: Acute Plan: Patient is 37 years of age admitted with respiratory failure from right upper lobe pneumonia blood cultures are positive most likely is a strep infection though culture is also positive white count is declined to normal and is on heparin drip troponins elevated most likely from demand ischemia unable to do an echocardiogram I suspect is from a breast surgery DC Lasix albumin drip if she has no edema now Qualifiers: Pneumonia type: due to unspecified organism Laterality: right Lung location: unspecified part of lung Qualified Code(s): J18.9 - Pneumonia, unspecified organism
--- NOTE | 2023-07-03 12:52 | RAD REPORT ---
EXAM DESCRIPTION: [place] Single View07/03/2023 12:23 pm CLINICAL HISTORY: Chest pain COMPARISON: July 02, 2023 FINDINGS: Lines and tubes in good position. Bilateral pulmonary opacities have partially resolved. Heart remains enlarged
[2023-07-03] MEDS: CEFEPIME 2 GM in NA CHLORIDE 0.9% 100 ML IV SCH (17:58)
[2023-07-04] MEDS: LORazepam 2 MG/ML VIAL IV PRN (02:28)
[2023-07-04] MEDS: HYDROMORPHONE HCL 2 MG/ML inj IV PRN (02:30)
[2023-07-04 05:06] LABS: Absolute Lymphocytes (CBC) 1.3 K/uL (0.7-4.9); Hematocrit 29.8 % (36.0-45.0); Lymphocytes % 12.9 % (15.3-44.8); MCV 85.9 fL (80-100); MPV 8.2 fL (7.6-11.3); Platelets 164 thou/uL (152-406); RBC Red Blood Cell Count 3.47 M/uL (3.86-4.86)
[2023-07-04 05:28] LABS: Albumin 3.3 g/dL (3.4-5.0); Bilirubin Total 1.1 mg/dL (0.2-1.0); Protein, Total 6.9 g/dL (6.4-8.2)
[2023-07-04] MEDS: KCL 20 MEQ/100 mL IVPB 20 MEQ/100 ML BAG IV SCH ×2 (06:13→23:23)
[2023-07-04] MEDS ORDERED: MAGNESIUM SULFATE 1 gm IVPB 0 GM/0 ML BAG IV ONE (07:18)
--- NOTE | 2023-07-04 07:24 | RAD REPORT ---
EXAM DESCRIPTION: RAD - Chest Single View - 07/04/2023 6:11 am CLINICAL HISTORY: Pneumonia COMPARISON: Chest Single View dated 07/03/2023; Chest Single View dated 07/02/2023; Chest Single View dated 10/14/2020; Chest Single View dated 12/19/2018; Chest For Pe Angio dated 12/19/2018 FINDINGS: Lines: Endotracheal tube at the clavicular heads, approximately half of a cm above the aor tic arch. Right IJ approach central line with tip overlying the SVC. Enteric tube below the diaphragm . Lungs: Widespread pulmonary opacities. Pleural: Left pleural effusion suspected. Probable layering right pleural effusion as well. Cardiac: Cardiomegaly. Mediastinum: Within normal limits. Bones: No acute fractures. Other: None IMPRESSION: Stable support apparatus. Similar widespread airspace disease bilaterally could represen t edema and/or pneumonia. .
[2023-07-04] MEDS ORDERED: NA CHLORIDE 0.9% 100 ML ONE (08:10)
[2023-07-04] MEDS ORDERED: CEFEPIME 2 GM VIAL ONE (08:10)
[2023-07-04] MEDS: POTASSIUM CL 40 MEQ in NA CHLORIDE 0.9% 500 ML IV SCH (08:28)
[2023-07-04] MEDS: MAGNESIUM 50% 3 GM in NA CHLORIDE 0.9% 100 ML IV ONE (08:28)
[2023-07-04] MEDS ORDERED: HYDROMORPHONE HCL 2 MG/ML inj ONE ×2 (09:46→18:08)
--- NOTE | 2023-07-04 09:53 | P.PN ---
Subjective Date of Service: 07/04/23 Chief Complaint: Respiratory failure patient on a ventilator Pt is intubated and sedated. The intermittent jerky movement of her legs has improved. Pulm is managing vent. No acute event overnight. Review of Systems is unable to be obtained Physical Examination - Vital Signs Temperature: 97.6 F Blood Pressure: 111/73 Pulse: 78 Respirations: 26 Pulse Ox (%): 96 - Physical Exam General: Unresponsive HEENT: Atraumatic, Normocephalic Neck: Supple, 2+ carotid pulse no bruit Respiratory: Clear to auscultation bilaterally, Normal air movement, Other (intubated) Cardiovascular: No edema, Normal pulses, Regular rate/rhythm, Normal S1 S2 Capillary refill: <2 Seconds Gastrointestinal: Normal bowel sounds, Soft and benign, Non-distended Musculoskeletal: No clubbing, No swelling Integumentary: No rashes, No breakdown Lymphatics: No axilla or inguinal lymphadenopathy - Studies Microbiology Data (last 24 hrs): 07/02/23 00:21 Blood - Blood Blood Culture Gram Stain - Final 07/02/23 00:21 Blood - Blood Gram Stain - Final 07/02/23 00:21 Blood - Blood Blood Culture Gram Stain - Final 07/02/23 00:21 Blood - Blood Gram Stain - Final Assessment And Plan - Plan Severe sepsis 2/2 RLL Pneumonia with multi-organ failure: Will continue linezolid and cefepime. Lactate is 2.6 <- 2.7. CRP is 19.9. Will follow up blood cx. Pt has MRSA in nostril. Hypokalemia: K is 3.0 <- 2.7. Will replete with KCL 40mg iv x2 and f/u Mag. Acute resp failure with hypoxia: Pulm is managing vent. ABG shows pH 7.53, CO2 33.2 and O2 62.2 Elevated BNP: BNP is 1700. Echo is poor quality. Will repeat NEELAM when medically stable.Pt received lasix but it was discontinued due to hypotension. NSTEMI: Troponin is 1383 <- 1893 <- 1327. Will trend troponin q6h. Continue heparin drip. Cardiology is following. Transaminitis: Likely due to hepatic congestion. AST 205, ALT 173 and Alk phos 51. Will trend LFTs. Hypotension: Continue pressor, keep MAp > 65. 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 Waiting for medical records from Dr. Conrad's office. Hypothyroidism: T4 is low at 0.74. Continue levothyroxine 75 mcg iv daily JUJU: Creatinine is 1.26<- 1.21<- 1.4. Will continue to avoid nephrotoxins and monitor renal function. Morbid Obesity: Pt will benefit from weight loss. DVT Prophylaxis: Lovenox Code: Full code. Disposition: Pending hospital course.
--- NOTE | 2023-07-04 10:54 | P.PN ---
Subjective Date of Service: 07/04/23 Chief Complaint: Respiratory failure patient on a ventilator Patient is agitated unresponsive blood cultures are all positive Review of Systems is unable to be obtained Physical Examination - Vital Signs Temperature: 97.6 F Blood Pressure: 112/74 Pulse: 78 Respirations: 18 Pulse Ox (%): 94 - Physical Exam General: Unresponsive Respiratory: Clear to auscultation bilaterally, Diminished Cardiovascular: No edema, Regular rate/rhythm, Normal S1 S2 - Studies Microbiology Data (last 24 hrs): 07/02/23 00:21 Blood - Blood Blood Culture Gram Stain - Final 07/02/23 00:21 Blood - Blood Gram Stain - Final 07/02/23 00:21 Blood - Blood Blood Culture Gram Stain - Final 07/02/23 00:21 Blood - Blood Gram Stain - Final Assessment And Plan - Current Problems (Diagnosis) (1) Pneumonia Current Visit: No Status: Acute Plan: Patient admitted with severe community-acquired pneumonia most likely pneumococcus blood cultures all positive changed to IV Rocephin labs chest x- rays all reviewed Qualifiers: Pneumonia type: due to unspecified organism Laterality: right Lung location: unspecified part of lung Qualified Code(s): J18.9 - Pneumonia, unspecified organism (2) Respiratory failure Current Visit: Yes Status: Acute Plan: Patient is currently unresponsive on a ventilator Vent settings have been changed today changed to assist-control doing much better peak pressures around 33 also reduce the PEEP to 10 sat 90 to 95% and is on a Precedex drip we will start the weaning process white count has normalized Qualifiers: Chronicity: acute
[2023-07-04] MEDS ORDERED: HEPARIN/D5W 25,000 UNIT/500 ML BAG IV ONE (14:32)
[2023-07-04] MEDS ORDERED: NA CHLORIDE 0.9% 500 ML ONE ×2 (15:48→17:24)
[2023-07-04] MEDS: NA CHLORIDE 0.9% 500 ML IV SCH (15:48)
[2023-07-04] MEDS ORDERED: FUROSEMIDE 40 MG/4 ML VIAL ONE ×2 (18:21→22:42)
[2023-07-04] MEDS ORDERED: LORazepam 2 MG/ML VIAL ONE (18:21)
[2023-07-04] MEDS ORDERED: CISATRACURIUM INJECTION 2 MG/ML (10 ML Vial) IV ONE (18:22)
[2023-07-04] MEDS: FUROSEMIDE 40 MG/4 ML VIAL IV ONE ×2 (18:25→22:47)
[2023-07-04] MEDS: CISATRACURIUM INJECTION 2 MG/ML (10 ML Vial) IV PRN (18:26)
[2023-07-04 18:51] LABS: Absolute Lymphocytes (CBC) 1.5 K/uL (0.7-4.9); Hematocrit 30.3 % (36.0-45.0); Lymphocytes % 20.3 % (15.3-44.8); MPV 8.1 fL (7.6-11.3); Platelets 165 thou/uL (152-406); RBC Red Blood Cell Count 3.49 M/uL (3.86-4.86)
[2023-07-04 19:10] LABS: Magnesium 2.5 mg/dL (1.6-2.4); Phosphorus 2.1 mg/dL (2.5-4.9); Potassium 3.6 mEq/L (3.5-5.1)
[2023-07-04 19:25] LABS: Troponin High Sensitivity 874.6 pg/mL (<58.9)
--- NOTE | 2023-07-04 19:29 | RAD REPORT ---
EXAM DESCRIPTION: RAD - Chest Single View - 07/04/2023 7:21 pm CLINICAL HISTORY: ET tube placement COMPARISON: Chest Single View dated 07/04/2023; Chest Single View dated 07/03/2023; Chest Single View dated 07/02/2023; Chest Single View dated 10/14/2020 FINDINGS: Lines: Endotracheal tube in satisfactory position at the aortic arch. Central line in faheem lar position. Enteric tube below the diaphragm . Lungs: Widespread pulmonary opacities are unchanged. Pleural: No significant pleural effusions or pneumothorax. Cardiac: Similar size configuration. Mediastinum: Within normal limits. Bones: No acute fractures. Other: None IMPRESSION: Support apparatus in satisfactory position. Widespread airspace opacities which may refl ect edema and/or multifocal pneumonia.
[2023-07-04 19:34] LABS: Blood Gas Oxyhemoglobin 88.2 % (94-97); Blood O2 Saturation 90.5 % (92-98.5)
[2023-07-04] MEDS: propofoL 1,000 MG/100 ML VIAL IV SCH (20:15)
[2023-07-05] MEDS: LORazepam 2 MG/ML VIAL IV PRN (03:50)
[2023-07-05 04:18] VITALS: O2SAT 100
[2023-07-05 05:06] LABS: Absolute Lymphocytes (CBC) 1.1 K/uL (0.7-4.9); Hematocrit 29.6 % (36.0-45.0); Lymphocytes % 14.6 % (15.3-44.8); MCV 86.6 fL (80-100); Platelets 175 thou/uL (152-406); RBC Red Blood Cell Count 3.41 M/uL (3.86-4.86)
[2023-07-05 05:26] LABS: Albumin 3.1 g/dL (3.4-5.0); Bilirubin Total 0.8 mg/dL (0.2-1.0); Potassium 3.4 mEq/L (3.5-5.1)
[2023-07-05] MEDS: KCL 20 MEQ/100 mL IVPB 20 MEQ/100 ML BAG IV SCH (07:00)
[2023-07-05] MEDS: POTASSIUM PHOS IN 0.9 % NACL 15 MMOL/250 ML BAG IV ONE (07:00)
--- NOTE | 2023-07-05 07:17 | RAD REPORT ---
EXAM DESCRIPTION: RAD - Chest Single View - 07/05/2023 4:54 am CLINICAL HISTORY: Pneumonia COMPARISON: Chest Single View dated 07/04/2023; Chest Single View dated 07/04/2023; Chest Single View dated 07/03/2023; Chest Single View dated 07/02/2023 FINDINGS: Lines: ETT similar position. Right IJ approach central line in similar positioning. Enteri c tube below the diaphragm. Lungs: Improved aeration of the lungs bilaterally with diminishing bilateral airspace disease. Pleural: No significant pleural effusions or pneumothorax. Cardiac: Cardiomegaly which is similar. Mediastinum: Within normal limits. Bones: No acute fractures. Other: None IMPRESSION: Improved aeration of the lung bilaterally likely representing either resolving pneumonia and/or edema.
[2023-07-05] MEDS ORDERED: CISATRACURIUM INJECTION 2 MG/ML (10 ML Vial) IV ONE (07:22)
[2023-07-05] MEDS ORDERED: KCL 20 MEQ/100 mL IVPB 100 ML IV ONE (07:23)
[2023-07-05] MEDS ORDERED: LORazepam 2 MG/ML VIAL ONE (07:35)
[2023-07-05] MEDS ORDERED: HYDROMORPHONE HCL 2 MG/ML inj ONE ×2 (07:40→11:32)
[2023-07-05] MEDS ORDERED: POTASSIUM PHOS 30 MM in NA CHLORIDE 0.9% 500 ML IV ONE (08:00)
[2023-07-05] MEDS ORDERED: ENOXAPARIN 40 MG/0.4 ML SQ ONE ×2 (08:02→08:28)
[2023-07-05] MEDS ORDERED: CEFTRIAXONE 2000 MG/VIAL ONE (08:02)
[2023-07-05] MEDS ORDERED: NA CHLORIDE 0.9% 100 ML ONE (08:02)
[2023-07-05] MEDS ORDERED: FUROSEMIDE 40 MG/4 ML VIAL ONE (08:02)
[2023-07-05] MEDS ORDERED: NA CHLORIDE 0.9% 0 ML ONE (08:02)
[2023-07-05] MEDS: FUROSEMIDE 40 MG/4 ML VIAL IV SCH (08:04)
[2023-07-05] MEDS: CEFTRIAXONE 2,000 MG in NA CHLORIDE 0.9% 100 ML IV SCH (08:04)
[2023-07-05] MEDS ORDERED: ALBUTEROL 2.5 MG/3 ML NEB SOL ONE (08:12)
[2023-07-05] MEDS ORDERED: IPRATROPIUM BROM 0.5MG/2.5ML ONE (08:12)
[2023-07-05] MEDS: ALBUTEROL 2.5 MG/3 ML NEB SOL NEB SCH (08:16)
[2023-07-05] MEDS: IPRATROPIUM BROM 0.5MG/2.5ML NEB SCH (08:16)
--- NOTE | 2023-07-05 09:59 | P.PN ---
Subjective Date of Service: 07/05/23 Chief Complaint: Respiratory failure patient on a ventilator Pt is intubated and sedated. No jerky movement of her legs. Pulm is managing vent. Pt is on assist control. Her Peek pressure is elevated. PEEP is 8 and Fio2 50%. No acute event overnight. Review of Systems is unable to be obtained Physical Examination - Vital Signs Temperature: 98.8 F Blood Pressure: 121/78 Pulse: 105 Respirations: 16 Pulse Ox (%): 95 - Physical Exam General: Alert, In no apparent distress, Unresponsive HEENT: Atraumatic, Normocephalic Neck: Supple, 2+ carotid pulse no bruit Respiratory: Other (intubated) Cardiovascular: Normal pulses, Regular rate/rhythm, Normal S1 S2, Edema Capillary refill: <2 Seconds Gastrointestinal: Normal bowel sounds, Soft and benign, Non-distended Musculoskeletal: No clubbing, No swelling Integumentary: No rashes, No breakdown Neurological: Other (sedated) Lymphatics: No axilla or inguinal lymphadenopathy - Studies Microbiology Data (last 24 hrs): 07/02/23 00:21 Blood - Blood Aerobic Blood Culture - Final Strep Pneumoniae 07/02/23 00:21 Blood - Blood Blood Culture Gram Stain - Final 07/02/23 00:21 Blood - Blood Anaerobic Blood Culture - Final Strep Pneumoniae 07/02/23 00:21 Blood - Blood Gram Stain - Final 07/02/23 00:21 Blood - Blood Aerobic Blood Culture - Final Strep Pneumoniae 07/02/23 00:21 Blood - Blood Blood Culture Gram Stain - Final 07/02/23 00:21 Blood - Blood Anaerobic Blood Culture - Final Strep Pneumoniae 07/02/23 00:21 Blood - Blood Gram Stain - Final Assessment And Plan - Plan Severe sepsis 2/2 RLL Pneumonia with multi-organ failure: Will continue rocephin 2gm iv daily. Off linezolid and cefepime. Lactate is 2.6 <- 2.7. CRP is 19.9. Blood cx is growing strep pneumonae. Pt has MRSA in nostril. Hypokalemia: K is 3.4 <- 3.0 <- 2.7. Will replete with KCL 40mg iv and f/u Mag. Acute resp failure with hypoxia: Pulm is managing vent. ABG shows pH 7.38 <- 7.53, CO2 43<- 33.2 and O2 64<- 62.2. Pt is on assist control. PEEP is 8 and Fio2 50%. Her Peek pressure is elevated. Will increase propofol rate of infusion. Ok to add dilaudid and prn pain meds to suppress resp drive a little bit. Elevated BNP: BNP is 1700. Echo is poor quality. Will repeat NEELAM when medically stable. Pt received lasix last night due pulm edema. NSTEMI: Troponin is 1383 <- 1893 <- 1327. Will trend troponin q6h. Off heparin drip. Cardiology is following. Transaminitis: Likely due to hepatic congestion. AST 74 <- 205, ALT 137 <- 173 and Alk phos 50<- 51. Improved with diuresis. Will trend LFTs. Hypotension: Continue pressor, keep MAp > 65. 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 Waiting for medical records from Dr. Conrad's office. Hypothyroidism: T4 is low at 0.74. Continue levothyroxine 75 mcg iv daily JUJU: Creatinine is 1.16<- 1.26<- 1.21<- 1.4. Will continue to avoid nephrotoxins and monitor renal function. Morbid Obesity: Pt will benefit from weight loss. Nutrition: Pt still has significant output from her OG tube. Will reassess when to start TPN tomorrow. DVT Prophylaxis: Lovenox Code: Full code. Disposition: Pending hospital course.
[2023-07-05] MEDS ORDERED: FUROSEMIDE 20 MG/ 2ML VIAL ONE (10:28)
[2023-07-05] MEDS: FUROSEMIDE 20 MG/ 2ML VIAL IV ONE (10:29)
[2023-07-05] MEDS: HYDROMORPHONE HCL 2 MG/ML inj IV PRN (11:33)
[2023-07-05] MEDS ORDERED: propofoL 1,000 MG/100 ML VIAL IV ONE (11:47)
[2023-07-05 11:54] VITALS: BMI 59.8
--- NOTE | 2023-07-05 13:06 | P.DS ---
Admission Date: 07/02/23 Discharge Date: 07/05/23 Disposition: [facility]SFER TO [facility] Discharge Condition: CRITICAL Reason for Admission: Respiratory failure patient on a ventilator Brief History of Present Illness: 37-year-old female patient with medical history significant for dextrocardia status post reversal surgery, hypertension, CHF, hypothyroidism who also was evaluated for episode of significant lethargy and found to be septic. She came in with significant respiratory failure requiring urgent intubation, lactic acidosis and chest x-ray concerning for pneumonia. She has a right upper lobe opacification on imaging. She was started on broad-spectrum antibiotics with linezolid and meropenem and was started on vasopressors and was admitted for inpatient care. Other pertinent lab findings include low T4 level of 0.74, elevated TSH of 24, elevated lactic acid of 5.7, elevated white cell of 13 K, neutrophil differential of 88% and elevated creatinine of 1.4. Hospital Course: Pt is a 37yo female with past medical history significant for dextrocardia status post reversal surgery at the age of 2 months, hypertension, CHF, and hypothyroidism who also was evaluated for episode of significant lethargy and found to be septic. She presented with significant respiratory failure requiring urgent intubation. CXR showed right upper lobe opacification. lab studies showed low T4 level of 0.74, elevated TSH of 24, elevated lactic acid of 5.7, elevated white cell of 13K, neutrophil differential of 88% and elevated creatinine of 1.4. She was admitted in the ICU and we gave broad-spectrum antibiotics (linezolid and meropenem). Pt became hypotensive and we started vasopressors. Pt was admitte din the ICU and treated for the medical problems listed below. Septic shock 2/2 RLL Pneumonia with multi-organ failure: Will continue rocephin 2gm iv daily. Off linezolid and cefepime. Lactate is 2.6 <- 2.7. CRP is 19.9. Blood cx is growing strep pneumonae. Pt has MRSA in nostril. Hypokalemia: K is 3.4 <- 3.0 <- 2.7. Will replete with KCL 40mg iv and f/u Mag. Acute resp failure with hypoxia: Pulm is managing vent. ABG shows pH 7.38 <- 7.53, CO2 43<- 33.2 and O2 64<- 62.2. Pt is on assist control. PEEP is 8 and Fio2 50%. Her Peek pressure is elevated. Will increase propofol rate of infusion. Ok to add dilaudid and prn pain meds to suppress resp drive a little bit. Elevated BNP: BNP is 1700. Echo is poor quality. Will repeat NEELAM when medically stable. Pt received lasix last night due pulm edema. NSTEMI: Troponin is 1383 <- 1893 <- 1327. Will trend troponin q6h. Off heparin drip. Cardiology is following. Transaminitis: Likely due to hepatic congestion. AST 74 <- 205, ALT 137 <- 173 and Alk phos 50<- 51. Improved with diuresis. Will trend LFTs. Hypotension: Continue pressor, keep MAp > 65. 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 Waiting for medical records from Dr. Conrad's office. Hypothyroidism: T4 is low at 0.74. Continue levothyroxine 75 mcg iv daily JUJU: Creatinine is 1.16<- 1.26<- 1.21<- 1.4. Will continue to avoid nephrotoxins and monitor renal function. Morbid Obesity: Pt will benefit from weight loss. Nutrition: Pt still has significant output from her OG tube. Will reassess when to start TPN tomorrow. DVT Prophylaxis: Lovenox Code: Full code. Disposition: Pt was transferred to [facility] in [place]. Vital Signs/Physical Exam: Temp Pulse Resp BP Pulse Ox 98.8 F 96 H 16 103/72 100 07/05/23 10:11 07/05/23 11:25 07/05/23 11:33 07/05/23 11:00 07/05/23 11:33 Laboratory Data at Discharge: WBC 7.30 thou/uL (4.3-10.9) 07/05/23 04:55 Hgb 10.3 g/dL (12.0-15.0) L 07/05/23 04:55 Hct 29.6 % (36.0-45.0) L 07/05/23 04:55 Plt Count 175 thou/uL (152-406) 07/05/23 04:55 PT 11.3 SECONDS (9.5-12.5) 02/15/24 00:21 INR 1.03 07/02/23 00:21 APTT Cancelled 07/04/23 21:30 Sodium 139 mEq/L (136-145) 07/05/23 04:55 Potassium 3.4 mEq/L (3.5-5.1) L 07/05/23 04:55 BUN 28 mg/dL (7-18) H 07/05/23 04:55 Creatinine 1.16 mg/dL (0.55-1.02) H 07/05/23 04:55 Glucose 109 mg/dL (74-106) H 07/05/23 04:55 Phosphorus 2.1 mg/dL (2.5-4.9) L 07/04/23 18:42 Magnesium 2.5 mg/dL (1.6-2.4) H 07/04/23 18:42 Total Bilirubin 0.8 mg/dL (0.2-1.0) 07/05/23 04:55 AST 74 U/L (15-37) H 07/05/23 04:55 ALT 137 U/L (13-56) H 07/05/23 04:55 Alkaline Phosphatase 50 U/L (45-117) 07/05/23 04:55 Triglycerides 139 mg/dL (<150) 07/03/23 04:50 Cholesterol 150 mg/dL (<200) 07/03/23 04:50 HDL Cholesterol 28 mg/dL (40-60) L 07/03/23 04:50 Cholesterol/HDL Ratio 5.36 07/03/23 04:50 Home Medications: Doxycycline Monohydrate 100 mg PO BID #14 capsule 12/20/18 Physician Discharge Instructions: Transfer to CICU at [facility] in [place]. Continue iv antibiotics. Followup: NONE,NONE [Primary Care Provider] -
[2023-07-05 13:33] VITALS: BP 105/70; TEMP 97.4
[2023-07-05] MEDS: CISATRACURIUM INJECTION 2 MG/ML (10 ML Vial) IV PRN (13:39)
[2023-07-05] MEDS ORDERED: FUROSEMIDE 40 MG/4 ML VIAL IV SCH (17:00)
== END 2023-07-05 14:10 | disposition short-term general hospital (02) | DRG 871 ==
LOC: ER 00:05 → ERHOLD 02:42 → 3RD-ICU 11:54
PROVIDERS: ADMIT Internal Medicine Nephrology; ATTEND Hospitalist
PROC: 5A1935Z Respiratory Ventilation, Less than 24 Consecutive Hours (ICD-10-PCS; principal; 2023-07-02)
PROC: 0BH17EZ Insertion of Endotracheal Airway into Trachea, Via Natural or Artificial Opening (ICD-10-PCS; 2023-07-02)
PROC: 3E033XZ Introduction of Vasopressor into Peripheral Vein, Percutaneous Approach (ICD-10-PCS; 2023-07-02)
PROC: 05HY33Z Insertion of Infusion Device into Upper Vein, Percutaneous Approach (ICD-10-PCS; 2023-07-02)
PROC: 3E0336Z Introduction of Nutritional Substance into Peripheral Vein, Percutaneous Approach (ICD-10-PCS; 2023-07-02)
DX: A40.3 Sepsis due to Streptococcus pneumoniae (principal); I21.4 Non-ST elevation (NSTEMI) myocardial infarction; J18.9 Pneumonia, unspecified organism; R65.21 Severe sepsis with septic shock; J96.01 Acute respiratory failure with hypoxia; Q20.3 Discordant ventriculoarterial connection; E87.20 Acidosis, unspecified; N17.9 Acute kidney failure, unspecified; Z68.44 Body mass index [BMI] 60.0-69.9, adult; F05 Delirium due to known physiological condition; E66.01 Morbid (severe) obesity due to excess calories; I10 Essential (primary) hypertension; E28.2 Polycystic ovarian syndrome; E87.6 Hypokalemia; E03.9 Hypothyroidism, unspecified; B95.62 Methicillin resistant Staphylococcus aureus infection as the cause of diseases classified elsewhere; R68.0 Hypothermia, not associated with low environmental temperature; R74.01 Elevation of levels of liver transaminase levels; R73.9 Hyperglycemia, unspecified; Z78.1 Physical restraint status; Z88.6 Allergy status to analgesic agent; Z88.1 Allergy status to other antibiotic agents; Z88.8 Allergy status to other drugs, medicaments and biological substances; Z11.52 Encounter for screening for COVID-19
CPT/HCPCS: 36415; 36600; 51702; 71045; 80048; 80053; 80061; 80307; 81001; 81025; 82805; 82947; 83605; 83735; 83880; 84100; 84439; 84443; 84484; 85025; 85610; 85730; 86140; 87040; 87070; 87077; 87186; 87205; 87804; 87811; 93005; 93306; 94002; 94003; 94640; 99291; 99292; J0692; J0696; J1170; J1650; J1720; J1940; J2020; J2185; J2250; J2543; J2704; J3475; J3480; J7030; J7040; J7613; J7644; J7799; P9047

== ENCOUNTER 2024-08-21 13:23 | Emergency (ER) | payer OTHER ==
--- OUTSIDE RECORDS SUMMARY | 2024-08-21 13:32 | XMS REPORT | Continuity of Care Document ---
Author Name Unknown Address [address] [facility]. [address] [place] [address] [facility] Address [address] [facility] [place] [address] Care Team Providers Care Racker Octave Board Name Role Phone None, None Primary Care Physician Unavailab FLOR Abarca Attending Clinician Unavailable CAMACHO GERARDO Attending Clinician Unavailable CYRUS TOVAR Attending Clinician Unavailable BRANDON LUCERO Attending Clinician Unavail able BRANDON LUCERO Attending Clinician Unavail able CHAPIN WILSON Attending Clinician Unavailable Nadine Rangel Attending Clinician NADINE ACOSTA Attending Clinician Unavailable Brandon Lucero MD Attending Clinician [phone] Artur Woods MD Attending Clinician [phone], [facility] Attending Clinician Unavailable ARTUR WOODS Attending Clinician UnavailTIERRA Baez Attending Clinician Abril Pires RN, Jeannine Spicer Attending Clinician Unavail able JUAN CHAKRABORTY Attending Clinician Unavailable JUAN CHAKRABORTY Attending Clinician Unavailable Cammie MILLIGAN, uJan Attending Clinician [phone] MELISSA KELLER Attending Clinician Unavailabl juana Morin NP, Nupur Attending Clinician [phone] Melissa Keller MD Attending Clinician [phone] Jonathan Juan PA-C Attending Clinician [phone] JONATHAN UJAN Attending Clinician Unavailable Unknown, Attending Attending Clinician Unavailab BRADEN Flores Attending Clinician Unavailable Anedaryl FRUIT AND VEGETABLE PACKERAnaly Attending Clinician [phone] Carlyn FRUIT AND VEGETABLE PACKERBraden Ceja Attending Clinician [phone] Tierra Whitt MD Attending Clinician [phone] Cristiane Sotelo Attending Clinician [phone] CRISTIANE LAMBERT Attending Clinician Unavailable JACQUELINE KELLER Attending Clinician Unavailable Chapin Wilson MD Attending Clinician + [phone] Doctor Unassigned, [place] Attending Clinician U navailable Lab, Ang - Db Attending Clinician Unavailable Kwabena LAUREN Attending Clinician Unavailable Kwabena LAUREN Attending Clinician Unavailable NICOLAS IZAGUIRRE Attending Clinician Unavailable Zina FRUIT AND VEGETABLE PACKERNicolas Ceja Attending Clinician [phone] Unknown, Attending Attending Clinician Unavailab Artur Bermudez MD Attending Clinician [phone] Braden William Attending Clinician [phone] Lab, Ang - Db Attending Clinician Unavailable ROMY CHOW Attending Clinician Unavailable Romy Chow MD Attending Clinician [phone] Nic MILLIGAN, Brandon Rodriguez Attending Clinician [phone] Steve MILLIGAN, Chapin Attending Clinician [phone] Jacqueline Keller MD Attending Clinician [phone] Doctor Unassigned, [place] Attending Clinician U LIZ Lucia Attending Clinician Unavail able CARMEN FLOOD Attending Clinician UnaJUNE Clifton Attending Clinician Un available PHIL ALEXIS Attending Clinician Unavailable LAZARA WESTFALL Attending Clinician Unavailable ROHAN CAMARILLO Attending Clinician Unavailable JYOTHI BAEZA Attending Clinician Unavailable MARCO GILL Attending Clinician Unavailable Marco Gill MD Attending Clinician [phone] FLOR CONRAD Attending Clinician UnavailLOUANN Johnson Attending Clinician Unavailable BRIANNA DOWELL Attending Clinician Unavailab Brianna Burger DO Attending Clinician [phone] Nurse, [facility] Attending Clinician Un available NALLELY MILLER Attending Clinician Unavailable REYNALDO ELLIS Attending Clinician Unavailable Gibran Shrestha RN Attending Clinician Unavaila [facility] Aric, [facility] Attending Clinician Unavailable TATE CONRAD Attending Clinician [facility]available [facility] ECHO Attending Clinician UnavailFLOR Kan M.D. Attending Clinician UnavailSULLY Holbrook Attending Clinician Unavailable HIGH MIKEY Attending Clinician Unavailable Flor Conrad M.D. Attending Clinician Unavailjake arias OB/RES, ULTRASOUND Attending Clinician Unavailab LAURA Pedroza1 Attending Clinician Unavailable BEESWAX BLEACHER, ROOM1 Attending Clinician Unavailable SMITH SMILEY M.D. Attending Clinician Unava ildomenic M, FELLOW2 Attending Clinician Unavailable OBBARB, POSPROVIDER Attending Clinician Unavailab LOCO Shrestha M.D. Attending Clinician UnavailMELISSA Rodriguez Admitting Clinician UnavailMelissa Rodriguez MD Admitting Clinician [phone] BRADEN ALCOCER Admitting Clinician Unavailable Kwabena LAUREN Admitting Clinician Unavailable LIZ GOINS Admitting Clinician Unavail able NAVI FLOODA MOISES Admitting Clinician TONE Samuel Admitting Clinician Un available CARMEN BUTTERFIELD Admitting Clinician Unavailable MARCO GILL Admitting Clinician Unavailable BRIANNA DOWELL Admitting Clinician Unavailab SULLY Hill Admitting Clinician Unavailable Payers Payer Name Policy Type Policy Number Effective Date Expirati on Date Source [employer] STAR [id number] 2014 00:00:00 MEDICARE PART A AND B [id number] 2004 00:00:00 [employer] STAR [id number] 2023 00:00:00 MEDICAID [place] [id number] 2015 00:00:00 2024 00:00:00 [employer] ST[employer] \\T\\ STAR PLUS MEDICAID Medicaid [id number] 2021 00:00:00 Problems Condition Name Condition Details Condition Category Status Onset Date Resolution Date Last Treatment Date Treating Clinician Comments Source Chest pain, unspecifie d type Chest pain, unspecifie d type Disease Active 07-03 00:00: 00 [facility] SOB (shortness of breath) SOB (shortness of breath) Disease Active 07-03 00:00: 00 [facility] Acute pulmonary edema Acute pulmonary edema Disease Active 07-03 00:00: 00 [facility] Fever, unspecifie d fever cause Fever, unspecifie d fever cause Disease Active 07-03 00:00: 00 [facility] 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 Disease Active 16 00:00: 00 [facility] RLS (restless legs syndrome) RLS (restless legs syndrome) Disease Active - 00:00: 00 [facility] Paronychia of great toe Paronychia of great toe Disease Active 8-20 00:00: 00 [facility] Intrinsic eczema Intrinsic eczema Disease Active 7-15 00:00: 00 [facility] Swelling of lower leg Swelling of lower leg Disease Active 11-29 00:00: 00 [facility] Cardiomega ly Cardiomega ly Disease Active 10-05 00:00: 00 [facility] Neuropathy Neuropathy Disease Active 10-05 00:00: 00 [facility] Hospital discharge follow-up Hospital discharge follow-up Disease Active 10-05 00:00: 00 [facility] HOME SLEEP STUDY G0399 HOME SLEEP STUDY G0399 Active 09/30/2022 [facility] Diagnosis Active 09-30 00:00: 00 2022-10-31 14:25:00 [facility] Obesity, morbid, BMI 50 or higher Obesity, morbid, BMI 50 or higher Disease Active 12-25 00:00: 00 [facility] Primary hypertensi on Primary hypertensi on Disease Active 12-25 00:00: 00 [facility] PCOS (polycysti c ovarian syndrome) PCOS (polycysti c ovarian syndrome) Disease Active 12-25 00:00: 00 [facility] 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 11:57:26. 360 s/p repair as a child;07-19-07 11:57:26. 360 s/p repair as a child; [facility] CHF CHF Active 09/29/2017 [facility] Diagnosis Active 09-29 00:00: 00 2017-09-29 13:53:00 Dann Ob[facility] SENT BY SENT BY Active 09/29/2017 [facility] Diagnosis Active 09-29 00:00: 00 2017-10-13 21:55:00 [facility] R/O LABOR R/O LABOR Active 09/23/2017 [facility] Diagnosis Active 09-23 00:00: 00 2017-09-23 01:43:00 [facility] SHORTNESS OF BREATH SHORTNESS OF BREATH Active 09/18/2017 [facility] Diagnosis Active 09-18 00:00: 00 2017-09-24 21:53:00 [facility] Hypothyroi dism Hypothyroi dism Disease Active 09-15 00:00: 00 [facility] 30WK PREG -PAIN 30WK PREG -PAIN Active 09/07/2017 [facility] Diagnosis Active 09-07 00:00: 00 2017-09-07 16:16:00 [facility] Q20.3 Q20.3 Active 08/25/2017 [facility] Diagnosis Active 08-25 00:00: 00 2017-08-26 07:13:00 Dnan Obrien Active 04/10/2017 [facility] Diagnosis Active 2016-05 08:00: 00 2017-09-16 16:56:00 [facility] Morbid obesity with body mass index of 40.0-49.9 Morbid obesity with body mass index of 40.0-49.9 Disease Active 09-07 00:00: 00 [facility] Morbid obesity with body mass index of 50 or higher Morbid obesity with body mass index of 50 or higher Disease Active 09-07 00:00: 00 [facility] History of transposit ion of great vessels History of transposit ion of great vessels Disease Active 2015-05 00:00: 00 [facility] CHF (congestiv e heart failure) CHF (congestiv e heart failure) Disease Active 2015-05 00:00: 00 [facility] PNA (pneumonia ) PNA (pneumonia ) Disease Active 2015-05 00:00: 00 [facility] Obesity (BMI 30-39.9) Obesity (BMI 30-39.9) Disease Active 2015-05 00:00: 00 [facility] CHEST PAIN FROM COUGHING CHEST PAIN FROM COUGHING Active 04/26/2016 [facility] Diagnosis Active 2015-05 00:00: 00 2016-06-04 13:32:00 [facility] ABD PAIN ABD PAIN [facility] Active 08-21 00:00: 00 2015-08-22 22:37:00 Dann Ob[facility] BACK PAIN BACK PAIN Active 01/22/2015 [facility] Diagnosis Active 01-22 00:00: 00 2015-03-06 14:24:00 [facility] FLU LIKE SYMPTOMS FLU LIKE SYMPTOMS Active 10/30/2014 [facility] Active 10-30 00:00: 00 2014-10-30 15:09:00 [facility] SOB SOB Active 10/30/2014 [facility] Active 10-30 00:00: 00 2014-10-30 00:59:00 [facility] RASH RASH Active 09/08/2014 [facility] Active 09-08 00:00: 00 2014-11-21 14:35:00 [facility] EAR ACHE EAR ACHE Active 08/30/2014 [facility] Active 08-30 00:00: 00 2014-11-13 11:59:00 [facility] LEFT EAR PAIN LEFT EAR PAIN Active 03/03/2014 [facility] Active 2013-05 00:00: 00 2014-03-03 08:46:00 [facility] PNEUMONIA PNEUMONIA Active 11/01/2013 [facility] Active 11-01 02:45: 00 2013-11-02 08:17:00 [facility] LABOR LABOR Active 07/14/2012 [facility] Diagnosis Active 07-14 00:00: 00 2012-07-15 02:52:00 [facility] dann[facility] Obrien Active 07/07/2012 [facility] Diagnosis Active 07-07 00:00: 00 2012-07-07 16:20:00 [facility] dannielle Obrien 37 WEEKS CHF 37 WEEKS CHF Active 07/07/2012 [facility] Diagnosis Active 07-07 00:00: 00 2012-07-07 16:20:00 [facility] dannielle [facility]rien 37 WEEKS CHF, TGA, S/P C-SECTIO 37 WEEKS CHF, TGA, S/P C-SECTIO Active 07/07/2012 [facility] Diagnosis Active 07-07 00:00: 00 2012-07-13 12:26:00 [facility] dannielle Obrien 34 WKS 34 WKS Active 06/25/2012 [facility] Diagnosis Active 06-25 10:18: 00 2012-06-28 11:58:00 Dann Obrien 4 WK GROWTH 4 WK GROWTH Active 05/28/2012 [facility] Diagnosis Active 05-28 00:00: 00 2012-06-30 16:23:00 Dann Ob[facility] Congenital heart disease in adult Congenital heart disease in adult Disease Active 2011-05 00:00: 00 [facility] CONGENITAL HEART DISEASE CONGENITAL HEART DISEASE Active 04/29/2012 [facility] Diagnosis Active 2011-05 00:00: 00 2012-05-27 10:33:00 Dann Obrien CRAMPING CRAMPING Active 03/02/2012 [facility] Diagnosis Active 2011-05 00:00: 00 2012-03-02 11:27:00 [facility] Ob[facility] CHF (congestiv e heart failure) CHF (congestiv e heart failure) Disease Active 11-15 00:00: 00 [facility] PNEUMONIA, ORGANISM NOS PNEUMONIA, ORGANISM NOS Active [facility] Diagnosis Active 2013-11-02 08:17:00 Dann Obrien THREAT LABOR NEC-UNSPEC THREAT LABOR NEC-UNSPEC Active [facility] Diagnosis Active 2012-07-15 02:52:00 Dann Obrien CHF NOS CHF NOS Active [facility] Diagnosis Active 2012-07-13 12:26:00 Dann Obrien DISCORDANT VENTRICULO ARTERIAL CONNECTION DISCORDANT VENTRICULO ARTERIAL CONNECTION Active [facility] Diagnosis Active 2017-08-26 07:13:00 D[facility] Ob[facility] HEART FAILURE, UNSPECIFIE D HEART FAILURE, UNSPECIFIE D Active [facility] Diagnosis Active 2017-10-13 21:55:00 Dann Obrien RELATED CONDITIONS , UNSP, UNSP RELATED CONDITIONS , UNSP, UNSP Active [facility] Diagnosis Active 2017-09-23 01:43:00 Dann Ob[facility] History of Encounter for surveillan ce of other contracept fam History of Encounter for surveillan ce of other contracept fam [facility] of 5 weeks gestation of History of 5 weeks gestation of [facility]olve [facility] History of congestive heart disease History of congestive heart disease Problem [facility]olve [facility] History of Encounter for supervisio n of other normal , unspecifie d trimester History of Encounter for supervisio n of other normal , unspecifie d trimester Problem [facility]olve [facility] History of obesity History of obesity Problem Resolve [facility] Personal history of asthma Personal history of asthma [facility] Resolve [facility] Normal routine physical examinatio n Normal routine physical examinatio n Problem Active [facility] Incomplete miscarriag e Incomplete miscarriag e Problem Active [facility] Missed Missed Problem Active [facility] exam exam Problem Active [facility] Tinea corporis Tinea corporis Problem Active [facility] Nausea and vomiting during Nausea and vomiting during Problem Active [facility] Intermitte nt asthma with status asthmaticu s, unspecifie d asthma severity Intermitte nt asthma with status asthmaticu s, unspecifie d asthma severity Problem Active [facility] Hypoactive thyroid Hypoactive thyroid Problem Active [facility] Morbid obesity Morbid obesity Problem [facility] Transposit ion of great arteries, corrected Transposit ion of great arteries, corrected Problem Active [facility] HRP (high risk ) HRP (high risk ) Problem Active [facility] Mild intermitte nt asthma, unspecifie d whether complicate d Mild intermitte nt asthma, unspecifie d whether complicate d Problem Active [facility] Chronic hypertensi on in Chronic hypertensi on in Problem Active [facility] Congestive heart failure Congestive heart failure Problem Active [facility] 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 Problem [facility] KIDNEY FAILURE KIDNEY FAILURE Resolved 06/28/2003 Problem 07/21/2012 [facility] Problem Resolve d 2004-0 2-11 00:00: 00 2012-07-21 10:08:34 2012-07-21 10:08:34 [facility]ann Ob[facility] Asthma Asthma Resolved 05/18/1988 Problem 07/21/2012 [facility] Problem Resolve d 1988-0 1-01 00:00: 00 2012-07-21 10:08:34 2012-07-21 10:08:34 Dann Obrien CHF (congestiv e heart failure) CHF (congestiv e heart failure) Resolved 1983 Problem 07/21/2012 [facility] Problem Resolve d 1983-0 7-01 00:00: 00 2012-07-21 10:08:34 2012-07-21 10:08:34 [facility] Transposit ion of great vessels Transposit ion of great vessels Resolved 1983 Problem 07/21/2012 [facility] Problem Resolve d 1984-0 7-01 00:00: 00 2012-07-21 10:08:34 2012-07-21 10:08:34 [facility] Allergies, Adverse Reactions, Alerts Allergy Name Allergy Type Status Severity Reaction(s) Onset Date Inactive Date Treating Clinician Comments Source Fexofena dine Allergy to substanc e Active 8-10 00:00: 00 [facility] Vancomyc in Hcl Drug Allergy Active 10 00:00: 00 [facility] Prometha zine Allergy to substanc e Active Nausea And Vomiting 2016-05 00:00: 00 [facility] Prometha zine Propensi ty to adverse reaction s Active Nausea and/or Vomiting 2016-05 00:00: 00 [facility] PROMETHA ZINE DRUG INGREDI Active N/V 2016-05 00:00: 00 [facility] Nitrogly cerin Allergy to substanc e Active Hives 2015-05 00:00: 00 [facility] Nitrogly cerin Propensi ty to adverse reaction s Active Hives 2015-05 00:00: 00 [facility] NITROGLY CERIN DRUG INGREDI Active Hives 2015-05 00:00: 00 [facility] Ondanset jyothi Allergy to substanc e Active Nausea And Vomiting 2015-05 00:00: 00 [facility] Ondanset jyothi Hcl (Pf) Propensi ty to adverse reaction s Active Nausea and/or Vomiting 2015-05 00:00: 00 [facility] ONDANSET JYOTHI HCL (PF) DRUG Active N/V 2015-05 00:00: 00 [facility] Aspirin Allergy to substanc e Active Palpitations 09-26 00:00: 00 Other reaction( s): Other - See commentsL ip swelling [facility] Cetirizi ne Allergy to substanc e Active Shortness of breath 09-26 00:00: 00 [facility] Diphenhy dramine Allergy to substanc e Active Shortness of breath 09-26 00:00: 00 [facility] Loratadi ne Allergy to substanc e Active Shortness of breath 09-26 00:00: 00 [facility] Vancomyc in Allergy to substanc e Active 09-26 00:00: 00 Other reaction( s): Other - See comments" passes out" [facility] Aspirin Propensi ty to adverse reaction s Active Other - See comments 09-26 00:00: 00 Lip swelling [facility] Diphenhy dramine Hcl Propensi ty to adverse reaction s Active Shortness of Breath 09-26 00:00: 00 [facility] Loratadi ne Propensi ty to adverse reaction s Active Shortness of Breath 09-26 00:00: 00 [facility] Vancomyc in Propensi ty to adverse reaction s Active Other - See comments 09-26 00:00: 00 "passes out" [facility] Cetirizi ne Hcl Propensi ty to adverse reaction s Active Shortness of Breath 09-26 00:00: 00 [facility] DIPHENHY DRAMINE DRUG INGREDI Active High Hives 09-26 00:00: 00 [facility] Aspirin Drug Allergy Active Palpitations 09-26 00:00: 00 Lip swelling Other reaction( s): Other - See comments Lip swelling [facility] Diphenhy dramine Drug Allergy Active Shortness of Breath 09-26 00:00: 00 [facility] ASPIRIN DRUG INGREDI Active Low Other-Cmnt 09-26 00:00: 00 [facility] DIPHENHY DRAMINE HCL DRUG INGREDI Active Hives 09-26 00:00: 00 [facility] LORATADI NE DRUG INGREDI Active Hives 09-26 00:00: 00 [facility] VANCOMYC IN DRUG INGREDI Active Other-Cmnt 09-26 00:00: 00 [facility] CETIRIZI NE HCL DRUG INGREDI Active Hives 09-26 00:00: 00 [facility] Claritin Claritin Active [facility] [place] vancomyc in vancomyc in Active [facility] [place] ZyrTEC ZyrTEC Active [facility] aspirin aspirin Active [facility] Benadryl Benadryl Active [facility] ALLERGIE S NOT ON FILE SYSTEMIC Active [facility] Claritin TABS Allergy to drug (finding ) [facility] Vancomyc in HCl SOLR Allergy to drug (finding ) Active [facility] Zyrtec TABS Allergy to drug (finding ) Active [facility] Nancy CAPS Allergy to drug (finding ) Active [facility] nitrogly cerin Allergy to drug (finding ) Active [facility] Zofran TABS Allergy to drug (finding ) Active [facility] Family History Family Member Diagnosis Comments Start Date Stop Date Sourc e Unknown Family Member Family history of Hypertension [facility] Unknown Family Member Family history of Lung Cancer [facility] History [facility] Social History Social Habit Start Date Stop Date Quantity Comments Source Gender identity [facility] Sexual orientation [facility] History SDOH Alcohol Std Drinks [facility] History SDOH Alcohol Comment [facility] History of Social function 2024-07-18 00:00:00 2024-07-18 00:00:00 [facility] Alcoholic beverage intake 2024-07-05 00:00:00 2024-07-05 00:00:00 0 /d [facility] Exposure to SARS-CoV-2 (event) 2022-08-30 00:00:00 2022-09-09 07:56:00 Not sure [facility] History SDOH Alcohol Frequency 2021-12-25 00:00:00 2021-12-25 00:00:00 1 [facility] History SDOH Alcohol Binge 2021-12-25 00:00:00 2021-12-25 00:00:00 1 [facility] History SDOH Social Connections Phone 2021-12-25 00:00:00 2021-12-25 00:00:00 5 [facility] History SDOH Social Connections Get Together 2021-12-25 00:00:00 2021-12-25 00:00:00 2 [facility] History SDOH Social Connections [facility] 2021-12-25 00:00:00 2021-12-25 00:00:00 3 [facility] History SDOH Social Connections Membership 2021-12-25 00:00:00 2021-12-25 00:00:00 1 [facility] History SDOH Social Connections Meetings 2021-12-25 00:00:00 2021-12-25 00:00:00 3 [facility] History SDOH Social Connections Living 2021-12-25 00:00:00 2021-12-25 00:00:00 3 [facility] History SDOH Physical Activity DPW 2021-12-25 00:00:00 2021-12-25 00:00:00 0 [facility] History SDOH Physical Activity MPS 2021-12-25 00:00:00 2021-12-25 00:00:00 0 [facility] History SDOH Stress 2021-12-25 00:00:00 2021-12-25 00:00:00 5 [facility] History SDOH Financial 2021-12-25 00:00:00 2021-12-25 00:00:00 5 [facility] History SDOH Food Worry 2021-12-25 00:00:00 2021-12-25 00:00:00 2 [facility] History SDOH Food Scarcity 2021-12-25 00:00:00 2021-12-25 00:00:00 2 [facility] History SDOH Transport Med 2021-12-25 00:00:00 2021-12-25 00:00:00 2 [facility] History SDOH Transport Non-Med 2021-12-25 00:00:00 2021-12-25 00:00:00 2 [facility] History SDOH Housing Unable to Pay 2021-12-25 00:00:00 2021-12-25 00:00:00 2 [facility] History SDOH Housing Places Lived 2021-12-25 00:00:00 2021-12-25 00:00:00 1 [facility] History SDOH Housing Homeless Last Year 2021-12-25 00:00:00 2021-12-25 00:00:00 2 [facility] Alcohol intake 2021-12-25 00:00:00 2021-12-25 00:00:00 Lifetime non-drinker (finding) [facility] Tobacco use and exposure 2016-04-27 00:00:00 2016-04-27 00:00:00 Smokeless tobacco non-user [facility] Sex Assigned At 1985 00:00:00 1985 00:00:00 [facility] Smoking Status Start Date Stop Date Source Tobacco smoking consumption unknown [facility] Never smoked tobacco [facility] Medications Ordered Medication Name Filled Medication Name Start Date Stop Date Current Medication? Ordering Clinician Indication Dosage Frequency Signature (SIG) Comments Components Source furosemide (LASIX) 40 mg tablet 07-20 00:00: 00 Yes [id number] 40mg Take 1 tablet by mouth in the morning. [facility] LORazepam (ATIVAN) 2 mg tablet 07-19 00:00: 00 07-20 05:59 :00 No [id number] 4mg Take 2 tablets by mouth once now for 1 dose. [facility] guaiFENesin (MUCINEX) 600 mg tablet 07-05 00:00: 00 07-16 05:59 :00 Yes [id number] 600mg Take 1 tablet by mouth every 12 (twelve) hours for 10 days. [facility] pregabalin (LYRICA) capsule 50 mg 07-04 03:00: 00 07-03 19:27 :41 No 50mg [facility] sacubitriL- valsartan (ENTRESTO) 24-26 mg tablet 1 tablet 07-04 02:00: 00 07-03 19:27 :41 No 1{tbl} [facility] apixaban (ELIQUIS) tablet 5 mg 07-04 02:00: 00 07-03 19:27 :41 No [id number] 5mg [facility] furosemide (LASIX) injection 20 mg 07-03 16:45: 00 07-03 17:17 :00 No 20mg 20 mg, Slow IV Push, ONCE, 1 dose, On Thu07/03/24 at 1045, STAT [facility] metoprolol succinate XL (TOPROL XL) tablet 25 mg 16 15:00: 00 07-03 19:27 :41 No 25mg 25 mg, Oral, DAILY, First dose on Thu07/03/24 at 0900, Until Discontinu ed, Routine [facility] morpHINE (4 mg/mL) injection 4 mg 07-03 09:29: 38 07-03 19:27 :41 No 4mg 4 mg, Slow IV Push, Q4HPRN, Starting on 07/03/24 at 0329, Until 07/03/24 at 1327, Routine, Pain (scale 7-10) [facility] [facility] acetaminoph en (TYLENOL) tablet 650 mg 07-03 09:29: 24 07-03 19:27 :41 No 650mg 650 mg, Oral, Q6HPRN, Starting on 07/03/24 at 0329, Until 07/03/24 at 1327, Routine, Pain (scale 1-3) [facility] HYDROcodone -acetaminop hen (NORCO 5) tablet 1 tablet 07-03 09:29: 16 07-03 19:27 :41 No 1{tbl} 1 tablet, Oral, Q6HPRN, Starting on Thu07/03/24 at 0329, Until 07/03/24 at 1327, Routine, Pain (scale 4-6) [facility] methylPREDN ISolone sod succ (SOLU-MEDRO L (PF)) injection 40 mg 07-03 07:25: 00 07-03 08:19 :00 No 40mg 40 mg, Intravenou s, ONCE, 1 dose, On Thu07/03/24 at 0130, 1 mL [facility] benzonatate (TESSALON PERLES) capsule 200 mg 07-03 07:24: 35 Yes 200mg 200 mg, Oral, Q8HPRN, Starting on Thu07/03/24 at 0124, Until Discontinu ed, Routine, Cough [facility] codeine-gua ifenesin (ROBITUSSIN AC) 10-100 mg/5 mL oral solution 10 mL 07-03 07:24: 26 07-03 19:27 :41 No 10mL 10 mL, Oral, [id number], Starting on 07/03/24 at 0124, Until 07/03/24 at 1327, Routine, Cough [facility] furosemide (LASIX) injection 20 mg 07-03 07:24: 00 07-03 08:19 :00 No 20mg 20 mg, Slow IV Push, ONCE, 1 dose, On 07/03/24 at 0130, STAT [facility] acetaminoph en (TYLENOL) tablet 1,000 mg 07-03 01:00: 00 07-03 01:46 :00 No 1000mg 1,000 mg, Oral, ONCE, 1 dose, On 07/02/24 at 1900, Routine [facility] benzonatate 100 mg capsule 07-03 00:00: 00 07-14 05:59 :00 Yes [id number] 200mg Take 2 capsules by mouth every 8 (eight) hours as needed for Cough for up to 10 days. [facility] furosemide 20 mg tablet 07-03 00:00: 00 07-11 05:59 :00 Yes [id number] 20mg Take 1 tablet by mouth in the morning for 7 days. Take this in addition to your usual furosemide for a total of 40mg daily for 7 days; then resume prior home dosing [facility] amoxicillin 500 mg capsule 2023-05 00:00: 00 07-03 00:00 :00 No [id number] 500mg Take 1 capsule by mouth in the morning and 1 capsule at noon and 1 capsule in the evening. [facility] pregabalin (LYRICA) 50 mg capsule 2023-05 00:00: 00 Yes [id number] 50mg Take 1 capsule by mouth at bedtime. [facility] apixaban (ELIQUIS) 5 mg tablet 2023-05 00:00: 00 Yes [id number] 5mg Take 1 tablet by mouth in the morning and 1 tablet in the evening. Indication s: heart failure with reduced ejection fraction [facility] sacubitriL- valsartan (ENTRESTO) 24-26 mg tablet 2023-05 00:00: 00 Yes [id number] 1{tbl} Take 1 tablet by mouth in the morning and 1 tablet in the evening. [facility] metoprolol succinate XL 25 mg 24 hr tablet 2023-05 00:00: 00 Yes [id number] Take 1 tab daily if bp is over 110/60 [facility] furosemide (LASIX) 20 mg tablet 2023-05 00:00: 00 07-20 00:00 :00 No [id number] 20mg Take 1 tablet by mouth in the morning. [facility] cephALEXin 500 mg capsule 2023-05 00:00: 00 05-03 00:00 :00 No [id number] 500mg Take 1 capsule by mouth 4 (four) times daily. [facility] tirzepatide , weight loss, (ZEPBOUND) 2.5 mg/0.5 mL subcutaneou s injection 2023-05 0- 00:00: 00 07-03 00:00 :00 No [id number] 2.5mg inject 2.5 mg under the skin weekly. [facility] pregabalin (LYRICA) 50 mg capsule 2023-05 0-14 00:00: 00 04-01 00:00 :00 No [id number] 50mg Take 1 capsule by mouth at bedtime. [facility] butalbital- acetaminop- caff-codein e (FIORICET WITH CODEINE) 50-300-40-3 0 mg per capsule 8 00:00: 00 01-21 04:59 :00 No [id number] 1{capsu le} Take 1 capsule by mouth every 6 (six) hours as needed for Pain (scale 4-6) for up to 7 days. Indication s: acute pain [facility] aug betamethaso ne dipropionat e 0.05 % ointment 01-04 00:00: 00 Yes [id number] Apply to area(s) 2 (two) times daily. [facility] rOPINIRole 0.25 mg tablet 01-04 00:00: 00 07-03 00:00 :00 No [id number] Start 0.25mg PO qpm x 2 days then increase to 0.5mg PO qpm [facility] doxycycline 100 mg EC tablet 820 00:00: 00 01-12 04:59 :00 No [id number] 100mg Take 1 tablet by mouth in the morning and 1 tablet in the evening. Do all this for 7 days. [facility] benzonatate (TESSALON PERLES) capsule 200 mg 12-12 20:58: 00 12-12 21:10 :00 No 200mg 200 mg, Oral, ONCE, 1 dose, On 12/13/23 at 1600, Routine [facility] albuterol 90 mcg/actuati on inhaler 12-11 00:00: 00 Yes [id number] 2{puff} Inhale 2 Puffs every 6 (six) hours as needed for Wheezing or Bronchospa sm. [facility] amoxicillin -clavulanat e (AUGMENTIN) 875-125 mg per tablet 12-11 00:00: 00 12-22 04:59 :00 No [id number] 1{tbl} Take 1 tablet by mouth in the morning and 1 tablet in the evening. Do all this for 10 days. [facility] benzonatate (TESSALON PERLES) 100 mg capsule 12-11 00:00: 00 12-19 04:59 :00 No [id number] 200mg Take 2 capsules by mouth every 8 (eight) hours for 7 days. [facility] furosemide (LASIX) 20 mg tablet 11-30 00:00: 00 03-28 00:00 :00 No [id number] 20mg Take 1 tablet by mouth in the morning. [facility] gabapentin 300 mg capsule 11-29 00:00: 00 01-10 04:59 :00 No [id number] Take 2 capsules by mouth 3 (three) times daily for 14 days, THEN 1 capsule 3 (three) times daily for 28 days. [facility] triamcinolo ne acetonide 0.1 % ointment 11-29 00:00: 00 01-04 00:00 :00 No [id number] Apply to area(s) 2 (two) times daily. [facility] clotrimazol e 1 % topical cream 11-16 00:00: 00 Yes [id number] Apply to area(s) at bedtime. [facility] amoxicillin -clavulanat e (AUGMENTIN) 875-125 mg per tablet 11-16 00:00: 00 11-27 04:59 :00 No [id number] 1{tbl} Take 1 tablet by mouth in the morning and 1 tablet in the evening. Do all this for 10 days. [facility] gabapentin 300 mg capsule 11-08 00:00: 00 11-29 00:00 :00 No [id number] Take 2 capsules by mouth 3 (three) times daily for 14 days, THEN 1 capsule 3 (three) times daily for 28 days. [facility] DULoxetine 30 mg capsule 11-01 00:00: 00 02-28 00:00 :00 No [id number] 30mg Take 1 capsule by mouth in the morning. [facility] gabapentin 300 mg capsule 11-01 00:00: 00 11-04 00:00 :00 No [id number] Take 2 capsules by mouth 3 (three) times daily for 14 days, THEN 1 capsule 3 (three) times daily for 28 days. [facility] apixaban (ELIQUIS) 5 mg tablet 10-05 00:00: 00 03-28 00:00 :00 No [id number] 5mg Take 1 tablet by mouth in the morning and 1 tablet in the evening. Indication s: heart failure with reduced ejection fraction [facility] sacubitriL- valsartan (ENTRESTO) 24-26 mg tablet 10-05 00:00: 00 03-28 00:00 :00 No [id number] 1{tbl} Take 1 tablet by mouth in the morning and 1 tablet in the evening. [facility] metoprolol succinate XL 25 mg 24 hr tablet 10-05 00:00: 00 03-28 00:00 :00 No [id number] Take 1 tab daily if bp is over 110/60 [facility] DULoxetine 60 mg capsule 10-05 00:00: 00 11-05 00:00 :00 No [id number] 60mg Take 1 capsule by mouth in the morning. [facility] gabapentin 800 mg tablet 10-05 00:00: 00 11-05 00:00 :00 No [id number] 800mg Take 1 tablet by mouth in the morning and 1 tablet at noon and 1 tablet in the evening. [facility] nystatin 100,000 unit/gram cream 09-30 00:00: 00 10-15 04:59 :00 No [id number] Apply to area(s) 2 (two) times daily for 14 days. [facility] fluconazole (DIFLUCAN) 150 mg tablet 09-30 00:00: 00 10-05 04:59 :00 No [id number] 150mg Take 1 tablet by mouth every 72 (seventy-t wo) hours for 2 doses. [facility] DULoxetine 60 mg capsule 09-18 00:00: 00 10-05 00:00 :00 No 60mg Take 1 capsule by mouth. [facility] ELIQUIS 5 mg tablet 09-10 00:00: 00 10-05 00:00 :00 No 5mg Take 1 tablet by mouth in the morning and 1 tablet in the evening. [facility] metoprolol succinate XL 25 mg 24 hr tablet 09-10 00:00: 00 10-05 00:00 :00 No 25mg Take 1 tablet by mouth. [facility] ENTRESTO 24-26 mg tablet 09-10 00:00: 00 10-05 00:00 :00 No 1{tbl} Take 1 tablet by mouth. [facility] gabapentin 300 mg capsule 2024-0 4-12 00:00: 00 10-05 00:00 :00 No 300mg Take 1 capsule by mouth in the morning and 1 capsule at noon and 1 capsule in the evening. [facility] albuterol 90 mcg/actuati on inhaler 2022-05 00:00: 00 11-05 00:00 :00 No [id number] 2{puff} Inhale 2 Puffs every 6 (six) hours as needed for Wheezing or Shortness of Breath. [facility] methylPREDN ISolone (MEDROL, CALE,) 4 mg tablets 2022-05 00:00: 00 11-05 00:00 :00 No [id number] Take by mouth SEE-INSTRU CTIONS. follow package directions [facility] benzonatate (TESSALON PERLES) 100 mg capsule 2022-05 00:00: 00 10-05 00:00 :00 No [id number] 100mg Take 1 capsule by mouth every 8 (eight) hours. [facility] cephALEXin (KEFLEX) 500 mg capsule 02-12 00:00: 00 02-23 04:59 :00 No [id number] 500mg Take 1 capsule by mouth 4 (four) times daily for 10 days. [facility] acetaminoph en (TYLENOL) tablet 650 mg 01-25 19:45: 00 01-25 19:43 :00 No 650mg 650 mg, Oral, ONCE, 1 dose, [facility]25/23 [facility] 1445[facility] 40 mg 09-09 14:15: 00 09-09 14:35 :00 No 40mg 40 mg, IV Push, ONCE, 1 dose, On Tu09/09/22 at 0915, ROSALINDA [facility] levothyroxi ne (Synthroid) 75 MCG tablet 12-25 00:00: 00 12-26 04:59 :00 No [id number] 75ug Take 1 tablet (75 mcg total) by mouth 1 (one) time each day before breakfast. [facility] sertraline (Zoloft) 25 MG tablet 8-10 00:00: 00 03-10 04:59 :00 No [id number] Take 1 tablet (25 mg total) by mouth 1 (one) time each day for 7 days, THEN 2 tablets (50 mg total) 1 (one) time each day for 7 days, THEN 4 tablets (100 mg total) 1 (one) time each day. [facility] sacubitril- valsartan (Entresto) 24-26 MG tablet 09-19 12:15: 14 09-19 00:00 :00 No 1{tbl} Take 1 tablet by mouth. [facility] sacubitril- valsartan (Entresto) 24-26 MG tablet 09-19 00:00: 00 10-15 04:59 :00 No [id number] 1{tbl} Q.5D Take 1 tablet by mouth 2 (two) times a day. [facility] metoprolol succinate XL (Toprol-XL) 25 MG 24 hr tablet 09-19 00:00: 00 09-20 04:59 :00 No [id number] 25mg Take 1 tablet (25 mg total) by mouth every night. Do not crush or chew. [facility] sacubitril- valsartan (Entresto) 24-26 MG tablet 07-22 00:00: 00 08-22 04:59 :00 No [id number] 1{tbl} Q.5D Take 1 tablet by mouth 2 (two) times a day. [facility] furosemide (Lasix) 20 MG tablet 07-09 00:00: 00 Yes [id number] 20mg Q.5D Take 1 tablet (20 mg total) by mouth 2 (two) times a day. [facility] potassium chloride CR (K-Tab) 20 MEQ ER tablet 07-09 00:00: 00 07-10 05:59 :00 No [id number] 20meq QD Take 1 tablet (20 mEq total) by mouth 1 (one) time each day. Do not crush, chew, or split. [facility] furosemide (Lasix) 20 MG tablet 2020-05 00:00: 07-09 00:00 :00 No 20mg Q.5D Take 20 mg by mouth 2 (two) times a day. [facility] HYDROcodone -acetaminop hen (NORCO 5) 5-325 mg tablet 1 tablet 10-16 20:30: 00 10-16 19:24 :00 No 1{tbl} 1 tablet, Oral, ONCE, 1 dose, Tu 10/16/20 at 1530, ROSALINDA [facility] furosemide 20 mg tablet 2017-05 00:00: 00 10-05 00:00 :00 No 40mg Take 2 tablets by mouth every morning. [facility] benzonatate 200 mg capsule 2017-05 00:00: 00 09-09 00:00 :00 No 200mg Take 1 capsule by mouth 3 (three) times daily as needed for Cough. [facility] amoxicillin 500 mg capsule 11-03 00:00: 09-09 00:00 :00 No 500mg Take 1 capsule by mouth 3 (three) times daily. [facility] traMADOL (ULTRAM) 50 mg tablet 11-03 00:00: 00 09-09 00:00 :00 No 50mg Take 1 tablet by mouth every 6 (six) hours as needed for Pain (scale 7-10). [facility] metoclopram khalida HCl 10 mg tablet 06-04 00:00: 10-05 00:00 :00 No 10mg Take 1 tablet by mouth every 6 (six) hours as needed for Nausea and Vomiting (N/V). [facility] erythromyci n 5 mg/gram (0.5 %) ophthalmic ointment 2016-05 00:00: 00 09-09 00:00 :00 No .5[in_u s] Place 0.5 Inches in both eyes 2 (two) times daily. Continue until you follow up with eye doctor. [facility] sod chlor-bicar b-squeez bottle (NEILMED SINUS RINSE COMPLETE) pkdv 2016-05 0 00:00: 00 Yes 1{bottl e} Use 1 Bottle in each nostril 2 (two) times daily. Use in hot shower 1 hour before bedtime [facility] sod chlor-bicar b-squeez bottle (NEILMED SINUS RINSE COMPLETE) pkdv 2016-05 029 00:00: 00 11-01 00:00 :00 No 1{bottl e} Use 1 Bottle in each nostril 2 (two) times daily. Use in hot shower 1 hour before bedtime [facility] traMADOL (ULTRAM) 50 mg tablet 2016-05 00:00: 00 09-09 00:00 :00 No 50mg Take 1 tablet by mouth every 6 (six) hours as needed for Pain (scale 4-6). [facility] chlorhexidi ne (PERIDEX) 0.12 % mouthwash 12-09 00:00: 00 11-05 00:00 :00 No 15mL Swish and spit out 15 mL 2 (two) times daily. [facility] penicillin v potassium 500 mg tablet 12-09 00:00: 00 09-09 00:00 :00 No 1000mg Take 2 tablets by mouth 4 (four) times daily. [facility] albuterol 90 mcg/actuati on inhaler 2015-05 00:00: 00 03-24 00:00 :00 No 2{puff} Inhale 2 Puffs every 6 (six) hours as needed for Wheezing or Shortness of Breath. [facility] cyclobenzap rine (FLEXERIL) 5 mg tablet 2015-05 00:00: 00 09-09 00:00 :00 No 5mg Take 1 tablet by mouth 3 (three) times daily. [facility] pantoprazol e (PROTONIX) 40 mg EC tablet 2015-05 00:00: 00 11-05 00:00 :00 No 40mg Take 1 tablet by mouth daily. [facility] Colace 100 mg oral capsule 07-19 21:38: 17 Yes Hank Boykin 100 mg, 1 cap, PO, BID, PRN, 60 cap, 1, 1, Constipati on, Substituti on Allowed, CAP Memoria l Micah Colace 100 mg oral capsule 07-19 21:38: 00 Yes Hank Antoniory 100 mg, 1 cap, PO, BID, PRN, 60 cap, 1, 1, Constipati on, Substituti on Allowed, CAP Memoria l [place] 5/325 oral tablet 07-19 21:37: 10 Yes Hank Antoniory 1-2 tab, PO, Q6H, PRN, 20 tab, Pain, Substituti on Allowed, Maintenanc e Memoria l [place] 5/325 oral tablet 07-19 21:36: 31 Yes Hank Antoniory 1-2 tab, PO, Q6H, PRN, 20 tab, Pain, Substituti on Allowed, Maintenanc e Memoria l [place] Colace 100 mg oral capsule 07-19 21:35: 04 Yes Hank Antoniory 100 mg, 1 cap, PO, BID, PRN, 60 cap, 1, 1, Constipati on, Substituti on Allowed, CAP Memoria l [place] 5/325 oral tablet 07-19 21:34: 58 Yes Hank Antoniory 1-2 tab, PO, Q6H, PRN, 20 tab, Pain, Substituti on Allowed, Maintenanc e Memoria l Micah gentamicin + Sodium Chloride 0.9% IV 100 mL 07-16 05:00: 00 No Tej Pacheco Gabriel 530 mg, 13.25 mL, Route: IV, Drug form: INJ, [id number], Dosing Weight 107.5, kg, Start date: 07/15/12 23:00:00, Duration: 30 day, Stop date: 08/13/12 23:00:00, Pediatric DosingPedi atric Dosing Memoria l [place] clindamycin 07-16 05:00: 00 No Tej Lee Gabriel 900 mg, 6 mL, Route: IVPB, Drug form: INJ, ABXQ8H, Dosing Weight 107.5, kg, Start date: 07/15/12 23:00:00, Duration: 30 day, Stop date: 08/14/12 15:00:00 Dann Obrien ampicillin 07-16 05:00: 00 No Tej Pacheco Gabriel 2 gm, Route: IVPB, Drug form: PDR/INJ, ABXQ6H, Dosing Weight 107.5, kg, Start date: 07/15/12 23:00:00, Duration: 30 day, Stop date: 08/14/12 17:00:00 Dann Obrien levothyroxi ne 07-16 04:00: 00 No Tanima Britt 175 microgram, Route: PO, Drug form: TAB, Daily, Dosing Weight 108.182, kg, Start date: 07/15/12 22:00:00, Duration: 30 day, Stop date: 08/14/12 9:00:00 Dann Obrien Singulair 07-16 04:00: 00 No Tanima Britt 10 mg, 1 tab, Route: PO, Drug form: TAB, QPM, Dosing Weight 108.182, kg, Start date: 07/15/12 22:00:00, Duration: 30 day, Stop date: 08/14/12 17:00:00 Dann Obrien multivitami n, 07-16 03:00: 00 No Sydnie Hastings 1 tab, Route: PO, Drug Form: TAB, Dosing Weight 108.182, kg, Daily, Start date: 07/15/12 21:00:00, Duration: 30 day, Stop date: 08/13/12 21:00:00 Dann Obrien Saline Flush 0.9% 07-15 15:00: 00 No Murali Flores III 5 ml, Route: IVP, Drug Form: INJ, Dosing Weight 108.182, kg, Q12H, Start date: 07/15/12 9:00:00, Duration: 30 day, Stop date: 08/13/12 21:00:00 Dann Obrien Multivitami ns oral tablet 07-15 15:00: 00 No Tanima Britt 1 tab, Route: PO, Drug Form: TAB, Dosing Weight 108.182, kg, Daily, Start date: 07/15/12 9:00:00, Duration: 30 day, Stop date: 08/13/12 9:00:00 Dann Obrien atenolol 25 mg oral tablet 07-15 14:33: 00 No Rhonda Morgan 25 mg, 1 tab, Route: PO, Drug form: TAB, Daily, Dosing Weight 107.5, kg, Priority: NOW, Start date: 07/15/12 8:33:00, Duration: 30 day, Stop date: 08/13/12 9:00:00 Dann Obrien magnesium sulfate 07-15 12:00: 00 No Tanspencer Britt 2 gm, 50 mL, Route: IVPB, Drug form: INJ, Q2H, Dosing Weight 107.5, kg, Start date: 07/15/12 6:00:00, Duration: 3 doses or times, Stop date: 07/15/12 10:00:00, For Mg = 1.0 - 1.4 mg/dLFor Mg = 1.0 - 1.4 mg/dL Dann Obrien HYDROmorpho ne 0.5mg/mL [employer] (15mg/30 mL) 15 mg 07-15 09:00: 00 No Sydnie Ariadna Hastings 15 mg, 30 mL, Route: IV, [employer] Dose: 0.2 mg, [employer] Lockout: 10 minutes, 4 Hour Limit (In MG): 5, Drug Form: INJ, Continuous , Start date: 07/15/12 3:00:00, Duration: 30 day, Stop date: 08/14/12 3:59:00 Dann Obrien M-M-R II 07-15 08:00: 00 No Olaide Azizat Ashimi 0.5 ml, Route: SUB-Q, Drug Form: PDR/INJ, Dosing Weight 108.182, kg, ONCALL, Start date: 07/15/12 2:00:00, Duration: 1 doses or times, Stop date: 07/22/12 0:00:00 Dann Obrien acetaminoph en-hydrocod one 325 mg-5 mg oral tablet 07-15 07:53: 00 No Olaide Azizat Ashimi 2 tab, Route: PO, Drug Form: TAB, Dosing Weight 108.182, kg, Q4H, PRN Pain Score 4-6, Start date: 07/15/12 1:53:00, Duration: 30 day, Stop date: 08/14/12 1:52:00 Dann Obrien Lactated Ringers 1000ml+Leonardo sam 20 units IV (Premix) 20 unit 07-15 07:53: 00 No Tanima Britt 20 unit, 1,000 mL, Rate: 50 ml/hr, Infuse over: 20 hr, Dosing Weight 108.182, kg, Route: IV, Total Volume: 1,000 mL, Start date: 07/15/12 1:53:00, Duration: 2 day, Stop date: 07/17/12 1:52:00, Replace Every: 8 hr Dann Obrien Saline Flush 0.9% 07-15 07:53: 00 No Murali Flores III 5 ml, Route: IVP, Drug Form: INJ, Dosing Weight 108.182, kg, PRN, PRN Line Flush, Start date: 07/15/12 1:53:00, Duration: 30 day, Stop date: 08/14/12 2:52:00 Dann Obrien acetaminoph en 07-15 07:53: 00 No Tanima Britt 650 mg, 2 tab, Route: PO, Drug form: TAB, Q4H, Dosing Weight 108.182, kg, PRN Other -See Comment, Start date: 07/15/12 1:53:00, Duration: 30 day, Stop date: 08/14/12 1:52:00 Dann Obrien bisacodyl 07-15 07:53: 00 No Olaide Azizat Ashimi 10 mg, 1 supp, Route: NM, Drug form: SUPP, PRN, Dosing Weight 108.182, kg, PRN Other -See Comment, Start date: 07/15/12 1:53:00, Duration: 30 day, Stop date: 08/14/12 2:52:00 Dann Obrien lanolin topical cream 07-15 07:53: 00 No Olaide Azizat Ashimi 1 appl, Route: TOP, PRN, Drug form: OINT, PRN Other -See Comment, Start date: 07/15/12 1:53:00, Duration: 30 day, Stop date: 08/14/12 2:52:00 Dann spicer [place] zolpidem 07-15 07:53: 00 No Olaide Azizat Ashimi 5 mg, 1 tab, Route: PO, Drug form: TAB, Bedtime, Dosing Weight 108.182, kg, PRN Insomnia, Start date: 07/15/12 1:53:00, Duration: 30 day, Stop date: 08/14/12 1:52:00 Memoswaldo spicer [place] simethicone 07-15 07:53: 00 No Olaide Azizat Ashimi 160 mg, 2 tab, Route: PO, Drug form: CHEWTAB, Q8H, Dosing Weight 108.182, kg, PRN Gas, Start date: 07/15/12 1:53:00, Duration: 30 day, Stop date: 08/14/12 1:52:00 Dann Obrien azithromyci n 07-15 05:00: 00 No Ken Florentino Ezedinma 500 mg, Route: IVPB, Drug form: PDR/INJ, ONCALL, Dosing Weight 108.182, kg, Start date: 07/14/12 23:00:00, Duration: 1 doses or times, Stop date: 07/16/12 0:00:00 Dann Obrien morphine Sulfate 07-15 04:07: 00 No Ken Adaobi Ezedinma 2 mg, 1 mL, Route: IVP, Drug form: INJ, Q2H, Dosing Weight 108.182, kg, PRN Pain, Start date: 07/14/12 22:07:00, Duration: 30 day, Stop date: 08/13/12 22:06:00 Dann Obrien Synthroid 07-15 04:00: 00 No Tanima Britt 75 microgram, 1 tab, Route: PO, Drug form: TAB, Q630AM, Start date: 07/14/12 22:00:00, Duration: 30 day, Stop date: 08/12/12 22:00:00 Dann Obrien Levothroid 07-15 04:00: 00 No Tanima Britt 100 microgram, 1 tab, Route: PO, Drug form: TAB, Q630AM, Start date: 07/14/12 22:00:00, Duration: 30 day, Stop date: 08/12/12 22:00:00 Dann Obrien methylergon ovine 07-15 04:00: 00 No Mendykelli Mishel Ezedinma 0.2 mg, 1 mL, Route: IM, Drug form: INJ, ONCALL, Dosing Weight 108.182, kg, Start date: 07/14/12 22:00:00, Duration: 30 day, Stop date: 08/13/12 22:59:00 Dann Obrien carboprost 07-15 04:00: 00 No Mendykelli Adacaleb Ezedinma 250 microgram, 1 mL, Route: IM, Drug form: INJ, ONCALL, Dosing Weight 108.182, kg, Start date: 07/14/12 22:00:00, Duration: 30 day, Stop date: 08/13/12 22:59:00 Dann Obrien metoclopram khalida 07-15 04:00: 00 No Mendykelli Mishel Ezedinma 10 mg, 2 mL, Route: IVP, Drug form: INJ, ONCALL, Dosing Weight 108.182, kg, Start date: 07/14/12 22:00:00, Duration: 30 day, Stop date: 08/13/12 22:59:00 Dann Obrien misoprostol 07-15 04:00: 00 No Annemariejairokelli Mishel Ezedinma 1,000 microgram, 5 tab, Route: NM, Drug form: TAB, ONCALL, Dosing Weight 108.182, kg, Start date: 07/14/12 22:00:00, Duration: 30 day, Stop date: 08/13/12 22:59:00 Dann Obrien cefazolin 07-15 04:00: 00 No Annemarieamakelli Mishel Ezedinma 3 gm, 150 mL, Route: IVPB, Drug form: INJ, ONCALL, Dosing Weight 108.182, kg, Start date: 07/14/12 22:00:00, Stop date: 07/16/12 0:00:00 Dann Obrien morphine Sulfate 07-15 03:58: 00 No Annemarieamakelli Adacaleb Ezedinma 2 mg, 1 mL, Route: IVP, Drug form: INJ, Q2H, Dosing Weight 108.182, kg, PRN Pain, Start date: 07/14/12 21:58:00, Duration: 30 day, Stop date: 08/13/12 21:57:00 Dann Obrien morphine Sulfate 07-15 03:49: 00 No Tanima Britt 2 mg, 1 mL, Route: IVP, Drug form: INJ, Q2H, Dosing Weight 108.182, kg, PRN Pain, Start date: 07/14/12 21:49:00, Duration: 30 day, Stop date: 08/13/12 21:48:00 Dann Obrien ondansetron 07-15 03:49: 00 No [place] Adaobi Ezedinma 4 mg, 2 mL, Route: IVP, Drug form: INJ, Q8H, Dosing Weight 108.182, kg, PRN Nausea & Vomiting, Start date: 07/14/12 21:49:00, Duration: 30 day, Stop date: 08/13/12 21:48:00 Dann Obrien Lactated Ringers 1000ml+Oxyt ocin 20 units IV (Premix) 20 unit 07-15 03:49: 00 No Tanima Britt 20 unit, 1,000 mL, Rate: 50 ml/hr, Infuse over: 20 hr, Dosing Weight 108.182, kg, Route: IV, Total Volume: 1,000 mL, Start date: 07/14/12 21:49:00, Duration: 2 day, Stop date: 07/16/12 21:48:00, Replace Every: 8 hr Dann Obrien citric acid-sodium citrate 07-15 03:49: 00 No Tanima Britt 30 ml, Route: PO, Drug Form: SOLN, Dosing Weight 108.182, kg, ONCE, Start date: 07/14/12 21:49:00, Duration: 1 doses or times, Stop date: 07/14/12 21:49:00 Dann Obrien terbutaline 07-15 03:49: 00 No [place] Adaobi Ezedinma 0.25 mg, 0.25 mL, Route: SUB-Q, Drug form: INJ, ONCALL, Dosing Weight 108.182, kg, PRN Other -See Comment, Start date: 07/14/12 21:49:00, Duration: 1 doses or times, Stop date: 07/16/12 0:00:00 Dann Obrien Lactated Ringers IV 1,000 mL 07-15 03:44: 00 No Tanima Britt 1,000 mL, Rate: 125 ml/hr, Infuse over: 8 hr, Route: IV, kg, Total Volume: 1,000, Priority: STAT, Start date: 07/14/12 21:44:00, Duration: 30 day, Stop date: 08/13/12 21:43:00 Dann Obrien acetaminoph en-hydrocod one 325 mg-5 mg oral tablet 07-15 03:42: 00 No Tanima Britt 1 tab, Route: PO, Drug Form: TAB, Dosing Weight 108.182, kg, Q4H, PRN Pain Score 1-3, Start date: 07/14/12 21:42:00, Duration: 30 day, Stop date: 08/13/12 21:41:00 Dann Obrien pneumococca l 23-valent vaccine 05-25 15:00: 00 No SYSTEM SYSTEM 0.5 ml, Route: IM, Drug Form: INJ, Daily, Start date: 05/25/12 9:00:00, Duration: 1 doses or times, Stop date: 05/25/12 9:00:00 Dann Obrien Tylenol 2011-05 0-16 15:51: 00 No Moris Jonas 650 mg, 20.3 mL, Route: PO, Drug form: LIQ, ONCE, Dosing Weight 100, kg, Priority: STAT, Start date: 03/02/12 10:51:00, Stop date: 03/02/12 10:51:00 Dann Obrien Immunizations Ordered Immunization Name Filled Immunization Name Date Status Comments Source Tdap (Adacel) 2017-08-25 12:14:00 Completed [facility] Tdap (Adacel) 2012-07-23 00:00:00 Completed [facility] measles/mumps/rubel la virus vaccine Unknown Completed [facility] Vital Signs Vital Name Observation Time Observation Value Comments S [facility] Systolic blood pressure 2024-07-18 21:48:00 146 mm[Hg] [facility] Diastolic blood pressure 2024-07-18 21:48:00 94 mm[Hg] [facility] Heart rate 2024-07-18 21:48:00 96 /min [facility] Oxygen saturation in Arterial blood by Pulse oximetry 2024-07-18 21:48:00 95 /min [facility] Respiratory rate 2024-07-18 21:45:00 22 /min [facility] Body height 2024-07-18 21:45:00 154.9 cm [facility] Body weight 2024-07-18 21:45:00 159.938 kg [facility] BMI 2024-07-18 21:45:00 66.62 kg/m2 [facility] Systolic blood pressure 2024-07-05 20:08:00 139 mm[Hg] [facility] Diastolic blood pressure 2024-07-05 20:08:00 80 mm[Hg] [facility] Heart rate 2024-07-05 20:08:00 92 /min [facility] Body height 2024-07-05 20:08:00 154.9 cm [facility] Body weight 2024-07-05 20:08:00 152.862 kg [facility] BMI 2024-07-05 20:08:00 63.68 kg/m2 [facility] Oxygen saturation in Arterial blood by Pulse oximetry 2024-07-05 20:08:00 92 /min [facility] Systolic blood pressure 2024-07-05 17:23:00 139 mm[Hg] [facility] Diastolic blood pressure 2024-07-05 17:23:00 80 mm[Hg] [facility] Heart rate 2024-07-05 17:23:00 92 /min [facility] Respiratory rate 2024-07-05 17:23:00 18 /min [facility] Body height 2024-07-05 17:23:00 154.9 cm [facility] Body weight 2024-07-05 17:23:00 152.908 kg [facility] BMI 2024-07-05 17:23:00 63.69 kg/m2 [facility] Oxygen saturation in Arterial blood by Pulse oximetry 2024-07-05 17:23:00 93 /min [facility] Systolic blood pressure 2024-07-03 17:50:00 146 mm[Hg] [facility] Diastolic blood pressure 2024-07-03 17:50:00 96 mm[Hg] [facility] Heart rate 2024-07-03 17:50:00 109 /min [facility] Body temperature 2024-07-03 17:50:00 35.83 Alpa [facility] Respiratory rate 2024-07-03 17:50:00 18 /min [facility] Oxygen saturation in Arterial blood by Pulse oximetry 2024-07-03 17:50:00 92 /min [facility] Body weight 2024-07-03 09:30:00 151.501 kg [facility] BMI 2024-07-03 09:30:00 63.11 kg/m2 [facility] Body height 2024-07-03 00:34:00 154.9 cm [facility] Systolic blood pressure 2024-07-02 23:22:00 138 mm[Hg] [facility] Diastolic blood pressure 2024-07-02 23:22:00 76 mm[Hg] [facility] Heart rate 2024-07-02 23:22:00 118 /min [facility] Body temperature 2024-07-02 23:22:00 37.17 Alpa [facility] Respiratory rate 2024-07-02 23:22:00 22 /min [facility] Body weight 2024-07-02 23:22:00 154.45 kg [facility] BMI 2024-07-02 23:22:00 64.34 kg/m2 [facility] Oxygen saturation in Arterial blood by Pulse oximetry 2024-07-02 23:22:00 95 /min [facility] Systolic blood pressure 2024-05-03 20:52:00 105 mm[Hg] [facility] Diastolic blood pressure 2024-05-03 20:52:00 71 mm[Hg] [facility] Heart rate 2024-05-03 20:52:00 90 /min [facility] Body temperature 2024-05-03 20:52:00 36.5 Alpa [facility] Body height 2024-05-03 20:52:00 154.9 cm [facility] Body weight 2024-05-03 20:52:00 149.233 kg [facility] BMI 2024-05-03 20:52:00 62.16 kg/m2 [facility] Systolic blood pressure 2024-03-28 20:48:00 111 mm[Hg] [facility] Diastolic blood pressure 2024-03-28 20:48:00 68 mm[Hg] [facility] Heart rate 2024-03-28 20:48:00 83 /min [facility] Body temperature 2024-03-28 20:48:00 36.72 Alpa [facility] Body height 2024-03-28 20:48:00 154.9 cm [facility] Body weight 2024-03-28 20:48:00 143.337 kg [facility] BMI 2024-03-28 20:48:00 59.71 kg/m2 [facility] Systolic blood pressure 2024-03-09 15:45:00 121 mm[Hg] [facility] Diastolic blood pressure 2024-03-09 15:45:00 80 mm[Hg] [facility] Heart rate 2024-03-09 15:45:00 90 /min [facility] Body temperature 2024-03-09 15:45:00 36.89 Alpa [facility] Respiratory rate 2024-03-09 15:45:00 18 /min [facility] Body height 2024-03-09 15:45:00 154.9 cm [facility] Body weight 2024-03-09 15:45:00 141.613 kg [facility] BMI 2024-03-09 15:45:00 58.99 kg/m2 [facility] Oxygen saturation in Arterial blood by Pulse oximetry 2024-03-09 15:45:00 96 /min [facility] Systolic blood pressure 2024-02-29 15:42:00 123 mm[Hg] [facility] Diastolic blood pressure 2024-02-29 15:42:00 76 mm[Hg] [facility] Heart rate 2024-02-29 15:42:00 80 /min [facility] Body height 2024-02-29 15:42:00 156.2 cm [facility] Body weight 2024-02-29 15:42:00 141.069 kg [facility] BMI 2024-02-29 15:42:00 57.81 kg/m2 [facility] Oxygen saturation in Arterial blood by Pulse oximetry 2024-02-29 15:42:00 95 /min [facility] Systolic blood pressure 2024-01-14 17:15:00 125 mm[Hg] [facility] Diastolic blood pressure 2024-01-14 17:15:00 83 mm[Hg] [facility] Heart rate 2024-01-14 17:15:00 90 /min [facility] Body height 2024-01-14 17:15:00 154.9 cm [facility] Body weight 2024-01-14 17:15:00 134.083 kg [facility] BMI 2024-01-14 17:15:00 55.85 kg/m2 [facility] Oxygen saturation in Arterial blood by Pulse oximetry 2024-01-14 17:15:00 97 /min [facility] Systolic blood pressure 2024-01-05 16:30:00 127 mm[Hg] [facility] Diastolic blood pressure 2024-01-05 16:30:00 82 mm[Hg] [facility] Heart rate 2024-01-05 16:30:00 89 /min [facility] Respiratory rate 2024-01-05 16:30:00 20 /min [facility] Body height 2024-01-05 16:30:00 154.9 cm [facility] Body weight 2024-01-05 16:30:00 133.267 kg [facility] BMI 2024-01-05 16:30:00 55.51 kg/m2 [facility] Oxygen saturation in Arterial blood by Pulse oximetry 2024-01-05 16:30:00 97 /min [facility] Systolic blood pressure 2024-01-05 13:30:00 127 mm[Hg] [facility] Diastolic blood pressure 2024-01-05 13:30:00 82 mm[Hg] [facility] Heart rate 2024-01-05 13:30:00 89 /min [facility] Body height 2024-01-05 13:30:00 154.9 cm [facility] Body weight 2024-01-05 13:30:00 133.267 kg [facility] BMI 2024-01-05 13:30:00 55.51 kg/m2 [facility] Oxygen saturation in Arterial blood by Pulse oximetry 2024-01-05 13:30:00 97 /min [facility] Systolic blood pressure 2023-12-13 21:00:00 133 mm[Hg] [facility] Diastolic blood pressure 2023-12-13 21:00:00 90 mm[Hg] [facility] Heart rate 2023-12-13 21:00:00 109 /min [facility] Body temperature 2023-12-13 21:00:00 37.72 Alpa [facility] Respiratory rate 2023-12-13 21:00:00 22 /min [facility] Oxygen saturation in Arterial blood by Pulse oximetry 2023-12-13 21:00:00 98 /min [facility] Body height 2023-12-13 16:57:00 154.9 cm [facility] Body weight 2023-12-13 16:57:00 134.265 kg [facility] BMI 2023-12-13 16:57:00 55.93 kg/m2 [facility] Systolic blood pressure 2023-12-13 00:03:00 127 mm[Hg] [facility] Diastolic blood pressure 2023-12-13 00:03:00 73 mm[Hg] [facility] Heart rate 2023-12-13 00:03:00 115 /min [facility] Body temperature 2023-12-13 00:03:00 37.28 Alpa [facility] Respiratory rate 2023-12-13 00:03:00 18 /min [facility] Body height 2023-12-13 00:03:00 154.9 cm [facility] Body weight 2023-12-13 00:03:00 134.52 kg [facility] BMI 2023-12-13 00:03:00 56.03 kg/m2 [facility] Oxygen saturation in Arterial blood by Pulse oximetry 2023-12-13 00:03:00 94 /min [facility] Systolic blood pressure 2023-12-01 15:38:00 117 mm[Hg] [facility] Diastolic blood pressure 2023-12-01 15:38:00 76 mm[Hg] [facility] Heart rate 2023-12-01 15:38:00 88 /min [facility] Respiratory rate 2023-12-01 15:38:00 18 /min [facility] Body height 2023-12-01 15:38:00 154.9 cm [facility] Body weight 2023-12-01 15:38:00 136.578 kg [facility] BMI 2023-12-01 15:38:00 56.89 kg/m2 [facility] Oxygen saturation in Arterial blood by Pulse oximetry 2023-12-01 15:38:00 97 /min [facility] Systolic blood pressure 2023-11-30 19:55:00 124 mm[Hg] [facility] Diastolic blood pressure 2023-11-30 19:55:00 82 mm[Hg] [facility] Heart rate 2023-11-30 19:55:00 98 /min [facility] Body temperature 2023-11-30 19:55:00 37.17 Alpa [facility] Respiratory rate 2023-11-30 19:55:00 18 /min [facility] Body height 2023-11-30 19:55:00 154.9 cm [facility] Body weight 2023-11-30 19:55:00 136.76 kg [facility] BMI 2023-11-30 19:55:00 56.97 kg/m2 [facility] Oxygen saturation in Arterial blood by Pulse oximetry 2023-11-30 19:55:00 96 /min [facility] Systolic blood pressure 2023-11-18 00:22:00 129 mm[Hg] [facility] Diastolic blood pressure 2023-11-18 00:22:00 75 mm[Hg] [facility] Heart rate 2023-11-18 00:22:00 89 /min [facility] Body temperature 2023-11-18 00:22:00 37.22 Alpa [facility] Respiratory rate 2023-11-18 00:22:00 14 /min [facility] Body weight 2023-11-18 00:22:00 131.543 kg [facility] BMI 2023-11-18 00:22:00 54.80 kg/m2 [facility] Oxygen saturation in Arterial blood by Pulse oximetry 2023-11-18 00:22:00 96 /min [facility] Systolic blood pressure 2023-11-06 17:49:00 109 mm[Hg] [facility] Diastolic blood pressure 2023-11-06 17:49:00 76 mm[Hg] [facility] Heart rate 2023-11-06 17:49:00 114 /min [facility] Body height 2023-11-06 17:49:00 154.9 cm [facility] Body weight 2023-11-06 17:49:00 134.31 kg [facility] BMI 2023-11-06 17:49:00 55.95 kg/m2 [facility] Oxygen saturation in Arterial blood by Pulse oximetry 2023-11-06 17:49:00 96 /min [facility] Systolic blood pressure 2023-11-02 20:16:00 136 mm[Hg] [facility] Diastolic blood pressure 2023-11-02 20:16:00 84 mm[Hg] [facility] Heart rate 2023-11-02 20:16:00 113 /min [facility] Body height 2023-11-02 20:16:00 154.9 cm [facility] Body weight 2023-11-02 20:16:00 132.722 kg [facility] BMI 2023-11-02 20:16:00 55.29 kg/m2 [facility] Oxygen saturation in Arterial blood by Pulse oximetry 2023-11-02 20:16:00 98 /min [facility] Systolic blood pressure 2023-10-08 19:18:00 111 mm[Hg] [facility] Diastolic blood pressure 2023-10-08 19:18:00 71 mm[Hg] [facility] Heart rate 2023-10-08 19:18:00 111 /min [facility] Respiratory rate 2023-10-08 19:18:00 16 /min [facility] Body height 2023-10-08 19:18:00 154.9 cm [facility] Body weight 2023-10-08 19:18:00 130.999 kg [facility] BMI 2023-10-08 19:18:00 54.57 kg/m2 [facility] Oxygen saturation in Arterial blood by Pulse oximetry 2023-10-08 19:18:00 94 /min [facility] Systolic blood pressure 2023-10-06 19:50:00 119 mm[Hg] [facility] Diastolic blood pressure 2023-10-06 19:50:00 79 mm[Hg] [facility] Heart rate 2023-10-06 19:50:00 95 /min [facility] Body temperature 2023-10-06 19:50:00 37.06 Alpa [facility] Respiratory rate 2023-10-06 19:50:00 18 /min [facility] Body height 2023-10-06 19:50:00 154.9 cm [facility] Body weight 2023-10-06 19:50:00 131.316 kg [facility] BMI 2023-10-06 19:50:00 54.70 kg/m2 [facility] Oxygen saturation in Arterial blood by Pulse oximetry 2023-10-06 19:50:00 97 /min [facility] Systolic blood pressure 2023-10-01 14:50:00 128 mm[Hg] [facility] Diastolic blood pressure 2023-10-01 14:50:00 86 mm[Hg] [facility] Heart rate 2023-10-01 14:50:00 91 /min [facility] Body temperature 2023-10-01 14:50:00 36.61 Alpa [facility] Respiratory rate 2023-10-01 14:50:00 20 /min [facility] Body height 2023-10-01 14:50:00 154.9 cm [facility] Body weight 2023-10-01 14:50:00 131.997 kg [facility] BMI 2023-10-01 14:50:00 54.98 kg/m2 [facility] Oxygen saturation in Arterial blood by Pulse oximetry 2023-10-01 14:50:00 97 /min [facility] Systolic blood pressure 2023-03-24 20:59:00 138 mm[Hg] [facility] Diastolic blood pressure 2023-03-24 20:59:00 90 mm[Hg] [facility] Heart rate 2023-03-24 20:59:00 90 /min [facility] Body temperature 2023-03-24 20:59:00 37 Alpa [facility] Respiratory rate 2023-03-24 20:59:00 18 /min [facility] Body weight 2023-03-24 20:59:00 148.553 kg [facility] BMI 2023-03-24 20:59:00 61.88 kg/m2 [facility] Oxygen saturation in Arterial blood by Pulse oximetry 2023-03-24 20:59:00 99 /min [facility] Systolic blood pressure 2023-02-12 16:26:00 133 mm[Hg] [facility] Diastolic blood pressure 2023-02-12 16:26:00 88 mm[Hg] [facility] Heart rate 2023-02-12 16:26:00 96 /min [facility] Body temperature 2023-02-12 16:26:00 36.06 Alpa [facility] Respiratory rate 2023-02-12 16:26:00 18 /min [facility] Body weight 2023-02-12 16:26:00 147.589 kg [facility] BMI 2023-02-12 16:26:00 61.48 kg/m2 [facility] Oxygen saturation in Arterial blood by Pulse oximetry 2023-02-12 16:26:00 98 /min [facility] Heart rate 2023-01-25 20:44:00 115 /min [facility] Body temperature 2023-01-25 20:44:00 36.78 Alpa [facility] Respiratory rate 2023-01-25 20:44:00 18 /min [facility] Oxygen saturation in Arterial blood by Pulse oximetry 2023-01-25 20:44:00 94 /min [facility] Systolic blood pressure 2023-01-25 19:28:00 156 mm[Hg] [facility] Diastolic blood pressure 2023-01-25 19:28:00 93 mm[Hg] [facility] Body height 2023-01-25 15:37:00 154.9 cm [facility] Body weight 2023-01-25 15:37:00 136.079 kg [facility] BMI 2023-01-25 15:37:00 56.68 kg/m2 [facility] Systolic blood pressure 2022-09-09 16:05:00 134 mm[Hg] [facility] Diastolic blood pressure 2022-09-09 16:05:00 92 mm[Hg] [facility] Heart rate 2022-09-09 16:05:00 137 /min [facility] Respiratory rate 2022-09-09 16:05:00 27 /min [facility] Oxygen saturation in Arterial blood by Pulse oximetry 2022-09-09 16:05:00 94 /min [facility] Body temperature 2022-09-09 12:58:00 37.11 Alpa [facility] Body weight 2022-09-09 12:58:00 147.873 kg [facility] BMI 2022-09-09 12:58:00 61.60 kg/m2 [facility] Systolic blood pressure 2022-08-21 15:08:00 120 mm[Hg] [facility] Diastolic blood pressure 2022-08-21 15:08:00 76 mm[Hg] [facility] Heart rate 2022-08-21 15:08:00 98 /min [facility] Body temperature 2022-08-21 15:08:00 36.72 Alpa [facility] Respiratory rate 2022-08-21 15:08:00 20 /min [facility] Body weight 2022-08-21 15:08:00 148.326 kg [facility] BMI 2022-08-21 15:08:00 61.79 kg/m2 [facility] Oxygen saturation in Arterial blood by Pulse oximetry 2022-08-21 15:08:00 95 /min [facility] Systolic blood pressure 2022-05-22 16:42:00 121 mm[Hg] [facility] Diastolic blood pressure 2022-05-22 16:42:00 85 mm[Hg] [facility] Heart rate 2022-05-22 16:42:00 86 /min [facility] Body height 2022-05-22 16:42:00 154.9 cm [facility] Body weight 2022-05-22 16:42:00 150.64 kg [facility] BMI 2022-05-22 16:42:00 62.75 kg/m2 [facility] Oxygen saturation in Arterial blood by Pulse oximetry 2022-05-22 16:42:00 95 /min [facility] Systolic blood pressure 2021-12-25 17:48:00 110 mm[Hg] [facility] Diastolic blood pressure 2021-12-25 17:48:00 79 mm[Hg] [facility] Heart rate 2021-12-25 17:48:00 111 /min [facility] Body height 2021-12-25 17:48:00 157.5 cm [facility] Body weight 2021-12-25 17:48:00 141.295 kg [facility] BMI 2021-12-25 17:48:00 56.97 kg/m2 [facility] Diastolic blood pressure 2021-09-19 16:39:00 77 mm[Hg] [facility] Heart rate 2021-09-19 16:39:00 74 /min [facility] Body temperature 2021-09-19 16:39:00 36.22 Alpa [facility] Body height 2021-09-19 16:39:00 157.5 cm [facility] Body weight 2021-09-19 16:39:00 141.159 kg [facility] BMI 2021-09-19 16:39:00 56.92 kg/m2 [facility] Oxygen saturation in Arterial blood by Pulse oximetry 2021-09-19 16:39:00 98 /min [facility] Systolic blood pressure 2021-09-19 16:39:00 114 mm[Hg] [facility] Systolic blood pressure 2021-07-22 16:18:00 135 mm[Hg] [facility] Diastolic blood pressure 2021-07-22 16:18:00 82 mm[Hg] [facility] Heart rate 2021-07-22 16:18:00 90 /min [facility] Respiratory rate 2021-07-22 16:18:00 18 /min [facility] Body height 2021-07-22 16:18:00 154.9 cm [facility] Body weight 2021-07-22 16:18:00 142.157 kg [facility] BMI 2021-07-22 16:18:00 59.22 kg/m2 [facility] Oxygen saturation in Arterial blood by Pulse oximetry 2021-07-22 16:18:00 96 /min [facility] Systolic blood pressure 2021-07-09 16:43:00 116 mm[Hg] [facility] Diastolic blood pressure 2021-07-09 16:43:00 84 mm[Hg] [facility] Heart rate 2021-07-09 16:43:00 85 /min [facility] Respiratory rate 2021-07-09 16:43:00 18 /min [facility] Body height 2021-07-09 16:43:00 154.9 cm [facility] Body weight 2021-07-09 16:43:00 142.611 kg [facility] BMI 2021-07-09 16:43:00 59.41 kg/m2 [facility] Oxygen saturation in Arterial blood by Pulse oximetry 2021-07-09 16:43:00 95 /min [facility] Heart rate 2020-10-16 17:35:00 109 /min [facility] Respiratory rate 2020-10-16 17:35:00 22 /min [facility] Oxygen saturation in Arterial blood by Pulse oximetry 2020-10-16 17:35:00 93 /min [facility] Systolic blood pressure 2020-10-16 17:13:00 113 mm[Hg] [facility] Diastolic blood pressure 2020-10-16 17:13:00 95 mm[Hg] [facility] Body temperature 2020-10-16 17:13:00 37.11 Alpa [facility] Body weight 2020-10-16 17:13:00 136.079 kg [facility] BMI 2020-10-16 17:13:00 56.68 kg/m2 [facility] Body temperature 2020-09-20 10:38:00 97.6 [degF] Method: Temporal [facility] Heart Rate 2020-09-20 10:38:00 81 /min [facility] O2 SAT 2020-09-20 10:38:00 96 % Source: [facility] Systolic blood pressure 2020-09-20 10:38:00 128 mm[Hg] Location: RUE; Position: Sitting [facility] Diastolic blood pressure 2020-09-20 10:38:00 81 mm[Hg] Location: RUE; Position: Sitting [facility] Body height 2020-09-20 10:38:00 61.5 [in_us] [facility] Weight 2020-09-20 10:38:00 306 [lb_av] [facility] Body mass index (BMI) [Ratio] 2020-09-20 10:38:00 56.88 kg/m2 [facility] Systolic blood pressure 2019-10-12 11:01:00 123 mm[Hg] Location: LUE; Position: Sitting [facility] Diastolic blood pressure 2019-10-12 11:01:00 81 mm[Hg] Location: LUE; Position: Sitting [facility] Body height 2019-10-12 11:01:00 61 [in_us] [facility] Weight 2019-10-12 11:01:00 294.375 [lb_av] [facility] Body mass index (BMI) [Ratio] 2019-10-12 11:01:00 55.62 kg/m2 [facility] Body temperature 2019-10-12 11:01:00 96.6 [degF] Method: Tympanic [facility] Heart Rate 2019-10-12 11:01:00 99 /min Location: L Radial; [facility] O2 SAT 2019-10-12 11:01:00 95 % Source: RA [facility] BP Systolic 2017-06-09 10:21:00 113 mm[Hg] Location: RUE; Position: Sitting [facility] BP Diastolic 2017-06-09 10:21:00 76 mm[Hg] Location: RUE; Position: Sitting [facility] Height 2017-06-09 10:21:00 61 [in_us] [facility] Weight 2017-06-09 10:21:00 250 [lb_av] [facility] Body Mass Index Calculated 2017-06-09 10:21:00 47.24 kg/m2 [facility] Heart Rate 2017-06-09 10:21:00 109 /min [facility] BP Systolic 2017-05-26 10:11:00 115 mm[Hg] Location: LUE; Position: Sitting [facility] BP Diastolic 2017-05-26 10:11:00 72 mm[Hg] Location: LUE; Position: Sitting [facility] Height 2017-05-26 10:11:00 61 [in_us] [facility] Weight 2017-05-26 10:11:00 256 [lb_av] [facility] Body Mass Index Calculated 2017-05-26 10:11:00 48.37 kg/m2 [facility] Heart Rate 2017-05-26 10:11:00 84 /min Location: L Radial; [facility] O2 SAT 2017-05-26 10:11:00 98 % [facility] BP Systolic 2017-04-30 08:45:00 118 mm[Hg] Location: RUE; Position: Sitting [facility] BP Diastolic 2017-04-30 08:45:00 81 mm[Hg] Location: RUE; Position: Sitting [facility] Height 2017-04-30 08:45:00 61 [in_us] [facility] Weight 2017-04-30 08:45:00 255 [lb_av] [facility] Body Mass Index Calculated 2017-04-30 08:45:00 48.18 kg/m2 [facility] Heart Rate 2017-04-30 08:45:00 81 /min [facility] BP Systolic 2017-04-16 08:26:00 123 mm[Hg] Location: RUE; Position: Sitting [facility] BP Diastolic 2017-04-16 08:26:00 82 mm[Hg] Location: RUE; Position: Sitting [facility] Height 2017-04-16 08:26:00 61 [in_us] [facility] Weight 2017-04-16 08:26:00 259 [lb_av] [facility] Body Mass Index Calculated 2017-04-16 08:26:00 48.94 kg/m2 [facility] Heart Rate 2017-04-16 08:26:00 102 /min [facility] BP Systolic 2017-04-01 13:34:00 110 mm[Hg] Location: LUE; Position: Sitting [facility] BP Diastolic 2017-04-01 13:34:00 78 mm[Hg] Location: LUE; Position: Sitting [facility] Height 2017-04-01 13:34:00 61 [in_us] [facility] Weight 2017-04-01 13:34:00 262 [lb_av] [facility] Body Mass Index Calculated 2017-04-01 13:34:00 49.5 kg/m2 [facility] Temperature 2017-04-01 13:34:00 98.2 [degF] Method: Oral [facility] Diastolic (mm Hg) 2012-07-16 23:05:00 [facility] Systolic (mm Hg) 2012-07-16 23:05:00 [facility] Diastolic (mm Hg) 2012-07-16 21:49:00 [facility] Systolic (mm Hg) 2012-07-16 21:49:00 [facility] Temperature Oral (F) 2012-07-16 21:49:00 97.8 F [facility] Temperature Oral (F) 2012-07-16 17:32:00 98.4 F [facility] Systolic (mm Hg) 2012-07-16 17:32:00 [facility] Diastolic (mm Hg) 2012-07-16 17:32:00 [facility] Temperature Oral (F) 2012-07-16 14:33:00 98.1 F [facility] Respitory Rate 2012-07-16 01:00:00 [facility] Respitory Rate 2012-07-15 22:30:00 [facility] Respitory Rate 2012-07-15 21:30:00 [facility] Weight 2012-07-15 09:07:00 [facility] Height 2012-07-15 09:07:00 154.94 cm [facility] Weight 2012-07-15 02:36:00 [facility] Height 2012-07-15 02:36:00 154.94 cm [facility] Weight 2012-06-25 17:05:00 [facility] Height 2012-06-25 17:05:00 165.10 cm [facility] Weight 2012-05-25 00:51:00 [facility] Height 2012-05-25 00:51:00 154.94 cm [facility] Weight 2012-03-02 15:30:00 [facility] Height 2012-03-02 15:30:00 154.94 cm [facility] Procedures Procedure Date / Time Performed Performing Clinician Source TROPONIN I 2024-07-03 10:29:00 Melissa Keller Uni [facility] POCT GLUCOSE (AUTOMATED) 2024-07-03 10:22:00 Allen Keller [facility] EKG-12 LEAD 2024-07-03 08:17:08 [facility] 2024-07-03 06:13:00 [facility] VW 2024-07-03 03:13:17 Nupur Morin U [facility] RAPID STREP SCREEN FOR GROUP A 2024-07-03 01:48:00 Nupur Morin [facility] TROPONIN I 2024-07-03 01:20:00 Nupur Morin [facility] COMP. METABOLIC PANEL ([id number]) 2024-07-03 01:20:00 Nupur Morin [facility] CBC WITH DIFF 2024-07-03 01:20:00 Nupur Morin U [facility] GLYCOSYLATED HEMOGLOBIN (A1C) 2024-07-03 01:20:00 Melissa Keller [facility] D-DIMER 2024-07-03 01:20:00 Nupur Morin [facility] N-TERMINAL PRO-BNP 2024-07-03 01:20:00 Evie Morin [facility] XR CHEST 2 VW 2024-07-02 23:58:02 Jonathan Juan [facility] POCT SARS-COV-2 ANTIGEN (BINAX NOW) 2024-07-02 23:40:00 Suze Joya [facility] POCT MOLECULAR FLU 2024-07-02 23:25:00 Unknown, Attend [facility] D-DIMER 2023-12-13 18:59:00 [facility] INFLUENZA A/B RSV COVID NAAT 2023-12-13 18:36:00 Kwabena Lauren [facility] XR CHEST 1 VW 2023-12-13 18:04:00 Kwabena Lauren [facility] MAGNESIUM 2023-12-13 17:48:00 [facility] TROPONIN I 2023-12-13 17:48:00 Kwabena Lauren [facility] COMP. METABOLIC PANEL ([id number]) 2023-12-13 17:48:00 Kwabena Lauren [facility] CBC WITH DIFF 2023-12-13 17:48:00 Kwabena Lauren [facility] N-TERMINAL PRO-BNP 2023-12-13 17:48:00 Kwabena Lauren [facility] HB ECG ROUTINE & RHYTHM STRIP 2023-10-08 19:14:58 Jacqueline Keller [facility] BASIC METABOLIC PANEL (NA, K, CL, CO2, GLUCOSE, BUN, CREATININE, CA) 2023-01-25 18:26:00 Marco Gill [facility] CBC WITH DIFF 2023-01-25 18:26:00 [facility] XR CHEST 1 VW 2023-01-25 16:38:58 Marco Gill [facility] TROPONIN I 2023-01-25 16:34:00 Marco Gill [facility] CONSENT/REFUSAL FOR DIAGNOSIS AND TREATMENT 2023-01-25 15:30:01 Doctor Unassigned, [place] [facility] CONSENT/REFUSAL FOR DIAGNOSIS AND TREATMENT 2023-01-25 15:30:00 Doctor Unassigned, [place] [facility] EKG-12 LEAD 2022-09-09 15:50:18 Brianna Dowell [facility] POCT TEST 2022-09-09 14:50:00 Malina Dowell ra [facility] TROPONIN I 2022-09-09 14:37:00 Brianna Dowell [facility] COMP. METABOLIC PANEL ([id number]) 2022-09-09 14:37:00 Brianna Dowell [facility] N-TERMINAL PRO-BNP 2022-09-09 14:37:00 Nivia Dowell [facility] XR CHEST 1 VW 2022-09-09 13:39:19 Brianna Dowell [facility] CBC WITH DIFF 2022-09-09 13:20:00 Brianna Dowell [facility] RAPID INFLUENZA A/B 2022-09-09 13:20:00 Malina Dowell ra [facility] CONSENT/REFUSAL FOR DIAGNOSIS AND TREATMENT 2022-09-09 12:54:18 Doctor Unassigned, [place] [facility] ASSIGNMENT OF BENEFITS 2022-08-21 14:56:03 Docto r Unassigned, [place] [facility] TROPONIN I 2020-10-16 18:19:00 Brianna Dowell [facility] HEPATIC FUNCTION PANEL ([id number]) (ALB,T.PRO,BILI T,BU/BC,ALT,AST,ALK PHOS) 2020-10-16 18:19:00 Brianna Dowell [facility] BASIC METABOLIC PANEL (NA, K, CL, CO2, GLUCOSE, BUN, CREATININE, CA) 2020-10-16 18:19:00 Brianna Dowell [facility] N-TERMINAL PRO-BNP 2020-10-16 18:19:00 Nivia Dowell [facility] XR CHEST 1 VW 2020-10-16 17:50:57 Brianna Dowell [facility] CBC WITH DIFF 2020-10-16 17:33:00 Brianna Dowell [facility] NOTICE OF PRIVACY PRACTICES 2020-10-16 17:03:29 Doctor Unassigned, [place] [facility] CONSENT/REFUSAL FOR DIAGNOSIS AND TREATMENT 2020-10-16 17:03:07 Doctor Unassigned, [place] [facility] [QL] CBC (INCLUDES DIFF/PLT) 2020-09-20 00:00:00 [facility] [QL] CMP W/EGFR 2020-09-20 00:00:00 [facility] [QL] LIPID PANEL 2020-09-20 00:00:00 [facility] [QL] HEMOGLOBIN A1c 2020-09-20 00:00:00 [facility] [QL] TSH, 3RD GENERATION W/REFLEX TO FT4 2020-09-20 00:00:00 [facility] [N] Congenital Echo Anomalies Complete [id number] 2019-10-12 00:00:00 [facility] [N] Congenital Echo Anomalies Complete 26564 2019-10-11 00:00:00 [facility] [Q] MATERNAL SERUM AFP 2017-06-09 00:00:00 [facility] [QLH] GLUCOSE, GESTATIONAL SCREEN (50G)-130 CUTOFF 2017-04-30 00:00:00 [facility] [QH] PROTEIN, TOTAL W/CREAT, RANDOM URINE 2017-04-30 00:00:00 [facility] [QLH] CBC (INCLUDES DIFF/PLT) 2017-04-30 00:00:00 [facility] [QLH] CREATININE W/EGFR 2017-04-30 00:00:00 [facility] [QLH] HEPATIC FUNCTION PANEL 2017-04-30 00:00:00 [facility] [QLH] LD 2017-04-30 00:00:00 [facility] [QLH] URIC ACID 2017-04-30 00:00:00 [facility] [LH] TSH+Free T4 2017-04-30 00:00:00 [facility] [N] Congenital Echo Anomalies Complete [id number] 2017-04-20 00:00:00 [facility] [QLH] CMP W/EGFR 2017-04-17 00:00:00 [facility] [LH] TSH+Free T4 2017-04-17 00:00:00 [facility] [QH] PROTEIN, TOTAL W/CREAT, RANDOM URINE 2017-04-17 00:00:00 [facility] . [facility] - Affirm VPIII (BV Panel) 2017-04-01 00:00:00 [facility] . [facility] - GC/Chlamydia 2017-04-01 00:00:00 [facility] [H] Obstetrics Panel (includes CBCw/Diff,RPR, HbsAg,RubIgG,Type and Screen) 2017-04-01 00:00:00 [facility] [Q] HIV AB, HIV 1/2, EIA, WITH REFLEXES 2017-04-01 00:00:00 [facility] [QLH] CULTURE, URINE, ROUTINE 2017-04-01 00:00:00 [facility] [QLH] URINALYSIS, COMPLETE 2017-04-01 00:00:00 [facility] [QLH] HCG, TOTAL, QN 2017-04-01 00:00:00 [facility] . [facility] - PAP 2017-04-01 00:00:00 [facility] [QH] HIV AB, HIV 1/2, EIA, WITH REFLEXES 2017-04-01 00:00:00 [facility] section 2002-05-18 00:00:00 Isaiasaidan keller [place] Open heart surgery 1983 00:00:00 eriberto Obrien History of Section [facility] History of Transposition Repair Mustard Procedure [facility] Plan of Care Planned Activity Planned Date Details Comments Source Diagnostic Test Pending 2020-09-20 00:00:00 [QL] CBC (INCLUDES DIFF/PLT) [code = [QL] CBC (INCLUDES DIFF/PLT)] [facility] Diagnostic Test Pending 2020-09-20 00:00:00 [QL] CMP W/EGFR [code = [QL] CMP W/EGFR] [facility] Diagnostic Test Pending 2020-09-20 00:00:00 [QL] LIPID PANEL [code = [QL] LIPID PANEL] [facility] Diagnostic Test Pending 2020-09-20 00:00:00 [QL] HEMOGLOBIN A1c [code = [QL] HEMOGLOBIN A1c] [facility] Diagnostic Test Pending 2020-09-20 00:00:00 [QL] TSH, 3RD GENERATION W/REFLEX TO FT4 [code = [QL] TSH, 3RD GENERATION W/REFLEX TO FT4] [facility] Diagnostic Test Pending 2019-10-11 00:00:00 [N] Congenital Echo Anomalies Complete 86676 [code = [N] Congenital Echo Anomalies Complete 18545] [facility] Diagnostic Test Pending 2019-10-11 00:00:00 [N] Congenital Echo Anomalies Complete 25409 [code = [N] Congenital Echo Anomalies Complete 81342] [facility] Diagnostic Test Pending 2017-06-09 00:00:00 [Q] MATERNAL SERUM AFP [code = [Q] MATERNAL SERUM AFP] [facility] Diagnostic Test Pending 2017-04-17 00:00:00 [QLH] CMP W/EGFR [code = [QLH] CMP W/EGFR] [facility] Diagnostic Test Pending 2017-04-17 00:00:00 [LH] TSH+Free T4 [code = [LH] TSH+Free T4] [facility] Diagnostic Test Pending 2017-04-17 00:00:00 [QH] PROTEIN, TOTAL W/CREAT, RANDOM URINE [code = [QH] PROTEIN, TOTAL W/CREAT, RANDOM URINE] [facility] Encounters Start Date/Time End Date/Time Encounter Type Admission Type Attending Clinicians Care Facility Care Department Encounter ID Source 2024-01-04 18:02:51 Emergency HFD [id number] [facility] ent 2022-12-18 15:05:31 Outpatient [facility] [id number] [facility] 2022-12-16 15:15:06 Outpatient [facility] [id number] [facility] 2022-12-12 13:16:24 Outpatient [facility] [id number] [facility] 2022-12-04 13:14:40 Outpatient [facility] [id number] [facility] 2022-12-02 10:52:14 Outpatient [facility] [id number] [facility] 2022-10-01 09:15:10 Outpatient [facility] [id number] [facility] 2022-09-18 07:22:10 Outpatient [facility] [id number] [facility] 2022-09-17 10:51:38 Outpatient [facility] [id number] [facility] 2022-09-08 12:11:43 Outpatient [facility] [id number] [facility] 2022-09-02 16:55:37 Outpatient [facility] [id number] [facility] 2022-08-21 10:06:24 Preadmit nullFlavo r [facility] [id number] Dann Obrien 2022-08-20 14:08:20 Outpatient [facility] [id number] [facility] 2022-07-08 07:10:45 Outpatient [facility] [id number] [facility] 2022-05-26 14:24:52 Outpatient [facility] [id number] [facility] 2022-05-22 10:04:37 Outpatient [facility] [id number] [facility] 2021-07-09 13:31:20 Outpatient [facility] [id number] [facility] 2021-07-09 11:06:09 Outpatient [facility] [id number] [facility] 2024-09-15 13:00:00 2024-09-15 13:00:00 Outpatient TUNG, POYEE [facility] [id number] [facility] 2024-08-01 14:20:00 2024-08-01 14:20:00 Outpatient R NICBRANDON HOWARD [facility] [id number] [facility] 2024-07-28 13:45:00 2024-07-28 14:20:13 Outpatient CHAPIN NOVAK [facility] [id number] [facility] 2024-07-25 00:00:00 2024-07-28 08:19:43 Telephone Nadine Acosta [facility] 1.2.840.114 350.1.13.10 4.2.7.2.686 [id number] [facility] 2024-07-20 12:30:28 2024-07-20 23:59:00 Hospital Encounter Brandon Lucero [facility] 1..840.114 350.1.13.10 4.2.7.2.686 [id number] [facility] 2024-07-20 00:00:00 2024-07-20 23:59:00 Outpatient BRANDON PATEL HOWARD [facility] [id number] [facility] 2024-07-20 00:00:00 2024-07-20 11:19:47 Telephone Artur Woods [facility] 1..840.114 350.1.13.10 4.2.7.2.686 [id number] [facility] 2024-07-19 00:00:00 2024-07-20 08:40:08 Telephone Nic Brandon Rodriguez [facility] 1.2.840.114 350.1.13.10 4.2.7.2.686 [id number] [facility] 2024-07-18 16:00:00 2024-07-18 16:15:00 Wild Animal Caretaker Visit 2, Adc Lab Artur Woods 2, Adc Lab [facility] 1.840.114 350.1.13.10 4.2.7.2.686 [id number] [facility] 2024-07-18 15:00:00 2024-07-18 15:18:36 Outpatient R ARTUR WOODS [facility] [id number] [facility] 2024-07-18 15:00:00 2024-07-18 15:18:36 Office Visit Artur Woods [facility] 1.0.114 350.1.13.10 4.2.7.2.686 [id number] [facility] 2024-07-05 00:00:00 2024-07-05 15:16:36 Transition of Care Jeannine Pires Kristi L [facility] 1.0.114 350.1.13.10 4.2.7.2.686 [id number] [facility] 2024-07-05 14:20:00 2024-07-05 14:27:42 Outpatient R JUAN CHAKRABORTY JUAN [facility] [id number] [facility] 2024-07-05 14:20:00 2024-07-05 14:27:42 Office Visit ChakrabortyJuan thurman [facility] 1.0.114 350.1.13.10 4.2.7.2.686 [id number] [facility] 2024-07-05 11:20:00 2024-07-05 12:11:22 Office Visit Brandon Lucero [facility] 1.840.114 350.1.13.10 4.2.7.2.686 [id number] [facility] 2024-07-02 18:36:00 2024-07-03 12:45:00 Outpatient X KELLER, MELISSA [facility] RUDI [id number] [facility] 2024-07-02 18:36:00 2024-07-03 12:45:00 Emergency Mikel JaquelineMelissa Goel [facility] 1.114 350.1.13.10 4.2.7.2.686 [id number] [facility] 2024-07-02 17:51:30 2024-07-02 18:35:00 Hospital Encounter Jonathan Juan [facility] 1.84.114 350.1.13.10 4.2.7.2.686 [id number] [facility] 2024-07-02 17:20:00 2024-07-02 18:13:25 Outpatient R JONATHAN JUAN [facility] [id number] [facility] 2024-07-02 17:20:00 2024-07-02 18:13:25 Urgent Care Jonathan Juan Unknown, Attending [facility] 1.84.114 350.1.13.10 4.2.7.2.686 [id number] [facility] 2024-06-28 14:30:00 2024-06-28 14:30:00 Outpatient R BRADEN ALCOCER [facility] [id number] [facility] 2024-06-17 00:00:00 2024-06-20 16:07:33 Telephone Analy Hull [facility] 1.84.114 350.1.13.10 4.2.7.2.686 [id number] [facility] 2024-06-13 00:00:00 2024-06-13 16:46:29 Telephone QuynhBraden ellington [facility] 1.2.840.114 350.1.13.10 4.2.7.2.686 [id number] [facility] 2024-06-10 10:30:00 2024-06-10 10:30:00 Outpatient R UQYNHBRADEN Ellington [facility] [id number] [facility] 2024-05-03 14:45:00 2024-05-03 15:00:00 Office Visit Tierra Whitt [facility] 1.2840.114 350.1.13.10 4.2.7.2.686 [id number] [facility] 2024-05-03 14:45:00 2024-05-03 14:45:00 Outpatient R TIERRA WHITT [facility] [id number] [facility] 2024-04-01 00:00:00 2024-04-01 16:22:53 Refill Cristiane Lambert [facility] 1.840.114 350.1.13.10 4.2.7.2.686 [id number] [facility] 2024-03-28 00:00:00 2024-03-29 16:02:10 [facility] 1.2.840.114 350.1.13.10 4.2.7.2.686 [id number] [facility] 2024-03-29 00:00:00 2024-03-29 12:21:55 Letter (Out) [facility] 1.2.840.114 350.1.13.10 4.2.7.2.686 [id number] [facility] 2024-03-28 14:45:00 2024-03-28 14:55:37 Outpatient R TIERRA WHITT [facility] [id number] [facility] 2024-03-28 14:45:00 2024-03-28 14:55:37 Office Visit Tierra Whitt [facility] 1.84.114 350.1.13.10 4.2.7.2.686 [id number] [facility] 2024-03-25 10:30:00 2024-03-25 10:30:00 Outpatient R HUMAIRA CAMACHO [facility] [id number] [facility] 2024-03-09 10:30:00 2024-03-09 11:11:54 Outpatient R QUYNHBRADEN Ellington [facility] [id number] [facility] 2024-03-09 10:30:00 2024-03-09 11:11:54 Office Visit Carlyn Braden [facility] 1.84.114 350.1.13.10 4.2.7.2.686 [id number] [facility] 2024-02-29 11:00:00 2024-02-29 13:18:59 Outpatient R CRISTIANE LAMBERT [facility] [id number] [facility] 2024-02-29 11:00:00 2024-02-29 13:18:59 Office Visit Cristiane Lambert [facility] 1.84.114 350.1.13.10 4.2.7.2.686 [id number] [facility] 2024-02-05 00:00:00 2024-02-05 11:23:10 Telephone Brandon Lucero [facility] 1.84.114 350.1.13.10 4.2.7.2.686 [id number] [facility] 2024-02-05 10:30:00 2024-02-05 10:30:00 Outpatient Emilee HUMAIRA CAMACHO [facility] [id number] [facility] 2024-02-02 09:40:00 2024-02-02 09:40:00 Outpatient BRANDON PATEL HOWARD [facility] [id number] [facility] 2024-01-14 12:15:00 2024-01-14 12:30:00 Office Visit Wilson Chapin [facility] 1.2.840.114 350.1.13.10 4.2.7.2.686 [id number] [facility] 2024-01-14 12:15:00 2024-01-14 12:15:00 Outpatient R STEVE CHAPIN [facility] [id number] [facility] 2024-01-06 00:00:00 2024-01-06 16:55:11 Patient Secure Msg Doctor Unassigned, [place] Doctor Unassigned, [place] [facility] 1.2.840.114 350.1.13.10 4.2.7.2.686 [id number] [facility] 2024-01-06 09:30:00 2024-01-06 09:30:00 Outpatient BRADEN BACH [facility] [id number] [facility] 2024-01-05 11:40:00 2024-01-05 12:23:19 Outpatient BRANDON PATEL HOWARD [facility] [id number] [facility] 2024-01-05 11:40:00 2024-01-05 12:23:19 Office Visit Brandon Lucero [facility] 1.2.840.114 350.1.13.10 4.2.7.2.686 [id number] [facility] 2024-01-05 10:00:00 2024-01-05 10:00:00 Wild Animal Caretaker Visit Lab, Ang - Db [facility], Ang - Db [facility] 1.84.114 350.1.13.10 4.2.7.2.686 [id number] [facility] 2024-01-05 09:00:00 2024-01-05 09:15:03 Office Visit Braden Alcocer [facility] 1..114 350.1.13.10 4.2.7.2.686 [id number] [facility] 2024-01-04 14:20:00 2024-01-04 14:20:00 Outpatient BRANDON PATEL HOWARD [facility] [id number] [facility] 2023-12-02 00:00:00 2024-01-02 18:19:02 Patient Secure Msg Doctor Unassigned, [place] Doctor Unassigned, [place] [facility] 1..114 350.1.13.10 4.2.7.2.686 [id number] [facility] 2024-01-01 09:06:07 2024-01-01 23:59:00 Outpatient BRADEN BACH [facility] [id number] [facility] 2024-01-01 09:06:07 2024-01-01 23:59:00 Hospital Encounter Braden Alcocer [facility] 1.84.114 350.1.13.10 4.2.7.2.686 [id number] [facility] 2023-12-25 10:09:31 2023-12-25 23:59:00 Hospital Encounter Brandon Lucero [facility] 1.84.114 350.1.13.10 4.2.7.2.686 [id number] [facility] 2023-12-25 00:00:00 2023-12-25 23:59:00 Outpatient BRANDON PATEL HOWARD [facility] [id number] [facility] 2023-12-18 12:40:00 2023-12-18 12:40:00 Outpatient BRANDON PATEL HOWARD [facility] [id number] [facility] 2023-12-14 00:00:00 2023-12-14 00:00:00 Outpatient BRADEN BACH [facility] [id number] [facility] 2023-12-13 11:59:00 2023-12-13 16:21:00 Emergency X Kwabena LAUREN K [facility] ERT [id number] [facility] 2023-12-13 11:59:00 2023-12-13 16:21:00 Emergency Kwabena Lauren [facility] ..840.114 350.1.13.10 4.2.7.2.686 [id number] [facility] 2023-12-12 19:00:00 2023-12-12 19:38:44 Outpatient R NICOLAS IZAGUIRRE [facility] [id number] [facility] 2023-12-12 19:00:00 2023-12-12 19:20:00 Urgent Care Nicolas Izaguirre Unknown, Attending [facility]ALL [facility] 1..840.114 350.1.13.10 4.2.7.2.686 [id number] [facility] 2023-12-07 10:40:00 2023-12-07 10:40:00 Outpatient [facility] [id number] [facility] 2023-12-01 10:00:00 2023-12-01 11:10:33 Outpatient ARTUR GUDINO [facility] [id number] [facility] 2023-12-01 10:00:00 2023-12-01 11:10:33 Office Visit Artur Woods [facility] 1..840.114 350.1.13.10 4.2.7.2.686 [id number] [facility] 2023-12-01 00:00:00 2023-12-01 08:01:39 Telephone QuynhBraden ellington [facility] ROSENDA?KENDALL [facility] 1..840.114 350.1.13.10 4.2.7.2.686 [id number] [facility] 2023-11-30 15:30:00 2023-11-30 15:55:03 Wild Animal Caretaker Visit Lab, Lj - [facility] 1..840.114 350.1.13.10 4.2.7.2.686 [id number] [facility] 2023-11-30 15:00:00 2023-11-30 15:20:48 Outpatient Emilee ALCOCER BRADEN [facility] [id number] [facility] 2023-11-30 15:00:00 2023-11-30 15:20:48 Office Visit QuynhBraden ellington [facility] ROSENDA?KENDALL [facility] 1.2.840.114 350.1.13.10 4.2.7.2.686 [id number] [facility] 2023-11-24 14:00:00 2023-11-24 14:00:00 Outpatient BRANDON PATEL HOWARD [facility] [id number] [facility] 2023-11-17 19:20:00 2023-11-17 19:28:22 Outpatient ROMY LEIVA [facility] [id number] [facility] 2023-11-17 19:20:00 2023-11-17 19:28:22 Urgent Care Romy Chow Unknown, Attending [facility] 1.2.840.114 350.1.13.10 4.2.7.2.686 [id number] [facility] 2023-11-17 00:00:00 2023-11-17 10:36:59 Letter (Out) [facility] 1..840.114 350.1.13.10 4.2.7.2.686 [id number] [facility] 2023-11-09 00:00:00 2023-11-09 12:56:37 RefBraden Ramon [facility] 1..840.114 350.1.13.10 4.2.7.2.686 [id number] [facility] 2023-11-06 14:15:00 2023-11-06 14:30:00 Wild Animal Caretaker Visit Lab, Brandon Carrion [facility] 1.2.840.114 350.1.13.10 4.2.7.2.686 [id number] [facility] 2023-11-06 13:00:00 2023-11-06 14:09:29 Outpatient R BRANDON LUCERO HOWARD [facility] [id number] [facility] 2023-11-06 13:00:00 2023-11-06 14:09:29 Office Visit Brandon Lucero [facility] ROS[facility]DA?[facility] 1.2.840.114 350.1.13.10 4.2.7.2.686 [id number] [facility] 2023-11-03 00:00:00 2023-11-04 09:47:47 Telephone Wilson, [facility] ROSENDA?K[facility]ALL [facility] 1..840.114 350.1.13.10 4.2.7.2.686 [id number] [facility] 2023-11-03 08:00:00 2023-11-03 08:00:00 Outpatient [facility] [id number] [facility] 2023-11-02 15:15:00 2023-11-02 15:30:00 Office Visit Wilson Chapin [facility] ROS[facility]DA?[facility] 1.840.114 350.1.13.10 4.2.7.2.686 [id number] [facility] 2023-11-02 15:15:00 2023-11-02 15:15:00 Outpatient R STEVE CHAPIN [facility] [id number] [facility] 2023-10-28 00:00:00 2023-10-30 10:51:37 Telephone QuynhBraden ellington [facility] ROSENDA?KENDALL [facility] 1.840.114 350.1.13.10 4.2.7.2.686 [id number] [facility] 2023-10-22 13:00:00 2023-10-22 13:00:00 Outpatient FLOR CONRAD [facility] [id number] [facility] 2023-10-22 11:00:00 2023-10-22 11:00:00 Outpatient [facility] [id number] [facility] 2023-10-09 00:00:00 2023-10-09 00:00:00 Telephone Braden Alcocer [facility] ROS[facility]DA?[facility] 1.840.114 350.1.13.10 4.2.7.2.686 [id number] [facility] 2023-10-08 00:00:00 2023-10-08 16:56:48 Letter (Out) [facility] 1.840.114 350.1.13.10 4.2.7.2.686 [id number] [facility] 2023-10-08 14:00:00 2023-10-08 15:22:08 Outpatient R JACQUELINE KELLER [facility] [id number] [facility] 2023-10-08 14:00:00 2023-10-08 15:22:08 Office Visit Jacqueline Keller [facility] 1.2840.114 350.1.13.10 4.2.7.2.686 [id number] [facility] 2023-10-07 00:00:00 2023-10-07 08:30:43 Telephone Braden Alcocer [facility] 1.840.114 350.1.13.10 4.2.7.2.686 [id number] [facility] 2023-10-06 00:00:00 2023-10-06 16:08:54 Letter (Out) Doctor Unassigned, [place] [facility] 1.84.114 350.1.13.10 4.2.7.2.686 [id number] [facility] 2023-10-06 15:45:00 2023-10-06 16:00:00 Wild Animal Caretaker Visit Lab, Ang [facility] 1.2840.114 350.1.13.10 4.2.7.2.686 [id number] [facility] 2023-10-06 15:00:00 2023-10-06 15:38:56 Outpatient R BRADEN ALCOCER [facility] [id number] [facility] 2023-10-06 15:00:00 2023-10-06 15:38:56 [facility] 1.2840.114 350.1.13.10 4.2.7.2.686 [id number] [facility] 2023-10-01 09:40:00 2023-10-01 10:03:12 Outpatient R NICOLAS IZAGUIRRE [facility] [id number] [facility] 2023-10-01 09:40:00 2023-10-01 10:00:00 Urgent Care Nicolas Izaguirre Unknown, Attending [facility]ENDALL [facility] 1.2.840.114 350.1.13.10 4.2.7.2.686 [id number] [facility] 2023-08-31 08:56:00 2023-08-31 23:59:00 Emergency Emergency LIZ GOINS [facility] Emergency Medicine [id number] [facility] 2023-08-31 08:56:00 2023-08-31 13:12:00 [id number] 2023-08-26 01:42:00 2023-08-28 15:10:00 Inpatient E CARMEN FLOOD [facility] [id number] [facility] 2023-08-24 20:05:00 2023-08-25 02:15:00 Emergency E [facility] [id number] [facility] 2023-08-16 20:20:00 2023-08-24 14:50:00 Outpatient E PHIL ALEXIS [facility] [id number] [facility] 2023-08-16 09:22:00 2023-08-16 18:52:00 Emergency E LA[facility]ARA [facility] [id number] 2023-07-05 13:54:00 2023-08-15 11:20:00 Inpatient U ROHAN CAMARILLO [facility] [id number] [facility] 2023-07-27 08:00:00 2023-07-27 08:00:00 Outpatient JYOTHI BAEZA [facility] [id number] [facility] 2023-06-18 10:00:00 2023-06-18 10:00:00 Outpatient FLOR CONRAD [facility] [id number] [facility] 2023-05-21 10:00:00 2023-05-21 10:00:00 Outpatient [facility] [id number] [facility] 2023-04-23 10:30:00 2023-04-23 10:30:00 Outpatient FLOR CONRAD [facility] [id number] [facility] 2023-03-24 14:40:00 2023-03-24 15:00:00 Urgent Care Ebrahim, Nicolas Unknown, Attending [facility] 1.2.840.114 350.1.13.10 4.2.7.2.686 [id number] [facility] 2023-03-24 14:40:00 2023-03-24 14:40:00 Outpatient R NICOLAS IZAGUIRRE [facility] [id number] [facility] 2023-03-24 00:00:00 2023-03-24 00:00:00 Telephone IamNicolas chaidez [facility] 1.2.840.114 350.1.13.10 4.2.7.2.686 [id number] [facility] 2023-02-19 10:00:00 2023-02-19 10:00:00 Outpatient [facility] [id number] [facility] 2023-02-12 11:00:00 2023-02-12 11:28:10 Outpatient R EBNICOLAS CHAIDEZ [facility] [id number] [facility] 2023-02-12 11:00:00 2023-02-12 11:28:10 Urgent Care EbhiNicolas linder Unknown, Attending [facility] 1.2.840.114 350.1.13.10 4.2.7.2.686 [id number] [facility] 2023-01-25 10:40:00 2023-01-25 15:47:00 Emergency X CORKY MARCO [facility] ERT [id number] [facility] 2023-01-25 10:40:00 2023-01-25 15:47:00 Emergency Marco Gill C [facility] 1.2.840.114 350.1.13.10 4.2.7.2.686 [id number] [facility] 2022-12-18 12:00:00 2022-12-18 12:00:00 Outpatient FLOR CONRAD [facility] [id number] [facility] 2022-11-20 10:00:00 2022-11-20 10:00:00 Outpatient [facility] [id number] [facility] 2022-10-22 10:48:00 2022-10-22 23:59:00 Outpatient FLOR CONRAD [id number] 2022-09-18 12:00:00 2022-09-18 12:00:00 Outpatient FLOR CONRAD [facility] [id number] [facility] 2022-09-18 11:00:00 2022-09-18 11:00:00 Outpatient [facility] [id number] [facility] 2022-09-11 10:30:00 2022-09-11 10:30:00 Outpatient LOUANN RAMIREZ [facility] [id number] [facility] 2022-09-09 08:00:00 2022-09-09 11:08:00 Emergency BRIANNA HALL [facility] ERT [id number] [facility] 2022-09-09 08:00:00 2022-09-09 11:08:00 Emergency Brianna Dowell [facility] 1.2.840.114 350.1.13.10 4.2.7.2.686 [id number] [facility] 2022-08-21 10:00:00 2022-08-21 10:20:24 Outpatient KHARI CHOUDHARYANGELES [facility] [id number] [facility] 2022-08-21 10:00:00 2022-08-21 10:20:00 Nurse Visit NurseLj Urgent Care Unknown, Attending [facility] LEAH HERZOG?[facility] 1.2840.114 350.1.13.10 4.2.7.2.686 [id number] [facility] 2022-08-21 00:00:00 2022-08-21 00:00:00 Orders Only Doctor Unassigned, [place] [facility] 1.20.114 350.1.13.10 4.2.7.2.686 [id number] [facility] 2022-05-22 10:30:00 2022-05-22 11:28:45 Office Visit Flor Conrad [facility] 1..114 350.1.13.58 9.2.7.2.686 [id number] [facility] 2022-02-17 10:40:00 2022-02-17 10:40:00 Outpatient NALLELY MILLER [facility] [id number] [facility] 2022-01-16 11:00:00 2022-01-16 11:00:00 Outpatient FLOR CONRAD [facility] [id number] [facility] 2021-12-31 13:45:00 2021-12-31 13:45:00 Outpatient REYNALDO ELLIS [facility] [id number] [facility] 2021-12-25 13:00:00 2021-12-25 14:30:12 Office Visit NALLELY MILLER [facility] 1.840.114 350.1.13.58 9.2.7.2.686 [id number] [facility] 2021-12-25 13:00:00 2021-12-25 13:00:00 Outpatient NALLELY MILLER [facility] [id number] [facility] 2021-09-19 11:30:00 2021-09-19 12:20:15 Office Visit Flor Conrad [facility] 1.2.840.114 350.1.13.58 9.2.7.2.686 [id number] [facility] 2021-09-19 11:00:00 2021-09-19 11:00:00 Outpatient [facility] [id number] [facility] 2021-07-31 00:00:00 2021-07-31 00:00:00 Telephone Gibran Shrestha Jannine [facility] [address] 1.2.840.114 350.1.13.58 9.2.7.2.686 [id number] [facility] 2021-07-22 11:00:00 2021-07-22 11:12:54 Ancillary Procedure Provider, Carine [facility] [address] 1.2.840.114 350.1.13.58 9.2.7.2.686 [id number] [facility] 2021-07-09 10:30:00 2021-07-09 12:39:44 Office Visit Flor Conrad [facility] [address] 1.2.840.114 350.1.13.58 9.2.7.2.686 [id number] [facility] 2020-10-16 12:08:00 2020-10-16 14:44:00 Emergency Brianna Dowell [facility] 1.2.840.114 350.1.13.10 4.2.7.2.686 [id number] [facility] 2020-10-16 12:04:00 2020-10-16 12:04:00 Emergency X [facility] ERT [id number] [facility] 2020-10-16 00:00:00 2020-10-16 00:00:00 Telephone Gibran Shrestha Jannine [facility] [address] 1.2.840.114 350.1.13.58 9.2.7.2.686 [id number] [facility] 2020-10-16 00:00:00 2020-10-16 00:00:00 Telephone Gibran Shrestha [facility] [address] 1.2.840.114 350.1.13.58 9.2.7.2.686 [id number] 2020-10-16 00:00:00 2020-10-16 00:00:00 Orders Only Doctor Unassigned, [place] [facility] 1.2.840.114 350.1.13.10 4.2.7.2.686 [id number] [facility] 2020-09-20 11:00:00 2020-09-20 11:00:00 Appointmen t; TATE CONRAD ACHD [facility] Multis[place]ia [place] [address] [id number] [place] [facility] 2020-09-20 10:00:00 2020-09-20 10:00:00 Appointmen t; [place], ECHO [facility] ECHO UTP [place] [place] [id number] [place] [facility] 2019-10-12 11:00:00 2019-10-12 11:00:00 Appointmen t; FLOR CONRAD M.D. TUNG, POYEE, M.D. [facility] Multispecia lty [facility] [id number] [place] [facility] 2019-07-20 11:00:00 2019-07-20 11:00:00 Appointmen t; FLOR CONRAD M.D. TUNG, POYEE, M.D. [facility] [id number] [place] [facility] [place] 2019-06-22 10:15:00 2019-06-22 10:15:00 Appointmen t; FLOR CONRAD M.D. TUNG, POYEE, M.D. [facility] [id number] [place] [facility] [place] 2019-05-02 09:18:19 2019-05-02 13:09:00 Emergency X DANA GALLARDOIP [facility] ERT [id number] [facility] 2017-12-15 11:002017-12-15 11:00:00 Appointmen t; FLOR CONRAD M.D. TUNG, POYEE, M.D. [facility] [id number] [place] [facility] 2017-11-24 10:30:00 2017-11-24 10:30:00 Appointmen t; OB/MD, HIGH OB/MD, HIGH [facility]TP [facility] [id number] [place] [facility] 2017-11-17 10:30:00 2017-11-17 10:30:00 Appointmen t; OB/MD, HIGH OB/MD, HIGH [facility]TP [facility] [id number] [place] [facility] 2017-11-10 11:15:00 2017-11-10 11:15:00 Appointmen t; FLOR CONRAD M.D. TUNG, POYEE, M.D. [facility] [id number] [place] [facility] 2017-11-10 10:30:00 2017-11-10 10:30:00 Appointmen t; OB/MD, HIGH OB/MD, HIGH [facility]TP [facility] [id number] [place] [facility] 2017-11-10 10:30:00 2017-11-10 10:30:00 Appointmen t; FLOR CONRAD M.D. TUNG, POYEE, M.D. [facility] [id number] [place] [facility] 2017-10-13 11:00:00 2017-10-13 11:00:00 Appointmen t; FLOR CONRAD M.D. TUNG, POYEE, M.D. [facility] [id number] [place] [facility] 2017-10-13 10:30:00 2017-10-13 10:30:00 Appointmen t; OB/MD, HIGH OB/MD, HIGH UTP [facility] [id number] [place] [facility] 2017-06-09 10:30:00 2017-06-09 10:30:00 Appointmen t; OB/MD, HIGH OB/MD, HIGH UTP [employer] [id number] [place] [facility] 2017-06-02 11:00:00 2017-06-02 11:00:00 Appointmen t; OB/MD, HIGH OB/MD, HIGH UTP [employer] [id number] [place] [facility] 2017-05-26 09:30:00 2017-05-26 09:30:00 Appointmen t; Flor Conrad M.D. Tung, Poyee, M.D. [facility] Cardiology [id number] [place] [facility] 2017-05-06 10:45:00 2017-05-06 10:45:00 Appointmen t; OB/RES, ULTRASOUND OB/RES, ULTRASOUND [facility] [id number] [place] [facility] 2017-04-30 08:00:00 2017-04-30 08:00:00 Appointmen t; OB/MD, HIGH OB/MD, HIGH UTP [employer] [id number] [place] [facility] 2017-04-22 09:00:00 2017-04-22 09:00:00 Appointmen t; COSMO, ECHO1 COSMO, ECHO1 [facility] [id number] [place] [facility] 2017-04-16 08:00:00 2017-04-16 08:00:00 Appointmen t; OB/MD, HIGH OB/MD, HIGH UTP [employer] [id number] [place] [facility] 2017-04-01 14:45:00 2017-04-01 14:45:00 Appointmen t; BEESWAX BLEACHER, ROOM1 BEESWAX BLEACHER, ROOM1 [facility] UTP [id number] [place] [facility] [facility] 2017-04-01 14:00:00 2017-04-01 14:00:00 Appointmen t; SMITH SMILEY M.D. VOWELS, PATRICIA, M.D. [facility] [employer] [id number] [place] [facility] 2015-10-09 08:00:00 2015-10-09 08:00:00 Appointmen t; CYNTHIA, FELLOW2 MFM, FELLOW2 [facility] UTP [id number] [place] [facility] 2015-10-02 08:30:00 2015-10-02 08:30:00 Appointmen t; MFM, FELLOW2 MFM, FELLOW2 [facility] UTP [id number] [place] [facility] 2015-09-25 08:30:00 2015-09-25 08:30:00 Appointmen t; MFM, FELLOW2 MFM, FELLOW2 [facility] [id number] [place] [facility] [facility] 2015-09-17 13:30:00 2015-09-17 13:30:00 Appointmen t; OB/MD, POSPROVIDE R OB/MD, POSPROVIDER [facility] [id number] [place] [facility] 2015-09-13 08:30:00 2015-09-13 08:30:00 Appointmen t; MFM, FELLOW2 MFM, FELLOW2 [facility]TP [facility] [id number] [place] [facility] 2015-09-13 08:00:00 2015-09-13 08:00:00 Appointmen t; BEESWAX BLEACHER, ROOM1 BEESWAX BLEACHER, ROOM1 UTP [facility] [id number] [place] Physici ans 2015-08-30 08:00:00 2015-08-30 08:00:00 Appointmen t; MFM, FELLOW2 MFM, FELLOW2 UTP UTP [id number] [place] Physici ans 2015-08-24 15:30:00 2015-08-24 15:30:00 Appointmen t; BEESWAX BLEACHER, ROOM1 BEESWA[facility] BLEACHER, ROOM1 UTP UTP [id number] [place] Physici ans 2015-08-24 14:30:00 2015-08-24 14:30:00 Appointmen t; LOCO FISCHER M.D. LASH, KAYLA, M.D. [facility] [id number] [place] Physici ans 2012-07-14 20:18:00 2012-07-14 20:18:00 Inpatient nullFlavo r [facility] [id number] Dann Obrien 2012-06-25 10:18:00 2012-06-25 16:35:00 OU nullFlavo r [facility] [id number] Dann Obrien 2012-06-03 09:00:00 2012-06-03 09:00:00 OR nullFlavo r [facility] [id number] Dann Obrien 2012-05-24 12:30:00 2012-05-24 17:23:00 OU nullFlavo r [facility] [id number] Dann Obrien 2012-05-03 09:48:00 2012-05-03 09:48:00 OR nullFlavo r [facility] [id number] Dann Obrien 2012-03-02 10:30:00 2012-03-02 11:35:00 Emergency nullFlavo r [facility] [id number] Dann Obrien Results Test Description Test Time Test Comments Results Result Co mments Source [facility] GLUCOSE (AUTOMATED)2024-07-03 10:23:50* Test Item Value Reference Range Interpretation Comme nts POCT GLU (test code = 7837849963) 151 mg/dL 70-110 H Lab Interpretation (test cod e = 65982-4) [facility] [id number] 04:43:30CLINICAL HISTORY: cough, shortness breathing x2 days ? COMPARISON: Today at 1757 ? FINDINGS: The heart is mildly enlarged. There is mild pulmonary edema.There is no focal infiltrate, pleural effusion, or pneumothorax.[facility] [id number] 04:34:46Ordering physician: NUPUR MORIN Indication: Chest pain, shortness of breath Comparison: Chest radiograph dated 07/02/2024 Technical quality: Adequate Findings: Single AP view of the chest. The cardiopericardial silhouette ismildly enlarged. There is mild prominence of the central interstitium.Thevisualized bony thorax is intact. [facility][id number] 02:38:50* Test Item Value Reference Range Interpretation Comments D-DIMER (test code = 5225001127) 0.36 See_Comment [Automated message] The system which generated this result transmitted reference range: <0.41 ?g/mL (FEU). The reference range was not used to interpret this result as normal/abnormal. ALONSO (test code = ALONSO) This test may be used in conjunction with a clinical pretest probability (PTP) assessment model to exclude venous thromboembolism (VTE) in patients suspected of deep venous thrombosis (DVT) and pulmonary embolism (PE) A D-Dimer value less than 0.50 ?g/ml (FEU) has a negative predicative value of 96 to 100% (95% CI)and 97 to 100% (95% CI) as an aid in the diagnosis of deep vein thrombosis (DVT) and pulmonary embolism when there is low or moderate pretest probability of PE or DVT. D-Dimer values are expressed in initial fibrinogen equivalent units (FEU)" The assay results should be used with other information, including the clinical context, in forming a diagnosis. Lab Interpretation (test code = 98959-3) Normal [facility] [id number] 02:05:52* Test Item Value Reference Range Interpretation Comme nts TROPONIN I (test code = [id number]) 0.008 ng/mL <=0.034 ALONSO (test code = ALONSO) Reference (Normal) Range (defined by the 99th percentile reference limit): <= 0.034 ng/mL Note: Cardiac troponin begins to rise 3-4 hours after the onset of ischemia. Repeat in 4-6 hours if the sample was drawn within 3-4 hours of the onset of the symptom and found normal. Diagnosis of myocardial injury is made with acute changes in cTn concentrations with at least one serial sample above the 99th percentile upper reference limit (URL), taken together with the patient's clinical presentation. Biotin has been reported to cause a negative bias, interpret results relative to patient's use of biotin. Lab Interpretation (test code = 60632-5) [facility] [id number] 02:03:31* Test Item Value Reference Range Interpretation Comme nts NT-proBNP (test code = 87487-0) 679 pg/mL <=125 H ALONSO (test code = ALONSO) Positive: Heart Failure Likely Lab Interpretation (test code = 09291-5) [facility] [id number] 01:55:49* Test Item Value Reference Range Interpretation Comme nts WBC (test code = 6690-2) 4.67 4.30-11.10 RBC (test code = 789-8) 4.78 3.93-5.25 HGB (test code = 718-7) 13.8 g/dL 11.6-15.0 HCT (test code = 4544-3) 41.0 % 35.7-45.2 MCV (test code = 787-2) 85.8 fL 80.6-95.5 MCH (test code = 785-6) 28.9 pg 25.9-32.8 MCHC (test code = 786-4) 33.7 g/dL 31.6-35.1 RDW-SD (test code = 81930-3) 43.5 fL 39.0-49.9 RDW-CV (test code = 788-0) 14.0 % 12.0-15.5 PLT (test code = 777-3) 146 166-358 L MPV (test code = 79810-3) 13.1 fL 9.5-12.9 H IPF % (test code = 8729033364) 10.5 % 1.3-7.7 H Platelet count measured by fluorescence method. NRBC/100 WBC (test code = 2434027871) 0.0 0.0-10.0 NRBC x10^3 (test code = 6429835243) See_Comment [Automated messa ge] The system which generated this result transmitted reference range: 10*3/?L. The reference range was not used to interpret this result as normal/abnormal. GRAN MAT (NEUT) % (test code = 770-8) 71.1 % IMM GRAN % (test code = 5009827581) 0.40 % LYMPH % (test code = 736-9) 20.1 % MONO % (test code = 5905-5) 7.1 % EOS % (test code = 713-8) 0.9 % BASO % (test code = 706-2) 0.4 % GRAN MAT x10^3(ANC) (test code = 1989578974) 3.32 10*3/uL 1.88-7.09 IMM GRAN x10^3 (test code = 9878399721) 0.00-0.06 LYMPH x10^3 (test code = 731-0) 0.94 10*3/uL 1.32-3.29 L MONO x10^3 (test code = 742-7) 0.33 10*3/uL 0.33-0.92 EOS x10^3 (test code = 711-2) 0.04 10*3/uL 0.03-0.39 BASO x10^3 (test code = 704-7) 0.01-0.07 Lab Interpretation (test code = 68289-6) [facility]OL[facility] PAN[facility] ([id number])2024-07-03 01:54:28* Test Item Value Reference Range Interpretation Comme nts NA (test code = 7544325408) 138 mmol/L 135-145 K (test code = 3384382530) 4.6 mmol/L 3.5-5.0 CL (test code = 3825062876) 103 mmol/L 98-108 CO2 TOTAL (test code = 2045721980) 23 mmol/L 23-31 AGAP (test code = 4370394424) 12 2-16 BUN (test code = 3664778971) 14 mg/dL 7-23 GLUCOSE (test code = 4091556622) 113 mg/dL 70-110 H CREATININE (test code = 2160-0) 0.68 mg/dL 0.50-1.04 TOTAL BILI (test code = 1389219970) 1.0 mg/dL 0.1-1.1 CALCIUM (test code = 3300703659) 9.1 mg/dL 8.6-10.6 T PROTEIN (test code = 6644709167) 8.1 g/dL 6.3-8.2 ALBUMIN (test code = 1213022474) 4.8 g/dL 3.5-5.0 ALK PHOS (test code = 2820742531) 80 U/L 34-122 ALTv (test code = 1742-6) 42 U/L 5-35 H AST(SGOT) (test code = 5015369496) 37 U/L 13-40 eGFR (test code = 90721-3) 113.1 mL/min/1.73m2 CKD-EPI eGFR (2020). Assuming creatinine has been stable day-to-day for at least three months, the eGFR indicates Category G1 (>= 90 mL/min/1.73 m2) Lab Interpretation (test code = 22368-5) Abnormal [facility] SARS-COV-2 ANTIGEN (BINAX NOW)2024-07-02 23:40:00* Test Item Value Reference Range Interpretation Comme [facility] POCT SARS-COV-2 ANTIGEN (test code = 16320-3) Not Detected Not Detected, See Comment On board controls acceptable with C Line (test code = 3574) Yes Lab Interpretation (test code = 18109-7) Normal [facility] Molecular [id number] 23:37:14* Test Item Value Reference Range Interpretation Comme nts POCT Molecular FluA (test co de = 96762-0) Negative Negative POCT Molecular FluB (test co de = 60119-2) Negative Negative Lab Interpretation (test cod e = 99939-1) Normal [facility]-[id number] 19:39:41* Test Item Value Reference Range Interpretation Comments D-DIMER (test code = 3504418255) 0.36 See_Comment [Automated message] The system which generated this result transmitted reference range: <0.50 ?g/mL (FEU). The reference range was not used to interpret this result as normal/abnormal. ALONSO (test code = ALONSO) This test may be used in conjunction with a clinical pretest probability (PTP) assessment model to exclude venous thromboembolism (VTE) in patients suspected of deep venous thrombosis (DVT) and pulmonary embolism (PE) A D-Dimer value less than 0.50 ?g/ml (FEU) has a negative predicative value of 96 to 100% (95% CI)and 97 to 100% (95% CI) as an aid in the diagnosis of deep vein thrombosis (DVT) and pulmonary embolism when there is low or moderate pretest probability of PE or DVT. D-Dimer values are expressed in initial fibrinogen equivalent units (FEU)" The assay results should be used with other information, including the clinical context, in forming a diagnosis. Lab Interpretation (test code = 91384-2) Normal [facility]ano[facility]roponin [id number] 18:24:38* Test Item Value Reference Range Interpretation Comme nts TROPONIN I (test code = 7375717022) 0.005 ng/mL <=0.034 ALONSO (test code = ALONSO) Reference (Normal) Range (defined by the 99th percentile reference limit): <= 0.034 ng/mL Note: Cardiac troponin begins to rise 3-4 hours after the onset of ischemia. Repeat in 4-6 hours if the sample was drawn within 3-4 hours of the onset of the symptom and found normal. Diagnosis of myocardial injury is made with acute changes in cTn concentrations with at least one serial sample above the 99th percentile upper reference limit (URL), taken together with the patient's clinical presentation. Biotin has been reported to cause a negative bias, interpret results relative to patient's use of biotin. Lab Interpretation (test code = 20024-0) [facility] [id number] 18:21:56* Test Item Value Reference Range Interpretation Comme nts NT-proBNP (test code = 67482-6) 1870 pg/mL <=125 H ALONSO (test code = ALONSO) Positive: Heart Failure Likely Lab Interpretation (test code = 61307-1) [facility]normal [facility] CHEST 1 [id number] 18:14:39PROCEDURE: XR CHEST 1 VW 12/13/2023 1:00 PM CLINICAL INDICATION: r/o pneumonia, cough, CP COMPARISON: Radiograph of 01/25/2023 FINDINGS: The lungs are well-expanded. The pre-existing chronic hilar vascularcongestion and prominence of interstitial marking has increased. There isno pleural effusion. ?No pneumothorax. The cardiac size is mildly enlarged, stable No aggressive osseous lesion. Sternotomy wires are noted.[facility]. Metabolic Panel ([id number]) 2023-12-13 18:12:59* Test Item Value Reference Range Interpretation Comme nts NA (test code = 5663043924) 138 mmol/L 135-145 K (test code = 1110103578) 3.6 mmol/L 3.5-5.0 CL (test code = 7907400205) 107 mmol/L 98-108 CO2 TOTAL (test code = 4541630082) 23 mmol/L 23-31 AGAP (test code = 4922787760) 8 2-16 BUN (test code = 9448763638) 10 mg/dL 7-23 GLUCOSE (test code = 8258138737) 104 mg/dL 70-110 CREATININE (test code = 2160-0) 0.59 mg/dL 0.50-1.04 TOTAL BILI (test code = 5533313631) 0.9 mg/dL 0.1-1.1 CALCIUM (test code = 7803932111) 8.8 mg/dL 8.6-10.6 T PROTEIN (test code = 0371926561) 7.1 g/dL 6.3-8.2 ALBUMIN (test code = 1346958088) 4.0 g/dL 3.5-5.0 ALK PHOS (test code = 6049455237) 89 U/L 34-122 ALTv (test code = 1742-6) 16 U/L 5-35 AST(SGOT) (test code = 1799508469) 19 U/L 13-40 eGFR (test code = 80597-4) 117.0 mL/min/1.73m2 CKD-EPI eGFR (20 21). Assuming creatinine has been stable day-to-day for at least three months, the eGFR indicates Category G1 (>= 90 mL/min/1.73 m2) [facility]anoMagnesium2024-07-28 18:12:59* Test Item Value Reference Range Interpretation Comme nts MAGNESIUM (test code = 5974178314) 1.7 mg/dL 1.7-2.4 Lab Interpretation (test cod e = 90000-3) [facility] with [id number] 18:06:57* Test Item Value Reference Range Interpretation Comme nts WBC (test code = 6690-2) 5.36 4.30-11.10 RBC (test code = 789-8) 4.35 3.93-5.25 HGB (test code = 718-7) 12.2 g/dL 11.6-15.0 HCT (test code = 4544-3) 36.3 % 35.7-45.2 MCV (test code = 787-2) 83.4 fL 80.6-95.5 MCH (test code = 785-6) 28.0 pg 25.9-32.8 MCHC (test code = 786-4) 33.6 g/dL 31.6-35.1 RDW-SD (test code = 48554-1) 38.9 fL 39.0-49.9 L RDW-CV (test code = 788-0) 12.9 % 12.0-15.5 PLT (test code = 777-3) 230 166-358 MPV (test code = 72059-4) 10.2 fL 9.5-12.9 IPF % (test code = 8527230370) 2.8 % 1.3-7.7 Platelet count measured by fluorescence method. NRBC/100 WBC (test code = 3758127906) 0.0 0.0-10.0 NRBC x10^3 (test code = 9313992332) See_Comment [Automated Versaa ge] The system which generated this result transmitted reference range: 10*3/?L. The reference range was not used to interpret this result as normal/abnormal. GRAN MAT (NEUT) % (test code = 770-8) 75.0 % IMM GRAN % (test code = 2798303203) 0.70 % LYMPH % (test code = 736-9) 16.8 % MONO % (test code = 5905-5) 5.6 % EOS % (test code = 713-8) 1.5 % BASO % (test code = 706-2) 0.4 % GRAN MAT x10^3(ANC) (test code = 9669528276) 4.02 10*3/uL 1.88-7.09 IMM GRAN x10^3 (test code = 7014796860) 0.04 10*3/uL 0.00-0.06 LYMPH x10^3 (test code = 731-0) 0.90 10*3/uL 1.32-3.29 L MONO x10^3 (test code = 742-7) 0.30 10*3/uL 0.33-0.92 L EOS x10^3 (test code = 711-2) 0.08 10*3/uL 0.03-0.39 BASO x10^3 (test code = 704-7) 0.01-0.07 Lab Interpretation (test code = 48954-7) Abnormal [facility] METABOLIC PANEL (NA, K, CL, CO2, GLUCOSE, BUN, CREATININE, CA)2023-01-25 19:15:35* Test Item Value Reference Range Interpretation Comme nts NA (test code = 4924539929) 137 mmol/L 135-145 K (test code = 2431473885) 3.7 mmol/L 3.5-5.0 CL (test code = 8043183141) 105 mmol/L 98-108 CO2 TOTAL (test code = 2116860655) 22 mmol/L 23-31 L AGAP (test code = 7956948365) 10 2-16 BUN (test code = 7719016589) 11 mg/dL 7-23 GLUCOSE (test code = 3158955118) 112 mg/dL 70-110 H CREATININE (test code = 1971295302) 0.74 mg/dL 0.50-1.04 CALCIUM (test code = 2879013043) 8.7 mg/dL 8.6-10.6 eGFR (test code = 2755536718) 87.4 mL/min/1.73m2 ALONSO (test code = ALONSO) Association of Glomerular Filtration Rate (GFR) and Staging of Kidney Disease* + --+ --+ ------+| GFR (mL/min/1.73 m2) ?| With Kidney Damage ?| ?Without Kidney Damage+ --------+ --------+ +| ?>90 ?| ?Stage one ?| ? Normal ?+ ---+ ---+ -------+| ?60-89 ?| ?Stage two ?| ? Decreased GFR ? + --+ --+ ------+| ?30-59 ?| ?Stage three ?| ? Stage three ? + --+ --+ ------+| ?15-29 ?| ?Stage four ? | ? Stage four ?+ ---+ ---+ -------+| ?<15 (or dialysis) ? ?| ?Stage five ? | ? Stage five ?+ ---+ ---+ -------+ *Each stage assumes the associated GFR level has been in effect for at least three months. ?Stages 1 to 5, with or without kidney disease, indicate chronic kidney disease. Notes: Determination of stages one and two (with eGFR >59mL/min/1.73 m2) requires estimation of kidney damage for at least three months as defined by structural or functional abnormalities of the kidney, manifested by either:Pathological abnormalities or Markers of kidney damage (including abnormalities in the composition of the blood or urine or abnormalities in imaging tests). Lab Interpretation (test code = 70418-3) Abnormal [facility] WITH [id number] 18:52:03* Test Item Value Reference Range Interpretation Comme nts WBC (test code = 6690-2) 8.11 See_Comment [Automated Launchups] The system which generated this result transmitted reference range: 4.30 - 11.10 10*3/?L. The reference range was not used to interpret this result as normal/abnormal. RBC (test code = 789-8) 4.76 See_Comment [Automated Launchups] The system which generated this result transmitted reference range: 3.93 - 5.25 10*6/?L. The reference range was not used to interpret this result as normal/abnormal. HGB (test code = 718-7) 14.1 g/dL 11.6-15.0 HCT (test code = 4544-3) 41.1 % 35.7-45.2 MCV (test code = 787-2) 86.3 fL 80.6-95.5 MCH (test code = 785-6) 29.6 pg 25.9-32.8 MCHC (test code = 786-4) 34.3 g/dL 31.6-35.1 RDW-SD (test code = 67856-4) 39.5 fL 39.0-49.9 RDW-CV (test code = 788-0) 12.7 % 12.0-15.5 PLT (test code = 777-3) 215 See_Comment [Automated Versaa ge] The system which generated this result transmitted reference range: 166 - 358 10*3/?L. The reference range was not used to interpret this result as normal/abnormal. MPV (test code = 33798-8) 10.1 fL 9.5-12.9 NRBC/100 WBC (test code = 0321147409) 0.0 See_Comment [Automated SupplyBetter ssage] The system which generated this result transmitted reference range: 0.0 - 10.0 /100 WBCs. The reference range was not used to interpret this result as normal/abnormal. NRBC x10^3 (test code = 7971388266) See_Comment [Automated Versaa ge] The system which generated this result transmitted reference range: 10*3/?L. The reference range was not used to interpret this result as normal/abnormal. GRAN MAT (NEUT) % (test code = 770-8) 76.2 % IMM GRAN % (test code = 1860053186) 0.20 % LYMPH % (test code = 736-9) 16.2 % MONO % (test code = 5905-5) 5.9 % EOS % (test code = 713-8) 1.1 % BASO % (test code = 706-2) 0.4 % GRAN MAT x10^3(ANC) (test code = 8191593891) 6.18 10*3/uL 1.88-7.09 IMM GRAN x10^3 (test code = 2086047285) 0.00-0.06 LYMPH x10^3 (test code = 731-0) 1.31 10*3/uL 1.32-3.29 L MONO x10^3 (test code = 742-7) 0.48 10*3/uL 0.33-0.92 EOS x10^3 (test code = 711-2) 0.09 10*3/uL 0.03-0.39 BASO x10^3 (test code = 704-7) 0.03 10*3/uL 0.01-0.07 Lab Interpretation (test code = 97566-9) Abnormal [facility] [id number] 17:08:42* Test Item Value Reference Range Interpretation Comme nts TROPONIN I (test code = 6822012460) 0.018 ng/mL <=0.034 ALONSO (test code = ALONSO) Reference (Normal) Range (defined by the 99th percentile reference limit): <= 0.034 ng/mL Note: Cardiac troponin begins to rise 3-4 hours after the onset of ischemia. Repeat in 4-6 hours if the sample was drawn within 3-4 hours of the onset of the symptom and found normal. Diagnosis of myocardial injury is made with acute changes in cTn concentrations with at least one serial sample above the 99th percentile upper reference limit (URL), taken together with the patient's clinical presentation. Biotin has been reported to cause a negative bias, interpret results relative to patient's use of biotin. Lab Interpretation (test code = 86319-9) Normal [facility] [id number] 15:26:35* Test Item Value Reference Range Interpretation Comme nts TROPONIN I (test code = 5251161592) 0.005 ng/mL <=0.034 ALONSO (test code = ALONSO) Reference (Normal) Range (defined by the 99th percentile reference limit): <= 0.034 ng/mL Note: Cardiac troponin begins to rise 3-4 hours after the onset of ischemia. Repeat in 4-6 hours if the sample was drawn within 3-4 hours of the onset of the symptom and found normal. Diagnosis of myocardial injury is made with acute changes in cTn concentrations with at least one serial sample above the 99th percentile upper reference limit (URL), taken together with the patient's clinical presentation. Biotin has been reported to cause a negative bias, interpret results relative to patient's use of biotin. Lab Interpretation (test code = 67010-5) [facility] [id number] 15:22:35* Test Item Value Reference Range Interpretation Comme nts NT-proBNP (test code = 7206297674) 785 pg/mL <=125 H AOLNSO (test code = ALONSO) Biotin has been reported to cause a negative bias, interpret results relative to patient's use of biotin. Lab Interpretation (test code = 26343-6) [facility] MET[facility]OLIC PANEL ([id number])2022-09-09 15:13:16* Test Item Value Reference Range Interpretation Comme nts NA (test code = 4612046882) 137 mmol/L 135-145 K (test code = 1540010275) 4.1 mmol/L 3.5-5.0 CL (test code = 4322270584) 108 mmol/L 98-108 CO2 TOTAL (test code = 2202552837) 25 mmol/L 23-31 AGAP (test code = 7675143174) 4 2-16 BUN (test code = 1569217888) 12 mg/dL 7-23 GLUCOSE (test code = 8065410552) 106 mg/dL 70-110 CREATININE (test code = 8624841169) 0.69 mg/dL 0.50-1.04 TOTAL BILI (test code = 9088522711) 0.9 mg/dL 0.1-1.1 CALCIUM (test code = 0621369309) 8.6 mg/dL 8.6-10.6 T PROTEIN (test code = 0807142133) 6.7 g/dL 6.3-8.2 ALBUMIN (test code = 2913131904) 4.2 g/dL 3.5-5.0 ALK PHOS (test code = 5104382676) 66 U/L 34-122 ALTv (test code = 1742-6) 26 U/L 5-35 AST(SGOT) (test code = 8299133394) 21 U/L 13-40 eGFR (test code = 6203553666) 95.2 mL/min/1.73m2 ALONSO (test code = ALONSO) Association of Glomerular Filtration Rate (GFR) and Staging of Kidney Disease* + + +- +| GFR (mL/min/1.73 m2) ?| With Kidney Damage ?| ?Without Kidney Damage+ ------+ ----+ ------+| ?>90 ?| ?Stage one ?| ? Normal ?+ -+ + -+| ?60-89 ?| ?Stage two ?| ? Decreased GFR ? + + +- +| ?30-59 ?| ?Stage three ?| ? Stage three ? + + +- +| ?15-29 ?| ?Stage four ? | ? Stage four ?+ -+ + -+| ?<15 (or dialysis) ? ?| ?Stage five ? | ? Stage five ?+ -+ + -+ *Each stage assumes the associated GFR level has been in effect for at least three months. ?Stages 1 to 5, with or without kidney disease, indicate chronic kidney disease. Notes: Determination of stages one and two (with eGFR >59mL/min/1.73 m2) requires estimation of kidney damage for at least three months as defined by structural or functional abnormalities of the kidney, manifested by either:Pathological abnormalities or Markers of kidney damage (including abnormalities in the composition of the blood or urine or abnormalities in imaging tests). [facility] [id number] 14:50:00* Test Item Value Reference Range Interpretation Comme [facility] POCT PREG (test code = 1605) Negative On board controls acceptable with C Line (test code = 3574) Present POCT PREG LOT # (test code = 3575) [facility] [place] [id number] POCT PREG TEST DATE (test code = 3576) 12/24/2023 Lab Interpretation (test cod e = 27976-0) Normal [facility] WITH [id number] 13:45:46* Test Item Value Reference Range Interpretation Comme [facility] WBC (test code = 6690-2) 10.97 See_Comment [Automated Launchups] The system which generated this result transmitted reference range: 4.30 - 11.10 10*3/?L. The reference range was not used to interpret this result as normal/abnormal. RBC (test code = 789-8) 4.63 See_Comment [Automated Launchups] The system which generated this result transmitted reference range: 3.93 - 5.25 10*6/?L. The reference range was not used to interpret this result as normal/abnormal. HGB (test code = 718-7) 13.5 g/dL 11.6-15.0 HCT (test code = 4544-3) 39.5 % 35.7-45.2 MCV (test code = 787-2) 85.3 fL 80.6-95.5 MCH (test code = 785-6) 29.2 pg 25.9-32.8 MCHC (test code = 786-4) 34.2 g/dL 31.6-35.1 RDW-SD (test code = 30611-7) 38.5 fL 39.0-49.9 L RDW-CV (test code = 788-0) 12.8 % 12.0-15.5 PLT (test code = 777-3) 181 See_Comment [Automated Versaa ge] The system which generated this result transmitted reference range: 166 - 358 10*3/?L. The reference range was not used to interpret this result as normal/abnormal. MPV (test code = 43452-3) 11.8 fL 9.5-12.9 NRBC/100 WBC (test code = 8006099370) 0.0 See_Comment [Automated SupplyBetter ssage] The system which generated this result transmitted reference range: 0.0 - 10.0 /100 WBCs. The reference range was not used to interpret this result as normal/abnormal. NRBC x10^3 (test code = 2551795260) See_Comment [Automated Versaa ge] The system which generated this result transmitted reference range: 10*3/?L. The reference range was not used to interpret this result as normal/abnormal. GRAN MAT (NEUT) % (test code = 770-8) 77.3 % IMM GRAN % (test code = 2051859606) 0.40 % LYMPH % (test code = 736-9) 15.6 % MONO % (test code = 5905-5) 5.8 % EOS % (test code = 713-8) 0.5 % BASO % (test code = 706-2) 0.4 % GRAN MAT x10^3(ANC) (test code = 9194318379) 8.48 10*3/uL 1.88-7.09 H IMM GRAN x10^3 (test code = 1810848927) 0.04 10*3/uL 0.00-0.06 LYMPH x10^3 (test code = 731-0) 1.71 10*3/uL 1.32-3.29 MONO x10^3 (test code = 742-7) 0.64 10*3/uL 0.33-0.92 EOS x10^3 (test code = 711-2) 0.06 10*3/uL 0.03-0.39 BASO x10^3 (test code = 704-7) 0.04 10*3/uL 0.01-0.07 Lab Interpretation (test code = 27023-3) [facility]ano[facility]rop[facility] [id number] 18:51:06* Test Item Value Reference Range Interpretation Comme nts TROPONIN I (test code = 8619795755) 0.019 ng/mL See_Comment [Automated message] The system which generated this result transmitted reference range: <=0.034. The reference range was not used to interpret this result as normal/abnormal. ALONSO (test code = ALONSO) Equal or Less than 0.034 ng/ml---Normal ?Note: Cardiac troponin begins to rise 3-4 hours after the onset of ischemia. Repeat in 4-6 hours if the sample was drawn within 3-4 hours of the onset of the symptom and found normal. Between 0.035 and 0.120 ng/mL--- Borderline. Questionable myocardial injury or necrosis ? ?Note: Serial measurement may be necessary to confirm or exclude the diagnosis of myocardial injury or necrosis; Clinical correlation (symptoms, EKGs, imaging studies, and others) required; Repeat in 4-6 hours if clinically indicated. ? Equal or Higher than 0.121 ng/mL---Abnormal. Myocardial Injury or Necrosis Likely ? Biotin has been reported to cause a negative bias, interpret results relative to patient's use of biotin. ? Lab Interpretation (test code = 89481-1) [facility] [id number] 18:48:08* Test Item Value Reference Range Interpretation Comme nts NT-proBNP (test code = 3202217164) 233 pg/mL See_Comment H [Automated message] The system which generated this result transmitted reference range: <=125. The reference range was not used to interpret this result as normal/abnormal. ALONSO (test code = ALONSO) Biotin has been reported to cause a negative bias, interpret results relative to patient's use of biotin. Lab Interpretation (test code = 52532-5) Abnormal [facility] Metabolic Panel (NA, K, CL, CO2, GLUCOSE, BUN, CREATININE, CA)2020-10-16 18:39:26* Test Item Value Reference Range Interpretation Comme nts NA (test code = 4152034297) 138 mmol/L 135-145 K (test code = 4567643560) 4.0 mmol/L 3.5-5.0 CL (test code = 4319228347) 106 mmol/L 98-108 CO2 TOTAL (test code = 7421252080) 23 mmol/L 23-31 AGAP (test code = 4373511299) 2-16 BUN (test code = 1374790279) 20 mg/dL 7-23 GLUCOSE (test code = 2392570574) 102 mg/dL 70-110 CREATININE (test code = 7013210909) 0.75 mg/dL 0.50-1.04 CALCIUM (test code = 5135032416) 9.3 mg/dL 8.6-10.6 eGFR (test code = 0474396621) mL/min/1.73m2 ALONSO (test code = ALONSO) Association of Glomerular Filtration Rate (GFR) and Staging of Kidney Disease* + + +- +| GFR (mL/min/1.73 m2) ?| With Kidney Damage ?| ?Without Kidney Damage+ ------+ ----+ ------+| ?>90 ?| ?Stage one ?| ? Normal ?+ -+ + -+| ?60-89 ?| ?Stage two ?| ? Decreased GFR ? + + +- +| ?30-59 ?| ?Stage three ?| ? Stage three ? + + +- +| ?15-29 ?| ?Stage four ? | ? Stage four ?+ -+ + -+| ?<15 (or dialysis) ? ?| ?Stage five ? | ? Stage five ?+ -+ + -+ *Each stage assumes the associated GFR level has been in effect for at least three months. ?Stages 1 to 5, with or without kidney disease, indicate chronic kidney disease. Notes: Determination of stages one and two (with eGFR >59mL/min/1.73 m2) requires estimation of kidney damage for at least three months as defined by structural or functional abnormalities of the kidney, manifested by either:Pathological abnormalities or Markers of kidney damage (including abnormalities in the composition of the blood or urine or abnormalities in imaging tests). [facility] (ALB, T.PRO, BILI T, BU/BC, ALT, AST, ALK PHOS)2020-10-16 18:39:26* Test Item Value Reference Range Interpretation Comme nts TOTAL BILI (test code = 1895542562) 0.6 mg/dL 0.1-1.1 BILI UNCON (test code = 1383612663) 0.5 mg/dL 0.1-1.1 BILI CONJ (test code = 3378933787) 0.0 mg/dL 0.0-0.3 T PROTEIN (test code = 2957825992) 7.1 g/dL 6.3-8.2 ALBUMIN (test code = 5148850159) 4.3 g/dL 3.5-5.0 ALK PHOS (test code = 2426648228) 66 U/L 34-122 ALTv (test code = 1742-6) 24 U/L 5-35 AST(SGOT) (test code = 8114158575) 24 U/L 13-40 Lab Interpretation (test cod e = 79178-5) [facility] Eldqfrrppybb1834-01-28 18:02:39* Test Item Value Reference Range Interpretation Comme nts WBC (test code = 6690-2) See_Comment [Automated Launchups] The system which generated this result transmitted reference range: 4.30 - 11.10 10*3/?L. The reference range was not used to interpret this result as normal/abnormal. RBC (test code = 789-8) See_Comment [Automated Versaa Visto] The system which generated this result transmitted reference range: 3.93 - 5.25 10*6/?L. The reference range was not used to interpret this result as normal/abnormal. HGB (test code = 718-7) 14.1 g/dL 11.6-15.0 HCT (test code = 4544-3) 41.5 % 35.7-45.2 MCV (test code = 787-2) 84.7 fL 80.6-95.5 MCH (test code = 785-6) 28.8 pg 25.9-32.8 MCHC (test code = 786-4) 34.0 g/dL 31.6-35.1 RDW-SD (test code = 67426-0) 38.0 fL 39.0-49.9 L RDW-CV (test code = 788-0) 12.5 % 12.0-15.5 PLT (test code = 777-3) See_Comment L [Automated messa ge] The system which generated this result transmitted reference range: 166 - 358 10*3/?L. The reference range was not used to interpret this result as normal/abnormal. MPV (test code = 84262-3) 11.0 fL 9.5-12.9 NRBC/100 WBC (test code = 9410922605) See_Comment [Automated me ssage] The system which generated this result transmitted reference range: 0.0 - 10.0 /100 WBCs. The reference range was not used to interpret this result as normal/abnormal. NRBC x10^3 (test code = 8580913767) <0.01 See_Comment [Automated messa ge] The system which generated this result transmitted reference range: 10*3/?L. The reference range was not used to interpret this result as normal/abnormal. GRAN MAT (NEUT) % (test code = 770-8) 57.1 % IMM GRAN % (test code = 9730119076) 0.40 % LYMPH % (test code = 736-9) 30.6 % MONO % (test code = 5905-5) 8.3 % EOS % (test code = 713-8) 3.2 % BASO % (test code = 706-2) 0.4 % GRAN MAT x10^3(ANC) (test code = 3869899296) 2.68 10*3/uL 1.88-7.09 IMM GRAN x10^3 (test code = 3745883535) <0.03 0.00-0.06 LYMPH x10^3 (test code = 731-0) 1.44 10*3/uL 1.32-3.29 MONO x10^3 (test code = 742-7) 0.39 10*3/uL 0.33-0.92 EOS x10^3 (test code = 711-2) 0.15 10*3/uL 0.03-0.39 BASO x10^3 (test code = 704-7) <0.03 0.01-0.07 Lab Interpretation (test code = 64589-6) [facility] [id number] 17:53:34HISTORY: Cough. TECHNIQUE: Portable AP erect view of the chest is obtained. Comparison ismade with 05/02/2019 study. FINDINGS: Dilated central pulmonary arteries noted with focal groundglasshazy congestion in the right upper lobe. Minimal congestion noted in thelower lungs. Cardiac size is upper normal. Midline sternotomy sutures arein place.No pneumothorax or pleural effusion. CONCLUSIONS: Focal groundglass hazy infiltrate is suspected in the rightupper lung and minimal congestion in both lower lungs. Findings aresuggestive of a nonspecific viral infection.[facility], Radiant Results Inft User - 10/16/2020 12:54 PM CDT HISTORY: Cough.TECHNIQUE: Portable AP erect view of the chest is obtained. Comparison ismade with 05/02/2019 study.FINDINGS: Dilated central pulmonary arteries noted with focal groundglasshazy congestion in the right upper lobe. Minimal congestion noted in thelower lungs. Cardiac size is upper normal. Midline sternotomy sutures arein place.No pneumothorax or pleural effusion.CONCLUSIONS: Focal groundglass hazy infiltrate is suspected in the rightupper lung and minimal congestion in both lower lungs. Findings aresuggestive of a nonspecific viral infection.[facility][QL] LIPID [id number] 00:00:00* Test Item Value Reference Range Interpretation Comme nts CHOLESTEROL, TOTAL; Above High Threshold (test code = 2093-3) 243 mg/dl <200 HDL CHOLESTEROL; Below Low Threshold (test code = 2085-9) 36 mg/dl See_Comment [Automated message] The system which generated this result transmitted reference range: > OR = 50. The reference range was not used to interpret this result as normal/abnormal. TRIGLYCERIDES; Above High Threshold (test code = 2571-8) 161 mg/dl <150 LDL-CHOLESTEROL; Above High Threshold (test code = 95494-4) 176 {MG/DL TRESSA} Reference range: <100 Desirable range <100 mg/dL for primary prevention; <70 mg/dL for patients with CHD or diabetic patients with > or = 2 CHD risk factors. LDL-C is now calculated using the Akira-Hebert calculation, which is a validated novel method providing better accuracy than the Friedewald equation in the estimation of LDL-C. Akira SS et al. DAISHA. 2013;310(19): 1512-1062 (http://education.Oppten.Peak Rx #2/f [email or web address]) CHOL/HDLC RATIO (test code = CHOL/HDLC RATIO) 6.8 {CALC} <5.0 NON HDL CHOLESTEROL (test code = NON HDL CHOLESTEROL) 207 {MG/DL TRESSA} <130 For patients with diabetes plus 1 major ASCVD risk factor, treating to a non-HDL-C goal of <100 mg/dL (LDL-C of <70 mg/dL) is considered a therapeutic option. [facility][QL] CMP [id number] 00:00:00* Test Item Value Reference Range Interpretation Comme nts GLUCOSE; Normal (test code = 1547-9) 89 mg/dl 65-99 N Fasting referenc e interval UREA NITROGEN (BUN) (test code = UREA NITROGEN (BUN)) 16 mg/dl 7-25 N CREATININE (test code = CREATININE) 0.73 mg/dl 0.50-1.10 N eGFR NON-AFR. BENINESE (test code = eGFR NON-AFR. BENINESE) 106 {ML/MIN/1.7} See_Comment N [Automated message] The system which generated this result transmitted reference range: > OR = 60. The reference range was not used to interpret this result as normal/abnormal. eGFR (test code = eGFR ) 123 {ML/MIN/1.7} See_Comment N [Automated message] The system which generated this result transmitted reference range: > OR = 60. The reference range was not used to interpret this result as normal/abnormal. BUN/CREATININE RATIO (test code = BUN/CREATININE RATIO) NOT APPLICABLE 6-22 SODIUM (test code = SODIUM) 137 mmol/L 135-146 N POTASSIUM (test code = POTASSIUM) 4.2 mmol/L 3.5-5.3 N CHLORIDE (test code = CHLORIDE) 105 mmol/L 98-110 N CARBON DIOXIDE (test code = CARBON DIOXIDE) 25 mmol/L 20-32 N CALCIUM (test code = CALCIUM) 8.9 mg/dl 8.6-10.2 N PROTEIN, TOTAL (test code = PROTEIN, TOTAL) 6.9 g/dl 6.1-8.1 N ALBUMIN (test code = ALBUMIN) 4.3 g/dl 3.6-5.1 N GLOBULIN (test code = GLOBULIN) 2.6 {G/DL CALC} 1.9-3.7 N ALBUMIN/GLOBULIN RATIO (test code = ALBUMIN/GLOBULIN RATIO) 1.7 {CALC} 1.0-2.5 N BILIRUBIN, TOTAL; Normal (test code = 42853-1) 0.6 mg/dl 0.2-1.2 N ALKALINE PHOSPHATASE (test code = ALKALINE PHOSPHATASE) 61 u/l 31-125 N AST; Normal (test code = 1916-6) 19 u/l 10-30 N ALT; Normal (test code = 1742-6) 24 u/l 6-29 N [facility][QL] CBC (INCLUDES DIFF/PLT)2020-09-20 00:00:00* Test Item Value Reference Range Interpretation Comme nts WHITE BLOOD CELL COUNT (test code = WHITE BLOOD CELL COUNT) 4.3 {Thousand/u} 3.8-10.8 N RED BLOOD CELL COUNT (test code = RED BLOOD CELL COUNT) 4.43 {Million/uL} 3.80-5.10 N HEMOGLOBIN; Normal (test code = 43251-0) 13.0 g/dl 11.7-15.5 N HEMATOCRIT; Normal (test code = 4544-3) 38.5 % 35.0-45.0 N MCV; Normal (test code = 787-2) 86.9 fL 80.0-100.0 N MCHC; Normal (test code = 21244-9) 33.8 g/dl 32.0-36.0 N RDW; Normal (test code = 788-0) 12.6 % 11.0-15.0 N PLATELET COUNT; Normal (test code = 777-3) 221 {Thousand/u} 140-400 N MPV; Normal (test code = 74868-5) 10.7 fL 7.5-12.5 N ABSOLUTE NEUTROPHILS (test code = ABSOLUTE NEUTROPHILS) 2511 {cells/uL} 3819-5902 N ABSOLUTE LYMPHOCYTES (test code = ABSOLUTE LYMPHOCYTES) 1355 {cells/uL} 850-3900 N ABSOLUTE MONOCYTES (test code = ABSOLUTE MONOCYTES) 262 {cells/uL} 200-950 N ABSOLUTE EOSINOPHILS (test code = ABSOLUTE EOSINOPHILS) 151 {cells/uL} 15-500 N ABSOLUTE BASOPHILS (test code = ABSOLUTE BASOPHILS) 22 {cells/uL} 0-200 N NEUTROPHILS (test code = NEUTROPHILS) 58.4 % N LYMPHOCYTES (test code = LYMPHOCYTES) 31.5 % N MONOCYTES; Normal (test code = 20335-9) 6.1 % N EOSINOPHILS; Normal (test code = 55878-1) 3.5 % N BASOPHILS; Normal (test code = 89833-7) 0.5 % N [facility][QL] TSH, 3RD GENERATION W/REFLEX TO [id number] 00:00:00* Test Item Value Reference Range Interpretation Comme nts TSH, 3RD GENERATION W/REFLEX TO FT4 (test code = TSH, 3RD GENERATION W/REFLEX TO FT4) 7.42 {MIU/L} Reference Range > or = 20 Years 0.40-4.50 Ranges First trimester 0.26-2.66 Second trimester 0.55-2.73 Third trimester 0.43-2.91 T4, FREE (test code = T4, FREE) 0.9 ng/dl 0.8-1.8 N Reference Range > or = 20 Years 0.40-4.50 Ranges First trimester 0.26- 2.66 Second trimester 0.55-2.73 Third trimester 0.43-2.91[facility][QL] HEMOGLOBIN [id number] 00:00:00* Test Item Value Reference Range Interpretation Comme nts HEMOGLOBIN A1c; Normal (test code = 4548-4) 5.3 {% of total} <5.7 N For the purpose of screening for the presence ofdiabetes: <5.7% Consistent with the absence of diabetes5.7-6.4% Consistent with increased risk for diabetes (prediabetes)> or =6.5% Consistent with diabetes This assay result is consistent with a decreased riskof diabetes. Currently, no consensus exists regarding use ofhemoglobin A1c for diagnosis of diabetes in children. According to [place] Diabetes [employer] (ADA)guidelines, hemoglobin A1c <7.0% represents optimalcontrol in non- diabetic patients. Differentmetrics may apply to specific patient populations. Standards of Medical Care in Diabetes(ADA). [facility]] CBC (INCLUDES DIFF/PLT)2017-06-09 11:47:01* Test Item Value Reference Range Interpretation Comme nts WBC (test code = WBC) 5.3 {K/CMM} 3.7-10.4 RBC (test code = RBC) 3.81 {M/CMM} 4.20-5.40 Hgb; Below Low Threshold (te st code = 61542-4) 11.5 g/dl 12.0-16.0 Hct; Below Low Threshold (te st code = 4544-3) 32.1 % 36.0-48.0 MCV (test code = MCV) 84.3 fL 80.0-98.0 MCH (test code = MCH) 30.2 pg 27.0-31.0 MCHC (test code = MCHC) 35.9 g/dl 32.0-36.0 RDW (test code = RDW) 13.4 % 11.5-14.5 Platelet (test code = 777-3) 165 {K/CMM} 133-450 Mean Platelet Volume (test c ode = Mean Platelet Volume) 8.6 fL 7.4-10.4 [facility]] [id number] 11:47:01* Test Item Value Reference Range Interpretation Comme nts Segmented Neutrophils (test code = 71420-3) 67.4 % 45.0-75.0 Monocytes # (test code = 54387-7) 0.3 {K/CMM} 0.0-0.8 Lymphocytes (test code = Lymphocytes) 25.6 % 20.0-40.0 Eosinophils # (test code = 35714-3) 0.1 {K/CMM} 0.0-0.5 Basophils (test code = 13658-0) 0.3 % 0.0-1.0 Segs-Bands # (test code = 79229-1) 3.6 {K/CMM} 1.5-8.1 Lymphocytes # (test code = 05740-7) 1.4 {K/CMM} 1.0-5.5 [facility][Q] PROTEIN, TOTAL W/CREAT, RANDOM [id number] 11:47:01* Test Item Value Reference Range Interpretation Comme nts U Creatinine (test code = U Creatinine) 329.00 mg/dl No establis hed reference ranges. Urine Protein Level (test code = 2888-6) 42.9 mg/dl No establis hed reference ranges. U Prot/Creat (test code = 2890-2) 0.13 [facility]] CREATININE [id number] 11:47:01* Test Item Value Reference Range Interpretation Comme nts Creatinine Lvl (test code = Creatinine Lvl) 0.60 mg/dl 0.50-1.40 eGFR (test code = eGFR) 120 {ML/MIN/1.7} The eGFR is calculat ed using the CKD-EPI formula. In most young, healthyindividuals the eGFR will be >90 mL/min/1.73m2. The eGFR declines with age. AneGFR of 60-89 may be normal in some populations, particularly the elderly, forwhom the CKD-EPI formula has not been extensively validated. Use of the eGFR isnot recommended in the following populations:Individuals with unstable creatinine concentrations, including patients and those with serious co-morbid conditions.Patients with extremes in muscle mass or diet.The data above are obtained from the National Kidney Disease Education Program(NKDEP) which additionally recommends that when the eGFR is used in patientswith extremes of body mass index for purposes of drug dosing, the eGFR shouldbe multiplied by the estimated BMI. [facility][QL] HEPATIC FUNCTION [id number] 11:47:01* Test Item Value Reference Range Interpretation Comme nts Total Protein (test code = 10724-6) 6.7 g/dl 6.4-8.4 Albumin Lvl; Below Low Thres hold (test code = 1751-7) 3.3 g/dl 3.5-5.0 Bili Total (test code = 50489-4) 0.4 mg/dl 0.2-1.3 Bilirubin Indirect (test cod e = 32181-9) 0.3 mg/dl 0.0-1.0 Alk Phos (test code = 1783-0) 64 u/l 39-136 AST (test code = 1916-6) 20 u/l 0-37 ALT (test code = 1742-6) 30 u/l 0-65 Globulin (test code = Globulin) 3.4 g/dl 2.7-4.2 A/G Ratio (test code = A/G Ratio) 1.0 0.7-1.6 [facility]] [id number] 11:47:01* Test Item Value Reference Range Interpretation Comme nts Lactate Dehydrogenase; Above High Threshold (test code = 57748-9) 198 u/l 98-192 [facility]] URIC [id number] 11:47:01* Test Item Value Reference Range Interpretation Comme nts Uric Acid (test code = 3086-6) 3.3 mg/dl 2.5-7.0 [facility][] TSH+Free [id number] 11:47:01* Test Item Value Reference Range Interpretation Comme nts TSH; Above High Threshold (test code = 93507-6) 4.970 {uIU/ml} 0.360-3.740 T4 Free (test code = T4 Free) 0.90 ng/dl 0.76-1.46 [facility][] Alpha Fetoprotein (Only) Maternal [id number] 11:47:01* Test Item Value Reference Range Interpretation Comments Results (Maternal Screen) (test code = Results (Maternal Screen)) Report Test Results (Maternal Screen) (test code = Test Results (Maternal Screen)) *Screen Negative* Gest Age on Collection Date (test code = Gest Age on Collection Date) 17.0 {WEEKS} Gest Age Base On (test code = Gest Age Base On) ЕКАТЕРИНА 11/17/2017Recalc ulations are not recommended when gestational datingby LMP and ultrasound are within 10 days. Maternal Age at ЕКАТЕРИНА (test code = Maternal Age at ЕКАТЕРИНА) 34.1 {yr} Maternal Race (test code = Maternal Race) Other Maternal Weight (test code = Maternal Weight) 250 {lb} Insulin-Dependen t Diabetic (test code = Insulin-Dependen t Diabetic) No Multiple Gest (test code = Multiple Gest) No Alpha Fetoprotein Maternal (test code = Alpha Fetoprotein Maternal) 41.7 ng/ml Multiple of Median AFP (test code = 37729-7) 1.50 Risk for NTD (OBS) (test code = Risk for NTD (OBS)) 2734 Maternal Screen Interp (test code = Maternal Screen Interp) Comment Interpretation: Screen NegativeThis result is screen negative for OSB. The AFP MoMcalculated is based on the gestational age provided. MS-AFPcan identify up to 80% of open neural tube defects.Closed neural tube defects and some open defects may not bedetected by this test. This test does not screen for fetalDown Syndrome or Trisomy 18. If screening for Down Syndromeor Trisomy 18 is desired, contact [facility] to discuss available options. The AmericanCollege of Obstetricians and Gynecologists recommendsamniocentesis be offered to women age 35 and older. Comment (Maternal Scrn) (test code = Comment (Maternal Scrn)) Comment Andria hines, PhD, FACMGDirector, Biochemical and Molecular GeneticsReferences: Available Upon Request.Multiples Of Median Cutoffs For AFP ElevationsSingleton 2.5 Black 2.8IDD 2.0 Twins 4.5 Abbreviation DefinitionsIDD - Insulin Dep DiabetesOSBR - Open Spina Bifida RiskFor further inquiries contact [facility] at [phone].Performed At: [facility] [id number] [place], [place] [id number] Plata MD Ph:[phone] Insulin Dependent? (test code = Insulin Dependent?) N Gest Ager Weeks? (test code = Gest Ager Weeks?) 17 Gest Age Days (test code = Gest Age Days) 0 Gest Age Date of Calculation (YYYMMDD) (test code = Gest Age Date of Calculation (YYYYMMDD)) 20171117 Gest Age Method of Calculation (test code = Gest Age Method of Calculation) Ultrasound Date of LMP (test code = Date of LMP) 20170118 Est Due Date (test code = Est Due Date) 20171117 Number of Fetuses (test code = Number of Fetuses) 1 Other Indications? (test code = Other Indications?) N Additional Information? (test code = Additional Information?) WHITE [facility][O] Urine Test (in office)2017-04-01 16:45:00* Test Item Value Reference Range Interpretation Comme nts Test, Urine; Jessica l (test code = 2106-3) positive N [facility][H] Obstetrics Panel (includes CBCw/Diff,RPR, HbsAg,RubIgG,Type and Screen)2017-04-01 16:20:01* Test Item Value Reference Range Interpretation Comme nts WBC (test code = 6690-2) 6.1 {K/CMM} 3.7-10.4 RBC (test code = 789-8) 4.39 {M/CMM} 4.20-5.40 Hgb (test code = 717-9) 13.3 g/dl 12.0-16.0 Hct (test code = 25021-6) 37.3 % 36.0-48.0 MCV (test code = 787-2) 85.1 fL 80.0-98.0 MCH (test code = 45484-7) 30.2 pg 27.0-31.0 MCHC (test code = 786-4) 35.5 g/dl 32.0-36.0 RDW (test code = 788-0) 13.8 % 11.5-14.5 Platelet (test code = 777-3) 214 {K/CMM} 133-450 MPV (test code = 98313-5) 8.9 fL 7.4-10.4 Segs (test code = 70048-9) 72.3 % 45.0-75.0 Monocytes # (test code = 71973-2) 0.3 {K/CMM} 0.0-0.8 Lymphocytes (test code = Lymphocytes) 20.7 % 20.0-40.0 Eosinophils (test code = Eosinophils) 1.5 % 0.0-4.0 Basophils (test code = 34661-7) 0.2 % 0.0-1.0 Segs-Bands # (test code = 19906-9) 4.4 {K/CMM} 1.5-8.1 Lymphocytes # (test code = 49456-2) 1.3 {K/CMM} 1.0-5.5 Eosinophils # (test code = 60084-5) 0.1 {K/CMM} 0.0-0.5 ABORH (test code = 882-1) A POS AB Screen (test code = 890-4) Negative Rubella IgG (test code = 59519-1) 33.5 {IU/ml} >=10.0 Reference Range: Immune >= 10 IU/mL Hep Bs Ag (test code = 5195-3) Negative Negative RPR (test code = 98791-2) Non Reactive Non Reactive [facility]] HCG, TOTAL, [id number] 16:20:01* Test Item Value Reference Range Interpretation Comme nts hCG Total (test code = 25789-4) 00653 {miU/ml} Reference Range: Male 0 - 5 mIU/mL Non- Female 0 - 5 mIU/mLNote: hCG result should be used in conjunction with symptoms, resultsof other tests, and clinical impressions.Weeks of Gestation hCG (mIU/mL) ---- 3 6 - 71 4 10-750 5 217 - 7,138 6 158 -31,795 7 3,697 - 163,563 8 32,065 - 149,571 9 63,803 - 151,410 10 46,506 - 186,977 11 27,832 - 210,612 14 13,950 - 62,530 15 12,039 - 70,971 16 9,040 - 56,451 17 8,175 - 55,868 18 8,099 - 58,176 [facility]] URINALYSIS, [id number] 16:20:01* Test Item Value Reference Range Interpretation Comme nts UA Turbidity; Abnormal (test code = 00507-6) Marked Clear A UA Spec Grav (test code = 2965-2) 1.027 <=1.030 UA pH (test code = 2756-5) 5.0 5.0-8.0 UA Protein (test code = 37525-2) Negative Negative UA Glucose (test code = 2349-9) Negative Negative UA Ketones (test code = 26872-8) Negative Negative UA Bili (test code = 86272-5) Negative Negative UA Blood (test code = 798-9) Negative Negative UA Nitrite (test code = 05733-6) Negative Negative UA Leuk Est (test code = 14405-3) Negative Negative UA RBC (test code = 55101-0) 2 {/HPF} 0-2 UA WBC (test code = 48231-4) 5 {/HPF} 0-5 UA Bacteria (test code = 630-4) Occasional None Seen UA Mucus; Abnormal (test cod e = 04376-9) Many None Seen A UA Sq Epi; Abnormal (test co de = 99985-9) Many Few A UA Color (test code = 10317-0) Katelynn UROBILINOGEN (test code = 14705-2) <=1.0 0.1-1.0 [facility][H] HIV 4th Gen w/ [id number] 16:20:01* Test Item Value Reference Range Interpretation Comme nts HIV Ag/Ab 4th Gen (test code = HIV Ag/Ab 4th Gen) Negative Negative [facility]] CULTURE, URINE, [id number] 16:20:01* Test Item Value Reference Range Interpretation Comme nts FINAL REPORT (test code = FI NAL REPORT) No Growth [facility]. [facility] - GC/Elhfszpug5319-22-74 00:00:00* Test Item Value Reference Range Interpretation Comme nts GC/Chlamydia REPORT (test co de = GC/Chlamydia REPORT) See Comment [facility] VakzixdaziTJMWQRHFN6464-43-48 09:56:00* Test Item Value Reference Range Interpretation Comme nts Magnesium Lvl (test code = M agnesium Lvl) 1.8 1.8-2.4 N [facility]146[facility] 09:56:00* Test Item Value Reference Range Interpretation Comme nts Segs-Bands # (test code = Segs-Bands #) 7.4 1.5-8.1 N [facility] HospitalZaaftoaRERZMZCBBO8777-84-93 05:00:00* Test Item Value Reference Range Interpretation Comme nts MPV (test code = MPV) Clumped 7.4-10.4 [facility] [id number] 08:52:00* Test Item Value Reference Range Interpretation Comme nts MRSA by PCR (test code = MRSA by PCR) Negative 1(07/15/2012 02:52:00) N [facility]bgvoDCIBVWWBP3076-91-55 08:52:00* Test Item Value Reference Range Interpretation Comme nts Phosphorus (test code = Phosphorus) 3.5 2.5-4.5 N [facility] CenterJabiglaIEYNBRMFPS4040-79-95 08:52:00* Test Item Value Reference Range Interpretation Comme nts Platelet (test code = Platelet) 131 133-450 L [facility] [employer] SFGGKEH6769-08-98 04:07:57* Test Item Value Reference Range Interpretation Comme nts RBC product (test code = RBC product) Product available (07/14/2012 22:07:57) N [facility] [employer] FYOWJYH1249-20-11 04:07:00* Test Item Value Reference Range Interpretation Comme nts Antibody Scrn (test code = Antibody Scrn) Negative (07/14/2012 22:07:00) [facility] CenterQryokbiURRQSUZVSI2162-08-32 04:07:00* Test Item Value Reference Range Interpretation Comme nts Hep Bs Ag (test code = Hep Bs Ag) Negative *NA*(07/14/2012 22:07:00) [facility] CenterOdmlmflKZRMZBGRS4718-61-73 20:55:00* Test Item Value Reference Range Interpretation Comme nts LDH (test code = LDH) 144 98-192 N [facility] CenterGemenjrFGEUMRPGWR1337-17-32 20:55:00* Test Item Value Reference Range Interpretation Comme nts MCV (test code = MCV) 89.3 81.0-99.0 N [facility] CenterRlftkvzGUVLVCNQZO4839-11-93 20:55:00* Test Item Value Reference Range Interpretation Comme nts UA Urobilinogen (test code = UA Urobilinogen) *NA*(05/24/2012 14:55:00) 0.1-1.0 [facility] CenterOfwcrloKWXTPANCKK1356-23-34 15:35:00* Test Item Value Reference Range Interpretation Comme nts UA Urobilinogen (test code = UA Urobilinogen) *NA*(03/02/2012 10:35:00) 0.1-1.0 [facility]ovTkcbwmdufwyk4976-03-94 15:35:00* Test Item Value Reference Range Interpretation Comme nts Culture: Urine (test code = Culture: Urine) [facility] Consult Notes Date/Time Note Provider Source 2024-07-03 11:45:45 Associated Order(s): CONSULT CARDIOLOGY [facility] Cardiology Consult PCP: Carlyn Cardoza Date of Service: 07/03/2024 CHIEF COMPLAINT/reason for consult: Heart failure HISTORY OF PRESENT ILLNESS Karly Ruiz is a 38 years old female with past medical history of hypertension, morbid obesity, 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 She came to [facility] due to coughing, congestion and dyspnea. Mild leg edema. Chest x-ray showed congestion. Fever noted. She was given IV Lasix with improvement in dyspnea and leg edema. 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 Past Surgical History: Procedure Laterality Date SECTION x2 ENDOSCOPIC CARPAL TUNNEL RELEASE TRACHEOSTOMY Family History Problem Relation Age of Onset Lung Cancer Maternal Grandmother Breast Cancer NoFHx ALLERGIES Allergies Allergen Reactions Diphenhydramine Hives and Shortness of Breath Benadryl [Diphenhydramine Hcl] Hives and Shortness of Breath Claritin [Loratadine] Hives and Shortness of Breath Nitroglycerin Hives Promethazine Nausea and/or Vomiting Vancomycin Other - See comments "passes out" Zofran [Ondansetron Hcl (Pf)] Nausea and/or Vomiting Zyrtec [Cetirizine Hcl] Hives and Shortness of Breath Aspirin Other - See comments and Palpitations Lip swelling Other reaction(s): Other - See comments Lip swelling MEDICATIONS No current facility-administered medications on file prior to encounter. Current Outpatient Medications on File Prior to Encounter Medication Sig Dispense Refill pregabalin (LYRICA) 50 mg capsule Take 1 capsule by mouth at bedtime. 90 capsule 0 apixaban (ELIQUIS) 5 mg tablet Take 1 tablet by mouth in the morning and 1 tablet in the evening. Indications: heart failure with reduced ejection fraction 180 tablet 0 furosemide (LASIX) 20 mg tablet Take 1 tablet by mouth in the morning. 90 tablet 0 metoprolol succinate XL 25 mg 24 hr tablet Take 1 tab daily if bp is over 110/60 90 tablet 1 sacubitriL-valsartan (ENTRESTO) 24-26 mg tablet Take 1 tablet by mouth in the morning and 1 tablet in the evening. 180 tablet 1 aug betamethasone dipropionate 0.05 % ointment Apply to area(s) 2 (two) times daily. 15 g 1 albuterol 90 mcg/actuation inhaler Inhale 2 Puffs every 6 (six) hours as needed for Wheezing or Bronchospasm. 8.5 g 0 clotrimazole 1 % topical cream Apply to area(s) at bedtime. 60 g 0 SOCIAL HISTORY Social History Socioeconomic History Marital status: Tobacco Use Smoking status: Never Smokeless tobacco: Never Substance and Sexual Activity Drug use: No REVIEW OF SYSTEMS At least 10 systems reviewed, negative except as mentioned in HPI PHYSICAL EXAMINATION Vitals: 07/03/24 0236 07/03/24 0330 07/03/24 0425 07/03/24 0724 BP: (!) 134/92 107/75 Pulse: 107 101 Resp: 20 19 Temp: 36.1 ?C (97 ?F) 36.1 ?C (96.9 ?F) TempSrc: SpO2: 90% 90% Weight: 152.5 kg (336 lb 3.2 oz) 151.5 kg (334 lb) Height: Constitutional: alert and oriented x 3 (person, place and date/time); no apparent distress, obese ENT: normocephalic atraumatic, supple, no lymphadenopathy, no bruits, no JVD Lungs: clear to auscultation bilaterally Cardiovascular: S1, S2 normal, regular; no murmurs, rubs or gallops GI: soft; non-tender; non-distended; normoactive bowel sounds : not examined Musculoskeletal: Extremities: no clubbing, cyanosis, or edema Skin: no rashes Neuro: no focal deficits LABS - reviewed pertinent labs as below: CBC BMP PT/INR WBC (10*3/?L) Date Value 07/02/2024 4.67 NA (mmol/L) Date Value 07/02/2024 138 No results found for: "PT" PLT (10*3/?L) Date Value 07/02/2024 146 (L) K (mmol/L) Date Value 07/02/2024 4.6 INR (no units) Date Value 03/20/2018 1.0 HGB (g/dL) Date Value 07/02/2024 13.8 BUN (mg/dL) Date Value 07/02/2024 14 HCT (%) Date Value 07/02/2024 41.0 CREATININE (mg/dL) Date Value 07/02/2024 0.68 LIPID PROFILE GLUCOSE (mg/dL) Date Value 07/02/2024 113 (H) No results found for: "CHOL" TSH No results found for: "LDL" TSH (mIU/L) Date Value 10/06/2023 4.05 CARDIAC ENZYMES No results found for: "HDL" No results found for: "CK" No results found for: "TRIG" LFTs No results found for: "CKMB" AST(SGOT) (U/L) Date Value 07/02/2024 37 TROPONIN I (ng/mL) Date Value 07/03/2024 0.014 ALT(SGPT) (U/L) Date Value 03/20/2018 22 ALTv (U/L) Date Value 07/02/2024 42 (H) No results found for: "BNP" IMAGING - reviewed, pertinent results as below: Chest [id number] EKG: Sinus tachycardia, right ventricular hypertrophy ASSESSMENT/PLAN Principal Problem: Acute pulmonary edema Active Problems: History of transposition of great vessels Morbid obesity with body mass index of 50 or higher Chest pain, unspecified type SOB (shortness of breath) Fever, unspecified fever cause Acute on chronic combined systolic and diastolic congestive heart failure Fever, cough, congestion-suspect bronchitis. Acute on chronic heart failure-systemic ventricular systolic dysfunction. Mild leg edema. BNP is slightly elevated compared to previous value. Chest x-ray showed congestion. She received IV Lasix. Symptoms much better. I will give another IV Lasix on the milligram daily. She wants go home. Advised to increase home dose Lasix to 40 mg daily. She is going to follow-up with her congenital heart disease specialist. Low salt diet. I/O. Daily weight. Fluid restriction. Keep K > 4 and Mg > 2. Continue Toprol-XL and Entresto. Consider outpatient MRA and SGLT2 inhibitor initiation. She does not want to have echocardiogram today. Morbid obesity-recommend diet, exercise and weight loss. 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 Follow-up with primary congenital heart disease specialist. Total Visit Time: 60 mins The total Visit time for today's visit with Karly Ruiz encompassed 60 minutes. Time was spent reviewing the chart before, during and after the visit, reviewing laboratory results, taking interval history, performing the documented physical examination, completing and "cleaning up" the electronic medical record as well as addressing any questions and concerns. The time spent for patient care includes: PreCharting (eg, review of tests, notes, etc.), Obtaining and/or reviewing separately obtained history (Care Everywhere or paper records), Counseling and educating the patient/family/caregiver, Ordering medications, tests, or procedures, Ordering referrals and/or communicating with other health pediatric acute care unit nurse (when not separately reported), Documenting clinical information in the electronic or other health record, and Independently interpreting results (not separately reported) and/or communicating results to the patient/family/caregiver. This report was dictated using [employer] and is subject to voice recognition errors. Please excuse any unusual inaccuracies. My diagnostic impression and treatment plans were discussed at length with the patient. All side effects as well as drug-drug interactions and risks discussed at length. Ample opportunity was offered and encouraged to ask questions during this visit and patient appreciated the answers given by me and verbzalised statisfcation in the answers given. Thank you for allowing us to participate in the care of your patient. Please feel free to contact us for any questions or if we can be of further assistance. Cyrus Tovar MD, FACKaty, ADAM Educational Aide Division of Cardiovascular Medicine [facility] - Health History and Physical Notes Date/Time Note Provider Source 2024-07-03 01:15:10 [facility] Hospitalist Admission H&P Date of Service: 07/03/2024 CHIEF COMPLAINT: Shortness of breath; cough and congestion HISTORY OF PRESENT ILLNESS Karly Ruiz is a 38 year old female who presents with shortness of breath along with cough and congestion. Patient states that she has been feeling short of breath for the last few days. However, he got really worrisome because whenever she would lay down flat she could not get her breath. She had similar issues last 's Day when she started having a headache and having some breathing issues. She apparently passed out in the bathroom and was found to be septic and she was sent to the emergency room where she ended up staying [facility] for the next 2 months. She stayed in the ER from June 30 and ended up going to rehab where she was finally able to come home on September 19. She ended up with a tracheostomy at that time. On this admission she is feeling short of breath. She had initially gone to the urgent care and they sent her to the emergency room. Lab workup was unremarkable and chest x-ray in the ER shows some pulmonary edema. D-dimer was negative. Patient appears to have acute CHF exacerbation. BNP was mildly elevated. Patient will be admitted for observation. 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 She has had multiple hospitalizations as a child. She states that she does not have any permanent cardiac issues and her last echocardiogram only revealed dilation and weakness of the right ventricle and no other significant abnormalities noted. Patient will be admitted with cardiology consultation and will repeat echocardiogram. 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 PAST SURGICAL HISTORY Past Surgical History: Procedure Laterality Date SECTION x2 ENDOSCOPIC CARPAL TUNNEL RELEASE TRACHEOSTOMY ALLERGIES Allergies Allergen Reactions Diphenhydramine Hives and Shortness of Breath Benadryl [Diphenhydramine Hcl] Hives and Shortness of Breath Claritin [Loratadine] Hives and Shortness of Breath Nitroglycerin Hives Promethazine Nausea and/or Vomiting Vancomycin Other - See comments "passes out" Zofran [Ondansetron Hcl (Pf)] Nausea and/or Vomiting Zyrtec [Cetirizine Hcl] Hives and Shortness of Breath Aspirin Other - See comments and Palpitations Lip swelling Other reaction(s): Other - See comments Lip swelling MEDICATIONS Current home medication list reviewed: Patient's Medications START taking these medications No medications on file CONTINUE taking these medications which have NOT CHANGED ALBUTEROL 90 MCG/ACTUATION INHALER Inhale 2 Puffs every 6 (six) hours as needed for Wheezing or Bronchospasm. AMOXICILLIN 500 MG CAPSULE Take 1 capsule by mouth in the morning and 1 capsule at noon and 1 capsule in the evening. APIXABAN (ELIQUIS) 5 MG TABLET Take 1 tablet by mouth in the morning and 1 tablet in the evening. Indications: heart failure with reduced ejection fraction AUG BETAMETHASONE DIPROPIONATE 0.05 % OINTMENT Apply to area(s) 2 (two) times daily. CLOTRIMAZOLE 1 % TOPICAL CREAM Apply to area(s) at bedtime. FUROSEMIDE (LASIX) 20 MG TABLET Take 1 tablet by mouth in the morning. METOPROLOL SUCCINATE XL 25 MG 24 HR TABLET Take 1 tab daily if bp is over 110/60 PREGABALIN (LYRICA) 50 MG CAPSULE Take 1 capsule by mouth at bedtime. ROPINIROLE 0.25 MG TABLET Start 0.25mg PO qpm x 2 days then increase to 0.5mg PO qpm SACUBITRIL-VALSARTAN (ENTRESTO) 24-26 MG TABLET Take 1 tablet by mouth in the morning and 1 tablet in the evening. TIRZEPATIDE, WEIGHT LOSS, (ZEPBOUND) 2.5 MG/0.5 ML SUBCUTANEOUS INJECTION inject 2.5 mg under the skin weekly. START taking Modified Medications as Prescribed No medications on file STOP taking these medications No medications on file FAMILY HISTORY Family History Problem Relation Age of Onset Lung Cancer Maternal Grandmother Breast Cancer NoFHx SOCIAL HISTORY Social History Socioeconomic History Marital status: Tobacco Use Smoking status: Never Smokeless tobacco: Never Substance and Sexual Activity Drug use: No REVIEW OF SYSTEMS 10 systems negative except per HPI PHYSICAL EXAMINATION BP 124/73 | Pulse 111 | Temp 38 ?C (100.4 ?F) (Oral) | Resp 13 | Ht 1.549 m (5' 1") | Wt 154.2 kg (340 lb) | SpO2 94% | BMI 64.24 kg/m? General: No acute distress HEENT: Normal oral mucosa, anicteric sclerae, NCAT Cardiovascular: RRR Lungs: Symmetric expansion, clear bilaterally Abdomen: Soft, NTND Musculoskeletal: No synovitis, normal muscle mass Genitourinary: Deferred Skin: No rash, no skin lesions Extremities: No clubbing, no cyanosis, no lower extremity edema Neuro: AAOx3, no focal deficits Psych: Normal affect LABS - reviewed pertinent labs as below: CBC BMP PT/INR WBC (10*3/?L) Date Value 07/02/2024 4.67 NA (mmol/L) Date Value 07/02/2024 138 No results found for: "PT" RBC (10*6/?L) Date Value 07/02/2024 4.78 K (mmol/L) Date Value 07/02/2024 4.6 INR (no units) Date Value 03/20/2018 1.0 PLT (10*3/?L) Date Value 07/02/2024 146 (L) CALCIUM (mg/dL) Date Value 07/02/2024 9.1 HGB (g/dL) Date Value 07/02/2024 13.8 CL (mmol/L) Date Value 07/02/2024 103 aPTT HCT (%) Date Value 07/02/2024 41.0 BUN (mg/dL) Date Value 07/02/2024 14 APTT Patient (Seconds) Date Value 02/21/2017 28 CREATININE (mg/dL) Date Value 07/02/2024 0.68 IMAGING - reviewed, pertinent results as below: Hospital Encounter on 07/02/24 XR CHEST 1 VW Narrative Ordering physician: NUPUR MORIN Indication: Chest pain, shortness of breath Comparison: Chest radiograph dated 07/02/2024 Technical quality: Adequate Findings: Single AP view of the chest. The cardiopericardial silhouette is mildly enlarged. There is mild prominence of the central interstitium. The visualized bony thorax is intact. Impression Impression: Mild cardiomegaly with mild prominence of the central interstitium, suggestive of mild pulmonary edema versus viral respiratory illness. END REPORT RL: [id number] AFC: [id number] SSMENT/PLAN: 1. Cough and shortness of breath; acute CHF exacerbation; patient diuresed in the emergency room. Patient also given cough medication. Patient will continue with gentle diuresing. Will get cardiology consultation and echocardiogram. BNP was only slightly elevated. She does have right ventricular dilatation and decrease right ventricular systolic functioning. She does remember being told that she had the mustard procedure or an atrial switch which eventually does result in a weak right ventricle over time. Will repeat the echocardiogram as mentioned above. Continue with gentle diuresing. Will monitor vitals closely. Patient will be admitted for observation DVT prophylaxis: enoxaparin Stress ulcer prophylaxis: pantoprazole Code status: FULL Advanced Care Planning (Z71.89) Above assessment and plan discussed at length with patient, patient expressed full understanding. Questions and concerned addressed. Surrogate decision maker: NO Level of care expected after discharge: HOME Time spent: 3 minutes discussing the advanced care plan Smoking Cessation: (Z71.6) Tobacco user?: NO Patient will require observation [place] [employer]ER was verified during stay Melissa Keller MD [facility] Notes Date/Time Note Provider Source 2024-08-09 10:20:44 Declined appointment for now - due to no insurance [facility] Marjorie Caballero [facility] 2024-08-08 16:14:05 Please schedule pt for office visit to have forms completed. [facility] 2024-07-27 09:36:14 9 page form needs to be completed. Please schedule so forms can be completed. I informed Carlo from [facility] pt will possibly be scheduled next week when PCP returns. [facility] 2024-07-26 16:15:41 Carol ugalde/ [employer] states she needs to speak with medical staff before the appt regarding the mobility evaluation. She said this is a high priority. CB#---[phone]/ EXT: 300 If she is not available, please try: (Inés at EXT: 252) Please Advise. T Tejal Ron [facility] 2024-07-26 14:18:47 Please schedule pt for face to face visit. [facility] 2024-07-25 12:57:11 [facility] is calling in regards to DME Orders for Karly Ruiz is a 38 year old female. Carol with [facility] [phone] EXT 300 Domenico Dyer [facility] 2024-07-20 11:16:48 Images from the original note were not included. Called to inform patient of results and recommendations as detailed below. Patient verbalized understanding. Artur Woods MD P Cardiology Nurse NT-proBNP still elevated 674 similar to 2 weeks ago. Please ask her to go back to taking Lasix 40 mg daily. Repeat BMP/NT [place] to be done in around 2 to 3 weeks time. Orders placed. Please ask her to follow-up with her primary adult congenital heart disease cardiology in [facility]. [facility] 2024-07-19 16:53:30 [place] [facility] 2024-07-19 11:03:06 Dr. Lucero, pt is requesting sedative prior to MRI. ON Valera LVN [facility] 2024-07-19 10:47:18 Karly Ruiz is a 38 year old female Pt is calling and is asking if she can have a medication sent to Pharmacy. To help calm her down when she has her MRI done. Pt states that Dr Lucero has already approved. Please advise. [facility] [id number] [place] [id number] CE LIEUTENANT Almaz Carlin [facility] 2024-07-18 16:00:00 Images from the original note were not included. Venipuncture collection performed by clean technique on the left anticubitus. Total of 1 attempts were made. Slight pressure and a bandage/dressing were applied to the site(s). The patient experienced no complications. The following specimens were processed according to instructions and sent to [facility] laboratories per lab order on 07/18/2024 : LT BLUE SST 1 RED LAV PPT DK GREEN (LiHep) DK GREEN (SodH) [place] DK BLUE (K2) DK BLUE (S) ACD Blood Culture NIPT/NTD [facility] 2024-07-03 12:26:04 Problem: Falls, Risk of Goal: Absence of falls Outcome: Adequate for discharge Problem: Pain Goal: Control of pain at or below patient's documented comfort goal Outcome: Adequate for discharge Goal: Reduction in pain sensation Outcome: Adequate for discharge Problem: Discharge Planning Goal: Adequate for discharge Outcome: Adequate for discharge Problem: Respiratory Function - Impaired Goal: Able to cough effectively Outcome: Adequate for discharge Goal: Adequate oxygenation Outcome: Adequate for discharge Goal: Adequate work of breathing Outcome: Adequate for discharge CE LIEUTENANT Chelita Ham RN [facility] 2024-07-03 03:00:39 Problem: Falls, Risk of Goal: Absence of falls Outcome: Progressing as expected Problem: Pain Goal: Control of pain at or below patient's documented comfort goal Outcome: Progressing as expected Goal: Reduction in pain sensation Outcome: Progressing as expected Problem: Discharge Planning Goal: Adequate for discharge Outcome: Progressing as expected Problem: Respiratory Function - Impaired Goal: Able to cough effectively Outcome: Progressing as expected Goal: Adequate oxygenation Outcome: Progressing as expected Goal: Adequate work of breathing Outcome: Progressing as expected [facility] 2024-07-03 02:05:24 Patient admitted to 2212 for diagnosis of acute pulmonary edema, chest pain, SOB, and fever Patient agrees to admission, discussed plan of care with patient and family. Patient is awake, alert, oriented, resp reg unlabored, color appropriate for race, PIV intact No adverse reaction to medications administered while in ED Belongings with patient to unit Report to BETH Abdul. ON Blum RN [facility] 2024-07-03 01:13:00 Report to Vannesa CAMPOS ON Astudillo RN [facility] 2024-07-03 00:45:50 Unable to run ordered POCT urine -no urine left for exam. Checked with lab-sent specimen is already on the machine and cannot be used for check. [facility] 2024-07-03 00:15:00 Patient markedly SOB walking to room from bathroom-approx 50 feet. Tachycardic at 123. Patient states she has been this SOB for months. [facility] 2024-07-03 00:13:00 Patient voided small amount-5 cc clear urine. States she can't void any more. Urine sent to lab for ordered exam. [facility] 2024-07-02 19:08:50 Patient unable to urinate at this time. Patient states no way of or UTI. [facility] 2024-07-02 18:33:14 Patient states: "Yesterday was just chest congestion. The urgent care said it could be more so they told me to come here" . [facility] Mikala Acosta RN [facility] 2024-07-02 18:30:00 Associated Order(s): EKG-12 Lead ROUTINE ONCE Pre-Procedure Diagnose(s): Chest pain, unspecified type; SOB (shortness of breath) Post-Procedure Diagnose(s): Chest pain, unspecified type; SOB (shortness of breath) [facility] Emergency Department Note Patient Name: Karly Ruiz Date of : 1985 38 year old female Treatment Room: FL3/FL3 Primary Care Physician: Carlyn Cardoza Patient Escorted by: Family [5] Mode of Arrival: Personal means [1] EMS Treatment Prior to ED Arrival: Travel and Exposure Screening: Symptoms Does patient have any of these symptoms?: (not recorded) Exposure Screening Has patient had contact with someone with a communicable disease in the last month?: (not recorded) Diseases exposed to:: (not recorded) Is Patient ?: (not recorded) Exposure Date: (not recorded) Chief Complaint: Chief Complaint Patient presents with Shortness of Breath Congestion History of Present Illness: Karly Ruiz is a 38 year old female who present to the ED with chest pain / congestion with, cough and SOB x 1 day. Patient was seen at the urgent care with negative viral swabs and pending chest x-ray result, but was sent to the ED for further evaluation. She rated her pain a 3 on a scale of 0 to 10 and described it as sharp. She was found sitting in the ED exam area. She appears well, not toxic and does not seem to be in any apparent distress at this time. Patient denies any abdomen, back or neck pains, dizziness, headache, chills, sore throat, dysphagia, dysuria, hematuria, hemoptysis, nausea, vomiting or diarrhea. 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 Drug Use No. Past Surgical History: Past Surgical History: Procedure Laterality Date SECTION x2 ENDOSCOPIC CARPAL TUNNEL RELEASE TRACHEOSTOMY Review of Systems: Review of Systems Constitutional: Negative. HENT: Negative. Eyes: Negative. Respiratory: Positive for cough and shortness of breath. Negative for apnea, choking, chest tightness, wheezing and stridor. Cardiovascular: Positive for chest pain. Negative for palpitations and leg swelling. Gastrointestinal: Negative. Genitourinary: Negative. Musculoskeletal: Negative. Skin: Negative. Neurological: Negative. Physical Exam: ED Triage Vitals [07/02/24 1834] Weight 154.2 kg (340 lb) Actual or estimated Estimated by patient/family report Height 1.549 m (5' 1") BP (!) 173/113 Pulse 128 Resp 20 Temp 38 ?C (100.4 ?F) Temp source Oral SpO2 95 % Measured on Room air Physical Exam Vitals and nursing note reviewed. Constitutional: General: She is not in acute distress. Appearance: Normal appearance. She is obese. She is not ill-appearing, toxic-appearing or diaphoretic. HENT: Head: Normocephalic. Right Ear: Tympanic membrane, ear canal and external ear normal. There is no impacted cerumen. Left Ear: Ear canal and external ear normal. There is no impacted cerumen. Nose: Nose normal. No congestion or rhinorrhea. Mouth/Throat: Mouth: Mucous membranes are moist. Pharynx: Posterior oropharyngeal erythema present. No oropharyngeal exudate. Eyes: General: No scleral icterus. Right eye: No discharge. Left eye: No discharge. Extraocular Movements: Extraocular movements intact. Conjunctiva/sclera: Conjunctivae normal. Pupils: Pupils are equal, round, and reactive to light. Neck: Vascular: No carotid bruit. Cardiovascular: Rate and Rhythm: Tachycardia present. Pulses: Normal pulses. Heart sounds: Normal heart sounds. No murmur heard. No friction rub. No gallop. Pulmonary: Effort: Pulmonary effort is normal. Tachypnea present. No respiratory distress. Breath sounds: Normal breath sounds. No stridor. No wheezing, rhonchi or rales. Chest: Chest wall: No tenderness. Abdominal: General: Bowel sounds are normal. There is no distension. Palpations: Abdomen is soft. There is no mass. Tenderness: There is no abdominal tenderness. There is no right CVA tenderness, left CVA tenderness, guarding or rebound. Hernia: No hernia is present. Musculoskeletal: General: No swelling, tenderness, deformity or signs of injury. Normal range of motion. Cervical back: Normal range of motion and neck supple. No rigidity or tenderness. Right lower leg: No edema. Left lower leg: No edema. Lymphadenopathy: Cervical: No cervical adenopathy. Skin: General: Skin is warm and dry. Capillary Refill: Capillary refill takes less than 2 seconds. Coloration: Skin is not jaundiced or pale. Findings: No bruising, erythema, lesion or rash. Neurological: Mental Status: She is alert. Radiology: XR CHEST 1 VW Final Result Ordering physician: NUPUR MORIN Indication: Chest pain, shortness of breath Comparison: Chest radiograph dated 07/02/2024 Technical quality: Adequate Findings: Single AP view of the chest. The cardiopericardial silhouette is mildly enlarged. There is mild prominence of the central interstitium. The visualized bony thorax is intact. IMPRESSION Impression: Mild cardiomegaly with mild prominence of the central interstitium, suggestive of mild pulmonary edema versus viral respiratory illness. END REPORT RL: [id number] AF: [id number] Lab Results: Lab Results CBC WITH DIFF - Abnormal Result Value Ref Range WBC 4.67 4.30 - 11.10 10*3/?L RBC 4.78 3.93 - 5.25 10*6/?L HGB 13.8 11.6 - 15.0 g/dL HCT 41.0 35.7 - 45.2 % MCV 85.8 80.6 - 95.5 fL MCH 28.9 25.9 - 32.8 pg MCHC 33.7 31.6 - 35.1 g/dL RDW-SD 43.5 39.0 - 49.9 fL RDW-CV 14.0 12.0 - 15.5 % PLT 146 (*) 166 - 358 10*3/?L MPV 13.1 (*) 9.5 - 12.9 fL IPF % 10.5 (*) 1.3 - 7.7 % NRBC/100 WBC 0.0 0.0 - 10.0 /100 WBCs NRBC x10 3 <0.01 10*3/?L GRAN MAT (NEUT) % 71.1 % IMM GRAN % 0.40 % LYMPH % 20.1 % MONO % 7.1 % EOS % 0.9 % BASO % 0.4 % GRAN MAT x10 3 (ANC) 3.32 1.88 - 7.09 10*3/uL IMM GRAN x10 3 <0.03 0.00 - 0.06 10*3/uL LYMPH x10 3 0.94 (*) 1.32 - 3.29 10*3/uL MONO x10 3 0.33 0.33 - 0.92 10*3/uL EOS x10 3 0.04 0.03 - 0.39 10*3/uL BASO x10 3 <0.03 0.01 - 0.07 10*3/uL COMP. METABOLIC PANEL (58941) - Abnormal NA 138 135 - 145 mmol/L K 4.6 3.5 - 5.0 mmol/L CL 103 98 - 108 mmol/L CO2 TOTAL 23 23 - 31 mmol/L AGAP 12 2 - 16 BUN 14 7 - 23 mg/dL GLUCOSE 113 (*) 70 - 110 mg/dL CREATININE 0.68 0.50 - 1.04 mg/dL TOTAL BILI 1.0 0.1 - 1.1 mg/dL CALCIUM 9.1 8.6 - 10.6 mg/dL T PROTEIN 8.1 6.3 - 8.2 g/dL ALBUMIN 4.8 3.5 - 5.0 g/dL ALK PHOS 80 34 - 122 U/L ALTv 42 (*) 5 - 35 U/L AST(SGOT) 37 13 - 40 U/L eGFR 113.1 mL/min/1.73m2 N-TERMINAL PRO-BNP - Abnormal NT-proBNP 679 (*) <=125 pg/mL URINALYSIS - Abnormal APPEARANCE Slightly Cloudy (*) Clear COLOR Yellow Yellow PH 5.0 4.8 - 8.0 SP GRAVITY 1.016 1.003 - 1.030 GLU U QUAL Normal Normal BLOOD Negative Negative KETONES Negative Negative PROTEIN 30 mg/dL (*) Negative UROBILIN Normal Normal BILIRUBIN Negative Negative NITRITE Negative Negative LEUK BELLE Negative Negative RBC/HPF 3 0 - 3 HPF WBC/HPF 5 0 - 5 HPF BACTERIA Few (*) Negative MUCOUS Slight (*) Negative LPF SQ EPITH 26 HPF HYAL CAST 2 <=2 LPF TROPONIN I - Normal TROPONIN I 0.008 <=0.034 ng/mL D-DIMER - Normal D-DIMER 0.36 <0.41 ?g/mL (FEU) RAPID STREP SCREEN FOR GROUP A - Normal Molecular Strep Negative Negative THROAT CULTURE POCT TEST EKG: If EKG completed, see Procedure Note. Orders and Treatments: Orders Placed This Encounter Procedures XR CHEST 1 VW CBC WITH DIFF COMP. METABOLIC PANEL (77516) TROPONIN I N-TERMINAL PRO-BNP D-DIMER URINALYSIS RAPID STREP SCREEN FOR GROUP A Throat Culture POCT TEST Orders Placed This Encounter Medications acetaminophen (TYLENOL) tablet 1,000 mg First Provider Eval: ED Events Date/Time Event User Comments 07/02/241832 Medical Screening Begins NUPUR MORIN NP -- 07/02/241832 First Provider Evaluation NUPUR MORIN NP -- AdmissionCare Guideline: Heart Failure, Observation Based on the indications selected for the patient, the bed status of Observation was determined to be MET The following indications were selected as present at the time of evaluation of the patient: - Observation Care Admission Criteria - Observation care is indicated for 1 or more of the following: - Dyspnea AdmissionCare documentation entered by: Nupur Morin [facility] [employer], edition, Copyright ? 2023 [facility] [employer] All Rights Reserved. [id number]:00 ED COURSE Labs, ECG, Aspirin, chest x-ray ED Course as of 07/03/24 0058 Sat Jul 02, [id number] Impression: Mild cardiomegaly with mild prominence of the central interstitium, suggestive of mild pulmonary edema versus viral respiratory illness. [JA] 2002 NT-proBNP(!): 679 [JA] ED Course User Index [JA] Nupur Morin NP Diagnosis/Impression as of 07/03/2457 Chest pain, unspecified type SOB (shortness of breath) Fever, unspecified fever cause Acute pulmonary edema Procedures: EKG-12 Lead ROUTINE ONCE Date/Time: 07/02/2024 8:45 PM Performed by: Nupur Morin NP Authorized by: Nupur Morin NP ECG interpreted by ED Physician in the absence of a residential care facility manager: yes Previous ECG: Previous ECG: Compared to current Similarity: No change Interpretation: Interpretation: abnormal Rate: ECG rate: 112 ECG rate assessment: tachycardic Rhythm: Rhythm: sinus tachycardia Ectopy: Ectopy: none QRS: QRS axis: Normal QRS intervals: Normal QRS conduction: normal ST segments: ST segments: Normal T waves: T waves: non-specific and inverted Inverted: V1, V2 and V3 Q waves: Abnormal Q-waves: not present MDM: Karly Ruiz is a 38 year old female who present to the ED with chest pain / congestion with, cough and SOB x 1 day. Patient was seen at the urgent care with negative viral swabs and pending chest x-ray result, but was sent to the ED for further evaluation. She rated her pain a 3 on a scale of 0 to 10 and described it as sharp. DDX: ACS CARDIAC ARRHYTHMIAS DEHYDRATION ELECTROLYTE ABNORMALITY PULMONARY EDEMA CHF EXACERBATION COPD PLEURAL EFFUSION PNEUMOTHORAX PE BRONCHITIS PNEUMONIA STREP VIRAL SYNDROME LUNG MALIGNANCY SEPSIS Medical Decision Making Karly Ruiz is a 38 year old female who present to the ED with chest pain / congestion with, cough and SOB x 1 day. Patient was seen at the urgent care with negative viral swabs and pending chest x-ray result, but was sent to the ED for further evaluation. She rated her pain a 3 on a scale of 0 to 10 and described it as sharp. Problems Addressed: Acute pulmonary edema: acute illness or injury Chest pain, unspecified type: acute illness or injury Fever, unspecified fever cause: acute illness or injury SOB (shortness of breath): acute illness or injury Amount and/or Complexity of Data Reviewed Labs: ordered. Decision-making details documented in ED Course. Radiology: ordered. Decision-making details documented in ED Course. ECG/medicine tests: ordered. Decision-making details documented in ED Course. Risk OTC drugs. Decision regarding hospitalization. Risk Details: Patient with fever and SOB pulmonary edema. There is a possibility of worsening symptoms or negative outcomes for patient without further care and evaluation beyond ED. Patient is going to benefit from hospital stay, plan discussed with patient and she verbalized understanding and agrees. Flowsheet Documentation: Scoring Tools: No data recorded Disposition/Condition: ED Disposition ED Disposition Admit - Observation Condition Stable Comment -- Discharge Medications: Patient's Medications START taking these medications No medications on file CONTINUE taking these medications which have NOT CHANGED ALBUTEROL 90 MCG/ACTUATION INHALER Inhale 2 Puffs every 6 (six) hours as needed for Wheezing or Bronchospasm. AMOXICILLIN 500 MG CAPSULE Take 1 capsule by mouth in the morning and 1 capsule at noon and 1 capsule in the evening. APIXABAN (ELIQUIS) 5 MG TABLET Take 1 tablet by mouth in the morning and 1 tablet in the evening. Indications: heart failure with reduced ejection fraction AUG BETAMETHASONE DIPROPIONATE 0.05 % OINTMENT Apply to area(s) 2 (two) times daily. CLOTRIMAZOLE 1 % TOPICAL CREAM Apply to area(s) at bedtime. FUROSEMIDE (LASIX) 20 MG TABLET Take 1 tablet by mouth in the morning. METOPROLOL SUCCINATE XL 25 MG 24 HR TABLET Take 1 tab daily if bp is over 110/60 PREGABALIN (LYRICA) 50 MG CAPSULE Take 1 capsule by mouth at bedtime. ROPINIROLE 0.25 MG TABLET Start 0.25mg PO qpm x 2 days then increase to 0.5mg PO qpm SACUBITRIL-VALSARTAN (ENTRESTO) 24-26 MG TABLET Take 1 tablet by mouth in the morning and 1 tablet in the evening. TIRZEPATIDE, WEIGHT LOSS, (ZEPBOUND) 2.5 MG/0.5 ML SUBCUTANEOUS INJECTION inject 2.5 mg under the skin weekly. START taking Modified Medications as Prescribed No medications on file STOP taking these medications No medications on file Follow-up: Electronically signed by: Nupur Morin NP 07/03/24216 CE LIE[employer]ENANT Associated attestation - Brianna Dowell DO - 07/03/2024 6:50 AM POLICE [employer] I was personally available for consultation in the Emergency Department during this encounter and patient evaluation by Nupur Morin. [facility] 2024-07-02 18:30:00 AdmissionCare Guideline: Heart Failure, Observation Based on the indications selected for the patient, the bed status of Observation was determined to be MET The following indications were selected as present at the time of evaluation of the patient: - Observation Care Admission Criteria - Observation care is indicated for 1 or more of the following: - Dyspnea AdmissionCare documentation entered by: Nupur Morin [facility] [employer], 28th edition, Copyright ? 2023 [facility] [employer] [facility] All Rights Reserved. [id number]:00 [facility] 2024-06-20 16:05:09 RX sent on 01/05/24. Not needed. Closing out. ON Pelaez LVN [facility] 2024-06-17 17:02:50 Karly Ruiz is a 38 year old female ,received request for Doxycycline Hyclate 100 mg refill and Prior Authorization . The Henry :[email or web address] and the form will be in the providers office . CE LIEUTENANT Sarah Negrete [facility] 2024-06-13 16:45:19 Received PA Henry: [email or web address] Placed in provider box. CE LIEUTENANT Wilbur Bustamante [facility] 2024-04-01 16:12:09 Routing to provider Controlled RX [facility] 2024-03-29 09:42:27 Last Refilled: Disp Refills Start End BLAKE apixaban (ELIQUIS) 5 mg tablet 180 tablet 0 10/06/2023 -- No Sig: Take 1 tablet by mouth in the morning and 1 tablet in the evening. Indications: heart failure with reduced ejection fraction Sent to pharmacy as: apixaban 5 mg tablet (Eliquis) Class: eRX Route: Oral Order: [id number] Date/Time Signed: 10/06/2023 15:27 E-Prescribing Status: Receipt confirmed by pharmacy (10/06/2023 3:28 PM CDT) Disp Refills Start End BLAKE furosemide (LASIX) 20 mg tablet 90 tablet 0 12/01/2023 -- No Sig: Take 1 tablet by mouth in the morning. Sent to pharmacy as: furosemide 20 mg tablet (Lasix) Class: eRX Route: Oral Order: [id number] Date/Time Signed: 12/01/2023 08:01 E-Prescribing Status: Receipt confirmed by pharmacy (12/01/2023 8:01 AM CDT) Disp Refills Start End BLAKE metoprolol succinate XL 25 mg 24 hr tablet 90 tablet 1 10/06/2023 -- No Sig: Take 1 tab daily if bp is over 110/60 Sent to pharmacy as: metoprolol succinate ER 25 mg tablet,extended release 24 hr (TOPROL XL) Class: eRX Order: [id number] Date/Time Signed: 10/06/2023 15:27 E-Prescribing Status: Receipt confirmed by pharmacy (10/06/2023 3:28 PM CDT) Disp Refills Start End BLAKE sacubitriL-valsartan (ENTRESTO) 24-26 mg tablet 180 tablet 1 10/06/2023 -- No Sig: Take 1 tablet by mouth in the morning and 1 tablet in the evening. Sent to pharmacy as: Entresto 24 mg-26 mg tablet (sacubitriL-valsartan) Class: eRX Route: Oral Order: [id number] Date/Time Signed: 10/06/2023 15:27 E-Prescribing Status: Receipt confirmed by pharmacy (10/06/2023 3:28 PM CDT) Notes: Please review and fill if appropriate Recent Visits Date Type Provider Dept 03/28/24 Office Visit Tierra Whitt MD [facility] 03/09/24 Office Visit Braden Alcocer FNP [facility] 01/14/24 Office Visit Chapin Wilson MD [facility] 01/05/24 Office Visit Braden Alcocer FNP [facility] 11/30/23 Office Visit Braden Alcocer FNP [facility] 11/02/23 Office Visit Chapin Wilson MD [facility] 10/06/23 Office Visit Braden Alcocer FNP [facility] Showing recent visits within past 540 days with a meds authorizing provider and meeting all other requirements Future Appointments Date Type Provider Dept 06/10/24 Appointment Braden Alcocer FNP [facility] Showing future appointments within next 150 days with a meds authorizing provider and meeting all other requirements ON Reynoso RN [facility] 2024-01-14 12:15:00 Addended by: CHAPIN WILSON MD on: 01/14/2024 12:32 PM Modules accepted: Orders [facility] 2024-01-05 10:00:00 Images from the original note were not included. Venipuncture collection performed by clean technique on the right forearm(s). Total of 3 attempts were made. Slight pressure and a bandage/dressing were applied to the site(s). The patient experienced no complications. The following specimens were processed according to instructions and sent to [facility] laboratories per lab order on 01/05/2024 : LT BLUE SST 1 RED LAV PPT DK GREEN (LiHep) DK GREEN (SodH) MCFADDEN DK BLUE (K2) DK BLUE (S) ACD Blood Culture NIPT/NTD [facility] 2023-12-13 16:19:02 Pt given printed and verbal discharge instructions regarding COVID, acute cough, and chest pain.Pt verbalized understanding of instructions, pt awake alert oriented, resp reg unlabored, skin w/d, color appropriate for race, moves all ext well. Advised to seek medical attention for new/prolonged/worsening of symptoms. No adverse reaction to meds given in ER noted upon discharge. Awake, alert oriented, resp reg unlabored, skin w/d, pt leaving amb with steady gait, in no apparent distress Accompanied by spouse. Lori Strauss RN [facility] 2023-12-13 15:41:20 Provider at bedside T [facility] 2023-12-13 13:01:41 Pt refused viral swab. Trina Jacobsen RN [facility] 2023-12-13 11:55:11 Pt walks with a walker with , states" she went to urgent care yesterday and they said she had pneumonia, but we did not get the medicine yet, it will not be available until 2pm today" Mitra Calvillo RN [facility] 2023-12-01 09:21:21 Contacted patient. Patient notified of results per provider. Verbalized understanding. Mag Rodriguez [facility] 2023-12-01 08:00:43 Lasix 20mg daily sent to pharm T [facility] 2023-11-30 15:30:00 Images from the original note were not included. Venipuncture collection performed by clean technique on the back of right hand. Total of 3 attempts were made. Slight pressure and a bandage/dressing were applied to the site(s). The patient experienced no complications. The following specimens were processed according to instructions and sent to [facility] laboratories per lab order on today: LT BLUE SST 1 shared specimen RED LAV PPT DK GREEN (LiHep) DK GREEN (SodH) MCFADDEN DK BLUE (K2) DK BLUE (S) ACD Blood Culture NIPT/NTD Patient was a hard stick.Jacy Rodríguez 11/30/2023 3:55 PM [facility] 2023-11-09 12:56:00 Gabapentin- Denied Henry: [email or web address] Mag Rodriguez [facility] 2023-11-09 09:13:23 Addended by: BRADEN ALCOCER on: 11/09/2023 09:13 AM Modules accepted: Orders [facility] 2023-11-06 14:15:00 Images from the original note were not included. Venipuncture collection performed by clean technique on the left anticubitus. Total of 1 attempts were made. Slight pressure and a bandage/dressing were applied to the site(s). The patient experienced no complications. The following specimens were processed according to instructions and sent to [facility] laboratories per lab order on 11/06/2023 : LT BLUE SST RED LAV PPT DK GREEN (LiHep) DK GREEN (SodH) MCF[place]EN DK BLUE (K2) DK BLUE (S) ACD Blood Culture NIPT/NTD 2 lt green T [facility] 2023-11-05 09:35:32 Addended by: MICA PELAEZ LVN on: 11/05/2023 09:35 AM Modules accepted: Orders T [facility] 2023-11-05 09:33:14 PA for Gabapentin initiated on 11/05/2023: Outcome Denied today PA Case: [id number] Status: Denied The health plan has a limit on the amount of this drug, 139 capsules per 30 days. We did not see why you need more than this amount. We cannot approve the amount requested, but you may fill up to the limit. Please review and advise. Gabapentin 300mg Take 2 capsules by mouth 3 (three) times daily for 14 days, THEN 1 capsule 3 (three) times daily for 28 days =174 cap [facility] 2023-11-03 17:01:13 Images from the original note were not included. Received PA Henry Placed in provider's box T Rose Mary Dotson [facility] 2023-10-30 10:50:23 Spoke to patient advised her about urgent care and she stated she will be fine until her 11/02/23 appointment . Denisha Diaz [facility] 2023-10-29 16:27:42 Please schedule patient or inform urgent care is also an option per Dr. Jennings [facility] 2023-10-29 15:52:05 Any available provider or urgent care [facility] 2023-10-29 14:52:12 Please advise [facility] 2023-10-28 14:50:49 I am not taking new patients, why schedule with me? [facility] ST[facility] 2023-10-28 14:35:57 Please advise [facility] 2023-10-28 14:24:12 Karly Ruiz is a 38 year old female Patient states she is having worsening side effects caused by her gabapentin and duloxetine. Currently experiencing an increasing amount of sweating and fatigue. Wanting to follow up with provider, but next available was further out than preferred. Follow up with Dr. Wilson scheduled. Please advise. Future Appointments Provider Department Dept Phone 11/02/2023 3:15 PM Chapin Wilson MD [facility] [phone] Pio Mata [facility] 2023-10-09 13:16:41 Received medical records from [facility] Scanned into pts chart. Melissa Jimenez [facility] 2023-10-07 08:29:06 Pt has signed medical release form and was faxed to the designated facility for request of records. Scanned into the patient's chart. Marta Lopez [facility] 2023-10-06 15:45:00 Images from the original note were not included. Venipuncture collection performed by clean technique on the left anticubitus. Total of 1 attempts were made. Slight pressure and a bandage/dressing were applied to the site(s). The patient experienced no complications. The following specimens were processed according to instructions and sent to [facility] laboratories per lab order on TODAY: LT BLUE SST RED LAV 2 PPT LTGREEN (LiHep) 1 DK GREEN (SodH) MCFADDEN DK BLUE (K2) DK BLUE (S) ACD Blood Culture NIPT/NTD [facility] 2023-01-25 15:46:50 Formatting of this n ote might be different from the original. Discharged home ambulatory. Instructions given and signed by patient. Omar Bland RN [facility] 2023-01-25 10:35:58 Formatting of this n ote might be different from the original. Patient states: "It started Thursday with sneezing all day. Nathaniel night the cough hit with fever. The chest discomfort started yesterday. I took a covid test and it was negative. I feel like it's either my bronchitis, pneumonia or chf flaring up. I'm coughing up green puss like snot" Mikala Acosta RN [facility] 2017-09-18 12:35:00 EXAM: XR CHEST 1 VIE W DATE: 09/18/2017 12:31 PM CDT INDICATION: - SOB COMPARISON: PA and lateral [...] to patient positioning). The lungs are clear. [facility] 2017-09-07 19:12:00 EXAM: XR PANOREX DATE: 09/07/2017 3:49 PM CDT INDICATION: - infection ADDITIONAL INFORMATION: 'tooth ache' [...] first premolar and left maxillary second premolar. [facility] 2016-04-26 19:40:31 Patient Name: KARLY RUIZ : 1985; Age: 30 years y/o Female MR: [id number] Study: Chest 2 views DX 04/26/2016 7:20 PM POLICE L[employer]ENANT Ordering Physician: Myriam Bui, MSN Comparison: 10/30/2014 [...] at the sternum. IMPRESSION: Lingular pneumonia. SL: [id number] [facility] 2015-08-22 23:40:00 Study: Abdomen RUQ US Clinical Indication: Right [...] otherwise unremarkable right upper quadrant ultrasound. SL: [id number] [facility] 2015-08-22 23:16:00 Study: Preg < 14wks Single gest w Transvag US ; Age: 29 years y/o Female Clinical Indication: Abdominal pain, acute; Comparison: None [...] 4. Mild enlargement of the uterus. SL: [id number] [facility] 2015-01-22 15:56:00 CT ABDOMEN AND PELVI S WITHOUT CONTRAST, WITH RENAL STONE PROTOCOL. INDICATION: Right lower abdominal pain COMPARISON: CT [...] Fatty liver and contracted gallbladder. SL: 12 [facility] 2014-10-30 16:01:02 PROCEDURE: Chest 2 v iews REASON FOR EXAM: See Clinic Indication CLINICAL INFORMATION Cough and fever COMPARISON: 10/2014. 10/2013 multiple x-rays. 07/2012. Right infrahilar pneumonia increased from the prior exams. Increased left lower lobe infiltrate. No effusions or pneumothorax. Normal heart and pulmonary vasculature. Intact osseous structures. IMPRESSION: Increased pneumonia. SL: 14 [facility] 2014-10-30 00:55:00 EXAM: Portable chest x-ray. HISTORY: Chest pain. COMPARISON: 11/04/2013. TECHNIQUE: Portable frontal view of the chest. FINDINGS: Shallow inspiration accentuates the pulmonary vessels. Question mild interstitial pneumonia versus superimposed vessels right infrahilar lung; correlate with physical exam. No pulmonary edema or significant pleural effusion. Heart size normal. SL: 12 [facility] 2013-11-04 06:42:00 Portable chest: Ther e has been improvement in the left lung opacity since 11/01/2013 with near resolution. The lungs and pleural spaces are otherwise clear. There is no other significant change. SL:13 [facility] 2013-11-01 03:12:00 HISTORY: Shortness o f breath. One view chest. Comparison 07/16/2012. Left perihilar [...] in the appropriate clinical setting. SL: 14 [facility]
--- NOTE | 2024-08-21 14:52 | ER ---
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 Coronavirus screen: At this time, the client does not indicate any symptoms associated with coronavirus-19. Ebola Screen: No symptoms or risks identified at this time. Initial Sepsis Screen: Does the patient meet any 2 criteria? No. Patient's initial sepsis screen is negative. Does the patient have a suspected source of infection? No. Patient's initial sepsis screen is negative. Risk Assessment: Do you want to hurt yourself or someone else? Patient reports no desire to harm self or others. Onset of symptoms was August 02, 2024. 13:46 Acuity: LAUREN 4 iw 13:46 Method Of Arrival: Ambulatory iw Historical: - Allergies: 13:50 Benadryl; iw 13:50 Claritin; iw 13:50 Aspirin; iw 13:50 Nitroglycerin; iw 13:50 Phenergan; iw 13:50 Vancomycin; iw 13:50 Zofran; iw 13:50 Zyrtec; iw - PMHx: 13:50 carpal tunnel syndrome; PCOS; Transposition of the great vessels; Congestive heart iw failure; - PSHx: 13:51 section; carpal tunnel; right elbow; open heart surgery; iw 13:53 tracheostomy and reversal; iw - Immunization history:: Adult Immunizations not up to date. - Infectious Disease History:: Denies. - Social history:: Smoking status: Patient denies any tobacco usage or history of. Screenin:22 [facility] ED Fall Risk Assessment (Adult) History of falling in the last 3 months, iw including since admission No falls in past 3 months (0 pts) Confusion or Disorientation No (0 pts) Intoxicated or Sedated No (0 pts) Impaired Gait No (0 pts) Mobility Assist Device Used No (0 pt) Altered Elimination No (0 pt) Score/Fall Risk Level 0 - 2 = Low Risk Oriented to surroundings, Maintained a safe environment. Abuse screen: Denies threats or abuse. Denies injuries from another. Nutritional screening: No deficits noted. Tuberculosis screening: No symptoms or risk factors identified. Assessment: 13:50 General: Appears in no apparent distress. Behavior is calm, cooperative. Pain: iw Complains of pain in right wrist Pain currently is 5 out of 10 on a pain scale. Neuro: Level of Consciousness is awake, alert, obeys commands, Oriented to person, place, time, situation, Moves all extremities. Cardiovascular: Patient's skin is warm and dry. Respiratory: Respiratory effort is even, unlabored, Respiratory pattern is regular. Derm: Skin is healthy with good turgor. Musculoskeletal: Range of motion: limited in right wrist. Vital Signs: 13:46 BP 140 / 94; Pulse 100; Resp 18; Temp 97.6; Pulse Ox 93% on R/A; Weight 145.15 kg; iw Height 5 ft. 1 in. ; Pain 8/10; 13:46 Body Mass Index 60.46 (145.15 kg, 154.94 cm) iw 13:46 Pain Scale: Adult iw ED Course: 13:25 Patient arrived in ED. mr 13:26 Annabelle Gagnon MD is Attending Physician. sp3 13:50 Triage completed. iw 13:52 Arm band placed on. iw 14:37 Wrist Right 3 View XRAY In Process Unspecified. EDMS 14:50 Patient has correct armband on for positive identification. iw 14:51 Fabian Paz MD is Referral Physician. sp3 15:22 Dora Velasquez, RN is Primary Nurse. iw 15:22 No provider procedures requiring assistance completed. Patient did not have IV access iw during this emergency room visit. Administered Medications: No medications were administered Medication: 15:22 VIS not applicable for this client. iw Outcome: 14:51 Discharge ordered by . sp3 15:22 Discharged to home ambulatory, with family, iw 15:22 Condition: good 15:22 Discharge instructions given to patient, Instructed on discharge instructions, follow up and referral plans. medication usage, Demonstrated understanding of instructions, follow-up care, medications, Prescriptions given X 1, 15:23 Patient left the ED. iw Signatures: Dispatcher [employer] EDMaxine Tipton, Reg Reg mr Dora Velasquez, RN RN Annabelle Mccormick MD MD sp3 Corrections: (The following items were deleted from the chart) 13:50 13:46 Resp 18bpm; Temp 97.6F; Pain 12/25, Adult; kameron melo
--- NOTE | 2024-08-21 14:52 | EDPHYS ---
Physician Documentation [facility] Name: Karly Hamlin Age: 38 yrs Sex: Female : 1985 Arrival Date: 08/21/2024 Time: 13:23 Bed 12 Private MD: ED Physician Annabelle Gagnon HPI: 08/21 14:09 This 38 yrs old Female presents to ER via Ambulatory with complaints of Wrist Pain, sp3 Hand Pain. 14:09 38-year-old female with history of PCOS, transposition of the great vessels as a child, sp3 CHF, carpal tunnel syndrome, obesity now presents to the ED with chief complaint right wrist pain for the last month or so. Patient saw PCP who gave her diclofenac which has minimally helped. She is here seeking further consultation. She denies any direct trauma, rash, redness, warmth, fever, other joint pain, or any other signs or symptoms on ROS at this time.. Historical: - Allergies: 13:50 Benadryl; iw 13:50 Claritin; iw 13:50 Aspirin; iw 13:50 Nitroglycerin; iw 13:50 Phenergan; iw 13:50 Vancomycin; iw 13:50 Zofran; iw 13:50 Zyrtec; iw - PMHx: 13:50 carpal tunnel syndrome; PCOS; Transposition of the great vessels; Congestive heart iw failure; - PSHx: 13:51 section; carpal tunnel; right elbow; open heart surgery; iw 13:53 tracheostomy and reversal; iw - Immunization history:: Adult Immunizations not up to date. - Infectious Disease History:: Denies. - Social history:: Smoking status: Patient denies any tobacco usage or history of. ROS: 14:11 Constitutional: Negative for fever, chills, and weight loss, Eyes: Negative for injury, sp3 pain, redness, and discharge, Neck: Negative for injury, pain, and swelling, Cardiovascular: Negative for chest pain, palpitations, and edema, Respiratory: Negative for shortness of breath, cough, wheezing, and pleuritic chest pain, Abdomen/GI: Negative for abdominal pain, nausea, vomiting, diarrhea, and constipation, Back: Negative for injury and pain, Skin: Negative for injury, rash, and discoloration, Neuro: Negative for headache, weakness, numbness, tingling, and seizure, Psych: Negative for depression, anxiety, suicide ideation, homicidal ideation, and hallucinations, Allergy/Immunology: Negative for hives, rash, and allergies, Endocrine: Negative for neck swelling, polydipsia, polyuria, polyphagia, and marked weight changes, Hematologic/Lymphatic: Negative for swollen nodes, abnormal bleeding, and unusual bruising, 14:11 All other systems are negative, Exam: 14:11 Constitutional: This is a well developed, well nourished patient who is awake, alert, sp3 and in no acute distress. Head/Face: Normocephalic, atraumatic. Eyes: Pupils equal round and reactive to light, extra-ocular motions intact. Lids and lashes normal. Conjunctiva and sclera are non-icteric and not injected. Cornea within normal limits. Periorbital areas with no swelling, redness, or edema. Neck: Trachea midline, no thyromegaly or masses palpated, and no cervical lymphadenopathy. Supple, full range of motion without nuchal rigidity, or vertebral point tenderness. No Meningismus. Chest/axilla: Normal chest wall appearance and motion. Nontender with no deformity. No lesions are appreciated. Cardiovascular: Regular rate and rhythm with a normal S1 and S2. No gallops, murmurs, or rubs. Normal PMI, no JVD. No pulse deficits. Respiratory: Lungs have equal breath sounds bilaterally, clear to auscultation and percussion. No rales, rhonchi or wheezes noted. No increased work of breathing, no retractions or nasal flaring. Abdomen/GI: Soft, non-tender, with normal bowel sounds. No distension or tympany. No guarding or rebound. No evidence of tenderness throughout. Back: No spinal tenderness. No costovertebral tenderness. Full range of motion. Skin: Warm, dry with normal turgor. Normal color with no rashes, no lesions, and no evidence of cellulitis. Neuro: Awake and alert, GCS 15, oriented to person, place, time, and situation. Cranial nerves II-XII grossly intact. Motor strength 5/5 in all extremities. Sensory grossly intact. Cerebellar exam normal. Normal gait. Psych: Awake, alert, with orientation to person, place and time. Behavior, mood, and affect are within normal limits. 14:11 Musculoskeletal/extremity: Pain on the proximal thumb tendons. Positive pain on de Quervain's test. Distal neurovascular exam is normal.. Vital Signs: 13:46 BP 140 / 94; Pulse 100; Resp 18; Temp 97.6; Pulse Ox 93% on R/A; Weight 145.15 kg; iw Height 5 ft. 1 in. ; Pain 8/10; 13:46 Body Mass Index 60.46 (145.15 kg, 154.94 cm) iw 13:46 Pain Scale: Adult iw MDM: 13:47 Medical Screening Exam initiated sp3 14:12 Data reviewed: vital signs, nurses notes, radiologic studies. ED course: De Quervain's sp3 tendinitis versus other tendinitis versus fracture versus wrist sprain. X-ray pending to ensure no fracture. Will discharge on Velcro wrist splint and tramadol to augment her existing diclofenac. Follow-up with orthopedics.. 14:50 ED course: X-ray normal. We will proceed as planned above.. sp3 08/21 13:58 Order name: Wrist Right 3 View XRAY sp3 08/21 14:51 Order name: Wrist Splint: Velcro; Complete Time: 15:22 sp3 Administered Medications: No medications were administered Disposition Summary: 08/21/24 14:51 Discharge Ordered Notes: Location: Home sp3 Condition: Stable sp3 Diagnosis - De Quervain's tendinitis sp3 Followup: sp3 - With: Fabian Paz MD - When: Upon discharge from the Emergency Department - Reason: Recheck today's complaints Discharge Instructions: - Discharge Summary Sheet sp3 - Tendinitis sp3 Forms: - Medication Reconciliation Form sp3 - Antibiotic Education sp3 - Prescription Opioid Use sp3 - Patient Portal Instructions sp3 - Leadership Thank You Letter sp3 Prescriptions: - Tramadol 50 mg Oral Tablet - take 1 tablet ORAL route every 8 hours as needed; 12 tablet; Refills: 0, sp3 Product Selection Permitted Signatures: Dispatcher [employer] Dora Gandhi RN RN iw Annabelle Gagnon MD MD sp3
[2024-08-21 15:27] VITALS: BP 140/94; TEMP 97.6; O2SAT 93
--- NOTE | 2024-08-21 15:53 | RAD REPORT ---
EXAM: XR Wrist Right 3 View HISTORY: [facility] MAIN PAIN Bed Name: 12 COMPARISON: None TECHNIQUE: 3 views of the right wrist. FINDINGS: No evidence of acute fracture or dislocation. Joint alignment is maintained. No soft tissue swelling is seen. No significant degenerative changes are present. IMPRESSION: No evidence of acute osseous abnormality.
== END 2024-08-21 15:23 | disposition home or self-care (01) ==
LOC: ER 13:23
DX: M65.4 Radial styloid tenosynovitis [de Quervain] (principal)